=== PATIENT | female | born 1960 | race Caucasian/White ===

== ENCOUNTER → 2017-08-30 16:10 | Outpatient (CLI) | payer MEDICARE, SELFPAY ==
[2017-08-30 17:04] LABS: AST(SGOT) 16 U/L (15-37); Alanine Aminotransfer ALT/SGPT 23 U/L (13-56); Albumin, Serum 3.8 g/dL (3.2-5.0); Alkaline Phosphatase 83 U/L (45-117); Anion Gap 10 (5-15); BUN 11 mg/dL (7-18); BUN/Creat Ratio 9.6 RATIO (10-20); Chloride 110 mmol/L (98-107); Cholesterol 191 mg/dL (200); Creatinine, Serum 1.14 mg/dL (0.55-1.02); EST Glomerular Filtration Rate 52 mL/min (>60); Est Glom Filt Rate - Afr Amer 63 mL/min (>60); Ferritin 6 ng/mL (8-252); Globulin 3.7 g/dL (2.2-4.2); Glucose 87 mg/dL (74-106); High Density Lipoprotein 51 mg/dL; Iron 53 ug/dL (50-170); Iron Binding Capacity,Total 479 ug/dL (250-450); Potassium 3.8 mmol/L (3.5-5.1); Protein, Total 7.5 g/dL (6.4-8.2); Sodium Level 144 mmol/L (136-145); Triglycerides 139 mg/dL; Very Low Density Lipoprotein 28 mg/dL (5-40)
[2017-08-31 09:40] LABS: Vitamin D,25 Hydroxy 9.5 ng/mL (29.95-100.01)
== END ==
PROVIDERS: Family Provider Internal Medicine; PCP Internal Medicine; Visit Provider Internal Medicine
DX: E55.9 Vitamin D deficiency, unspecified (principal); E61.1 Iron deficiency; E78.00 Pure hypercholesterolemia, unspecified; Z79.899 Other long term (current) drug therapy
CPT/HCPCS: 80053; 80061; 82306; 82728; 83540; 83550

== ENCOUNTER → 2017-11-26 07:55 | Outpatient (CLI) | payer MEDICARE, SELFPAY ==
--- NOTE | 2017-11-26 07:55 | DT_ITS ---
This patient was seen during an EMR downtime November 26, 2017 - December 03, 2017. This patient may have a combination of paper and electronic documentation or all paper documentation. All documentation is viewable within the e-chart portion of [employer] for each patient visit.
[2017-11-30 21:48] LABS: AST(SGOT) 27 U/L (15-37); Albumin, Serum 3.3 g/dL (3.2-5.0); BUN 13 mg/dL (7-18); BUN/Creat Ratio 10.2 RATIO (10-20); Calcium,Total 8.3 mg/dL (8.5-10.1); Creatinine, Serum 1.28 mg/dL (0.55-1.02); EST Glomerular Filtration Rate 46 mL/min (>60); Est Glom Filt Rate - Afr Amer 56 mL/min (>60); Globulin 3.2 g/dL (2.2-4.2); Glucose 82 mg/dL (74-106); Protein, Total 6.5 g/dL (6.4-8.2)
[2017-11-30 21:49] LABS: Alanine Aminotransfer ALT/SGPT 23 U/L (13-56); Alkaline Phosphatase 69 U/L (45-117); Anion Gap 6 (5-15); Chloride 114 mmol/L (98-107); Cholesterol 117 mg/dL (200); Ferritin 6 ng/mL (8-252); High Density Lipoprotein 50 mg/dL; Iron 34 ug/dL (50-170); Iron Binding Capacity,Total 361 ug/dL (250-450); Potassium 3.3 mmol/L (3.5-5.1); Sodium Level 147 mmol/L (136-145); Triglycerides 71 mg/dL; Very Low Density Lipoprotein 14 mg/dL (5-40)
[2017-11-30 21:50] LABS: Hematocrit 39.3 % (37-47); Hemoglobin 12.1 g/dl (12.0-15.0); Mean Corp Hgb Conc 30.8 g/gl (32-36); Mean Corpuscular Hgb 28.3 pg (27.0-32.0); Mean Corpuscular Volume 91.8 fL (81-99); Mean Platelet Vol. 10.4 fl (6.2-12.0); Platelet Count 283 K/mm3 (150-450); RBC Distribution Width CV 14.2 % (11.6-14.6); Red Blood Count 4.28 M/mm3 (4.2-5.4); Scan Indicated on CBC? Y/N NO; White Blood Count 5.2 K/mm3 (4.4-11.0)
[2017-12-03 09:29] LABS: Vitamin B12 189 pg/mL (211-911); Vitamin D,25 Hydroxy 13.6 ng/mL (29.95-100.01)
== END ==
PROVIDERS: Family Provider Internal Medicine; PCP Internal Medicine; Visit Provider Internal Medicine
DX: E53.8 Deficiency of other specified B group vitamins (principal); E55.9 Vitamin D deficiency, unspecified; E78.00 Pure hypercholesterolemia, unspecified; R79.0 Abnormal level of blood mineral; Z79.899 Other long term (current) drug therapy
CPT/HCPCS: 80053; 80061; 82306; 82607; 82728; 83540; 83550; 85027

== ENCOUNTER 2018-05-24 18:19 | Observation (INO) | payer MEDICARE, SELFPAY ==
[2018-05-24] VITALS (9 sets, daily range): BP systolic 102–147; BP diastolic 52–81; PULSE 54–66; RESP 14–18; TEMP 35.8–36.8; O2SAT 95–100; BMI 15.5; BMI 17.1
--- NOTE | 2018-05-24 18:51 | EKG12_ITS ---
Test Reason : N/V Blood Pressure : / mmHG Vent. Rate : 055 BPM Atrial Rate : 055 BPM P-R Int : 520 ms QRS Dur : 086 ms QT Int : 570 ms P-R-T Axes : 000 051 252 degrees QTc Int : 545 ms Sinus bradycardia with 1st degree A-V block ST & T wave abnormality, consider inferior ischemia ST & T wave abnormality, consider anterolateral ischemia Prolonged QT Abnormal ECG Confirmed by KIP MARTÍNEZ, DALIA ([id number]), offline editor FRANCESCO VALLE ([id number]) on 05/28/2018 2:06:01 PM Referred By: MATTIE Confirmed By:DALIA SHIN MD
[2018-05-24] MEDS: 0.9% Normal Saline 1,000 ML 1000 ML IV (19:19)
[2018-05-24] MEDS: Ondansetron 4 MG/2 ML Vial IV (19:19)
[2018-05-24 19:47] LABS: Absolute Lymphocyte Count 1.42 X10^3/ul (0.83-4.51); Absolute Neutrophil Count 2.9 X10^3/uL (2.0-7.7); Basophil# 0.04 X10^3/uL; Basophil% 0.8 % (0-1); Eosinophil# 0.07 X10^3/uL; Eosinophils% 1.4 % (0-5); Hematocrit 38.9 % (37-47); Hemoglobin 12.6 g/dl (12.0-15.0); Lymphocyte # 1.42 X10^3/ul (4.0); Lymphocyte % 28.2 % (19-41); Mean Corp Hgb Conc 32.4 g/gl (32-36); Mean Corpuscular Hgb 26.9 pg (27.0-32.0); Mean Corpuscular Volume 83.1 fL (81-99); Mean Platelet Vol. 9.3 fl (6.2-12.0); Monocyte# 0.59 X10^3/uL; Monocyte% 11.7 % (0-10); Neutrophil % 57.7 % (47-70); Platelet Count 240 K/mm3 (150-450); RBC Distribution Width CV 13.8 % (11.6-14.6); RBC Distribution Width SD 41.6 fl (35.1-43.9); Red Blood Count 4.68 M/mm3 (4.2-5.4)
[2018-05-24 19:50] LABS: POSITIVE COUNT NO; POSITIVE DIFFERENTIAL NO; POSITIVE MORPHOLOGY NO
[2018-05-24] MEDS: Ketorolac 15 MG/ML Vial IV ×2 (20:06→21:28)
[2018-05-24 20:08] LABS: AST(SGOT) 13 U/L (15-37); Alanine Aminotransfer ALT/SGPT 15 U/L (13-56); Albumin, Serum 3.3 g/dL (3.2-5.0); Alkaline Phosphatase 85 U/L (45-117); Anion Gap 8 (5-15); BUN 21 mg/dL (7-18); BUN/Creat Ratio 18.1 RATIO (10-20); Bilirubin, Direct 0.12 mg/dL (0.00-0.30); Calcium,Total 8.7 mg/dL (8.5-10.1); Chloride 102 mmol/L (98-107); Creatinine, Serum 1.16 mg/dL (0.55-1.02); EST Glomerular Filtration Rate 51 mL/min (>60); Est Glom Filt Rate - Afr Amer 62 mL/min (>60); Estimated Creatinine Clearance 38.18 ml/min; Globulin 3.7 g/dL (2.2-4.2); Glucose 115 mg/dL (74-106); Potassium 2.5 mmol/L (3.5-5.1); Sodium Level 140 mmol/L (136-145)
[2018-05-24] MEDS: 0.9% Normal Saline 1,000 ML 150 ML IV (20:15)
[2018-05-24 21:08] LABS: Bacteria 0 SEEN /hpf (None Seen)
[2018-05-24 21:13] LABS: Color, Urine Yellow (Yellow); Glucose, Dipstick Normal (Normal); Ketone-Dipstick Negative (Negative); Leukocyte Esterase-Dipstick 25 /ul (Negative); Nitrite-Dipstick Negative (Negative); Occult Blood-Urine Negative /ul (Negative); Protein-Dipstick 15 mg/dl (Negative); Urine Bilirubin Dipstick Negative (Negative); Urine Clarity Cloudy (Clear); Urine Urobilinogen Normal (Normal)
--- NOTE | 2018-05-24 21:15 | ED.VISSUMM ---
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 Patient had worsening symptoms of the past couple of months. She is now had daily syncopal events over the past week or so and increased weight loss. She was seen at the [place] yesterday. Patient's states he received a call today questioning whether her dose of medications may be too high and need to be adjusted. They attempted to get blood work yesterday but could not get blood work from her. Patient denies fever. Physical Examination: Blood pressure is 102/52, temperature 96.4, heart rate 57, respiratory rate 15, pulse ox 95% on room air. Patient is a cachectic appearing female who appears much older than her stated age. Head neck examination reveals dry mucous membranes. Heart is bradycardic and regular. Lung sounds are clear. Abdomen is soft with mild diffuse tenderness. No guarding or rebound. Hypoactive but present bowel sounds are noted. Neuro exam reveals no focal deficits. Test Results: CBC is unremarkable. Chemistry studies are significant for potassium of 2.5, BUN 21, creatinine 1.16. LFTs are normal. Urinalysis is pending at this time. Emergency Department Course and Treatment: Patient is given IV fluids, Zofran, and Toradol. Upon completion of lab work 40 mEq of IV potassium are ordered. Patient will be admitted for further hydration and potassium replacement. Treatment Plan: [] Disposition: Admit Impression: 1. Hypokalemia 2. Syncope 3. History of Shy-Drager syndrome This note was generated with [employer] dictation software. It may contain incorrect words, spelling, and punctuation that were not noted in review of the chart prior to signing ED Disposition - Plan for ED Patient: Chief Complaint: Nausea/Vomiting/Diarrhea Referrals: Nena Velez MD [Primary Care Provider] -
--- NOTE | 2018-05-24 21:18 | ED.DCSUM_ITS ---
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 Patient had worsening symptoms of the past couple of months. She is now had daily syncopal events over the past week or so and increased weight loss. She was seen at the [place] yesterday. Patient's states he received a call today questioning whether her dose of medications may be too high and need to be adjusted. They attempted to get blood work yesterday but could not get blood work from her. Patient denies fever. Physical Examination: Blood pressure is 102/52, temperature 96.4, heart rate 57, respiratory rate 15, pulse ox 95% on room air. Patient is a cachectic appearing female who appears much older than her stated age. Head neck examination reveals dry mucous membranes. Heart is bradycardic and regular. Lung sounds are clear. Abdomen is soft with mild diffuse tenderness. No guarding or rebound. Hypoactive but present bowel sounds are noted. Neuro exam reveals no focal deficits. Test Results: CBC is unremarkable. Chemistry studies are significant for potassium of 2.5, BUN 21, creatinine 1.16. LFTs are normal. Urinalysis is pending at this time. Emergency Department Course and Treatment: Patient is given IV fluids, Zofran, and Toradol. Upon completion of lab work 40 mEq of IV potassium are ordered. Patient will be admitted for further hydration and potassium replacement. Treatment Plan: [] Disposition: Admit Impression: 1. Hypokalemia 2. Syncope 3. History of Shy-Drager syndrome This note was generated with [employer] dictation software. It may contain incorrect words, spelling, and punctuation that were not noted in review of the chart prior to signing ED Disposition - Plan for ED Patient: Chief Complaint: Nausea/Vomiting/Diarrhea Referrals: Nena Velez MD [Primary Care Provider] -
[2018-05-24 21:21] LABS: Hyaline Cast 0-5 SEEN /lpf (0-5)
[2018-05-24 21:23] LABS: Mucous, Urine 1+ /hpf (<or=2+)
[2018-05-24 21:24] LABS: White Blood Cells 0-5 SEEN /hpf (0-5)
[2018-05-24 21:25] LABS: Amorphous Sediment 2+; Red Blood Cells-Urine 0-5 SEEN /hpf (0-5); Transitional Epithelial - Ur 0-5 SEEN /hpf (0-5)
[2018-05-24 21:26] LABS: Squamous Epithelial Cells - UA 0-5 SEEN /hpf (5-10)
--- NOTE | 2018-05-24 21:33 | HP.PCM_ITS ---
Problem List (1) Syncope Status: Acute (2) Chronic back pain Status: Chronic (3) Fibromyalgia Status: Chronic (4) GERD (gastroesophageal reflux disease) Status: Chronic (5) Shy-Drager syndrome Status: Chronic (6) Tobacco use disorder Status: Chronic History of Present Illness Date of Admission: 05/24/18 Chief Complaint: nausea, vomiting, diarrhea and syncope The patient is a 57 year old F with a significant history of factor V Leiden deficiency; A. fib; sinus bradycardia; fibromyalgia; Shy-Drager syndrome; Arnold-Chiari malformation status post surgery; GERD; malabsorption disorder; tobacco use disorder; chronic back pain; and neuropathy who presented with worsening nausea, vomiting; diarrhea; and multiple episodes of syncope for the last 2 days. Patient reports that her presenting symptoms are not new but in the last 2 days this has worsened. At emergency department patient was found to have a potassium of 2.5. Potassium IV was ordered from the emergency department. Past Medical History Past Medical History (Chronic Problems): Chronic Problems Fibromyalgia (Chronic) GERD (gastroesophageal reflux disease) (Chronic) Shy-Drager syndrome (Chronic) Tobacco use disorder (Chronic) Chronic back pain (Chronic) Neuropathy (Chronic) Allergies codeine Allergy (Verified 05/24/18 18:19) Unknown duloxetine HCl [From Cymbalta] Allergy (Verified 05/24/18 18:19) Nausea/Vom/Diarrhea influenza virus vaccine, specific [Influenza Virus Vacc,Specific] Allergy (Verified 05/24/18 18:19) Other pineapple [Pineapple] Allergy (Verified 05/24/18 18:19) Rash pregabalin [From Lyrica] Allergy (Verified 05/24/18 18:19) Shortness of breath amitriptyline Adverse Reaction (Verified 05/24/18 18:19) Other hydrocodone Adverse Reaction (Verified 05/24/18 18:19) Vomiting levofloxacin [From Levaquin] Adverse Reaction (Verified 05/24/18 18:19) Nausea/Vom/Diarrhea Home Medications: Ambulatory Orders Medication Instructions Recorded Mexiletine HCl 250 mg PO BID 07/11/13 Tizanidine HCl [Zanaflex] 8 mg PO TID 07/11/13 Topiramate [Topamax] 75 mg PO TID 07/11/13 traMADol [Ultram] 200 mg PO TID 07/11/13 Albuterol Aerosols [Ventolin 2.5 mg INHALATION BID PRN 06/01/14 Aerosols] Albuterol Sulfate [Proventil Hfa] 6.7 gm IH DAILY PRN PRN 06/01/14 Aspirin [Aspirin, Baby] 81 mg PO QHS 06/01/14 Ergocalciferol [Vitamin D] 50,000 unit PO Q7D 06/01/14 Lidocaine [Lidoderm Patch] 1 patch TOPICAL DAILY PRN PRN 06/01/14 Lorazepam [Ativan] 1 mg PO TID 06/01/14 Cyanocobalamin [Vitamin B12] 100 mcg SC .COMPLEX 06/09/14 Ferrous Sulfate [Iron Supplement] 325 mg PO DAILY 06/09/14 Folic Acid 1 mg PO DAILY@0800 06/09/14 Hydrocortisone 5 mg PO TID 06/09/14 Mirtazapine [Remeron] 45 mg PO QHS 06/09/14 hydrOXYzine pamoate capsule 25 mg PO TID 06/09/14 [Vistaril] Atomoxetine HCl [Strattera] 50 mg PO DAILY 05/24/18 Dextroamphetamine/Amphetamine 10 mg PO BID 05/24/18 [Adderall 10 mg Tablet] Omeprazole 40 mg PO BID 05/24/18 traZODone [Desyrel] 50 mg PO QHS 05/24/18 Atorvastatin Calcium 40 mg PO 05/25/18 Ramelteon [Rozerem] 8 mg PO QHS 05/25/18 Surgical History: appendectomy, cholecystectomy, hysterectomy, - - Arnold-Chiari malformation surgery; expiratory laparoscopy x3; left oophorectomy; and right tuboplasty. Smoking Status: Current every day smoker Review of Systems Constitutional: Reports: Weight Change - Reportedly she lost about 20 pounds in 3 months.. Denies: Chills, Fever HEENT: Denies: Head Aches, Sinus Congestion, Sinus Drainage Cardiovascular: Reports: Syncope. Denies: Chest Pain, Palpitations Respiratory: Denies: Cough, Shortness of breath at rest, Sputum production Gastrointestinal: Reports: Abdominal Pain, Diarrhea, Nausea, Vomiting Genitourinary: Denies: Dysuria Musculoskeletal: Denies: Joint Pain, Joint Tenderness Skin: Denies: Rash, Wounds Neurological: Denies: Numbness, Tingling, Focal weakness Psychiatric: Denies: Anxiety, Depression, Homicidal Ideations, Suicidal Ideations Hematologic/ Lymphatic: Denies: Easy Bruising, Easy Bleeding VTE Information - Inpt Only VTE Present on Admission: No VTE Mechan Device Prophylaxis: None VTE Pharm Prophylaxis ordered?: Yes Patient Problems: Active and Suspected Problems Syncope (Acute) - Physical Exam General: Alert, Oriented x3, Cooperative, - - Cachectic HEENT: Atraumatic, PERRLA, EOMI, Normocephalic Neck: Supple, No JVD, Negative Carotid Bruits Lungs: Clear to auscultation, Normal air movement Cardiovascular: Regular rate, No murmurs Abdomen: Bowel Sounds Present, Soft, Tender, - - Healed abdominal scars present. Extremities: No edema, Capillary Refill Less than 3 Seconds Skin: No rashes, No breakdown Musculoskeletal: Cachexia Neurological: Neuro grossly intact Psych/Mental Status: Normal Affect, Appropriate Vital Signs Temp Pulse Resp BP Pulse Ox 96.4 F L 54 L 16 135/80 H 100 05/24/18 18:20 05/24/18 20:51 05/24/18 20:51 05/24/18 20:51 05/24/18 20:51 Oxygen Delivery Method Room Air Weight: 45.2 kg Body Mass Index (BMI) 15.5 Laboratory Tests Past 24 Hrs 05/24/18 05/24/18 05/24/18 19:18 19:18 19:18 WBC 5.0 RBC 4.68 Hgb 12.6 Hct 38.9 MCV 83.1 MCH 26.9 L MCHC 32.4 RDW 13.8 RDW Differential 41.6 Plt Count 240 MPV 9.3 Immature Gran % (Auto) 0.200 Neut % (Auto) 57.7 Lymph % (Auto) 28.2 [place] % (Auto) 11.7 H Eos % (Auto) 1.4 Baso % (Auto) 0.8 Absolute Neuts (auto) 2.9 Absolute Lymphs (auto) 1.42 Total Counted Not Reportable Sodium 140 Potassium 2.5 L* Chloride 102 Carbon Dioxide 30.0 Anion Gap 8 BUN 21 H Creatinine 1.16 H Estim Creat Clear Calc 38.18 Est GFR (MDRD) Af Amer 62 Est GFR (MDRD) Non-Af 51 L BUN/Creatinine Ratio 18.1 Glucose 115 H Calcium 8.7 Total Bilirubin 0.30 Direct Bilirubin 0.12 AST 13 L ALT 15 Alkaline Phosphatase 85 Total Protein 7.0 Albumin 3.3 Globulin 3.7 Urine Color Urine Clarity Urine pH Ur Specific [place] Urine Protein Urine Glucose (UA) Urine Ketones Urine Occult Blood Urine Nitrite Urine Bilirubin Urine Urobilinogen Ur Leukocyte Esterase Urine RBC Urine WBC Ur Squamous Epith Cells Ur Transition Epith Cell Amorphous Sediment Urine Bacteria Hyaline Casts Urine Mucus Topiramate Pending 05/24/18 20:50 WBC RBC Hgb Hct MCV MCH MCHC RDW RDW Differential Plt Count MPV Immature Gran % (Auto) Neut % (Auto) Lymph % (Auto) [place] % (Auto) Eos % (Auto) Baso % (Auto) Absolute Neuts (auto) Absolute Lymphs (auto) Total Counted Sodium Potassium Chloride Carbon Dioxide Anion Gap BUN Creatinine Estim Creat Clear Calc Est GFR (MDRD) Af Amer Est GFR (MDRD) Non-Af BUN/Creatinine Ratio Glucose Calcium Total Bilirubin Direct Bilirubin AST ALT Alkaline Phosphatase Total Protein Albumin Globulin Urine Color Yellow Urine Clarity Cloudy Urine pH 8.0 Ur Specific [place] 1.010 Urine Protein 15 H Urine Glucose (UA) Normal Urine Ketones Negative Urine Occult Blood Negative Urine Nitrite Negative Urine Bilirubin Negative Urine Urobilinogen Normal Ur Leukocyte Esterase 25 H Urine RBC 0-5 SEEN Urine WBC 0-5 SEEN Ur Squamous Epith Cells 0-5 SEEN Ur Transition Epith Cell 0-5 SEEN Amorphous Sediment 2+ Urine Bacteria 0 SEEN Hyaline Casts 0-5 SEEN Urine Mucus 1+ Topiramate Assessment/Plan All Active Problems Syncope (Acute) The patient is a 57 year old F with a significant history of factor V Leiden deficiency; A. fib; sinus bradycardia; fibromyalgia; Shy-Drager syndrome; Arnold-Chiari malformation status post surgery; GERD; malabsorption disorder; tobacco use disorder; chronic back pain; and neuropathy who presented with worsening nausea, vomiting; diarrhea; and multiple episodes of syncope for the last 2 days; and found to have hypokalemia. Syncope Likely from her Shy-Drager Syndrome and from her vomiting and diarrhea. Received normal saline IV fluid bolus at emergency department and maintenance normal saline was started in the emergency department. Because of hypokalemia we will start patient on lactated Ringer's with 40 of potassium going at 150 mL's per hour. Home hydrocortisone continued. Intractable nausea vomiting and diarrhea. Patient reports malabsorption syndrome for which she saw Dr. Khanna in the past. IV fluids as above. Hypokalemia On presentation her potassium was 2.5. Likely due to vomiting and diarrhea and malabsorption syndrome. IV potassium was ordered from the emergency department; continued Potassium 40 mEq p.o. twice daily Lactated Ringer's with 40 of potassium going at 150 mL's per hour. Trend BMP. Depression Patient reports that his drowned and he attempted to save him in the pond but he still . Also patient reported that her daughter is in longterm; and patient has 2 special needs children who were at bedside. Supportive listening provided. Remeron continued Anxiety Vistaril continued. Fibromyalgia Patient reports generalized pain. Received Toradol at emergency department. Patient was asking for more Toradol. However because of CKD stage 3a Toradol will not be ordered at this time As needed Tylenol ordered. Home Ultram continued. Tobacco use disorder Counselled Refused nicotine patch Miscellaneous: Patient reported that she has a history of iron deficiency anemia for which reason she was supposed to be started on IV iron at home. She was requesting that IV iron be started inpatient. On admission her hemoglobin and hematocrit is normal. Her MCH is slightly low but almost normal. Per patient request we will do iron studies. DVT prophylaxis Subcutaneous heparin. Code Visit OBSV E&M: 05346 Initial observation care L3
[2018-05-24 22:40] LABS: Ferritin 9 ng/mL (8-252); Iron 47 ug/dL (50-170); Iron Binding Capacity,Total 359 ug/dL (250-450); PERCENT IRON SATURATION 13.1 % (15.0-55.0)
[2018-05-24 23:00] LABS: Thyroid Stim Hormone (TSH) 2.43 uIU/mL (0.358-3.74)
[2018-05-25] VITALS (8 sets, daily range): BP systolic 94–133; BP diastolic 62–70; PULSE 53–73; RESP 14–20; TEMP 36.6–37.1; O2SAT 92–97
[2018-05-25] MEDS: Topiramate 25 MG Tablet 75 MG PO ×2 (00:06→05:38)
[2018-05-25] MEDS: traZODone 50 MG Tablet PO (00:06)
[2018-05-25] MEDS: tiZANidine HCl 2 MG Tablet 8 MG PO ×2 (00:06→05:39)
[2018-05-25] MEDS: hydrOXYzine PAM 25 MG Capsule PO ×2 (00:07→05:40)
[2018-05-25] MEDS: Mirtazapine 15 MG Tablet 45 MG PO (00:07)
[2018-05-25] MEDS: traMADol 50 MG Tablet 200 MG PO ×2 (00:28→05:39)
[2018-05-25] MEDS: LORazepam 1 MG Tablet PO ×2 (00:28→05:39)
[2018-05-25] MEDS: Albuterol 2.5 MG/3 ML VIAL.NEB. INHALATION (05:24)
[2018-05-25] MEDS: Heparin Injection (Vial) 5,000 UNIT/ML VIAL 5000 UNIT SC (05:42)
[2018-05-25 07:10] LABS: Hematocrit 32.2 % (37-47); Hemoglobin 10.1 g/dl (12.0-15.0)
[2018-05-25 07:33] LABS: Anion Gap 6 (5-15); BUN 18 mg/dL (7-18); BUN/Creat Ratio 17.8 RATIO (10-20); Calcium,Total 8.1 mg/dL (8.5-10.1); Chloride 114 mmol/L (98-107); Creatinine, Serum 1.01 mg/dL (0.55-1.02); EST Glomerular Filtration Rate 60 mL/min (>60); Est Glom Filt Rate - Afr Amer 72 mL/min (>60); Estimated Creatinine Clearance 48.12 ml/min; Glucose 103 mg/dL (74-106); Potassium 4.1 mmol/L (3.5-5.1); Sodium Level 145 mmol/L (136-145)
[2018-05-25] MEDS: Hydrocortisone 10 MG Tablet 5 MG PO (09:10)
[2018-05-25] MEDS: Ferrous Sulfate 325 MG Tablet PO (09:10)
[2018-05-25] MEDS: Pantoprazole Sodium 40 MG Tablet PO (09:10)
[2018-05-25] MEDS: Folic Acid 1 MG Tablet PO (09:10)
[2018-05-25 09:33] LABS: Magnesium 1.6 mg/dL (1.6-2.6); Phosphorus 2.9 mg/dL (2.5-4.9)
--- NOTE | 2018-05-25 12:30 | DCINST_ITS ---
- Discharge Diagnoses Current Active Problems: Current Active and Chronic Problems Syncope (Acute) You will use the following diet at home:: No restrictions Your food should be the consistency of: Regular Your liquids should be the consistency of: Regular/Thin Discharge Activity: Return to Normal Activity Allergies/Adverse Reactions: Allergies codeine Allergy (Verified 05/24/18 22:54) syncope duloxetine HCl [From Cymbalta] Allergy (Verified 05/24/18 18:19) Nausea/Vom/Diarrhea influenza virus vaccine, specific [Influenza Virus Vacc,Specific] Allergy (Verified 05/24/18 22:54) syncope pineapple [Pineapple] Allergy (Verified 05/24/18 18:19) Rash pregabalin [From Lyrica] Allergy (Verified 05/24/18 18:19) Shortness of breath amitriptyline Adverse Reaction (Verified 05/24/18 18:19) Other hydrocodone Adverse Reaction (Verified 05/24/18 18:19) Vomiting levofloxacin [From Levaquin] Adverse Reaction (Verified 05/24/18 18:19) Nausea/Vom/Diarrhea Medications to take at Discharge Mexiletine HCl 250 mg PO BID 07/11/13 Tizanidine HCl [Zanaflex] 8 mg PO TID 07/11/13 Topiramate [Topamax] 75 mg PO TID 07/11/13 traMADol [Ultram] 200 mg PO TID 07/11/13 Albuterol Aerosols [Ventolin Aerosols] 2.5 mg INHALATION BID PRN 06/01/14 Albuterol Sulfate [Proventil Hfa] 6.7 gm IH DAILY PRN PRN 06/01/14 Aspirin [Aspirin, Baby] 81 mg PO QHS 06/01/14 Ergocalciferol [Vitamin D] 50,000 unit PO Q7D 06/01/14 Lidocaine [Lidoderm Patch] 1 patch TOPICAL DAILY PRN PRN 06/01/14 Lorazepam [Ativan] 1 mg PO TID 06/01/14 Cyanocobalamin [Vitamin B12] 100 mcg SC .COMPLEX 06/09/14 Ferrous Sulfate [Iron Supplement] 325 mg PO DAILY 06/09/14 Folic Acid 1 mg PO DAILY@0800 06/09/14 Hydrocortisone 5 mg PO TID 06/09/14 Mirtazapine [Remeron] 45 mg PO QHS 06/09/14 hydrOXYzine pamoate capsule [Vistaril pamoate capsule] 25 mg PO TID 06/09/14 Atomoxetine HCl [Strattera] 50 mg PO DAILY 05/24/18 Dextroamphetamine/Amphetamine [Adderall 10 mg Tablet] 10 mg PO BID 05/24/18 Omeprazole 40 mg PO BID 05/24/18 traZODone [Desyrel] 50 mg PO QHS 05/24/18 Atorvastatin Calcium 40 mg PO 05/25/18 Ondansetron [Zofran Odt] 4 mg PO Q8H PRN PRN #21 tab.rapdis 05/25/18 Ramelteon [Rozerem] 8 mg PO QHS 05/25/18 The following prescriptions were given: Ondansetron [Zofran Odt] 4 mg PO Q8H PRN PRN #21 tab.rapdis PRN Reason: Nausea Primary Care Physician: Nena Velez MD [Primary Care Provider] - Please follow up with your Primary Care Physician in: 1-2 weeks Test Results: Test results from this visit will be discussed in further detail at your follow- up appointment, if applicable. Proposed Discharge Date: 05/25/18
[2018-05-25] MEDS: Magnesium Oxide 400 MG Tablet 800 MG PO (13:26)
--- NOTE | 2018-05-25 15:06 | DS.PCM_ITS ---
<Surinder Garcia - Last Filed: 05/25/18 15:06> Discharge Date and Diagnosis Date of Admission: 05/24/18 Date of Discharge: 05/25/18 - Primary Discharge Diagnosis Syncope 2/2 dehydration and hypokalemia Shy-Drager syndrome Fibromyalgia HLD GERD Iron deficiency anemia Factor V leiden Arnold-Chiari malformation s/p surgery - Secondary Discharge Diagnosis Chronic Problems Fibromyalgia (Chronic) GERD (gastroesophageal reflux disease) (Chronic) Shy-Drager syndrome (Chronic) Tobacco use disorder (Chronic) Chronic back pain (Chronic) Neuropathy (Chronic) Hospital Course and Treatment Operations: None Procedures: None Summary of Care Provided: Hospital Course: The patient is a 57 year old F with pmhx as above who presented to the ER after experiencing syncope at home multiple times for 2 days. She has been more nauseous with increased vomiting and diarrhea at home for several days as well. She has chronic diarrhea, vomiting, and dizziness - stating that this has gone on her whole life - however it was worse for 2 days. She was found to be hypokalemic in the ER. She was given IV fluids and potassium and admitted to the PCU. The following morning potassium was normalized. She was found to be iron deficient as well and given venofer x 1 while here. Mag was mildlylow, this was repleted orally. Phos was normal. TSH was normal, UA was normal. The following day the patient felt that she was back to her baseline, and not more dizzy or LH than normal. She did request zofran for home as she was been more nauseous lately, and a prescription was sent. She was discharged home in stable condition and will need to follow up with her PCP in 1-2 weeks. This patient was seen by Surinder Garcia PA-C under the supervision of Dr. Goldman. [] - Physical Exam General: Alert, Oriented x3, Cooperative HEENT: Atraumatic, PERRLA, EOMI, Normocephalic Neck: Supple, No JVD, Negative Carotid Bruits Lungs: Clear to auscultation, Normal air movement Cardiovascular: Regular rate, No murmurs Abdomen: Bowel Sounds Present, Soft, Non Tender Extremities: No edema, Capillary Refill Less than 3 Seconds Skin: No rashes, No breakdown Musculoskeletal: No Tenderness to Palpation of Joints or Extremities Neurological: Cranial nerves II-XII grossly intact Psych/Mental Status: Normal Affect, Appropriate, Alert and oriented to time, place, person, mood and affect Vital Signs Temp Pulse Resp BP Pulse Ox 98 F 65 16 133/69 H 96 05/25/18 09:05 05/25/18 11:09 05/25/18 09:05 05/25/18 09:05 05/25/18 09:05 Oxygen Delivery Method Room Air Weight: 109 lb 5.588 oz Body Mass Index (BMI) 17.1 Intake and Output for Last 24 Hours 05/23/18 05/24/18 05/25/18 23:59 23:59 23:59 Intake Total 1865.9 / 1865.9 Output Total 600 / 600 Balance 1265.9 / 1265.9 Laboratory Tests Past 24 Hrs 05/24/18 05/24/18 05/24/18 19:18 19:18 19:18 WBC 5.0 RBC 4.68 Hgb 12.6 Hct 38.9 MCV 83.1 MCH 26.9 L MCHC 32.4 RDW 13.8 RDW Differential 41.6 Plt Count 240 MPV 9.3 Immature Gran % (Auto) 0.200 Neut % (Auto) 57.7 Lymph % (Auto) 28.2 [place] % (Auto) 11.7 H Eos % (Auto) 1.4 Baso % (Auto) 0.8 Absolute Neuts (auto) 2.9 Absolute Lymphs (auto) 1.42 Total Counted Not Reportable Sodium 140 Potassium 2.5 L* Chloride 102 Carbon Dioxide 30.0 Anion Gap 8 BUN 21 H Creatinine 1.16 H Estim Creat Clear Calc 38.18 Est GFR (MDRD) Af Amer 62 Est GFR (MDRD) Non-Af 51 L BUN/Creatinine Ratio 18.1 Glucose 115 H Calcium 8.7 Phosphorus Magnesium Iron TIBC Iron Saturation Ferritin Total Bilirubin 0.30 Direct Bilirubin 0.12 AST 13 L ALT 15 Alkaline Phosphatase 85 Total Protein 7.0 Albumin 3.3 Globulin 3.7 TSH Urine Color Urine Clarity Urine pH Ur Specific [place] Urine Protein Urine Glucose (UA) Urine Ketones Urine Occult Blood Urine Nitrite Urine Bilirubin Urine Urobilinogen Ur Leukocyte Esterase Urine RBC Urine WBC Ur Squamous Epith Cells Ur Transition Epith Cell Amorphous Sediment Urine Bacteria Hyaline Casts Urine Mucus Topiramate Pending 05/24/18 05/24/18 05/24/18 19:18 19:18 20:50 WBC RBC Hgb Hct MCV MCH MCHC RDW RDW Differential Plt Count MPV Immature Gran % (Auto) Neut % (Auto) Lymph % (Auto) [place] % (Auto) Eos % (Auto) Baso % (Auto) Absolute Neuts (auto) Absolute Lymphs (auto) Total Counted Sodium Potassium Chloride Carbon Dioxide Anion Gap BUN Creatinine Estim Creat Clear Calc Est GFR (MDRD) Af Amer Est GFR (MDRD) Non-Af BUN/Creatinine Ratio Glucose Calcium Phosphorus Magnesium Iron 47 L TIBC 359 Iron Saturation 13.1 L Ferritin 9 Total Bilirubin Direct Bilirubin AST ALT Alkaline Phosphatase Total Protein Albumin Globulin TSH 2.43 Urine Color Yellow Urine Clarity Cloudy Urine pH 8.0 Ur Specific [place] 1.010 Urine Protein 15 H Urine Glucose (UA) Normal Urine Ketones Negative Urine Occult Blood Negative Urine Nitrite Negative Urine Bilirubin Negative Urine Urobilinogen Normal Ur Leukocyte Esterase 25 H Urine RBC 0-5 SEEN Urine WBC 0-5 SEEN Ur Squamous Epith Cells 0-5 SEEN Ur Transition Epith Cell 0-5 SEEN Amorphous Sediment 2+ Urine Bacteria 0 SEEN Hyaline Casts 0-5 SEEN Urine Mucus 1+ Topiramate 05/25/18 05/25/18 05/25/18 06:33 06:33 06:33 WBC RBC Hgb 10.1 L Hct 32.2 L MCV MCH MCHC RDW RDW Differential Plt Count MPV Immature Gran % (Auto) Neut % (Auto) Lymph % (Auto) [place] % (Auto) Eos % (Auto) Baso % (Auto) Absolute Neuts (auto) Absolute Lymphs (auto) Total Counted Sodium 145 Potassium 4.1 Chloride 114 H Carbon Dioxide 25.0 Anion Gap 6 BUN 18 Creatinine 1.01 Estim Creat Clear Calc 48.12 Est GFR (MDRD) Af Amer 72 Est GFR (MDRD) Non-Af 60 BUN/Creatinine Ratio 17.8 Glucose 103 Calcium 8.1 L Phosphorus 2.9 Magnesium 1.6 Iron TIBC Iron Saturation Ferritin Total Bilirubin Direct Bilirubin AST ALT Alkaline Phosphatase Total Protein Albumin Globulin TSH Urine Color Urine Clarity Urine pH Ur Specific [place] Urine Protein Urine Glucose (UA) Urine Ketones Urine Occult Blood Urine Nitrite Urine Bilirubin Urine Urobilinogen Ur Leukocyte Esterase Urine RBC Urine WBC Ur Squamous Epith Cells Ur Transition Epith Cell Amorphous Sediment Urine Bacteria Hyaline Casts Urine Mucus Topiramate Discharge Diet: No Restrictions Discharge Activity: Return to Normal Activity Home Medications: Medications to take at Discharge Mexiletine HCl 250 mg PO BID 07/11/13 Tizanidine HCl [Zanaflex] 8 mg PO TID 07/11/13 Topiramate [Topamax] 75 mg PO TID 07/11/13 traMADol [Ultram] 200 mg PO TID 07/11/13 Albuterol Aerosols [Ventolin Aerosols] 2.5 mg INHALATION BID PRN 06/01/14 Albuterol Sulfate [Proventil Hfa] 6.7 gm IH DAILY PRN PRN 06/01/14 Aspirin [Aspirin, Baby] 81 mg PO QHS 06/01/14 Ergocalciferol [Vitamin D] 50,000 unit PO Q7D 06/01/14 Lidocaine [Lidoderm Patch] 1 patch TOPICAL DAILY PRN PRN 06/01/14 Lorazepam [Ativan] 1 mg PO TID 06/01/14 Cyanocobalamin [Vitamin B12] 100 mcg SC .COMPLEX 06/09/14 Ferrous Sulfate [Iron Supplement] 325 mg PO DAILY 06/09/14 Folic Acid 1 mg PO DAILY@0800 06/09/14 Hydrocortisone 5 mg PO TID 06/09/14 Mirtazapine [Remeron] 45 mg PO QHS 06/09/14 hydrOXYzine pamoate capsule [Vistaril pamoate capsule] 25 mg PO TID 06/09/14 Atomoxetine HCl [Strattera] 50 mg PO DAILY 05/24/18 Dextroamphetamine/Amphetamine [Adderall 10 mg Tablet] 10 mg PO BID 05/24/18 Omeprazole 40 mg PO BID 05/24/18 traZODone [Desyrel] 50 mg PO QHS 05/24/18 Atorvastatin Calcium 40 mg PO 05/25/18 Ondansetron [Zofran Odt] 4 mg PO Q8H PRN PRN #21 tab.rapdis 05/25/18 Ramelteon [Rozerem] 8 mg PO QHS 05/25/18 Following Prescrptions Were Given to Patient: Ondansetron [Zofran Odt] 4 mg PO Q8H PRN PRN #21 tab.rapdis PRN Reason: Nausea Primary Care Physician: Nena Velez MD [Primary Care Provider] - Please follow up with your Primary Care Physician in: 1-2 weeks Disposition: Home Minutes spent on discharge:: 35 Patient Condition:: Stable Medical Necessity - Tobacco Use Smoking Status: Current every day smoker Meaningful Use Info Meaningful Use Diagnoses (Choose all that apply): None applicable <Genia Goldman E - Last Filed: 05/25/18 15:24> Discharge Date and Diagnosis - Secondary Discharge Diagnosis Chronic Problems Fibromyalgia (Chronic) GERD (gastroesophageal reflux disease) (Chronic) Shy-Drager syndrome (Chronic) Tobacco use disorder (Chronic) Chronic back pain (Chronic) Neuropathy (Chronic) Hospital Course and Treatment Summary of Care Provided: Hospitalist note: Discharge summary above reviewed and I agree with above discharge plan. Patient admitted for recurrent syncope in context of history of Shy-Drager syndrome with history of recurrent syncope at home. During this admission, the syncope attributed to dehydration and severe hypokalemia. Her EKG revealed normal sinus rhythm without evidence of acute ischemic changes or cardiac arrhythmias. On admission, her potassium was very low at 2.5 which is attributed to her nausea and vomiting. She was treated with IV fluids and aggressive potassium replacement. With IV fluids and potassium placement, her symptoms improved as well as her vital signs. Her blood pressure stabilized as well as her heart rate. Her orthostatic vitals were normal. Patient discharged home in a stable medical condition, continued on her home medications without any changes, recommended follow-up with PCP in 1-2 weeks. - Physical Exam General: Alert, Oriented x3, Cooperative, No apparent distress. HEENT: Atraumatic, PERRLA, EOMI. Neck: Supple, No JVD, Negative Carotid Bruits, Trachea Midline, Thyroid Normal. Lungs: Clear to auscultation, Normal air movement, No rhonchi, No wheeze, No rales. Cardiovascular: Regular rate, Regular Rhythm, Normal S1, Normal S2, PMI Normal. Abdomen: Bowel Sounds Present, Soft, Non Tender, Non-Distended, No Hepato- splenomegaly. Extremities: No clubbing, No cyanosis, No edema Skin: No rashes, No breakdown Neurological: Neuro grossly intact Vital Signs are stable. This note was generated with [employer] dictation software. It may contain incorrect words, spelling, and punctuation that were not noted in checking the note before signing. - Physical Exam Vital Signs Temp Pulse Resp BP Pulse Ox 98 F 65 16 133/69 H 96 12/01/18 09:05 05/25/18 11:09 05/25/18 09:05 05/25/18 09:05 05/25/18 09:05 Oxygen Delivery Method Room Air Weight: 109 lb 5.588 oz Body Mass Index (BMI) 17.1 Intake and Output for Last 24 Hours 05/23/18 05/24/18 05/25/18 23:59 23:59 23:59 Intake Total 1865.9 / 1865.9 Output Total 600 / 600 Balance 1265.9 / 1265.9 Laboratory Tests Past 24 Hrs 05/24/18 05/24/18 05/24/18 19:18 19:18 19:18 WBC 5.0 RBC 4.68 Hgb 12.6 Hct 38.9 MCV 83.1 MCH 26.9 L MCHC 32.4 RDW 13.8 RDW Differential 41.6 Plt Count 240 MPV 9.3 Immature Gran % (Auto) 0.200 Neut % (Auto) 57.7 Lymph % (Auto) 28.2 [place] % (Auto) 11.7 H Eos % (Auto) 1.4 Baso % (Auto) 0.8 Absolute Neuts (auto) 2.9 Absolute Lymphs (auto) 1.42 Total Counted Not Reportable Sodium 140 Potassium 2.5 L* Chloride 102 Carbon Dioxide 30.0 Anion Gap 8 BUN 21 H Creatinine 1.16 H Estim Creat Clear Calc 38.18 Est GFR (MDRD) Af Amer 62 Est GFR (MDRD) Non-Af 51 L BUN/Creatinine Ratio 18.1 Glucose 115 H Calcium 8.7 Phosphorus Magnesium Iron TIBC Iron Saturation Ferritin Total Bilirubin 0.30 Direct Bilirubin 0.12 AST 13 L ALT 15 Alkaline Phosphatase 85 Total Protein 7.0 Albumin 3.3 Globulin 3.7 TSH Urine Color Urine Clarity Urine pH Ur Specific [place] Urine Protein Urine Glucose (UA) Urine Ketones Urine Occult Blood Urine Nitrite Urine Bilirubin Urine Urobilinogen Ur Leukocyte Esterase Urine RBC Urine WBC Ur Squamous Epith Cells Ur Transition Epith Cell Amorphous Sediment Urine Bacteria Hyaline Casts Urine Mucus Topiramate Pending 05/24/18 05/24/18 05/24/18 19:18 19:18 20:50 WBC RBC Hgb Hct MCV MCH MCHC RDW RDW Differential Plt Count MPV Immature Gran % (Auto) Neut % (Auto) Lymph % (Auto) [place] % (Auto) Eos % (Auto) Baso % (Auto) Absolute Neuts (auto) Absolute Lymphs (auto) Total Counted Sodium Potassium Chloride Carbon Dioxide Anion Gap BUN Creatinine Estim Creat Clear Calc Est GFR (MDRD) Af Amer Est GFR (MDRD) Non-Af BUN/Creatinine Ratio Glucose Calcium Phosphorus Magnesium Iron 47 L TIBC 359 Iron Saturation 13.1 L Ferritin 9 Total Bilirubin Direct Bilirubin AST ALT Alkaline Phosphatase Total Protein Albumin Globulin TSH 2.43 Urine Color Yellow Urine Clarity Cloudy Urine pH 8.0 Ur Specific [place] 1.010 Urine Protein 15 H Urine Glucose (UA) Normal Urine Ketones Negative Urine Occult Blood Negative Urine Nitrite Negative Urine Bilirubin Negative Urine Urobilinogen Normal Ur Leukocyte Esterase 25 H Urine RBC 0-5 SEEN Urine WBC 0-5 SEEN Ur Squamous Epith Cells 0-5 SEEN Ur Transition Epith Cell 0-5 SEEN Amorphous Sediment 2+ Urine Bacteria 0 SEEN Hyaline Casts 0-5 SEEN Urine Mucus 1+ Topiramate 05/25/18 05/25/18 05/25/18 06:33 06:33 06:33 WBC RBC Hgb 10.1 L Hct 32.2 L MCV MCH MCHC RDW RDW Differential Plt Count MPV Immature Gran % (Auto) Neut % (Auto) Lymph % (Auto) [place] % (Auto) Eos % (Auto) Baso % (Auto) Absolute Neuts (auto) Absolute Lymphs (auto) Total Counted Sodium 145 Potassium 4.1 Chloride 114 H Carbon Dioxide 25.0 Anion Gap 6 BUN 18 Creatinine 1.01 Estim Creat Clear Calc 48.12 Est GFR (MDRD) Af Amer 72 Est GFR (MDRD) Non-Af 60 BUN/Creatinine Ratio 17.8 Glucose 103 Calcium 8.1 L Phosphorus 2.9 Magnesium 1.6 Iron TIBC Iron Saturation Ferritin Total Bilirubin Direct Bilirubin AST ALT Alkaline Phosphatase Total Protein Albumin Globulin TSH Urine Color Urine Clarity Urine pH Ur Specific [place] Urine Protein Urine Glucose (UA) Urine Ketones Urine Occult Blood Urine Nitrite Urine Bilirubin Urine Urobilinogen Ur Leukocyte Esterase Urine RBC Urine WBC Ur Squamous Epith Cells Ur Transition Epith Cell Amorphous Sediment Urine Bacteria Hyaline Casts Urine Mucus Topiramate Disposition: Home Minutes spent on discharge:: 24 Patient Condition:: Stable Meaningful Use Info Meaningful Use Diagnoses (Choose all that apply): None applicable Code Visit OBSV E&M: 05908 Observation care discharge
[2018-05-27 14:46] LABS: Topiramate 18.5 ug/mL (2.0-25.0)
--- OUTSIDE RECORDS SUMMARY | 2018-07-19 16:39 | XMS RPT_ITS ---
:1960 Author Organization [facility] Care Team Providers Name Role Phone CELIA VAZ, DR. RIVERA Attending Unavailable PHYSICIAN, NONE Primary Care Unavailable TALAMPAS, CORY D Referring Unavailable TALAMPAS, CORY D Attending Unavailable TALAMPAS, CORY D Referring Unavailable TALAMPAS, CORY D Referring Unavailable GLORIA, TANVI (FREIGHT BRAKEMAN) Attending Unavailable TALAMPAS, CORY D Referring Unavailable GLORIA, TANVI (FREIGHT BRAKEMAN) Referring Unavailable GLORIA, TANVI (FREIGHT BRAKEMAN) Referring Unavailable GLORIA, TANVI (FREIGHT BRAKEMAN) Referring Unavailable GLORIA, TANVI (FREIGHT BRAKEMAN) Referring Unavailable GLORIA, TANVI (FREIGHT BRAKEMAN) Referring Unavailable GLORIA, TANVI (FREIGHT BRAKEMAN) Referring Unavailable TALAMPAS, CORY D Attending Unavailable TALAMPAS, CORY D Referring Unavailable TALAMPAS, CORY D Referring Unavailable TALAMPAS, CORY D Attending Unavailable GLORIA, TANVI (FREIGHT BRAKEMAN) Referring Unavailable Talampas, Cory Attending Unavailable Talampas, Cory Referring Unavailable Talampas, Cory Primary Care Unavailable Tha Khanna Attending Unavailable Talampas, Cory Primary Care Unavailable Talampas, Cory Attending Unavailable Talampas, Cory Referring Unavailable Talampas, Cory Primary Care Unavailable Talampas, Cory Attending Unavailable Talampas, Cory Primary Care Unavailable Talampas, Cory Primary Care Unavailable Agyepong, Johan Admitting Unavailable Ashelfah, Ghasem Attending Unavailable Agyepong, Johan Admitting Unavailable Agyepong, Johan Attending Unavailable Talampas, Cory Primary Care Unavailable Agyepong, Johan Consulting Unavailable Agyepong, Johan Admitting Unavailable Talampas, Cory Primary Care Unavailable Ashelfah, Ghasem Consulting Unavailable Ashelfah, Ghasem Attending Unavailable PROBLEMS PROBLEMS DATE TYPE CONDITION / CODE ATTENDING STATUS SOURCE 06/05/2018 Unknown E87.6 - DavidampCecy sweeneya Active [facility] Hypokalemia / Community E87.6(ICD-10) Hospital Repository 06/05/2018 Unknown Z79.899 - Other TalampCecy sweeneya Active [facility] (current[facility] drug Hospital therapy / Repository Z79.899(ICD-10) 06/05/2018 Unknown D51.0 - Vitamin TalampCecy sweeneya Active [facility] B12 deficiency Community anemia due to Hospital intrinsic factor Repository deficiency / D51.0(ICD-10) 06/05/2018 Unknown D50.9 - Iron TalampCecy sweeneya Active [facility] deficiency Community anemia, Hospital unspecified / Repository D50.9(ICD-10) 09/13/2009 Active Vitamin B12 NA Active [facility] deficiency anemia [facility] due to intrinsic Repository factor deficiency / D51.0(ICD-10) 06/05/2018 Active Hypokalemia / NA Active [facility] E87.6(ICD-10) [facility] [place] Repository 06/05/2018 Active Iron deficiency NA Active [facility] anemia, [facility] [place] unspecified / Repository D50.9(ICD-10) 01/22/2018 Active Unknown / NA Active [facility] UNK(Unknown) [facility] [place] Repository 01/22/2018 Active Unspecified lump NA Active [facility] in unspecified [facility] [place] breast / Repository N63.0(ICD-10) 01/07/2018 Active Encounter for NA Active [facility] screening [facility] [place] mammogram for Repository malignant neoplasm of breast / Z12.31(ICD-10) 08/31/2017 Active Deficiency of NA Active [facility] other specified B [facility] group vitamins / Repository E53.8(ICD-10) 11/26/2017 Active Abnormal level of NA Active [facility] blood mineral / [facility] [place] R79.0(ICD-10) Repository 12/19/2017 Unknown E55.9 - Vitamin D TalampCecy sweeneya Active [facility] deficiency, Community unspecified / Hospital E55.9(ICD-10) Repository 12/19/2017 Unknown E53.8 - Talampas, Croy Active [facility] Deficiency of Community other specified B Hospital group vitamins / Repository E53.8(ICD-10) 12/19/2017 Unknown R79.0 - Abnormal Talampas, Cory Active [facility] level of blood Community mineral / Hospital R79.0(ICD-10) Repository 12/19/2017 Unknown E78.00 - Pure Talamppatel, Cory Active [facility] hypercholesterole [facility], unspecified Hospital / E78.00(ICD-10) Repository 08/31/2017 Unknown E61.1 - Iron Talampas, Cory Active [facility] deficiency / Community E61.1(ICD-10) Hospital Repository 06/28/2009 Active Pure NA Active [facility] hypercholesterole [facility], unspecified Repository / E78.00(ICD-10) 08/30/2017 Active Vitamin D NA Active [facility] deficiency, [facility] [place] unspecified / Repository E55.9(ICD-10) 08/30/2017 Active Iron deficiency / NA Active [facility] E61.1(ICD-10) [facility] [place] Repository 08/30/2017 Active Other intermediate teacher NA Active [facility] (current) drug [facility] [place] therapy / Repository Z79.899(ICD-10) PROCEDURES PROCEDURES No Procedure Records FoundRESULTS RESULTS HEMOGLOBIN A1C Collected: 06/05/2018 Status: F Source: [place] 3:36 PM [facility] REPOSITORY TYPE CODE TESTS RESULT OUT OF RANGE REFERENCE UNITS LAB L501.9985 4.2-6.3 % Normal HGB A1C 5.8 Performed By: #### L501.9985 #### [facility] [address], [place], [address] CBC-COMPLETE BLOOD CNT Collected: 06/05/2018 Status: F Source: [place] NO DIFF 3:36 PM [facility] REPOSITORY TYPE CODE TESTS RESULT OUT OF RANGE REFERENCE UNITS LAB L100.1000 4.4-11.0 K/mm3 Normal WBC 5.5 LAB L100.1200 4.2-5.4 M/mm3 Normal RBC 4.75 LAB L100.1300 12.0-15.0 g/dl Normal HGB 12.5 LAB L100.1400 37-47 % Normal HCT 40.7 LAB L100.1500 81-99 fL Normal MCV 85.7 LAB L100.1600 27.0-32.0 pg Low MCH 26.3 LAB L100.1700 32-36 g/gl Low MCHC 30.7 LAB L100.1810 11.6-14.6 % Normal RDW CV 14.5 LAB L100.1820 35.1-43.9 fl High RDW SD 45.2 LAB L100.1900 150-450 K/mm3 Normal PLT 428 LAB L100.2000 6.2-12.0 fl Normal MPV 8.9 Performed By: #### L100.0500 #### [facility] [address] [place], [address] BASIC METABOLIC Collected: 06/05/2018 Status: F Source: [place] PROFILE (BMP) 3:36 PM [facility] REPOSITORY TYPE CODE TESTS RESULT OUT OF RANGE REFERENCE UNITS LAB L501.0100 74-106 mg/dL High GLU 141 Result Comment: Fasting Glucose result greater than or equal to 126 mg/dL suggests DIABETES MELLITUS per A.D.A. criteria. Please note revised GLUCOSE reference range effective 2017. LAB L501.1000 7-18 mg/dL High BUN 19 LAB L501.1100 0.55-1.02 mg/dL High CREAT,SERUM 1.20 Result Comment: The validity of the calculated GFR AND GFRAA in patients over 70 years has not been determined. Clinical correlation is essential. LAB L501.1110 >60 mL/min Low EST GFR 49 Result Comment: Non- GFR Calc LAB L501.1115 >60 mL/min Low EST GFR - AA 59 Result Comment: GFR Calc LAB L501.1300 10-20 RATIO Normal BUN/CRE 15.8 LAB L501.2200 8.5-10.1 mg/dL CA Normal 9.2 LAB L501.5300 136-145 mmol/L NA Normal 139 LAB L501.5600 3.5-5.1 mmol/L K Normal 4.1 LAB L501.5900 98-107 mmol/L CL Normal 107 LAB L501.6100 21.0-32.0 mmol/L Normal CO2 24.0 LAB L501.6200 5-15 Normal GAP 8 Performed By: #### L500.2500 #### [facility] [address] [place], [address] HEMOGLOBIN A1C Collected: 06/05/2018 Status: F Source: [place] 12:22 PM [facility] REPOSITORY TYPE CODE TESTS RESULT OUT OF REFERENCE UNITS RANGE LAB HGBA1C 4.0-6.0 % Test Hemoglobin A1c sent to [facility]. Result Comment: Account Credited HIDE LAB HBA0 mg/dL Est. Test sent Average Glucose to [facility]. Result Comment: Account Credited HIDE 12 LEAD ELECTROCARDIOGRAM Observed: 05/28/2018 Status: F Source: [place] 2:06 PM [facility] REPOSITORY [facility] Cardiovascular Services [address] [place] [address] 12 Lead EKG 05/24/18 1908 MR#: [id number] Acct: [id number] Name: CHERI MEJIA Rep #: [id number] : 1960 57 From: Yariel Villar MD Attending Dr: Genia Goldman Status: DIS JENNIFER Ordering Dr: Karen Contreras MD Date: 05/24/18 Location: [facility] Sex: F C Admitted: 05/24/18 Test Reason : N/V Blood Pressure : / mmHG Vent. Rate : 055 BPM Atrial Rate : 055 BPM P-R Int : 520 ms QRS Dur : 086 ms QT Int : 570 ms P-R-T Axes : 000 051 252 degrees QTc Int : 545 ms Sinus bradycardia with 1st degree A-V block ST AND T wave abnormality, consider inferior ischemia ST AND T wave abnormality, consider anterolateral ischemia Prolonged QT Abnormal ECG Confirmed by YARIEL VILLAR MD ([id number]), medical transcription editor FRANCESCO VALLE ([id number]) on 05/28/2018 2:06:01 PM Referred By: MATTIE Confirmed By:YARIEL VILLAR MD 05/28/18 1406 Date Yariel Villar MD CC: Genia Goldman; Karen Contreras MD; Cory Velez MD Signed PROGRESS Observed: 05/27/2018 Status: COMPLETED Source: [place] 1:27 PM [facility] REPOSITORY HNO ID: [id number] Author: Bettie Cartagena LPN Service: (none) Author Type: (none) Type: Progress Notes Filed: 06/07/2018 2:43 PM Note Text: TRANSITION CARE MANAGEMENT (TCM) INITIAL CONTACT Database Designer Outreach Provider Action/FYI: Initial contact with patient post discharge, spoke to patient. Patient identified by name and . TRANSITION CARE MANAGEMENT INITIAL OUTREACH DOCUMENTATION: Date of Outreach: 05/27/2018 Outreach Attempt 1: Contact Made Date of Discharge 05/25/2018 Some recent data might be hidden SUMMARY: -Pt discharged from [facility] on 05/25/18. -Admitted for: syncope Do you have a hospital follow up appointment with your PCP? Appointment on 06/07/18 with pcp. Yes. Remind patient of appointment date, time, and location. If not within 14 calendar days of discharge - please reschedule accordingly. MEDICATIONS: Many patients have questions or concerns about their medications once they are home. Were you prescribed any new medications? If yes, what are those medications? Ondansetron 4 mg po every 8 hours as needed Were you told to hold any medications? No Were any of your medications discontinued? No Do you have any questions about getting or taking your medications? No Your discharge instructions/After visit Summary (AVS) are important in guiding you through the recovery process. Is there anything I might help you understand? No Do you have all the necessary equipment and supplies at home? Yes Medical records from recent hospitalization: Placed for provider to review CNPTOUTREACH Observed: 05/27/2018 Status: COMPLETED Source: [place] 12:00 AM [facility] REPOSITORY Patient Outreach (INTMWS) CHERI MEJIA ([id number]) 1960 F Date Time Provider Department 05/27/18 CORY VELEZ During your visit today, we recorded the following information about you: Bettie Cartagena OSIRIS 06/07/2018 2:43 PM Signed TRANSITION CARE MANAGEMENT (TCM) INITIAL CONTACT Database Designer Outreach Provider Action/FYI: Initial contact with patient post discharge, spoke to patient. Patient identified by name and . TRANSITION CARE MANAGEMENT INITIAL OUTREACH DOCUMENTATION: Date of Outreach: 05/27/2018 Outreach Attempt 1: Contact Made Date of Discharge 05/25/2018 Some recent data might be hidden SUMMARY: -Pt discharged from [facility] on 05/25/18. -Admitted for: syncope Do you have a hospital follow up appointment with your PCP? Appointment on 06/07/18 with pcp. Yes. Remind patient of appointment date, time, and location. If not within 14 calendar days of discharge - please reschedule accordingly. MEDICATIONS: Many patients have questions or concerns about their medications once they are home. Were you prescribed any new medications? If yes, what are those medications? Ondansetron 4 mg po every 8 hours as needed Were you told to hold any medications? No Were any of your medications discontinued? No Do you have any questions about getting or taking your medications? No Your discharge instructions/After visit Summary (AVS) are important in guiding you through the recovery process. Is there anything I might help you understand? No Do you have all the necessary equipment and supplies at home? Yes Medical records from recent hospitalization: Placed for provider to review Allergies As of Date: 05/27/2018 Noted Allergy Reaction CODEINE 10/27/2005 5 - Intolerance Comments: violently ill ADHESIVE TAPE-SILICONES 09/10/2014 2 - Rash 9 - Itching AMITRIPTYLINE 03/19/2007 5 - Intolerance Comments: all day hangover BACLOFEN 11/05/2012 12 - Shortness of Breath BELSOMRA (SUVOREXANT) 11/09/2015 5 - Intolerance Comments: hallucination,vomit flu vaccine [Other] 04/16/2007 10 - Anaphylaxis Comments: Passes out/anaphylaxis FLUDROCORTISONE 07/24/2013 1 - Mental Status Change Comments: thick tongued,goofy if 0.2mg daily HYDROCORTISONE 09/10/2014 14 - Other: See Comments Comments: Can't tolerate higher doses LEVAQUIN (LEVOFLOXACIN) 12/29/2005 8 - GI Upset LYRICA (PREGABALIN) 07/08/2007 5 - Intolerance Comments: dyspnea MIDRIN ([id number]*11/05/2012 12 - Shortness of Breath PINEAPPLE 06/28/2009 2 - Rash PYRIDOSTIGMINE 11/05/2012 12 - Shortness of Breath Date Reviewed: 03/13/2018 Reviewed by: Angeles Katz - Fully Assessed Reason for Visit: Transition Of Care [4074] Prescriptions as of 05/27/2018 Sig: ALBUTEROL SULFATE 2.5 MG/3 ML* Use QID prn breathing treatme* IPRATROPIUM-ALBUTEROL 18 MCG-* 2 PUFF QID2 puff qid ECOTRIN LOW STRENGTH 81 MG TA* Take one(1) tablet daily. ATORVASTATIN 20 MG TABLET Take 1 tablet by mouth daily * CYANOCOBALAMIN (VIT B-12) 1,0* Inject intramuscularly every* CYCLOSPORINE 0.05 % EYE DROPS* Use 1 Drop in both eyes twice* ERGOCALCIFEROL (VITAMIN D2) 5* Take 1 capsule by mouth once * FERROUS SULFATE 325 MG (65 MG* Take 1 tablet by mouth twice * FOLIC ACID 1 MG TABLET Take 1 mg by mouth once daily. HYDROCORTISONE 5 MG TABLET Take 1 tablet by mouth once d* HYDROXYZINE PAMOATE 25 MG CAP* Take 2 capsules by mouth thre* LIDOCAINE 5 % TOPICAL PATCH Apply 1 Patch as directed onc* MEXILETINE 250 MG CAPSULE Take 1 capsule by mouth twice* NAPHAZO HCL 0.025 %-HYPROME 0* Use in eyes. RAMELTEON 8 MG TABLET Take 1 tablet by mouth daily * TIZANIDINE 4 MG CAPSULE Take 2 capsules by mouth thre* TOPIRAMATE 50 MG TABLET Take 3 tablets by mouth at 8a* TRAZODONE 50 MG TABLET Take 1 tablet by mouth daily * VALTREX 1 GRAM TABLET as necessary WHITE PETROLATUM-MINERAL OIL * Use in both eyes. X DEXTROAMPHETAMINE-AMPHETAMINE* Take 1 tablet by mouth twice * X DEXTROAMPHETAMINE-AMPHETAMINE* Take 1 tablet by mouth twice * X DEXTROAMPHETAMINE-AMPHETAMINE* Take 1 tablet by mouth twice * X DEXTROAMPHETAMINE-AMPHETAMINE* Take 1 tablet by mouth twice * X FLUDROCORTISONE 0.1 MG TABLET Take 1 tablet by mouth three * X FLUOXETINE 10 MG CAPSULE Take 1 capsule by mouth once * X LORAZEPAM 1 MG TABLET Take 1 tablet by mouth three * X MIRTAZAPINE 30 MG TABLET Take 1.5 tablets by mouth louise* X PANTOPRAZOLE 40 MG TABLET,DEL* Take 40 mg by mouth twice louise* X ROPINIROLE 0.5 MG TABLET Take 2 tablets by mouth daily* X SERTRALINE 25 MG TABLET Take 1 tablet by mouth once d* X TRAMADOL 50 MG TABLET Take 2 tablets by mouth three* Problem List As Of Date 05/27/2018 Noted Resolved TOBACCO USE DISORDER [F17.200] INVALID FOR* Unspecified Asthma [J45.909] INVALID FOR* More... Dysmenorrhea [N94.6] INVALID FOR*06/28/2009 Other and Unspecified Noninfectious Gastroenter*INVALID FOR*06/28/2009 Esophageal Reflux [K21.9] More... Diarrhea [R19.7] INVALID FOR* More... HYPERCALCEMIA [E83.52] INVALID FOR* Myalgia and myositis, unspecified [TUS3417] INVALID FOR*11/30/2016 More... Headache [R51] INVALID FOR* More... Secondary Hyperparathyroidism, Non-Renal [E21.1]INVALID FOR* More... Pure Hypercholesterolemia [E78.00] INVALID FOR* More... Depression [F32.9] More... Back Pain [M54.9] INVALID FOR* More... Neck Pain [M54.2] INVALID FOR* More... Narcolepsy [G47.419] INVALID FOR* More... Syncope [R55] INVALID FOR* More... Pernicious Anemia [D51.0] INVALID FOR* Neuropathy [G62.9] INVALID FOR* Fibromyalgia [M79.7] INVALID FOR* More... Hypotension [I95.9] INVALID FOR* PTSD (post-traumatic stress disorder) [F43.10] INVALID FOR* Pulmonary nodules [R91.8] INVALID FOR* Orthostatic hypotension [I95.1] INVALID FOR* Dysautonomia orthostatic hypotension syndrome (*INVALID FOR* More... 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 Vitamin B 12 deficiency [E53.8] INVALID FOR* Encounter Status:Closed by BETTIE CARTAGENA LPN on 06/07/18 DISCHARGE SUMMARY Observed: 05/25/2018 Status: F Source: [place] 3:24 PM [facility] REPOSITORY [facility] Medical Records Department [address] [place] [id number] Discharge Summary 05/25/18 1504 MR#: [id number] Acct: [id number] Name: CHERI MEJIA Alyssia Rep #: [id number] : 1960 57 From: Surinder JIMENES PCP: Cory Velez MD Status: DIS JENNIFER Y Location: [place] [address] <Surinder Garcia - Last Filed: 05/25/18 15:06> Discharge Date and Diagnosis Date of Admission: 05/24/18 Date of Discharge: 05/25/18 - Primary Discharge Diagnosis Syncope 2/2 dehydration and hypokalemia Shy-Drager syndrome Fibromyalgia HLD GERD Iron deficiency anemia Factor V leiden Arnold-Chiari malformation s/p surgery - Secondary Discharge Diagnosis Chronic Problems Fibromyalgia (Chronic) GERD (gastroesophageal reflux disease) (Chronic) Shy-Drager syndrome (Chronic) Tobacco use disorder (Chronic) Chronic back pain (Chronic) Neuropathy (Chronic) Hospital Course and Treatment Operations: None Procedures: None Summary of Care Provided: Hospital Course: The patient is a 57 year old F with pmhx as above who presented to the ER after experiencing syncope at home multiple times for 2 days. She has been more nauseous with increased vomiting and diarrhea at home for several days as well. She has chronic diarrhea, vomiting, and dizziness - stating that this has gone on her whole life - however it was worse for 2 days. She was found to be hypokalemic in the ER. She was given IV fluids and potassium and admitted to the PCU. The following morning potassium was normalized. She was found to be iron deficient as well and given venofer x 1 while here. Mag was mildlylow, this was repleted orally. Phos was normal. TSH was normal, UA was normal. The following day the patient felt that she was back to her baseline, and not more dizzy or LH than normal. She did request zofran for home as she was been more nauseous lately, and a prescription was sent. She was discharged home in stable condition and will need to follow up with her PCP in 1-2 weeks. This patient was seen by Surinder Garcia PA-C under the supervision of Dr. Goldman. [] - Physical Exam General: Alert, Oriented x3, Cooperative HEENT: Atraumatic, PERRLA, EOMI, Normocephalic Neck: Supple, No JVD, Negative Carotid Bruits Lungs: Clear to auscultation, Normal air movement Cardiovascular: Regular rate, No murmurs Abdomen: Bowel Sounds Present, Soft, Non Tender Extremities: No edema, Capillary Refill Less than 3 Seconds Skin: No rashes, No breakdown Musculoskeletal: No Tenderness to Palpation of Joints or Extremities Neurological: Cranial nerves II-XII grossly intact Psych/Mental Status: Normal Affect, Appropriate, Alert and oriented to time, place, person, mood and affect Vital Signs Temp Pulse Resp BP Pulse Ox 98 F 65 16 133/69 H 96 05/25/18 09:05 05/25/18 11:09 05/25/18 09:05 05/25/18 09:05 05/25/18 09:05 Oxygen Delivery Method Room Air Weight: 109 lb 5.588 oz Body Mass Index (BMI) 17.1 Intake and Output for Last 24 Hours Intake Total 1865.9 / 1865.9 Output Total 600 / 600 Balance 1265.9 / 1265.9 Laboratory Tests Past 24 Hrs WBC 5.0 RBC 4.68 Hgb 12.6 WBC RBC Hgb 10.1 L Hct 32.2 L MCV MCH MCHC RDW RDW Differential Discharge Diet: No Restrictions Discharge Activity: Return to Normal Activity Home Medications: Medications to take at Discharge Mexiletine HCl 250 mg PO BID 07/11/13 Tizanidine HCl [Zanaflex] 8 mg PO TID 07/11/13 Topiramate [Topamax] 75 mg PO TID 07/11/13 traMADol [Ultram] 200 mg PO TID 07/11/13 Albuterol Aerosols [Ventolin Aerosols] 2.5 mg INHALATION BID PRN 06/01/14 Albuterol Sulfate [Proventil Hfa] 6.7 gm IH DAILY PRN PRN 06/01/14 Aspirin [Aspirin, Baby] 81 mg PO QHS 06/01/14 Ergocalciferol [Vitamin D] 50,000 unit PO Q7D 06/01/14 Lidocaine [Lidoderm Patch] 1 patch TOPICAL DAILY PRN PRN 06/01/14 Lorazepam [Ativan] 1 mg PO TID 06/01/14 Cyanocobalamin [Vitamin B12] 100 mcg SC .COMPLEX 06/09/14 Ferrous Sulfate [Iron Supplement] 325 mg PO DAILY 06/09/14 Folic Acid 1 mg PO DAILY@0800 06/09/14 Hydrocortisone 5 mg PO TID 06/09/14 Mirtazapine [Remeron] 45 mg PO QHS 06/09/14 hydrOXYzine pamoate capsule [Vistaril pamoate capsule] 25 mg PO TID 06/09/14 Atomoxetine HCl [Strattera] 50 mg PO DAILY 05/24/18 Dextroamphetamine/Amphetamine [Adderall 10 mg Tablet] 10 mg PO BID 05/24/18 Omeprazole 40 mg PO BID 05/24/18 traZODone [Desyrel] 50 mg PO QHS 05/24/18 Atorvastatin Calcium 40 mg PO 05/25/18 Ondansetron [Zofran Odt] 4 mg PO Q8H PRN PRN #21 tab.rapdis 05/25/18 Ramelteon [Rozerem] 8 mg PO QHS 05/25/18 Following Prescrptions Were Given to Patient: Ondansetron [Zofran Odt] 4 mg PO Q8H PRN PRN #21 tab.rapdis PRN Reason: Nausea Primary Care Physician: Cory Velez MD [Primary Care Provider] - Please follow up with your Primary Care Physician in: 1-2 weeks Disposition: Home Minutes spent on discharge:: 35 Patient Condition:: Stable Medical Necessity - Tobacco Use Smoking Status: Current every day smoker Meaningful Use Info Meaningful Use Diagnoses (Choose all that apply): None applicable <Genia Goldman E - Last Filed: 05/25/18 15:24> Discharge Date and Diagnosis - Secondary Discharge Diagnosis Chronic Problems Fibromyalgia (Chronic) GERD (gastroesophageal reflux disease) (Chronic) Shy-Drager syndrome (Chronic) Tobacco use disorder (Chronic) Chronic back pain (Chronic) Neuropathy (Chronic) Hospital Course and Treatment Summary of Care Provided: Hospitalist note: Discharge summary above reviewed and I agree with above discharge plan. Patient admitted for recurrent syncope in context of history of Shy-Drager syndrome with history of recurrent syncope at home. During this admission, the syncope attributed to dehydration and severe hypokalemia. Her EKG revealed normal sinus rhythm without evidence of acute ischemic changes or cardiac arrhythmias. On admission, her potassium was very low at 2.5 which is attributed to her nausea and vomiting. She was treated with IV fluids and aggressive potassium replacement. With IV fluids and potassium placement, her symptoms improved as well as her vital signs. Her blood pressure stabilized as well as her heart rate. Her orthostatic vitals were normal. Patient discharged home in a stable medical condition, continued on her home medications without any changes, recommended follow-up with PCP in 1-2 weeks. - Physical Exam General: Alert, Oriented x3, Cooperative, No apparent distress. HEENT: Atraumatic, PERRLA, EOMI. Neck: Supple, No JVD, Negative Carotid Bruits, Trachea Midline, Thyroid Normal. Lungs: Clear to auscultation, Normal air movement, No rhonchi, No wheeze, No rales. Cardiovascular: Regular rate, Regular Rhythm, Normal S1, Normal S2, PMI Normal. Abdomen: Bowel Sounds Present, Soft, Non Tender, Non-Distended, No Hepato-splenomegaly. Extremities: No clubbing, No cyanosis, No edema Skin: No rashes, No breakdown Neurological: Neuro grossly intact Vital Signs are stable. This note was generated with [employer] software. It may contain incorrect words, spelling, and punctuation that were not noted in checking the note before signing. - Physical Exam Vital Signs Temp Pulse Resp BP Pulse Ox 98 F 65 16 133/69 H 96 05/25/18 09:05 05/25/18 11:09 05/25/18 09:05 05/25/18 09:05 05/25/18 09:05 Oxygen Delivery Method Room Air Weight: 109 lb 5.588 oz Body Mass Index (BMI) 17.1 Intake and Output for Last 24 Hours Intake Total 1865.9 / 1865.9 Output Total 600 / 600 Balance 1265.9 / 1265.9 Laboratory Tests Past 24 Hrs WBC 5.0 RBC 4.68 Hgb 12.6 WBC RBC Hgb 10.1 L Hct 32.2 L MCV MCH MCHC RDW RDW Differential Disposition: Home Minutes spent on discharge:: 24 Patient Condition:: Stable Meaningful Use Info Meaningful Use Diagnoses (Choose all that apply): None applicable Code Visit OBSV E AND M: 16086 Observation care discharge 05/25/18 1516 <Electronically signed by Surinder JIMENES> Date Surinder JIMENES 05/25/18 1524<Electronically signed by Genia Goldman MD> Cosigner Signature (if applicable): Date Genia Goldman MD CC: YUDY Garcia; Genia Goldman; Cory Velez MD Signed DISCHARGE INSTRUCTION Observed: 05/25/2018 Status: F Source: [place] 12:30 PM [facility] REPOSITORY [facility] Medical Records Department [address] [place] [address] Instructions for Home/Discharge Instructions 05/25/18 1229 MR#: [id number] Acct: [id number] Name: CHERI MEJIA Rep #: [id number] : 1960 57 From: Surinder JIMENES PCP: Cory Velez MD Status: ADM JENNIFER - Discharge Diagnoses Current Active Problems: Current Active and Chronic Problems Syncope (Acute) You will use the following diet at home:: No restrictions Your food should be the consistency of: Regular Your liquids should be the consistency of: Regular/Thin Discharge Activity: Return to Normal Activity Allergies/Adverse Reactions: Allergies codeine Allergy (Verified 05/24/18 22:54) syncope duloxetine HCl [From Cymbalta] Allergy (Verified 05/24/18 18:19) Nausea/Vom/Diarrhea influenza virus vaccine, specific [Influenza Virus Vacc,Specific] Allergy (Verified 05/24/18 22:54) syncope pineapple [Pineapple] Allergy (Verified 05/24/18 18:19) Rash pregabalin [From Lyrica] Allergy (Verified 05/24/18 18:19) Shortness of breath amitriptyline Adverse Reaction (Verified 05/24/18 18:19) Other hydrocodone Adverse Reaction (Verified 05/24/18 18:19) Vomiting levofloxacin [From Levaquin] Adverse Reaction (Verified 05/24/18 18:19) Nausea/Vom/Diarrhea Medications to take at Discharge Mexiletine HCl 250 mg PO BID 07/11/13 Tizanidine HCl [Zanaflex] 8 mg PO TID 07/11/13 Topiramate [Topamax] 75 mg PO TID 07/11/13 traMADol [Ultram] 200 mg PO TID 07/11/13 Albuterol Aerosols [Ventolin Aerosols] 2.5 mg INHALATION BID PRN 06/01/14 Albuterol Sulfate [Proventil Hfa] 6.7 gm IH DAILY PRN PRN 06/01/14 Aspirin [Aspirin, Baby] 81 mg PO QHS 06/01/14 Ergocalciferol [Vitamin D] 50,000 unit PO Q7D 06/01/14 Lidocaine [Lidoderm Patch] 1 patch TOPICAL DAILY PRN PRN 06/01/14 Lorazepam [Ativan] 1 mg PO TID 06/01/14 Cyanocobalamin [Vitamin B12] 100 mcg SC .COMPLEX 06/09/14 Ferrous Sulfate [Iron Supplement] 325 mg PO DAILY 06/09/14 Folic Acid 1 mg PO DAILY@0800 06/09/14 Hydrocortisone 5 mg PO TID 06/09/14 Mirtazapine [Remeron] 45 mg PO QHS 06/09/14 hydrOXYzine pamoate capsule [Vistaril pamoate capsule] 25 mg PO TID 06/09/14 Atomoxetine HCl [Strattera] 50 mg PO DAILY 05/24/18 Dextroamphetamine/Amphetamine [Adderall 10 mg Tablet] 10 mg PO BID 05/24/18 Omeprazole 40 mg PO BID 05/24/18 traZODone [Desyrel] 50 mg PO QHS 05/24/18 Atorvastatin Calcium 40 mg PO 05/25/18 Ondansetron [Zofran Odt] 4 mg PO Q8H PRN PRN #21 tab.rapdis 05/25/18 Ramelteon [Rozerem] 8 mg PO QHS 05/25/18 The following prescriptions were given: Ondansetron [Zofran Odt] 4 mg PO Q8H PRN PRN #21 tab.rapdis PRN Reason: Nausea Primary Care Physician: Cory Velez MD [Primary Care Provider] - Please follow up with your Primary Care Physician in: 1-2 weeks Test Results: Test results from this visit will be discussed in further detail at your follow-up appointment, if applicable. Proposed Discharge Date: 05/25/18 05/25/18 1230 <Electronically signed by Surinder JIMENES> Date Surinder JIMENES CC: Cory Velez MD HH, HEMOGLOBIN AND Collected: 05/25/2018 Status: F Source: [place] HEMATOCRIT 6:33 AM [facility] REPOSITORY TYPE CODE TESTS RESULT OUT OF RANGE REFERENCE UNITS LAB L100.1300 12.0-15.0 g/dl Low HGB 10.1 LAB L100.1400 37-47 % Low HCT 32.2 Performed By: #### L100.0600 #### [facility] Laboratory [address] [place], [address] BASIC METABOLIC Collected: 05/25/2018 Status: F Source: [place] PROFILE (BMP) 6:33 AM [facility] REPOSITORY TYPE CODE TESTS RESULT OUT OF RANGE REFERENCE UNITS LAB L501.0100 74-106 mg/dL Normal GLU 103 Result Comment: Fasting Glucose result from 100 to 125 mg/dL suggests IMPAIRED HOMEOSTASIS per A.D.A. criteria. Please note revised GLUCOSE reference range effective 2017. LAB L501.1000 7-18 mg/dL Normal BUN 18 LAB L501.1100 0.55-1.02 mg/dL Normal CREAT,SERUM 1.01 Result Comment: The validity of the calculated GFR AND GFRAA in patients over 70 years has not been determined. Clinical correlation is essential. LAB L501.1110 >60 mL/min Normal EST GFR 60 Result Comment: Non- GFR Calc LAB L501.1115 >60 mL/min Normal EST GFR - AA 72 Result Comment: GFR Calc LAB L501.1255 ml/min Normal Estimated CRCL 48.12 LAB L501.1300 10-20 RATIO Normal BUN/CRE 17.8 LAB L501.2200 8.5-10 mg/dL Low .1 CA 8.1 LAB L501.5300 136-14 mmol/L Normal 5 NA 145 LAB L501.5600 3.5-5. mmol/L Normal 1 K 4.1 LAB L501.5900 98-107 mmol/L High CL 114 LAB L501.6100 21.0-3 mmol/L Normal 2.0 CO2 25.0 LAB L501.6200 5-15 Normal GAP 6 Performed By: #### L500.2500 #### [facility] Laboratory [address] [place], [place], [address] PHOSPHORUS Collected: 05/25/2018 Status: F Source: [place] 6:33 AM [facility] REPOSITORY Order Comment: Comments: ok to add on TYPE CODE TESTS RESULT OUT OF RANGE REFERENCE UNITS LAB L501.2300 2.5-4.9 mg/dL Normal PHOS 2.9 Performed By: #### L501.2300, L501.5200 #### [facility] Laboratory [address] [facility] [place], [address] MAGNESIUM Collected: 05/25/2018 Status: F Source: [place] 6:33 AM [facility] REPOSITORY Order Comment: Comments: ok to add on TYPE CODE TESTS RESULT OUT OF RANGE REFERENCE UNITS LAB L501.5200 1.6-2.6 mg/dL Normal MG 1.6 Performed By: #### L501.2300, L501.5200 #### [facility] Laboratory [address] [place], [address] HISTORY AND PHYSICAL Observed: 05/25/2018 Status: F Source: [place] EXAM 4:13 AM [facility] REPOSITORY [facility] Medical Records Department [address] [place] [address] History and Physical 05/24/183 MR#: [id number] Acct: [id number] Name: CHERI MEJIA Rep #: [id number] : 1960 57 From: Johan Souza MD PCP: Cory Velez MD Status: ADM JENNIFER Y Location: [place] [address] ADDENDUM by Johan Souza MD on 05/25/18 at 0413 Code Visit Venofer IV x 1 ordered for iron deficiency. 05/25/18 0413 <Electronically signed by Johan Souza MD> Date Johan Souza MD cc: Johan Souza MD; Cory Velez MD * Signed ADDENDUM by Johan Souza MD on 05/25/18 at 0143 Code Visit Protein calorie malnutrition Patient with BMI of 17.1 Ensure Enlive 120 ml 4 times a day Nutritional consult 05/25/18 0143 <Electronically signed by Johan Souza MD> Date Johan Souza MD cc: Johan Souza MD; Cory Velez MD * Signed Problem List (1) Syncope Status: Acute (2) Chronic back pain Status: Chronic (3) Fibromyalgia Status: Chronic (4) GERD (gastroesophageal reflux disease) Status: Chronic (5) Shy-Drager syndrome Status: Chronic (6) Tobacco use disorder Status: Chronic History of Present Illness Date of Admission: 05/24/18 Chief Complaint: nausea, vomiting, diarrhea and syncope The patient is a 57 year old F with a significant history of factor V Leiden deficiency; A. fib; sinus bradycardia; fibromyalgia; Shy-Drager syndrome; Arnold-Chiari malformation status post surgery; GERD; malabsorption disorder; tobacco use disorder; chronic back pain; and neuropathy who presented with worsening nausea, vomiting; diarrhea; and multiple episodes of syncope for the last 2 days. Patient reports that her presenting symptoms are not new but in the last 2 days this has worsened. At emergency department patient was found to have a potassium of 2.5. Potassium IV was ordered from the emergency department. Past Medical History Past Medical History (Chronic Problems): Chronic Problems Fibromyalgia (Chronic) GERD (gastroesophageal reflux disease) (Chronic) Shy-Drager syndrome (Chronic) Tobacco use disorder (Chronic) Chronic back pain (Chronic) Neuropathy (Chronic) Allergies codeine Allergy (Verified 05/24/18 18:19) Unknown duloxetine HCl [From Cymbalta] Allergy (Verified 05/24/18 18:19) Nausea/Vom/Diarrhea influenza virus vaccine, specific [Influenza Virus Vacc,Specific] Allergy (Verified 05/24/18 18:19) Other pineapple [Pineapple] Allergy (Verified 05/24/18 18:19) Rash pregabalin [From Lyrica] Allergy (Verified 05/24/18 18:19) Shortness of breath amitriptyline Adverse Reaction (Verified 05/24/18 18:19) Other hydrocodone Adverse Reaction (Verified 05/24/18 18:19) Vomiting levofloxacin [From Levaquin] Adverse Reaction (Verified 05/24/18 18:19) Nausea/Vom/Diarrhea Home Medications: Ambulatory Orders Medication Instructions Recorded Mexiletine HCl 250 mg PO BID 07/11/13 Tizanidine HCl [Zanaflex] 8 mg PO TID 07/11/13 Topiramate [Topamax] 75 mg PO TID 07/11/13 traMADol [Ultram] 200 mg PO TID 07/11/13 Surgical History: appendectomy, cholecystectomy, hysterectomy, - - Arnold-Chiari malformation surgery; expiratory laparoscopy x3; left oophorectomy; and right tuboplasty. Smoking Status: Current every day smoker Review of Systems Constitutional: Reports: Weight Change - Reportedly she lost about 20 pounds in 3 months.. Denies: Chills, Fever HEENT: Denies: Head Aches, Sinus Congestion, Sinus Drainage Cardiovascular: Reports: Syncope. Denies: Chest Pain, Palpitations Respiratory: Denies: Cough, Shortness of breath at rest, Sputum production Gastrointestinal: Reports: Abdominal Pain, Diarrhea, Nausea, Vomiting Genitourinary: Denies: Dysuria Musculoskeletal: Denies: Joint Pain, Joint Tenderness Skin: Denies: Rash, Wounds Neurological: Denies: Numbness, Tingling, Focal weakness Psychiatric: Denies: Anxiety, Depression, Homicidal Ideations, Suicidal Ideations Hematologic/ Lymphatic: Denies: Easy Bruising, Easy Bleeding VTE Information - Inpt Only VTE Present on Admission: No VTE Mechan Device Prophylaxis: None VTE Pharm Prophylaxis ordered?: Yes Patient Problems: Active and Suspected Problems Syncope (Acute) - Physical Exam General: Alert, Oriented x3, Cooperative, - - Cachectic HEENT: Atraumatic, PERRLA, EOMI, Normocephalic Neck: Supple, No JVD, Negative Carotid Bruits Lungs: Clear to auscultation, Normal air movement Cardiovascular: Regular rate, No murmurs Abdomen: Bowel Sounds Present, Soft, Tender, - - Healed abdominal scars present. Extremities: No edema, Capillary Refill Less than 3 Seconds Skin: No rashes, No breakdown Musculoskeletal: Cachexia Neurological: Neuro grossly intact Psych/Mental Status: Normal Affect, Appropriate Vital Signs Temp Pulse Resp BP Pulse Ox 96.4 F L 54 L 16 135/80 H 100 05/24/18 18:20 05/24/18 20:51 05/24/18 20:51 05/24/18 20:51 05/24/18 20:51 Oxygen Delivery Method Room Air Weight: 45.2 kg Body Mass Index (BMI) 15.5 Laboratory Tests Past 24 Hrs WBC 5.0 RBC 4.68 Hgb 12.6 Hct 38.9 MCV 83.1 MCH 26.9 L MCHC 32.4 RDW 13.8 RDW Differential 41.6 WBC RBC Hgb Hct MCV MCH MCHC RDW RDW Differential Plt Count MPV Immature Gran % (Auto) Neut % (Auto) Assessment/Plan All Active Problems Syncope (Acute) The patient is a 57 year old F with a significant history of factor V Leiden deficiency; A. fib; sinus bradycardia; fibromyalgia; Shy-Drager syndrome; Arnold-Chiari malformation status post surgery; GERD; malabsorption disorder; tobacco use disorder; chronic back pain; and neuropathy who presented with worsening nausea, vomiting; diarrhea; and multiple episodes of syncope for the last 2 days; and found to have hypokalemia. Syncope Likely from her Shy-Drager Syndrome and from her vomiting and diarrhea. Received normal saline IV fluid bolus at emergency department and maintenance normal saline was started in the emergency department. Because of hypokalemia we will start patient on lactated Ringer's with 40 of potassium going at 150 mL's per hour. Home hydrocortisone continued. Intractable nausea vomiting and diarrhea. Patient reports malabsorption syndrome for which she saw Dr. Khanna in the past. IV fluids as above. Hypokalemia On presentation her potassium was 2.5. Likely due to vomiting and diarrhea and malabsorption syndrome. IV potassium was ordered from the emergency department; continued Potassium 40 mEq p.o. twice daily Lactated Ringer's with 40 of potassium going at 150 mL's per hour. Trend BMP. Depression Patient reports that his drowned and he attempted to save him in the pond but he still . Also patient reported that her daughter is in longterm; and patient has 2 special needs children who were at bedside. Supportive listening provided. Remeron continued Anxiety Vistaril continued. Fibromyalgia Patient reports generalized pain. Received Toradol at emergency department. Patient was asking for more Toradol. However because of CKD stage 3a Toradol will not be ordered at this time As needed Tylenol ordered. Home Ultram continued. Tobacco use disorder Counselled Refused nicotine patch Miscellaneous: Patient reported that she has a history of iron deficiency anemia for which reason she was supposed to be started on IV iron at home. She was requesting that IV iron be started inpatient. On admission her hemoglobin and hematocrit is normal. Her MCH is slightly low but almost normal. Per patient request we will do iron studies. DVT prophylaxis Subcutaneous heparin. Code Visit OBSV E AND M: 35737 Initial observation care L3 05/25/18 0126 <Electronically signed by Johan Souza MD> Date Johan Souza MD [facility] Signature: Date (if applicable) CC: Johan Souza MD; Cory Velez MD Signed EMERGENCY DEPARTMENT Observed: 05/24/2018 Status: F Source: [place] SUMMARY 10:56 PM [facility] REPOSITORY [facility] Medical Records Department [address] [place] [address] Emergency Department Summary 05/24/18 2115 MR#: [id number] Acct: [id number] Name: CHERI MEJIA Rep #: [id number] : 1960 57 From: Karen Contreras MD PCP: Cory Velez MD Status: ADM JENNIFER - ER Visit Summary Date of Service: 05/24/18 Chief Complaint: Nausea, vomiting, diarrhea, syncope History of Present Illness: The patient is a 57 F with chronic nausea, vomiting, and diarrhea second very to shy-Drager syndrome. Patient had worsening symptoms of the past couple of months. She is now had daily syncopal events over the past week or so and increased weight loss. She was seen at the CT yesterday. Patient's states he received a call today questioning whether her dose of medications may be too high and need to be adjusted. They attempted to get blood work yesterday but could not get blood work from her. Patient denies fever. Physical Examination: Blood pressure is 102/52, temperature 96.4, heart rate 57, respiratory rate 15, pulse ox 95% on room air. Patient is a cachectic appearing female who appears much older than her stated age. Head neck examination reveals dry mucous membranes. Heart is bradycardic and regular. Lung sounds are clear. Abdomen is soft with mild diffuse tenderness. No guarding or rebound. Hypoactive but present bowel sounds are noted. Neuro exam reveals no focal deficits. Test Results: CBC is unremarkable. Chemistry studies are significant for potassium of 2.5, BUN 21, creatinine 1.16. LFTs are normal. Urinalysis is pending at this time. Emergency Department Course and Treatment: Patient is given IV fluids, Zofran, and Toradol. Upon completion of lab work 40 mEq of IV potassium are ordered. Patient will be admitted for further hydration and potassium replacement. Treatment Plan: [] Disposition: Admit Impression: 1. Hypokalemia 2. Syncope 3. History of Shy-Drager syndrome This note was generated with Gen9 dictation software. It may contain incorrect words, spelling, and punctuation that were not noted in review of the chart prior to signing ED Disposition - Plan for ED Patient: Chief Complaint: Nausea/Vomiting/Diarrhea Referrals: Cory Velez MD [Primary Care Provider] - What to do if you have Problems For any increased pain, shortness of breath, bleeding, nausea or vomiting, chest pain, or any unexpected problems, contact your Primary Care Provider. Call [facility] ([phone]) or report to the closest Emergency Room. Call 911 if necessary. 05/24/18 2256 <Electronically signed by Karen Contreras MD> Date Karen Contreras MD Cosigner Signature (If Indicated): Date CC: Cory Velez MD URINALYSIS, COMPLETE Collected: 05/24/2018 Status: F Source: [place] 8:50 PM [facility] REPOSITORY Order Comment: Order Date: 05/24/18 How was Urine Obtained? CLEAN CATCH TYPE CODE TESTS RESULT OUT OF REFERENCE UNITS RANGE LAB L400.3000 Yellow COLOR Normal Yellow LAB L400.3050 Clear CLARITY Normal Cloudy LAB L400.3200 Normal mg/dl GLUCOSE, UR Normal Normal LAB L400.3300 Negative mg/dL BILIRUBIN Normal URINE Negative LAB L400.3400 Negative mg/dl KETONE UR Normal Negative LAB L400.3465 1.002-1.030 SP.GR. Normal DIPSTX 1.010 LAB L400.3550 5.0 - 8.0 pH UR Normal 8.0 LAB L400.3600 Negative mg/dl PROT DIPSTX High 15 LAB L400.3700 Normal mg/dl UROBILI Normal Normal LAB L400.3750 Negative NITRITE UR Normal Negative LAB L400.3780 Negative /ul OCCULT Normal BLOOD-UR Negative LAB L400.3800 Negative /ul LEUK High ESTERASE 25 LAB L400.4050 0-5 /hpf WBC Normal 0-5 SEEN LAB L400.4100 0-5 /hpf RBC-UA Normal 0-5 SEEN LAB L400.4150 5-10 /hpf SQUAM EPI Normal 0-5 SEEN LAB L400.4300 None Seen /hpf BACTERIA Normal 0 SEEN LAB L400.4350 <or=2+ /hpf MUCUS, Normal URINE 1+ LAB L400.4200 0-5 /hpf Normal TRANSITIONAL EP 0-5 SEEN LAB L400.4400 0-5 /lpf HYALINE Normal CAST 0-5 SEEN LAB L400.4900 AMORPHOUS Normal 2+ Performed By: #### L400.0001 #### [facility] Laboratory [address] [place], [address] CBC W/DIFF, AUTOMATED Collected: 05/24/2018 Status: F Source: [place] 7:18 PM [facility] REPOSITORY TYPE CODE TESTS RESULT OUT OF RANGE REFERENCE UNITS LAB L100.1000 4.4-11.0 K/mm3 Normal WBC 5.0 LAB L100.1200 4.2-5.4 M/mm3 Normal RBC 4.68 LAB L100.1300 12.0-15.0 g/dl Normal HGB 12.6 LAB L100.1400 37-47 % Normal HCT 38.9 LAB L100.1500 81-99 fL Normal MCV 83.1 LAB L100.1600 27.0-32.0 pg Low MCH 26.9 LAB L100.1700 32-36 g/gl Normal MCHC 32.4 LAB L100.1810 11.6-14.6 % Normal RDW CV 13.8 LAB L100.1820 35.1-43.9 fl Normal RDW SD 41.6 LAB L100.1900 150-450 K/mm3 Normal PLT 240 LAB L100.2000 6.2-12.0 fl Normal MPV 9.3 LAB L100.2100 47-70 % Normal NEUT% 57.7 LAB L100.2200 19-41 % Normal LY% 28.2 LAB L100.2300 0-10 % High MONO% 11.7 LAB L100.2400 0-5 % Normal EO% 1.4 LAB L100.2500 0-1 % Normal BASO% 0.8 LAB L100.2550 0.0-0.9 % Normal IM GRAN % 0.200 Result Comment: IG% - Immature Granulocytes (promyelocytes, myelocytes and metamyelocytes) > 1% indicates that a LEFT SHIFT is Present. LAB L100.2620 2.0-7.7 X10 3/uL Normal Absolute Neut 2.9 LAB L100.2720 0.83-4.51 X10 3/ul Normal Absolute Lymph 1.42 Performed By: #### L100.0100 #### [facility] Laboratory [address] [place], [address] BASIC METABOLIC Collected: 05/24/2018 Status: F Source: [place] PROFILE ([facility]) 7:18 PM [facility] REPOSITORY TYPE CODE TESTS RESULT OUT OF RANGE REFERENCE UNITS LAB L501.0100 74-106 mg/dL High GLU 115 Result Comment: Fasting Glucose result from 100 to 125 mg/dL suggests IMPAIRED HOMEOSTASIS per A.D.A. criteria. Please note revised GLUCOSE reference range effective 2017. LAB L501.1000 7-18 mg/dL High BUN 21 LAB L501.1100 0.55-1.02 mg/dL High CREAT,SERUM 1.16 Result Comment: The validity of the calculated GFR AND GFRAA in patients over 70 years has not been determined. Clinical correlation is essential. LAB L501.1110 >60 mL/min Low EST GFR 51 Result Comment: Non- GFR Calc LAB L501.1115 >60 mL/min Normal EST GFR - AA 62 Result Comment: GFR Calc LAB L501.1255 ml/min Normal Estimated CRCL 38.18 LAB L501.1300 10-20 RATIO Normal BUN/CRE 18.1 LAB L501.2200 8.5-10 mg/dL Normal .1 CA 8.7 LAB L501.5300 136-14 mmol/L Normal 5 NA 140 LAB L501.5600 3.5-5. mmol/L Low 1 K alert 2.5 Result Comment: Critical Result(s) Called Tyesha DISLA at: 20:08:28 05/24/2018 by: CHANNING MERINO LAB L501.5900 98-107 mmol/L Normal CL 102 LAB L501.6100 21.0-32.0 mmol/L Normal CO2 30.0 LAB L501.6200 5-15 Normal 8 GAP Performed By: #### L500.2500, L500.3400 #### [facility] Laboratory [address] [facility] [facility] [place], [place], [id number] LIVER PROFILE Collected: 05/24/2018 Status: F Source: [place] 7:18 PM [facility] REPOSITORY TYPE CODE TESTS RESULT OUT OF RANGE REFERENCE UNITS LAB L501.1500 6.4-8.2 g/dL Normal T PROT 7.0 LAB L501.1800 3.2-5.0 g/dL Normal ALB 3.3 LAB L501.1950 2.2-4.2 g/dL Normal GLOB 3.7 LAB L501.4100 15-37 U/L Low AST 13 LAB L501.4305 45-117 U/L Normal ALK P 85 LAB L501.4405 13-56 U/L Normal ALT 15 LAB L501.4600 0.20-1.00 mg/dL Normal T BILI 0.30 LAB L501.4700 0.00-0.30 mg/dL Normal D BILI 0.12 Performed By: #### L500.2500, L500.3400 #### [facility] [address] [place], [address] IRON+IRON BINDING Collected: 05/24/2018 Status: F Source: [facility] 7:18 PM [facility] REPOSITORY TYPE CODE TESTS RESULT OUT OF RANGE REFERENCE UNITS LAB L503.6075 250-450 ug/dL TIBC Normal 359 LAB L503.6150 50-170 ug/dL Low IRON 47 LAB L503.6250 15.0-55.0 % Low IRON SATURATION 13.1 Performed By: #### L503.6030, L503.6550 #### [facility] [address] [place], [place], [id number] FERRITIN Collected: 05/24/2018 Status: F Source: [place] 7:18 PM [facility] REPOSITORY TYPE CODE TESTS RESULT OUT OF RANGE REFERENCE UNITS LAB L503.6550 8-252 ng/mL Normal FERRITIN 9 Performed By: #### L503.6030, L503.6550 #### [facility] [address] [place], [place], [address] THYROID STIM HORMONE Collected: 05/24/2018 Status: F Source: [place] ([facility]) 7:18 PM [facility] REPOSITORY TYPE CODE TESTS RESULT OUT OF RANGE REFERENCE UNITS LAB L501.9520 0.358-3.74 uIU/mL Normal TSH 2.43 Performed By: #### L501.9520 #### [facility] [address] [place], [place], [address] TOPIRAMATE, SERUM Collected: 05/24/2018 Status: F Source: [place] 7:18 PM [facility] REPOSITORY TYPE CODE TESTS RESULT OUT OF RANGE REFERENCE UNITS LAB L3380.1500 2.0-25.0 ug/mL Normal TOPIRAMATE 18.5 Result Comment: Detection Limit = 1.0 Performed at: - [facility] [address] [id number] [facility] Coordinator: Carmela Christian MD, Phone: [phone] Performed By: #### L3380.1400 #### [facility] (refer to report for specific site) refer to report for address and phone number PROGRESS Observed: 03/13/2018 Status: COMPLETED Source: [place] 8:21 AM [facility] REPOSITORY O ID: [id number] Author: Cory Velez Service: (none) Author Type: Physician Type: Progress Notes Filed: 03/26/2018 12:49 AM Note Text: Patient presents with: F/U 3 Month SUBJECTIVE: Cheri Mejia is a 57 year old year old lady here today for 3 month follow up appointment for review of medical conditions. Eating 1 meal a day but goes right through her. So avoids eating more than 1 meal a day. Eats oast and bagels. Can get peanut butter milk shakes. Smoothies okay. Mosotho onion soup. Within 10 minutes has to have BM. LUQ pain after eating. Already tried through samples from Dr. Khanna--Xifaxan and Lotronex. Neither effective. Diagnosed with malabsorption issue and nothing more to do. PAST MEDICAL HISTORY Diagnosis Date - Abdominal pain, epigastric - Acute gastritis without mention of hemorrhage - Arnold-Chiari syndrome with hydrocephalus ([facility]) - COPD (chronic obstructive pulmonary disease) ([facility]) 09/24/2014 - Depression Taking celexa, topamax. 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 - Tobacco use disorder - Unspecified asthma(493.90) PAST SURGICAL HISTORY Procedure Laterality Date - APPENDECTOMY - COLONOSCOP W/ OR W/O [facility] SPEC 09/30/14 Colonoscopy - COLONOSCOPY W/BX 05/07/07 - EGD W/O [facility] SPECIMEN W/BX 02/22/09 [facility] inpt H-pylori is negative - EGD W/O OR W/BRUSH/WASH 03/10/2004 EGD - EGD W/O OR W/BRUSH/WASH 08/22/2006 inpt EGD hp- - EGD W/O OR W/BRUSH/WASH 09/30/14 EGD - HYSTEROSCOPY, DIAGNOSTIC (SEPARATE Hysteroscopy - L'SCOPE DX W/WO BRUSHINGS/WASHINGS Laparoscopy - LAPAROSCOPIC CHOLEYCYSTECTOMY 08-24-06 Cholecystectomy, lap - PAST SURGICAL HISTORY OF 5 outpatient blocks for headaches - PAST SURGICAL HISTORY OF removal of cyst from back of head. - PAST SURGICAL HISTORY OF second surgery back of head for spinal fluid leakage - REMOVAL OF OVARY/TUBE(S) Salpingo-oophorectomy - REMOVAL OF TONSILS,<12 Y/O Tonsillectomy - TOTAL ABDOM HYSTERECTOMY Hysterectomy, SUDEEP - W SHUNT CSF LUMBOPERITONEAL Current Outpatient Prescriptions: rOPINIRole (REQUIP) 0.5 mg tablet Take 2 tablets by mouth daily at bedtime. tiZANidine HCl 4 mg capsule Take 2 capsules by mouth three times daily. topiramate (TOPAMAX) 50 mg tablet Take 3 tablets by mouth at 8am, 2 tablets at 2pm, and 3 tablets at 8pm ramelteon (ROZEREM) 8 mg tablet Take 1 tablet by mouth daily at bedtime. FLUoxetine (PROZAC) 10 mg capsule Take 1 capsule by mouth once daily. traZODone (DESYREL) 50 mg tablet Take 1 tablet by mouth daily at bedtime. dextroamphetamine-amphetamine (ADDERALL) 10 mg tablet Take 1 tablet by mouth twice daily for 30 days.Earliest Fill Date: 02/03/18 dextroamphetamine-amphetamine (ADDERALL) 10 mg tablet Take 1 tablet by mouth twice daily for 30 days.Earliest Fill Date: 01/03/18 LORazepam (ATIVAN) 1 mg tablet Take 1 tablet by mouth three times daily for 90 days. For esophageal spasms traMADol (ULTRAM) 50 mg tablet Take 2 tablets by mouth three times daily for 90 days. atorvastatin (LIPITOR) 20 mg tablet Take 1 tablet by mouth daily at bedtime. For cholesterol. mirtazapine (REMERON) 30 mg tablet Take 1.5 tablets by mouth daily at bedtime. hydrocortisone (CORTEF) 5 mg tablet Take 1 tablet by mouth once daily. and 1/2 tab midday and PM fludrocortisone (FLORINEF) 0.1 mg tablet Take 1 tablet by mouth three times daily. cycloSPORINE (RESTASIS) 0.05 % ophthalmic emulsion Use 1 Drop in both eyes twice daily. White Petrolatum-Mineral Oil (REFRESH P.M.) 57.3-42.5 % ointment Use in both eyes. cyanocobalamin 1,000 mcg/mL soln Inject intramuscularly every 2 weeks. hydrOXYzine pamoate (VISTARIL) 25 mg capsule Take 2 capsules by mouth three times daily as needed. ergocalciferol, vitamin D2, (DRISDOL) 50,000 unit capsule Take 1 capsule by mouth once each week. naphazo HCl-hpm-ps 80-Zn sulf (CLEAR EYES COMPLETE) 0.025-0.2-0.5 % drop Use in eyes. lidocaine 5 %(700 mg/patch) Apply 1 Patch as directed once daily. TO AFFECTED AREA. of low back REMOVE AFTER 12 HOURS. pantoprazole 40 mg tablet Take 40 mg by mouth twice daily. folic acid 1 mg tablet Take 1 mg by mouth once daily. albuterol-ipratropium 18-103 mcg/Actuation INHALATION inhaler 2 PUFF QID2 puff qid Ferrous Sulfate 325 mg (65 mg iron) ORAL tablet Take 1 tablet by mouth twice daily with meals. TAKE WITH FOOD mexiletine 250 mg ORAL capsule Take 1 capsule by mouth twice daily. albuterol 2.5 mg /3 mL (0.083 %) INHALATION nebulizer solution Use QID prn breathing treatment in nebulizer valacyclovir hcl(VALTREX 1 G TAB) as necessary aspirin(ECOTRIN LOW STRENGTH 81 MG TAB) Take one(1) tablet daily. No current facility-administered medications for this visit. OBJECTIVE: BP 86/66 (BP Site: Left Arm, BP Position: Sitting, BP Cuff Size: Regular Adult) Pulse 68 Resp 12 Wt 54.4 kg (120 lb) BMI 18.52 kg/m? Last 5 Encounter BP Readings: Date: BP: 03/13/2018 86/66 01/24/2018 107/72 12/03/2017 122/80 08/31/2017 100/50 05/31/2017 108/60 Last 10 Encounter Wt Readings: Date: Wt: 03/13/2018 54.4 kg (120 lb) 12/03/2017 62.1 kg (137 lb) 08/31/2017 65.3 kg (144 lb) 05/31/2017 67.6 kg (149 lb) 05/10/2017 69.4 kg (153 lb) 03/08/2017 72.6 kg (160 lb) 11/30/2016 73 kg (161 lb) 08/16/2016 73.5 kg (162 lb) 05/11/2016 74.4 kg (164 lb) 02/09/2016 73.5 kg (162 lb) PHYSICAL EXAM: General Appearance: Thin. Skin: Skin color, texture, turgor normal, no suspicious rashes or lesions. Head: Normocephalic, no masses, lesions, tenderness or abnormalities. Eyes: Anicteric sclera. Pupils are equally round. Extraocular movements are grossly intact. . Lungs: Lungs clear to auscultation. No wheezing, rhonchi, rales. Heart: RRR without murmur, gallop, or rubs. No ectopy. Abdomen: Normal abdominal exam. Extremities: No deformities, edema, skin discoloration, clubbing or cyanosis. Good capillary refill. . Neurologic: No focal deficits noted. Reviewed [facility] ASSESSMENT AND PLAN: Encounter Diagnosis ICD-10-CM 1. Pernicious anemia D51.0 CBC 2. Attention deficit hyperactivity disorder (ADHD), combined type F90.2 dextroamphetamine-amphetamine (ADDERALL) 10 mg tablet dextroamphetamine-amphetamine (ADDERALL) 10 mg tablet dextroamphetamine-amphetamine (ADDERALL) 10 mg tablet 3. Anxiety F41.9 LORazepam (ATIVAN) 1 mg tablet 4. Fibromyalgia M79.7 traMADol (ULTRAM) 50 mg tablet 5. Neuropathy (HCC) G62.9 traMADol (ULTRAM) 50 mg tablet 6. Back pain, unspecified back location, unspecified back pain laterality, unspecified chronicity M54.9 traMADol (ULTRAM) 50 mg tablet 7. Hypokalemia E87.6 BASIC METABOLIC PNL 8. Iron deficiency anemia, unspecified iron deficiency anemia type D50.9 CBC (D51.0) Pernicious anemia (primary encounter diagnosis) Comment: Concerns regarding cause for malabsorption causing ongoing weight loss and anemia discussed Plan: CBC Further evaluation and treatment as indicated. Noted plans to try to get her seen by GI within [facility] system since local GI has completed workup that he recommended and has not offered further evaluation or treatment options. (F90.2) Attention deficit hyperactivity disorder (ADHD), combined type Comment: Meds effective Plan: dextroamphetamine-amphetamine (ADDERALL) 10 mg tablet, dextroamphetamine-amphetamine (ADDERALL) 10 mg tablet, dextroamphetamine-amphetamine (ADDERALL) 10 mg tablet Continue present management. Stable with control of ADHD. No signs of diversion or abuse of medication(s); no adverse effects. Continue present management. PDMP website checked and validated. All prescriptions have been APPROPRIATELY filled. No suspicious activity was identified. 03/26/2018 by Cory Velez MD (F41.9) Anxiety Comment: Stable despite stressor Plan: LORazepam (ATIVAN) 1 mg tablet Continue present management. Stable with control of anxiety. No signs of diversion or abuse of medication(s); no adverse effects. Continue present management. PDMP as noted above (M79.7) Fibromyalgia Comment: Overall stable pain control Plan: traMADol (ULTRAM) 50 mg tablet PDMP as above. (G62.9) Neuropathy (HCC) Comment: As noted above Plan: traMADol (ULTRAM) 50 mg tablet As noted above (M54.9) Back pain, unspecified back location, unspecified back pain laterality, unspecified chronicity Comment: Stable with pain control. No signs of diversion or abuse of medication(s); no adverse effects. Continue present management. Plan: traMADol (ULTRAM) 50 mg tablet PDMP as noted above (E87.6) Hypokalemia Comment: Noted was recently on low side at CT Plan: BASIC METABOLIC PNL Has labs so may do at her convenience. Work on getting adequately from diet. Further evaluation and treatment as indicated. (D50.9) Iron deficiency anemia, unspecified iron deficiency anemia type Comment: As noted above with regards to malabsorption concerns Plan: CBC As above. Further evaluation and treatment as indicated. Multiple chronic medical issues addressed. Complicated patient. Will get follow up labs. Continue to work with Chelle George CNP at [place] on her overall care. Above issues addressed with patient. Patient involved in shared decision making for management of medical issues. History and medications reviewed. Epic updated as needed Refills taken care of and meds adjusted as indicated after reviewed history, exam and labs. Health Maintenance reviewed. Updated record and/or ordered tests as recorded. Encouraged on efforts at healthy diet and regular exercise and adequate sleep. The majority of the visit was spent counseling and/or coordinating care for the patient. Ljrc-up-zrhj time was at least 30 minutes. Cory Velez MD CNOV Observed: 03/13/2018 Status: COMPLETED Source: [place] 8:20 AM [facility] REPOSITORY Office Visit (INTMWS) CHERI MEJIA ([id number]) 1960 F Date Time Provider Department 03/13/18 8:20 AM CORY VELEZ During your visit today, we recorded the following information about you: Pulse Respiration Blood pressure Weight 68/minute 12/minute 86/66 54.4 kg Cory Velez MD 03/26/2018 12:49 AM Signed Patient presents with: F/U 3 Month SUBJECTIVE: Cheri Mejia is a 57 year old year old lady here today for 3 month follow up appointment for review of medical conditions. Eating 1 meal a day but goes right through her. So avoids eating more than 1 meal a day. Eats oast and bagels. Can get peanut butter milk shakes. Smoothies okay. Mosotho onion soup. Within 10 minutes has to have BM. LUQ pain after eating. Already tried through samples from Dr. Khanna--Xifaxan and Lotronex. Neither effective. Diagnosed with malabsorption issue and nothing more to do. PAST MEDICAL HISTORY Diagnosis Date - Abdominal pain, epigastric - Acute gastritis without mention of hemorrhage - Arnold-Chiari syndrome with hydrocephalus ([facility]) - COPD (chronic obstructive pulmonary disease) ([facility]) 09/24/2014 - Depression Taking celexa, topamax. 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 - Tobacco use disorder - Unspecified asthma(493.90) PAST SURGICAL HISTORY Procedure Laterality Date - APPENDECTOMY - COLONOSCOP W/ OR W/O [facility] SPEC 09/30/14 Colonoscopy - COLONOSCOPY W/BX 05/07/07 - EGD W/O [facility] SPECIMEN W/BX 02/22/09 [facility] inpt H-pylori is negative - EGD W/O OR W/BRUSH/WASH 03/10/2004 EGD - EGD W/O OR W/BRUSH/WASH 08/22/2006 inpt EGD hp- - EGD W/O OR W/BRUSH/WASH 09/30/14 EGD - HYSTEROSCOPY, DIAGNOSTIC (SEPARATE Hysteroscopy - L'SCOPE DX W/WO BRUSHINGS/WASHINGS Laparoscopy - LAPAROSCOPIC CHOLEYCYSTECTOMY 08-24-06 Cholecystectomy, lap - PAST SURGICAL HISTORY OF 5 outpatient blocks for headaches - PAST SURGICAL HISTORY OF removal of cyst from back of head. - PAST SURGICAL HISTORY OF second surgery back of head for spinal fluid leakage - REMOVAL OF OVARY/TUBE(S) Salpingo-oophorectomy - REMOVAL OF TONSILS,<12 Y/O Tonsillectomy - TOTAL ABDOM HYSTERECTOMY Hysterectomy, SUDEEP - W SHUNT CSF LUMBOPERITONEAL Current Outpatient Prescriptions: rOPINIRole (REQUIP) 0.5 mg tablet Take 2 tablets by mouth daily at bedtime. tiZANidine HCl 4 mg capsule Take 2 capsules by mouth three times daily. topiramate (TOPAMAX) 50 mg tablet Take 3 tablets by mouth at 8am, 2 tablets at 2pm, and 3 tablets at 8pm ramelteon (ROZEREM) 8 mg tablet Take 1 tablet by mouth daily at bedtime. FLUoxetine (PROZAC) 10 mg capsule Take 1 capsule by mouth once daily. traZODone (DESYREL) 50 mg tablet Take 1 tablet by mouth daily at bedtime. dextroamphetamine-amphetamine (ADDERALL) 10 mg tablet Take 1 tablet by mouth twice daily for 30 days.Earliest Fill Date: 02/03/18 dextroamphetamine-amphetamine (ADDERALL) 10 mg tablet Take 1 tablet by mouth twice daily for 30 days.Earliest Fill Date: 01/03/18 LORazepam (ATIVAN) 1 mg tablet Take 1 tablet by mouth three times daily for 90 days. For esophageal spasms traMADol (ULTRAM) 50 mg tablet Take 2 tablets by mouth three times daily for 90 days. atorvastatin (LIPITOR) 20 mg tablet Take 1 tablet by mouth daily at bedtime. For cholesterol. mirtazapine (REMERON) 30 mg tablet Take 1.5 tablets by mouth daily at bedtime. hydrocortisone (CORTEF) 5 mg tablet Take 1 tablet by mouth once daily. and 1/2 tab midday and PM fludrocortisone (FLORINEF) 0.1 mg tablet Take 1 tablet by mouth three times daily. cycloSPORINE (RESTASIS) 0.05 % ophthalmic emulsion Use 1 Drop in both eyes twice daily. White Petrolatum-Mineral Oil (REFRESH P.M.) 57.3-42.5 % ointment Use in both eyes. cyanocobalamin 1,000 mcg/mL soln Inject intramuscularly every 2 weeks. hydrOXYzine pamoate (VISTARIL) 25 mg capsule Take 2 capsules by mouth three times daily as needed. ergocalciferol, vitamin D2, (DRISDOL) 50,000 unit capsule Take 1 capsule by mouth once each week. naphazo HCl-hpm-ps 80-Zn sulf (CLEAR EYES COMPLETE) 0.025-0.2-0.5 % drop Use in eyes. lidocaine 5 %(700 mg/patch) Apply 1 Patch as directed once daily. TO AFFECTED AREA. of low back REMOVE AFTER 12 HOURS. pantoprazole 40 mg tablet Take 40 mg by mouth twice daily. folic acid 1 mg tablet Take 1 mg by mouth once daily. albuterol-ipratropium 18-103 mcg/Actuation INHALATION inhaler 2 PUFF QID2 puff qid Ferrous Sulfate 325 mg (65 mg iron) ORAL tablet Take 1 tablet by mouth twice daily with meals. TAKE WITH FOOD mexiletine 250 mg ORAL capsule Take 1 capsule by mouth twice daily. albuterol 2.5 mg /3 mL (0.083 %) INHALATION nebulizer solution Use QID prn breathing treatment in nebulizer valacyclovir hcl(VALTREX 1 G TAB) as necessary aspirin(ECOTRIN LOW STRENGTH 81 MG TAB) Take one(1) tablet daily. No current facility-administered medications for this visit. OBJECTIVE: BP 86/66 (BP Site: Left Arm, BP Position: Sitting, BP Cuff Size: Regular Adult) Pulse 68 Resp 12 Wt 54.4 kg (120 lb) BMI 18.52 kg/m? Last 5 Encounter BP Readings: Date: BP: 03/13/2018 86/66 01/24/2018 107/72 12/03/2017 122/80 08/31/2017 100/50 05/31/2017 108/60 Last 10 Encounter Wt Readings: Date: Wt: 03/13/2018 54.4 kg (120 lb) 12/03/2017 62.1 kg (137 lb) 08/31/2017 65.3 kg (144 lb) 05/31/2017 67.6 kg (149 lb) 05/10/2017 69.4 kg (153 lb) 03/08/2017 72.6 kg (160 lb) 11/30/2016 73 kg (161 lb) 08/16/2016 73.5 kg (162 lb) 05/11/2016 74.4 kg (164 lb) 02/09/2016 73.5 kg (162 lb) PHYSICAL EXAM: General Appearance: Thin. Skin: Skin color, texture, turgor normal, no suspicious rashes or lesions. Head: Normocephalic, no masses, lesions, tenderness or abnormalities. Eyes: Anicteric sclera. Pupils are equally round. Extraocular movements are grossly intact. . Lungs: Lungs clear to auscultation. No wheezing, rhonchi, rales. Heart: RRR without murmur, gallop, or rubs. No ectopy. Abdomen: Normal abdominal exam. Extremities: No deformities, edema, skin discoloration, clubbing or cyanosis. Good capillary refill. . Neurologic: No focal deficits noted. Reviewed [facility] ASSESSMENT AND PLAN: Encounter Diagnosis ICD-10-CM 1. Pernicious anemia D51.0 CBC 2. Attention deficit hyperactivity disorder (ADHD), combined type F90.2 dextroamphetamine-amphetamine (ADDERALL) 10 mg tablet dextroamphetamine-amphetamine (ADDERALL) 10 mg tablet dextroamphetamine-amphetamine (ADDERALL) 10 mg tablet 3. Anxiety F41.9 LORazepam (ATIVAN) 1 mg tablet 4. Fibromyalgia M79.7 traMADol (ULTRAM) 50 mg tablet 5. Neuropathy (HCC) G62.9 traMADol (ULTRAM) 50 mg tablet 6. Back pain, unspecified back location, unspecified back pain laterality, unspecified chronicity M54.9 traMADol (ULTRAM) 50 mg tablet 7. Hypokalemia E87.6 BASIC METABOLIC PNL 8. Iron deficiency anemia, unspecified iron deficiency anemia type D50.9 CBC (D51.0) Pernicious anemia (primary encounter diagnosis) Comment: Concerns regarding cause for malabsorption causing ongoing weight loss and anemia discussed Plan: CBC Further evaluation and treatment as indicated. Noted plans to try to get her seen by GI within [facility] system since local GI has completed workup that he recommended and has not offered further evaluation or treatment options. (F90.2) Attention deficit hyperactivity disorder (ADHD), combined type Comment: Meds effective Plan: dextroamphetamine-amphetamine (ADDERALL) 10 mg tablet, dextroamphetamine-amphetamine (ADDERALL) 10 mg tablet, dextroamphetamine-amphetamine (ADDERALL) 10 mg tablet Continue present management. Stable with control of ADHD. No signs of diversion or abuse of medication(s); no adverse effects. Continue present management. PDMP website checked and validated. All prescriptions have been APPROPRIATELY filled. No suspicious activity was identified. 03/26/2018 by Cory Velez MD (F41.9) Anxiety Comment: Stable despite stressor Plan: LORazepam (ATIVAN) 1 mg tablet Continue present management. Stable with control of anxiety. No signs of diversion or abuse of medication(s); no adverse effects. Continue present management. PDMP as noted above (M79.7) Fibromyalgia Comment: Overall stable pain control Plan: traMADol (ULTRAM) 50 mg tablet PDMP as above. (G62.9) Neuropathy (HCC) Comment: As noted above Plan: traMADol (ULTRAM) 50 mg tablet As noted above (M54.9) Back pain, unspecified back location, unspecified back pain laterality, unspecified chronicity Comment: Stable with pain control. No signs of diversion or abuse of medication(s); no adverse effects. Continue present management. Plan: traMADol (ULTRAM) 50 mg tablet PDMP as noted above (E87.6) Hypokalemia Comment: Noted was recently on low side at CT Plan: BASIC METABOLIC PNL Has labs so may do at her convenience. Work on getting adequately from diet. Further evaluation and treatment as indicated. (D50.9) Iron deficiency anemia, unspecified iron deficiency anemia type Comment: As noted above with regards to malabsorption concerns Plan: CBC As above. Further evaluation and treatment as indicated. Multiple chronic medical issues addressed. Complicated patient. Will get follow up labs. Continue to work with Chelle George CNP at [place] on her overall care. Above issues addressed with patient. Patient involved in shared decision making for management of medical issues. History and medications reviewed. Epic updated as needed Refills taken care of and meds adjusted as indicated after reviewed history, exam and labs. Health Maintenance reviewed. Updated record and/or ordered tests as recorded. Encouraged on efforts at healthy diet and regular exercise and adequate sleep. The majority of the visit was spent counseling and/or coordinating care for the patient. Ofnx-sd-zszc time was at least 30 minutes. MD Cory Solano MD 03/13/2018 9:35 AM Signed Change iron pills to taking every other day. Referring Provider: CORY VELEZ [[id number]] Allergies As of Date: 03/13/2018 Noted Allergy Reaction CODEINE 10/27/2005 5 - Intolerance Comments: violently ill ADHESIVE TAPE-SILICONES 09/10/2014 2 - Rash 9 - Itching AMITRIPTYLINE 03/19/2007 5 - Intolerance Comments: all day hangover BACLOFEN 11/05/2012 12 - Shortness of Breath BELSOMRA (SUVOREXANT) 11/09/2015 5 - Intolerance Comments: hallucination,vomit flu vaccine [Other] 04/16/2007 10 - Anaphylaxis Comments: Passes out/anaphylaxis FLUDROCORTISONE 07/24/2013 1 - Mental Status Change Comments: thick tongued,goofy if 0.2mg daily HYDROCORTISONE 09/10/2014 14 - Other: See Comments Comments: Can't tolerate higher doses LEVAQUIN (LEVOFLOXACIN) 12/29/2005 8 - GI Upset LYRICA (PREGABALIN) 07/08/2007 5 - Intolerance Comments: dyspnea MIDRIN ([id number]*11/05/2012 12 - Shortness of Breath PINEAPPLE 06/28/2009 2 - Rash PYRIDOSTIGMINE 11/05/2012 12 - Shortness of Breath Date Reviewed: 03/13/2018 Reviewed by: Angeles Katz - Fully Assessed Reason for Visit: F/U 3 Month [443] Primary Visit Diagnosis:Pernicious anemia [D51.0] Other Visit Diagnoses:Attention deficit hyperactivity disorder (ADHD), combined type [F90.2] Anxiety [F41.9] Fibromyalgia [M79.7] Neuropathy (HCC) [G62.9] Back pain, unspecified back location, unspecified back pain laterality, unspecified chronicity [M54.9] Hypokalemia [E87.6] Iron deficiency anemia, unspecified iron deficiency anemia type [D50.9] Order(s):dextroamphetamine-amphetamine (ADDERALL) 10 mg tabletTake 1 tablet by mouth twice daily for 30 days. Earliest Fill Date: 03/13/18Disp: 60 tabletRfl: 0 LORazepam (ATIVAN) 1 mg tabletTake 1 tablet by mouth three times daily for 90 days. For esophageal spasmsDisp: 90 tabletRfl: 2 traMADol (ULTRAM) 50 mg tabletTake 2 tablets by mouth three times daily for 90 days.Disp: 540 tabletRfl: 0 [START ON 04/12/2018] dextroamphetamine-amphetamine (ADDERALL) 10 mg tabletTake 1 tablet by mouth twice daily for 30 days. Earliest Fill Date: 04/12/18Disp: 60 tabletRfl: 0 [START ON 05/12/2018] dextroamphetamine-amphetamine (ADDERALL) 10 mg tabletTake 1 tablet by mouth twice daily for 30 days. Earliest Fill Date: 05/12/18Disp: 60 tabletRfl: 0 BASIC METABOLIC PNL [SQBMP] Order #: [id number] STANDING CBC [SQCBC] Order #: [id number] STANDING Prescriptions as of 03/13/2018 Sig: DEXTROAMPHETAMINE-AMPHETAMINE* Take 1 tablet by mouth twice * LORAZEPAM 1 MG TABLET Take 1 tablet by mouth three * TRAMADOL 50 MG TABLET Take 2 tablets by mouth three* DEXTROAMPHETAMINE-AMPHETAMINE* Take 1 tablet by mouth twice * DEXTROAMPHETAMINE-AMPHETAMINE* Take 1 tablet by mouth twice * ROPINIROLE 0.5 MG TABLET Take 2 tablets by mouth daily* TIZANIDINE 4 MG CAPSULE Take 2 capsules by mouth thre* TOPIRAMATE 50 MG TABLET Take 3 tablets by mouth at 8a* RAMELTEON 8 MG TABLET Take 1 tablet by mouth daily * FLUOXETINE 10 MG CAPSULE Take 1 capsule by mouth once * TRAZODONE 50 MG TABLET Take 1 tablet by mouth daily * ATORVASTATIN 20 MG TABLET Take 1 tablet by mouth daily * MIRTAZAPINE 30 MG TABLET Take 1.5 tablets by mouth louise* HYDROCORTISONE 5 MG TABLET Take 1 tablet by mouth once d* FLUDROCORTISONE 0.1 MG TABLET Take 1 tablet by mouth three * CYCLOSPORINE 0.05 % EYE DROPS* Use 1 Drop in both eyes twice* WHITE PETROLATUM-MINERAL OIL * Use in both eyes. CYANOCOBALAMIN (VIT B-12) 1,0* Inject intramuscularly every* HYDROXYZINE PAMOATE 25 MG CAP* Take 2 capsules by mouth thre* ERGOCALCIFEROL (VITAMIN D2) 5* Take 1 capsule by mouth once * NAPHAZO HCL 0.025 %-HYPROME 0* Use in eyes. LIDOCAINE 5 % TOPICAL PATCH Apply 1 Patch as directed onc* PANTOPRAZOLE 40 MG TABLET,DEL* Take 40 mg by mouth twice louise* FOLIC ACID 1 MG TABLET Take 1 mg by mouth once daily. IPRATROPIUM-ALBUTEROL 18 MCG-* 2 PUFF QID2 puff qid FERROUS SULFATE 325 MG (65 MG* Take 1 tablet by mouth twice * MEXILETINE 250 MG CAPSULE Take 1 capsule by mouth twice* ALBUTEROL SULFATE 2.5 MG/3 ML* Use QID prn breathing treatme* VALTREX 1 GRAM TABLET as necessary ECOTRIN LOW STRENGTH 81 MG TA* Take one(1) tablet daily. SERTRALINE 25 MG TABLET Take 1 tablet by mouth once d* DEXTROAMPHETAMINE-AMPHETAMINE* Take 1 tablet by mouth twice * Medication notes this encounter ROPINIROLE 0.5 MG TABLET >> Angeles Katz 03/13/2018 8:29 AM >> ANGELES KATZ SunMar 13, 2018 8:29 AM Takes 1 pill at HS FLUOXETINE 10 MG CAPSULE >> Angeles Katz 03/13/2018 8:30 AM >> ANGELES KATZ SunMar 13, 2018 8:30 AM Not taking MIRTAZAPINE 30 MG TABLET >> Angeles Katz 03/13/2018 8:33 AM >> ANGELES KATZ SunMar 13, 2018 8:33 AM Takes 1 pill at HS FLUDROCORTISONE 0.1 MG TABLET >> Angeles Katz 03/13/2018 8:35 AM >> ANGELES KATZ SunMar 13, 2018 8:35 AM Not taking Problem List As Of Date 03/13/2018 Noted Resolved TOBACCO USE DISORDER [F17.200] INVALID FOR* Unspecified Asthma [J45.909] INVALID FOR* More... Dysmenorrhea [N94.6] INVALID FOR*06/28/2009 Other and Unspecified Noninfectious Gastroenter*INVALID FOR*06/28/2009 Esophageal Reflux [K21.9] More... Diarrhea [R19.7] INVALID FOR* More... HYPERCALCEMIA [E83.52] INVALID FOR* Myalgia and myositis, unspecified [XMD4534] INVALID FOR*11/30/2016 More... Headache [R51] INVALID FOR* More... Secondary Hyperparathyroidism, Non-Renal [E21.1]INVALID FOR* More... Pure Hypercholesterolemia [E78.00] INVALID FOR* More... Depression [F32.9] More... Back Pain [M54.9] INVALID FOR* More... Neck Pain [M54.2] INVALID FOR* More... Narcolepsy [G47.419] INVALID FOR* More... Syncope [R55] INVALID FOR* More... Pernicious Anemia [D51.0] INVALID FOR* Neuropathy [G62.9] INVALID FOR* Fibromyalgia [M79.7] INVALID FOR* More... Hypotension [I95.9] INVALID FOR* PTSD (post-traumatic stress disorder) [F43.10] INVALID FOR* Pulmonary nodules [R91.8] INVALID FOR* Orthostatic hypotension [I95.1] INVALID FOR* Dysautonomia orthostatic hypotension syndrome (*INVALID FOR* More... 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 Vitamin B 12 deficiency [E53.8] INVALID FOR* Other instructions from your clinician: Change iron pills to taking every other day. Prescriptions ordered this encounter Disp Refills Start End DEXTROAMPHETAMINE-AMPHETAMINE 10 MG * 60 t* 0 03/13/2018 04/12/2018 Class: Print RX Route: ORAL Sig: Take 1 tablet by mouth twice daily for 30 days. Earliest Fill Date: 03/13/18 LORAZEPAM 1 MG TABLET 90 t* 2 03/13/2018 06/11/2018 Class: Print RX Route: ORAL Sig: Take 1 tablet by mouth three times daily for 90 days. For esophageal spasms TRAMADOL 50 MG TABLET 540 * 0 03/13/2018 06/11/2018 Class: Print RX Route: ORAL Sig: Take 2 tablets by mouth three times daily for 90 days. DEXTROAMPHETAMINE-AMPHETAMINE 10 MG * 60 t* 0 04/12/2018 05/12/2018 Class: Print RX Route: ORAL Sig: Take 1 tablet by mouth twice daily for 30 days. Earliest Fill Date: 04/12/18 DEXTROAMPHETAMINE-AMPHETAMINE 10 MG * 60 t* 0 05/12/2018 06/11/2018 Class: Print RX Route: ORAL Sig: Take 1 tablet by mouth twice daily for 30 days. Earliest Fill Date: 05/12/18 Medications Discontinued During This Encounter dextroamphetamine-amphetamine (ADDER* 60 t* 0 02/03/2018 03/13/2018 Class: Print RX Route: ORAL Sig: Take 1 tablet by mouth twice daily for 30 days. Earliest Fill Date: 02/03/18 Disc: Reason for discontinue is not on file. LORazepam (ATIVAN) 1 mg tablet 90 t* 2 12/03/2017 03/13/2018 Class: Print RX Route: ORAL Sig: Take 1 tablet by mouth three times daily for 90 days. For esophageal spasms Disc: Reason for discontinue is not on file. traMADol (ULTRAM) 50 mg tablet 540 * 2 12/03/2017 03/13/2018 Class: Print RX Route: ORAL Sig: Take 2 tablets by mouth three times daily for 90 days. Disc: Reason for discontinue is not on file. Disposition: Return for Add the next 3 months. Follow-up and Disposition History Recorded Encounter Status:Closed by CORY VELEZ MD on 03/26/18 ECG COMPLETE W Observed: 01/24/2018 Status: F Source: [place] INTERPRETATION 12:05 PM [facility] REPOSITORY NAME : CHERI MEJIA PID : [id number] : 1960 Gender : Female Race : ORD : [id number] Procedure Date : Jan 24 2018 12:05:22 Edit Date : Jan 25 2018 16:08:47 Diagnosis:SINUS BRADYCARDIA NONSPECIFIC ST AND T WAVE ABNORMALITY ABNORMAL ECG Confirmed by ARAVIND ABRAMS D.O. ([id number]) on 01/25/2018 4:08:38 PM Ventricular Rate : 54 BPM Atrial Rate : 54 BPM P-R Interval : 148 ms QRS Duration : 82 ms Q-T Interval : 470 ms QTC Calculation(Bezet) : 445 ms P [place] : 53 degrees R [place] : 2 degrees T [place] : 45 degrees Test Reason : Location : 185 : [facility] Overread By : ARAVIND ABRAMS D.O. Edited By : ARAVIND ABRAMS D.O. Referred By : TANVI GLORIA Acquired by : HUMBERTO GUTIERREZ LPN, PROGRESS Observed: 01/24/2018 Status: COMPLETED Source: [place] 11:00 [facility] REPOSITORY [facility] ID: [id number] Author: Norma Levine (Pharmacist) Service: (none) Author Type: Pharmacist Type: Progress Notes Filed: 01/24/2018 2:52 PM Note Text: CLINICAL PHARMACY NOTE: MEDICATION REVIEW AND EDUCATION S/O: Cheri Mejia is a 57 year old female who was referred to PharmD by Dr. Velez on 01/01/18 for medication review and education. Patient receives care from [facility] and [facility]. Met with clinical pharmacist and psychiatrist on 12/31/[address] Was started on fluoxetine and trazodone Per PharmD note, last QTC prolonged, need to recheck today prior to initiation of therapy Efrem Lopes, PharmD [facility] [phone] Patient reports feeling ok today Did recently lose her Coping with the stress of that, has supports Reports weight loss Doesn't think it's due to her meds because she had been less than 100 lbs prior to the meds PAST MEDICAL HISTORY Diagnosis Date - Abdominal pain, epigastric - Acute gastritis without mention of hemorrhage - Arnold-Chiari syndrome with hydrocephalus ([facility]) - COPD (chronic obstructive pulmonary disease) ([facility]) 09/24/2014 - Depression Taking celexa, topamax. 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 - Tobacco use disorder - Unspecified asthma(493.90) MEDICATIONS: ? Pill bottles are not present. ? Adherence: denies missed doses. ? Pharmacy: [facility] ? Rx coverage: [place] ? Affordability: no issues ? Administration times: 8am, 2pm, 8pm ? Organization: pill bottles, sets up cups in the morning for the rest of the day ALLERGIES Allergen Reactions - Codeine Intolerance violently ill - Adhesive Tape-Silic* Rash, Itching - Amitriptyline Intolerance all day hangover - Baclofen Shortness of Breath - Belsomra [Suvorexan* Intolerance hallucination,vomit - Flu Vaccine [Other] Anaphylaxis Passes out/anaphylaxis - Fludrocortisone Mental Status Change thick tongued,goofy if 0.2mg daily - Hydrocortisone Other: See Comments Can't tolerate higher doses - Levaquin [Levofloxa* GI Upset - Lyrica [Pregabalin] Intolerance dyspnea - Midrin [Isometh-Dic* Shortness of Breath - Pineapple Rash - Pyridostigmine Shortness of Breath Current Outpatient Prescriptions on File Prior to Visit: dextroamphetamine-amphetamine (ADDERALL) 10 mg tablet Take 1 tablet by mouth twice daily for 30 days.Earliest Fill Date: 01/03/18 taking LORazepam (ATIVAN) 1 mg tablet Take 1 tablet by mouth three times daily for 90 days. For esophageal spasms taking traMADol (ULTRAM) 50 mg tablet Take 2 tablets by mouth three times daily for 90 days. taking atorvastatin (LIPITOR) 20 mg tablet Take 1 tablet by mouth daily at bedtime. For cholesterol. taking not taking mirtazapine (REMERON) 30 mg tablet Take 1.5 tablets by mouth daily at bedtime. taking Topiramate (TOPAMAX) 50 mg tablet Take 2 tablets by mouth twice daily. Taking 3 tabs AM, 2 tabs noon, 3 tabs PM tiZANidine HCl 4 mg capsule Take 3 capsules by mouth three times daily. 2 capsules hydrocortisone (CORTEF) 5 mg tablet Take 1 tablet by mouth once daily. and 1/2 tab midday and PM taking fludrocortisone (FLORINEF) 0.1 mg tablet Take 1 tablet by mouth three times daily. taking cycloSPORINE (RESTASIS) 0.05 % ophthalmic emulsion Use 1 Drop in both eyes twice daily. taking White Petrolatum-Mineral Oil (REFRESH P.M.) 57.3-42.5 % ointment Use in both eyes. taking cyanocobalamin 1,000 mcg/mL soln Inject intramuscularly every 2 weeks. taking rOPINIRole (REQUIP) 0.5 mg tablet Take 1 tablet by mouth daily at bedtime. X 2weeks, then 2 tablets at bedtime. (Patient taking differently: Take 0.5 mg by mouth daily at bedtime. 2 tablets at bedtime.) 1mg QHS hydrOXYzine pamoate (VISTARIL) 25 mg capsule Take 2 capsules by mouth three times daily as needed. taking ergocalciferol, vitamin D2, (DRISDOL) 50,000 unit capsule Take 1 capsule by mouth once each week. taking naphazo HCl-hpm-ps 80-Zn sulf (CLEAR EYES COMPLETE) 0.025-0.2-0.5 % drop Use in eyes. taking lidocaine 5 %(700 mg/patch) Apply 1 Patch as directed once daily. TO AFFECTED AREA. of low back REMOVE AFTER 12 HOURS. taking pantoprazole 40 mg tablet Take 40 mg by mouth twice daily. taking folic acid 1 mg tablet Take 1 mg by mouth once daily. taking albuterol-ipratropium 18-103 mcg/Actuation INHALATION inhaler 2 PUFF QID2 puff qid Ferrous Sulfate 325 mg (65 mg iron) ORAL tablet Take 1 tablet by mouth twice daily with meals. TAKE WITH FOOD taking mexiletine 250 mg ORAL capsule Take 1 capsule by mouth twice daily. taking albuterol 2.5 mg /3 mL (0.083 %) INHALATION nebulizer solution Use QID prn breathing treatment in nebulizer valacyclovir hcl(VALTREX 1 G TAB) as necessary taking aspirin(ECOTRIN LOW STRENGTH 81 MG TAB) Take one(1) tablet daily. taking No current facility-administered medications on file prior to visit. Other prescription bottles present: Ramelteon 8mg QHS Trazodone 50mg QHS - not yet started Fluoxetine 10mg once daily - not yet started OTCs, herbals, and supplements: None ADRs: None reported 01/24/18 1155 BP: 107/72 Pulse: 63 Vitals/Pertinent Labs: Last 3 Encounter BP Readings: Date: BP: 12/03/2017 122/80 08/31/2017 100/50 05/31/2017 108/60 Lab Results Component Value Date HBA1C 5.8 05/30/2017 HBA1C 6.0 02/09/2016 HBA1C 5.7 04/17/2007 CMP:11/26/2017 Glucose 82 BUN 13 Creatinine 1.28 Sodium 147 Potassium 3.3 Chloride 114 CO2 27 Protein, Total 6.5 Albumin 3.3 Calcium 8.3 Alkaline Phosphatase 69 Bilirubin, Total 0.2 AST 27 ALT 23 GFR 46 ESTIMATED CRCL:47.5 mL/min (Based on sCr= 1.28 mg/dL, HT= 67.5 inches, ideal WT=62.8 kg) Last Lipid Panel Lab Results Component Value Date CHOL 117 11/26/2017 Lab Results Component Value Date HDL 50 11/26/2017 Lab Results Component Value Date LDL 53 11/26/2017 Lab Results Component Value Date TG 71 11/26/2017 PHARMACOTHERAPY ASSESSMENT/PLAN: 1. Medication management - ICD9: V58.69, ICD10: Z79.899 - Medication reconciliation: Reviewed all medications, indications, dosing, frequency, administration, and potential ADRs with pt . Medication list updated as described above. - Indications/Dosing: All medications are appropriate. Patient is on several F[employer]IGHT BRAKEM[employer] depressants but is closely monitored by psych and [facility] providers. She has absorption issues as started in previous visits, so potential for malabsorption of some or all of the [employer] depressants. - Adherence: Appropriate administration - ADRs: None reported - Drug Interactions: None clinically significant - Monitoring: QTc for QTc prolonging medicines: mirtazapine, hydroxyzine, tizanidine, tramadol - newly prescribed fluoxetine and trazodone which are both QTc-prolonging - EKG in office today Potassium, last K was low Calcium, last Ca was low Follow up: communication via phone after provider response, face visit if necessary No changes today Has [facility] f/u this Sunday Norma Levine PharmD, BCPS CNOV Observed: 01/24/2018 Status: COMPLETED Source: [place] 11:00 AM [facility] REPOSITORY Office Visit (PHMEWO) CHERI MEJIA ([id number]) 1960 F Date Time Provider Department 01/24/18 11:00 AM ABNER (PHARMACIST)NORMA During your visit today, we recorded the following information about you: Pulse Blood pressure 63/minute 107/72 EDWIGE ADLER 01/24/2018 2:52 PM Addendum CLINICAL PHARMACY NOTE: MEDICATION REVIEW AND EDUCATION S/O: Cheri Mejia is a 57 year old female who was referred to PharmD by Dr. Velez on 01/01/18 for medication review and education. Patient receives care from [facility] and [facility]. Met with clinical pharmacist and psychiatrist on 12/31/[address] Was started on fluoxetine and trazodone Per PharmD note, last QTC prolonged, need to recheck today prior to initiation of therapy Efrem Lopes, PharmD [facility] [phone] Patient reports feeling ok today Did recently lose her Coping with the stress of that, has supports Reports weight loss Doesn't think it's due to her meds because she had been less than 100 lbs prior to the meds PAST MEDICAL HISTORY Diagnosis Date - Abdominal pain, epigastric - Acute gastritis without mention of hemorrhage - Arnold-Chiari syndrome with hydrocephalus ([facility]) - COPD (chronic obstructive pulmonary disease) ([facility]) 09/24/2014 - Depression Taking celexa, topamax. 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 - Tobacco use disorder - Unspecified asthma(493.90) MEDICATIONS: ? Pill bottles are not present. ? Adherence: denies missed doses. ? Pharmacy: [facility] ? Rx coverage: [facility] ? Affordability: no issues ? Administration times: 8am, 2pm, 8pm ? Organization: pill bottles, sets up cups in the morning for the rest of the day ALLERGIES Allergen Reactions - Codeine Intolerance violently ill - Adhesive Tape-Silic* Rash, Itching - Amitriptyline Intolerance all day hangover - Baclofen Shortness of Breath - Belsomra [Suvorexan* Intolerance hallucination,vomit - Flu Vaccine [Other] Anaphylaxis Passes out/anaphylaxis - Fludrocortisone Mental Status Change thick tongued,goofy if 0.2mg daily - Hydrocortisone Other: See Comments Can't tolerate higher doses - Levaquin [Levofloxa* GI Upset - Lyrica [Pregabalin] Intolerance dyspnea - Midrin [Isometh-Dic* Shortness of Breath - Pineapple Rash - Pyridostigmine Shortness of Breath Current Outpatient Prescriptions on File Prior to Visit: dextroamphetamine-amphetamine (ADDERALL) 10 mg tablet Take 1 tablet by mouth twice daily for 30 days.Earliest Fill Date: 01/03/18 taking LORazepam (ATIVAN) 1 mg tablet Take 1 tablet by mouth three times daily for 90 days. For esophageal spasms taking traMADol (ULTRAM) 50 mg tablet Take 2 tablets by mouth three times daily for 90 days. taking atorvastatin (LIPITOR) 20 mg tablet Take 1 tablet by mouth daily at bedtime. For cholesterol. taking not taking mirtazapine (REMERON) 30 mg tablet Take 1.5 tablets by mouth daily at bedtime. taking Topiramate (TOPAMAX) 50 mg tablet Take 2 tablets by mouth twice daily. Taking 3 tabs AM, 2 tabs noon, 3 tabs PM tiZANidine HCl 4 mg capsule Take 3 capsules by mouth three times daily. 2 capsules hydrocortisone (CORTEF) 5 mg tablet Take 1 tablet by mouth once daily. and 1/2 tab midday and PM taking fludrocortisone (FLORINEF) 0.1 mg tablet Take 1 tablet by mouth three times daily. taking cycloSPORINE (RESTASIS) 0.05 % ophthalmic emulsion Use 1 Drop in both eyes twice daily. taking White Petrolatum-Mineral Oil (REFRESH P.M.) 57.3-42.5 % ointment Use in both eyes. taking cyanocobalamin 1,000 mcg/mL soln Inject intramuscularly every 2 weeks. taking rOPINIRole (REQUIP) 0.5 mg tablet Take 1 tablet by mouth daily at bedtime. X 2weeks, then 2 tablets at bedtime. (Patient taking differently: Take 0.5 mg by mouth daily at bedtime. 2 tablets at bedtime.) 1mg QHS hydrOXYzine pamoate (VISTARIL) 25 mg capsule Take 2 capsules by mouth three times daily as needed. taking ergocalciferol, vitamin D2, (DRISDOL) 50,000 unit capsule Take 1 capsule by mouth once each week. taking naphazo HCl-hpm-ps 80-Zn sulf (CLEAR EYES COMPLETE) 0.025-0.2-0.5 % drop Use in eyes. taking lidocaine 5 %(700 mg/patch) Apply 1 Patch as directed once daily. TO AFFECTED AREA. of low back REMOVE AFTER 12 HOURS. taking pantoprazole 40 mg tablet Take 40 mg by mouth twice daily. taking folic acid 1 mg tablet Take 1 mg by mouth once daily. taking albuterol-ipratropium 18-103 mcg/Actuation INHALATION inhaler 2 PUFF QID2 puff qid Ferrous Sulfate 325 mg (65 mg iron) ORAL tablet Take 1 tablet by mouth twice daily with meals. TAKE WITH FOOD taking mexiletine 250 mg ORAL capsule Take 1 capsule by mouth twice daily. taking albuterol 2.5 mg /3 mL (0.083 %) INHALATION nebulizer solution Use QID prn breathing treatment in nebulizer valacyclovir hcl(VALTREX 1 G TAB) as necessary taking aspirin(ECOTRIN LOW STRENGTH 81 MG TAB) Take one(1) tablet daily. taking No current facility-administered medications on file prior to visit. Other prescription bottles present: Ramelteon 8mg QHS Trazodone 50mg QHS - not yet started Fluoxetine 10mg once daily - not yet started OTCs, herbals, and supplements: None ADRs: None reported 01/24/18 1155 BP: 107/72 Pulse: 63 Vitals/Pertinent Labs: Last 3 Encounter BP Readings: Date: BP: 12/03/2017 122/80 08/31/2017 100/50 05/31/2017 108/60 Lab Results Component Value Date HBA1C 5.8 05/30/2017 HBA1C 6.0 02/09/2016 HBA1C 5.7 04/17/2007 CMP:11/26/2017 Glucose 82 BUN 13 Creatinine 1.28 Sodium 147 Potassium 3.3 Chloride 114 CO2 27 Protein, Total 6.5 Albumin 3.3 Calcium 8.3 Alkaline Phosphatase 69 Bilirubin, Total 0.2 AST 27 ALT 23 GFR 46 ESTIMATED CRCL:47.5 mL/min (Based on sCr= 1.28 mg/dL, HT= 67.5 inches, ideal WT=62.8 kg) Last Lipid Panel Lab Results Component Value Date CHOL 117 11/26/2017 Lab Results Component Value Date HDL 50 11/26/2017 Lab Results Component Value Date LDL 53 11/26/2017 Lab Results Component Value Date TG 71 11/26/2017 PHARMACOTHERAPY ASSESSMENT/PLAN: 1. Medication management - ICD9: V58.69, ICD10: Z79.899 - Medication reconciliation: Reviewed all medications, indications, dosing, frequency, administration, and potential ADRs with pt . Medication list updated as described above. - Indications/Dosing: All medications are appropriate. Patient is on several F[employer]RAKEM[employer] depressants but is closely monitored by psych and [facility] providers. She has absorption issues as started in previous visits, so potential for malabsorption of some or all of the [employer] depressants. - Adherence: Appropriate administration - ADRs: None reported - Drug Interactions: None clinically significant - Monitoring: QTc for QTc prolonging medicines: mirtazapine, hydroxyzine, tizanidine, tramadol - newly prescribed fluoxetine and trazodone which are both QTc-prolonging - EKG in office today Potassium, last K was low Calcium, last Ca was low Follow up: communication via phone after provider response, face visit if necessary No changes today Has [facility] f/u this Sunday Norma Levine, PharmD, [facility] NORMA LEVINE, PHARMACIST 01/24/2018 11:55 AM Signed Do not take Prozac or trazodone until we have your EKG results Referring Provider: TANVI GLORIA ([employer]) [[id number]] Allergies As of Date: 01/24/2018 Noted Allergy Reaction CODEINE 10/27/2005 5 - Intolerance Comments: violently ill ADHESIVE TAPE-SILICONES 09/10/2014 2 - Rash 9 - Itching AMITRIPTYLINE 03/19/2007 5 - Intolerance Comments: all day hangover BACLOFEN 11/05/2012 12 - Shortness of Breath BELSOMRA (SUVOREXANT) 11/09/2015 5 - Intolerance Comments: hallucination,vomit flu vaccine [Other] 04/16/2007 10 - Anaphylaxis Comments: Passes out/anaphylaxis FLUDROCORTISONE 07/24/2013 1 - Mental Status Change Comments: thick tongued,goofy if 0.2mg daily HYDROCORTISONE 09/10/2014 14 - Other: See Comments Comments: Can't tolerate higher doses LEVAQUIN (LEVOFLOXACIN) 12/29/2005 8 - GI Upset LYRICA (PREGABALIN) 07/08/2007 5 - Intolerance Comments: dyspnea MIDRIN ([id number]*11/05/2012 12 - Shortness of Breath PINEAPPLE 06/28/2009 2 - Rash PYRIDOSTIGMINE 11/05/2012 12 - Shortness of Breath Date Reviewed: 12/03/2017 Reviewed by: Ursula Gutierrez LPN - Fully Assessed Reason for Visit: Allied Health Visit [5] Cmt: Polypharmacy initial Primary Visit Diagnosis:Medication management [Z79.899] Order(s):rOPINIRole (REQUIP) 0.5 mg tabletTake 2 tablets by mouth daily at bedtime.Disp: Rfl: tiZANidine HCl 4 mg capsuleTake 2 capsules by mouth three times daily.Disp: Rfl: topiramate (TOPAMAX) 50 mg tabletTake 3 tablets by mouth at 8am, 2 tablets at 2pm, and 3 tablets at 8pmDisp: Rfl: ramelteon (ROZEREM) 8 mg tabletTake 1 tablet by mouth daily at bedtime.Disp: Rfl: FLUoxetine (PROZAC) 10 mg capsuleTake 1 capsule by mouth once daily.Disp: Rfl: traZODone (DESYREL) 50 mg tabletTake 1 tablet by mouth daily at bedtime.Disp: Rfl: Prescriptions as of 01/24/2018 Sig: ROPINIROLE 0.5 MG TABLET Take 2 tablets by mouth daily* TIZANIDINE 4 MG CAPSULE Take 2 capsules by mouth thre* TOPIRAMATE 50 MG TABLET Take 3 tablets by mouth at 8a* RAMELTEON 8 MG TABLET Take 1 tablet by mouth daily * DEXTROAMPHETAMINE-AMPHETAMINE* Take 1 tablet by mouth twice * DEXTROAMPHETAMINE-AMPHETAMINE* Take 1 tablet by mouth twice * LORAZEPAM 1 MG TABLET Take 1 tablet by mouth three * TRAMADOL 50 MG TABLET Take 2 tablets by mouth three* ATORVASTATIN 20 MG TABLET Take 1 tablet by mouth daily * MIRTAZAPINE 30 MG TABLET Take 1.5 tablets by mouth louise* HYDROCORTISONE 5 MG TABLET Take 1 tablet by mouth once d* FLUDROCORTISONE 0.1 MG TABLET Take 1 tablet by mouth three * CYCLOSPORINE 0.05 % EYE DROPS* Use 1 Drop in both eyes twice* WHITE PETROLATUM-MINERAL OIL * Use in both eyes. CYANOCOBALAMIN (VIT B-12) 1,0* Inject intramuscularly every* HYDROXYZINE PAMOATE 25 MG CAP* Take 2 capsules by mouth thre* ERGOCALCIFEROL (VITAMIN D2) 5* Take 1 capsule by mouth once * NAPHAZO HCL 0.025 %-HYPROME 0* Use in eyes. LIDOCAINE 5 % TOPICAL PATCH Apply 1 Patch as directed onc* PANTOPRAZOLE 40 MG TABLET,DEL* Take 40 mg by mouth twice louise* FOLIC ACID 1 MG TABLET Take 1 mg by mouth once daily. FERROUS SULFATE 325 MG (65 MG* Take 1 tablet by mouth twice * MEXILETINE 250 MG CAPSULE Take 1 capsule by mouth twice* VALTREX 1 GRAM TABLET as necessary ECOTRIN LOW STRENGTH 81 MG TA* Take one(1) tablet daily. FLUOXETINE 10 MG CAPSULE Take 1 capsule by mouth once * TRAZODONE 50 MG TABLET Take 1 tablet by mouth daily * IPRATROPIUM-ALBUTEROL 18 MCG-* 2 PUFF QID2 puff qid ALBUTEROL SULFATE 2.5 MG/3 ML* Use QID prn breathing treatme* Problem List As Of Date 01/24/2018 Noted Resolved TOBACCO USE DISORDER [F17.200] INVALID FOR* Unspecified Asthma [J45.909] INVALID FOR* More... Dysmenorrhea [N94.6] INVALID FOR*06/28/2009 Other and Unspecified Noninfectious Gastroenter*INVALID FOR*06/28/2009 Esophageal Reflux [K21.9] More... Diarrhea [R19.7] INVALID FOR* More... HYPERCALCEMIA [E83.52] INVALID FOR* Myalgia and myositis, unspecified [KPA8917] INVALID FOR*11/30/2016 More... Headache [R51] INVALID FOR* More... Secondary Hyperparathyroidism, Non-Renal [E21.1]INVALID FOR* More... Pure Hypercholesterolemia [E78.00] INVALID FOR* More... Depression [F32.9] More... Back Pain [M54.9] INVALID FOR* More... Neck Pain [M54.2] INVALID FOR* More... Narcolepsy [G47.419] INVALID FOR* More... Syncope [R55] INVALID FOR* More... Pernicious Anemia [D51.0] INVALID FOR* Neuropathy [G62.9] INVALID FOR* Fibromyalgia [M79.7] INVALID FOR* More... Hypotension [I95.9] INVALID FOR* PTSD (post-traumatic stress disorder) [F43.10] INVALID FOR* Pulmonary nodules [R91.8] INVALID FOR* Orthostatic hypotension [I95.1] INVALID FOR* Dysautonomia orthostatic hypotension syndrome (*INVALID FOR* More... 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 Vitamin B 12 deficiency [E53.8] INVALID FOR* Other instructions from your clinician: Do not take Prozac or trazodone until we have your EKG results Prescriptions ordered this encounter Disp Refills Start End ROPINIROLE 0.5 MG TABLET 01/24/2018 Class: Med Update Route: ORAL Sig: Take 2 tablets by mouth daily at bedtime. TIZANIDINE 4 MG CAPSULE 01/24/2018 01/24/2018 Class: Med Update Route: ORAL Sig: Take 1 capsule by mouth three times daily. TIZANIDINE 4 MG CAPSULE 01/24/2018 Class: Med Update Route: ORAL Sig: Take 2 capsules by mouth three times daily. TOPIRAMATE 50 MG TABLET 01/24/2018 Class: Med Update Sig: Take 3 tablets by mouth at 8am, 2 tablets at 2pm, and 3 tablets at 8pm RAMELTEON 8 MG TABLET 01/24/2018 Class: Med Update Route: ORAL Sig: Take 1 tablet by mouth daily at bedtime. FLUOXETINE 10 MG CAPSULE 01/24/2018 Class: Med Update Route: ORAL Sig: Take 1 capsule by mouth once daily. TRAZODONE 50 MG TABLET 01/24/2018 Class: Med Update Route: ORAL Sig: Take 1 tablet by mouth daily at bedtime. Medications Discontinued During This Encounter rOPINIRole (REQUIP) 0.5 mg tablet 180 * 3 12/03/2014 01/24/2018 Route: ORAL Sig: Take 1 tablet by mouth daily at bedtime. X 2weeks, then 2 tablets at bedtime. Patient taking differently: Take 0.5 mg by mouth daily at bedtime. 2 tablets at bedtime. Disc: Reason for discontinue is not on file. sucralfate (CARAFATE) 1 gram tablet 56 t* 1 05/31/2017 01/24/2018 Sig: Take 1g before meals and at bedtime. May dissolve 1 tab into ~ 2 tsp of water, drink as soon as dissolved. Disc: Course of therapy completed tiZANidine HCl 4 mg capsule 0 08/06/2015 01/24/2018 Class: Med Update Route: ORAL Sig: Take 3 capsules by mouth three times daily. Disc: Reason for discontinue is not on file. tiZANidine HCl 4 mg capsule 01/24/2018 01/24/2018 Class: Med Update Route: ORAL Sig: Take 1 capsule by mouth three times daily. Disc: Reason for discontinue is not on file. Topiramate (TOPAMAX) 50 mg tablet 08/06/2015 01/24/2018 Class: Med Update Route: ORAL Sig: Take 2 tablets by mouth twice daily. Disc: Reason for discontinue is not on file. dextroamphetamine-amphetamine (ADDER* 60 t* 0 12/03/2017 01/24/2018 Class: Print RX Route: ORAL Sig: Take 1 tablet by mouth twice daily for 30 days. Disc: Reason for discontinue is not on file. Encounter Status:Closed by ABNER (PHARMACIST)NORMA on 01/24/18 CNCO Observed: 01/22/2018 Status: COMPLETED Source: [place] 12:14 PM [facility] REPOSITORY [facility] ID: [id number] Author: Mammography Coordinator Service: (none) Author Type: Physician Type: Letter Filed: 01/23/2018 11:31 PM Note Text: January 22, 2018 PID: [id number] Cheri Mejia [address] [place] [address] Dear Ms. Mejia, We are pleased to inform you that the results of your recent breast imaging exam on 01/22/2018 are normal. However, because you and/or your physician described a possible abnormality you should consult your physician or other health care provider for further evaluation if necessary. Your mammogram demonstrates that you have dense breast tissue, which could hide abnormalities. Dense breast tissue, in and of itself, is a relatively common condition. Therefore, this information is not provided to cause undue concern; rather, it is to raise your awareness and promote discussion with your health care provider regarding the presence of dense breast tissue in addition to other risk factors. Early detection of cancer is very important. We also understand recommendations regarding breast cancer screening are controversial. Please discuss with your primary care provider which strategy is best for you and whether a mammogram is right for you. Your imaging studies and report will be kept on file at [facility] as part of your permanent medical record and are available for your continuing care. Thank you for allowing us to help in meeting your health care needs. Sincerely, Dr. Musa Interpreting Radiologist [facility] (Normal-Clinical Evaluation) CNCO Observed: 01/22/2018 Status: COMPLETED Source: [place] 12:14 PM [facility] REPOSITORY [facility] ID: [id number] Author: Mammography Coordinator Service: (none) Author Type: Physician Type: Letter Filed: 01/23/2018 11:31 PM Note Text: January 22, 2018 PID: [id number] Cheri Mejia [address] [place] [address] Dear Ms. Mejia, We are pleased to inform you that the results of your recent breast imaging exam on 01/22/2018 are normal. However, because you and/or your physician described a possible abnormality you should consult your physician or other health care provider for further evaluation if necessary. Your mammogram demonstrates that you have dense breast tissue, which could hide abnormalities. Dense breast tissue, in and of itself, is a relatively common condition. Therefore, this information is not provided to cause undue concern; rather, it is to raise your awareness and promote discussion with your health care provider regarding the presence of dense breast tissue in addition to other risk factors. Early detection of cancer is very important. We also understand recommendations regarding breast cancer screening are controversial. Please discuss with your primary care provider which strategy is best for you and whether a mammogram is right for you. Your imaging studies and report will be kept on file at [facility] as part of your permanent medical record and are available for your continuing care. Thank you for allowing us to help in meeting your health care needs. Sincerely, Dr. Musa Interpreting Radiologist [facility] (Normal-Clinical Evaluation) PROGRESS Observed: 01/22/2018 Status: COMPLETED Source: [place] 9:30 AM [facility] REPOSITORY [facility] ID: [id number] Author: Janeth Porras Service: (none) Author Type: Footwear Sales Associate Type: Progress Notes Filed: 01/22/2018 9:31 AM Note Text: Radiology Service Progress Note PATIENT NAME: Cheri Mejia DATE OF SERVICE: January 22, 2018 TIME: 9:30 AM PATIENT IDENTITY VERIFICATION COMPLETED USING TWO (2) METHODS: Patient confirmed name verbally and Date of . PATIENT GENDER DATA: Female. status: : No status: N/A PATIENT RELEVANT IMPLANT DATA REVIEWED: Not Applicable RADIOLOGY DEPARTMENT: Ultrasound PERIPHERAL IV DATA: Not applicable SIGNED BY: JANETH PORRAS RDMS RVT January 22, 2018 9:30 AM [facility] [employer] [facility] Observed: 01/22/2018 Status: F Source: [place] RT 9:09 AM [facility] REPOSITORY * * *Final Report* * * DATE OF EXAM: Jan 22 2018 9:09AM [facility] [id number] - [facility] [employer] RT / PROCEDURE REASON: Unspecified lump in unspecified breast * * * * Physician Interpretation * * * * #[id number] - [facility] DIAGNOSTIC TOY BILATERAL DIGITAL DIAGNOSTIC MAMMOGRAM WITH CAD: 01/22/2018 HISTORY: Unspecified Palpable Lump In Unspecified Breast/ /priors available for comparison. RESULT: TECHNIQUE: The study was acquired using full field digital technology and interpreted from soft copy. Current study was also evaluated with a Computer Aided Detection (CAD). Comparison is made to exam dated: 09/01/2014 mammogram - [facility]. The tissue of both breasts is heterogeneously dense. This may lower the sensitivity of mammography. No significant masses, calcifications, or other findings are seen in either breast. NEGATIVE There is no abnormality seen in the right breast to correspond with the palpable abnormality. There is no mammographic evidence of malignancy. #[id number] - [facility] US BREAST LTD RT ULTRASOUND OF RIGHT BREAST: 01/22/2018 RESULT: Comparison is made to exam dated: 09/01/2014 mammogram - [facility]. Ultrasound of the right breast was performed. Mcqueen scale images of the real-time examination were reviewed. IMPRESSION: NEGATIVE There is no sonographic evidence of malignancy. There is no abnormality seen in the right breast to correspond with the palpable abnormality. Return to annual mammogram screening schedule is recommended. Chance gonzalez/ann marie:01/22/2018 12:14:25 Grape Cutter: Mary Kay VENCES(R)(M), [facility] letter sent: Normal clinical eval OVERALL STUDY BIRADS: 1 Negative Motor Assembly Supervisor: Ann Marie Transcribe Date/Time: Jan 22 2018 8:10A Dictated by : CHANCE MUSA DO This examination was interpreted and the report reviewed and electronically signed by: CHANCE MUSA DO on Jan 22 2018 12:14PM EST [id number] [facility] DIAGNOSTIC TOY Observed: 01/22/2018 Status: F Source: [place] 8:35 AM [facility] REPOSITORY * * *Final Report* * * DATE OF EXAM: Jan 22 2018 8:35AM [facility] 0620 - [facility] DIAGNOSTIC TOY / PROCEDURE REASON: Unspecified lump in unspecified breast * * * * Physician Interpretation * * * * RESULT: #[id number] - [facility] DIAGNOSTIC TOY BILATERAL DIGITAL DIAGNOSTIC MAMMOGRAM WITH CAD: 01/22/2018 HISTORY: Unspecified Palpable Lump In Unspecified Breast/ /priors available for comparison. RESULT: TECHNIQUE: The study was acquired using full field digital technology and interpreted from soft copy. Current study was also evaluated with a Computer Aided Detection (CAD). Comparison is made to exam dated: 09/01/2014 mammogram - [facility]. The tissue of both breasts is heterogeneously dense. This may lower the sensitivity of mammography. No significant masses, calcifications, or other findings are seen in either breast. NEGATIVE There is no abnormality seen in the right breast to correspond with the palpable abnormality. There is no mammographic evidence of malignancy. #[id number] - [facility] US BREAST LTD RT ULTRASOUND OF RIGHT BREAST: 01/22/2018 RESULT: Comparison is made to exam dated: 09/01/2014 mammogram - [facility]. Ultrasound of the right breast was performed. Mcqueen scale images of the real-time examination were reviewed. IMPRESSION: NEGATIVE There is no sonographic evidence of malignancy. There is no abnormality seen in the right breast to correspond with the palpable abnormality. Return to annual mammogram screening schedule is recommended. Chance gonzalez/ann marie:01/22/2018 12:14:25 Grape Cutter: Mary Kay VENCES (R)(Alyssia), [facility] letter sent: Normal clinical eval OVERALL STUDY BIRADS: 1 Negative Motor Assembly Supervisor: Ann Marie Transcribe Date/Time: Jan 22 2018 8:10A Dictated by: CHANCE MUSA DO This examination was interpreted and the report reviewed and electronically signed by: CHANCE MUSA DO on Jan 22 2018 12:14PM EST [id number] PROGRESS Observed: 01/22/2018 Status: COMPLETED Source: [place] 8:09 AM [facility] REPOSITORY [facility] ID: [id number] Author: Miya Vences Service: (none) Author Type: (none) Type: Progress Notes Filed: 01/22/2018 8:53 AM Note Text: Radiology Service Progress Note PATIENT NAME: Cheri Mejia DATE OF SERVICE: January 22, 2018 TIME: 8:09 AM PATIENT IDENTITY VERIFICATION COMPLETED USING TWO (2) METHODS: Patient confirmed name verbally and Date of . PATIENT GENDER DATA: Female. status: : No status: NO. PATIENT RELEVANT IMPLANT DATA REVIEWED: Not Applicable RADIOLOGY DEPARTMENT: [facility] toy diag mammogram PERIPHERAL IV DATA: Not applicable SIGNED BY: Miya Vences January 22, 2018 8:09 AM [facility] Observed: 01/16/2018 Status: COMPLETED Source: [place] 12:00 AM [facility] REPOSITORY Telephone (INTMWS) CHERI MEJIA ([id number]) 1960 F Date Time Provider Department 01/16/18 CORY VELEZ INTMWS During your visit today, we recorded the following information about you: Angeles Martinezalbaro 01/16/2018 5:56 PM Addendum Chelle George stopped by and left ECG and office notes regarding patient. Put on Tanvi's desk. She is requesting patient get ECG at upcoming appointment with Norma/pharmacy, to check for QT prolongation (due to medication?). ECG needs ordered and to check with Norma. Advised Norma speak with pharmacist at [facility] [phone]. Patient also needs advised of upcoming mammogram / ultrasound appointments. Chelle discussed this with Dr Velez as well. Tanvi Gloria, ANALYTICAL RESEARCH CHEMIST.FREIGHT BRAKEMAN 01/17/2018 7:22 AM Signed EKG ordered, please see below. See Notes Dr. Lane 03/2013 and 05/2013 testing at OSH. Copy of notes to Norma today, would forward to PCP pod for upcoming appt when done. Bettie Cartagena COLOR WORKER 01/17/2018 8:15 AM Signed EKG arranged on nurse schedule for 01/24/18 at 1230 although we can complete this in pcp office after pt sees pharmacy. NORMA LEVINE, PHARMACIST 01/17/2018 10:00 AM Signed Noted. Will arrange for patient to have done right after my appt. Norma Levine, PharmD, [facility] Allergies As of Date: 01/16/2018 Noted Allergy Reaction CODEINE 10/27/2005 5 - Intolerance Comments: violently ill ADHESIVE TAPE-SILICONES 09/10/2014 2 - Rash 9 - Itching AMITRIPTYLINE 03/19/2007 5 - Intolerance Comments: all day hangover BACLOFEN 11/05/2012 12 - Shortness of Breath BELSOMRA (SUVOREXANT) 11/09/2015 5 - Intolerance Comments: hallucination,vomit flu vaccine [Other] 04/16/2007 10 - Anaphylaxis Comments: Passes out/anaphylaxis FLUDROCORTISONE 07/24/2013 1 - Mental Status Change Comments: thick tongued,goofy if 0.2mg daily HYDROCORTISONE 09/10/2014 14 - Other: See Comments Comments: Can't tolerate higher doses LEVAQUIN (LEVOFLOXACIN) 12/29/2005 8 - GI Upset LYRICA (PREGABALIN) 07/08/2007 5 - Intolerance Comments: dyspnea MIDRIN ([id number]*11/05/2012 12 - Shortness of Breath PINEAPPLE 06/28/2009 2 - Rash PYRIDOSTIGMINE 11/05/2012 12 - Shortness of Breath Date Reviewed: 12/03/2017 Reviewed by: Ursula Gutierrez LPN - Fully Assessed Reason for Visit: need for ECG [Other] Primary Visit Diagnosis:Encounter for long-term current use of medication [Z79.899] Order(s):ECG COMPLETE W INTERPRETATION [ECG01] Order #: [id number] FUTURE Prescriptions as of 01/16/2018 Sig: DEXTROAMPHETAMINE-AMPHETAMINE* Take 1 tablet by mouth twice * DEXTROAMPHETAMINE-AMPHETAMINE* Take 1 tablet by mouth twice * LORAZEPAM 1 MG TABLET Take 1 tablet by mouth three * TRAMADOL 50 MG TABLET Take 2 tablets by mouth three* ATORVASTATIN 20 MG TABLET Take 1 tablet by mouth daily * SUCRALFATE 1 GRAM TABLET Take 1g before meals and at b* MIRTAZAPINE 30 MG TABLET Take 1.5 tablets by mouth louise* TOPIRAMATE 50 MG TABLET Take 2 tablets by mouth twice* TIZANIDINE 4 MG CAPSULE Take 3 capsules by mouth thre* HYDROCORTISONE 5 MG TABLET Take 1 tablet by mouth once d* FLUDROCORTISONE 0.1 MG TABLET Take 1 tablet by mouth three * CYCLOSPORINE 0.05 % EYE DROPS* Use 1 Drop in both eyes twice* WHITE PETROLATUM-MINERAL OIL * Use in both eyes. CYANOCOBALAMIN (VIT B-12) 1,0* Inject intramuscularly every* ROPINIROLE 0.5 MG TABLET Take 1 tablet by mouth daily * Patient taking differently: Take 0.5 mg by mouth daily at* HYDROXYZINE PAMOATE 25 MG CAP* Take 2 capsules by mouth thre* ERGOCALCIFEROL (VITAMIN D2) 5* Take 1 capsule by mouth once * NAPHAZO HCL 0.025 %-HYPROME 0* Use in eyes. LIDOCAINE 5 % TOPICAL PATCH Apply 1 Patch as directed onc* PANTOPRAZOLE 40 MG TABLET,DEL* Take 40 mg by mouth twice louise* FOLIC ACID 1 MG TABLET Take 1 mg by mouth once daily. IPRATROPIUM-ALBUTEROL 18 MCG-* 2 PUFF QID2 puff qid FERROUS SULFATE 325 MG (65 MG* Take 1 tablet by mouth twice * MEXILETINE 250 MG CAPSULE Take 1 capsule by mouth twice* ALBUTEROL SULFATE 2.5 MG/3 ML* Use QID prn breathing treatme* VALTREX 1 GRAM TABLET as necessary ECOTRIN LOW STRENGTH 81 MG TA* Take one(1) tablet daily. Problem List As Of Date 01/16/2018 Noted Resolved TOBACCO USE DISORDER [F17.200] INVALID FOR* Unspecified Asthma [J45.909] INVALID FOR* More... Dysmenorrhea [N94.6] INVALID FOR*06/28/2009 Other and Unspecified Noninfectious Gastroenter*INVALID FOR*06/28/2009 Esophageal Reflux [K21.9] More... Diarrhea [R19.7] INVALID FOR* More... HYPERCALCEMIA [E83.52] INVALID FOR* Myalgia and myositis, unspecified [ICO8897] INVALID FOR*11/30/2016 More... Headache [R51] INVALID FOR* More... Secondary Hyperparathyroidism, Non-Renal [E21.1]INVALID FOR* More... Pure Hypercholesterolemia [E78.00] INVALID FOR* More... Depression [F32.9] More... Back Pain [M54.9] INVALID FOR* More... Neck Pain [M54.2] INVALID FOR* More... Narcolepsy [G47.419] INVALID FOR* More... Syncope [R55] INVALID FOR* More... Pernicious Anemia [D51.0] INVALID FOR* Neuropathy [G62.9] INVALID FOR* Fibromyalgia [M79.7] INVALID FOR* More... Hypotension [I95.9] INVALID FOR* PTSD (post-traumatic stress disorder) [F43.10] INVALID FOR* Pulmonary nodules [R91.8] INVALID FOR* Orthostatic hypotension [I95.1] INVALID FOR* Dysautonomia orthostatic hypotension syndrome (*INVALID FOR* More... 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 Vitamin B 12 deficiency [E53.8] INVALID FOR* Encounter Status:Closed by BETTIE CARTAGENA LPN on 01/17/18 PROGRESS Observed: 01/07/2018 Status: COMPLETED Source: [place] 2:03 PM [facility] REPOSITORY [facility] ID: [id number] Author: Leena Vences Service: (none) Author Type: (none) Type: Progress Notes Filed: 01/07/2018 2:04 PM Note Text: Radiology Service Progress Note PATIENT NAME: Cheri Mejia DATE OF SERVICE: January 07, 2018 TIME: 2:04 PM PATIENT IDENTITY VERIFICATION COMPLETED USING TWO (2) METHODS: Patient confirmed name verbally and Date of . PATIENT GENDER DATA: Female. status: : No status: NO. PATIENT RELEVANT IMPLANT DATA REVIEWED: Not Applicable RADIOLOGY DEPARTMENT: [facility] DATA: Not applicable SIGNED BY: Leena Vences January 07, 2018 2:04 PM DOWNTIME REPORT Observed: 12/13/2017 Status: F Source: [place] 1:57 PM [facility] REPOSITORY [facility] Medical Records Department [address] [place] [id number] Downtime Report MR#: [id number] Acct: [id number] Name: CHERI MEJIA Rep #: [id number] : 1960 57 From: Shayan Valle PCP: Cory Velez MD Status: REG CLI This patient was seen during an EMR downtime November 26, 2017 - December 03, 2017. This patient may have a combination of paper and electronic documentation or all paper documentation. All documentation is viewable within the e-chart portion of [employer] for each patient visit. PROGRESS Observed: 12/03/2017 Status: COMPLETED Source: [place] 8:27 AM [facility] REPOSITORY [facility] ID: [id number] Author: Tanvi Gloria (Cns) Service: (none) Author Type: Nurse Specialist Type: Progress Notes Filed: 12/03/2017 9:09 AM Note Text: OUTPATIENT VISIT DATE December 03, 2017 OUTPATIENT VISIT TYPE ESTABLISHED PRIMARY CARE PHYSICIAN: Cory Velez MD CHIEF COMPLAINT: Patient presents with: F/U 3 Month History of Present Illness: Cheri Mejia is a 57 year old female who was last seen 08/31/2017 by Cory Velez MD. She has been seen in the past for ACTIVE PROBLEM LIST Tobacco Use Disorder Unspecified Asthma(493.90) Esophageal Reflux Diarrhea Hypercalcemia Headache(784.0) Secondary Hyperparathyroidism, Non-Renal (Hcc) Pure Hypercholesterolemia Depression Back Pain Neck Pain Narcolepsy Syncope Pernicious Anemia Neuropathy ([facility]) Fibromyalgia Hypotension Ptsd (Post-Traumatic Stress Disorder) Pulmonary Nodules Orthostatic Hypotension Dysautonomia Orthostatic Hypotension Syndrome (Hcc) Anxiety Controlled Substance Agreement Signed Iron Malabsorption Arnold-Chiari Malformation ([facility]) Factor V Leiden ([facility]) Copd (Chronic Obstructive Pulmonary Disease) ([facility]) Idiopathic Chronic Hypotension Chronic Diarrhea Primary Insomnia Vitamin B 12 Deficiency Since the last visit, she states that she continues to feel fatigued. She reports taking vitamin D 50,000 units once weekly. She reports since last here she was started on atorvastatin for cholesterol. She reports following with Dr. Khanna for irritable bowel with diarrhea, absorption difficulties. Reports currently taking medication which is prescribed she has helped somewhat. She reports previously had driving privileges removed, would like to return to driving if possible. Reports no recent seizures or syncopal episodes. Reports has not seen a neurologist for some time. S kvng last here she reports her . She reports support through her mosque. ADHD. Since last here she reports feeling that her ADHD medications are helpful for her. No adverse effects noted. She is using medications on a consistent basis. She is taking tramadol for chronic pain and finds it helpful. No adverse effects noted. Taking lorazepam as needed for anxiety. Consistently using. No adverse effects noted. No recent hospital or ED visits. No new medical problems or medications. Able to obtain medications. PAST MEDICAL HISTORY Diagnosis Date - Abdominal pain, epigastric - Acute gastritis without mention of hemorrhage - Arnold-Chiari syndrome with hydrocephalus ([facility]) - COPD (chronic obstructive pulmonary disease) ([facility]) 09/24/2014 - Depression Taking celexa, topamax. 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 - Tobacco use disorder - Unspecified asthma(493.90) PAST SURGICAL HISTORY Procedure Laterality Date - APPENDECTOMY - COLONOSCOP W/ OR W/O BRSH SPEC 09/30/14 Colonoscopy - COLONOSCOPY W/BX 05/07/07 - EGD W/O BRS SPECIMEN W/BX 02/22/09 [facility] inpt H-pylori is negative - EGD W/O OR W/BRUSH/WASH 03/10/2004 EGD - EGD W/O OR W/BRUSH/WASH 08/22/2006 inpt EGD hp- - EGD W/O OR W/BRUSH/WASH 09/30/14 EGD - HYSTEROSCOPY, DIAGNOSTIC (SEPARATE Hysteroscopy - L'SCOPE DX W/WO BRUSHINGS/WASHINGS Laparoscopy - LAPAROSCOPIC CHOLEYCYSTECTOMY 08-24-06 Cholecystectomy, lap - PAST SURGICAL HISTORY OF 5 outpatient blocks for headaches - PAST SURGICAL HISTORY OF removal of cyst from back of head. - PAST SURGICAL HISTORY OF second surgery back of head for spinal fluid leakage - REMOVAL OF OVARY/TUBE(S) Salpingo-oophorectomy - REMOVAL OF TONSILS,<12 Y/O Tonsillectomy - TOTAL ABDOM HYSTERECTOMY Hysterectomy, SUDEEP - W SHUNT CSF LUMBOPERITONEAL FAMILY HISTORY Problem Relation Age of Onset - Diabetes Father age 51 heart disease - Cancer Mother age 78, mets to bone. - Hypertension Brother - Ischemic Heart Disease Paternal Grandfather - Ischemic Heart Disease Paternal Grandmother - Colon Cancer Maternal Grandfather - Cancer Maternal Grandmother Ovarian cancer Social History Substance Use Topics - Smoking status: Current Every Day Smoker Packs/day: 1.00 Years: 30.00 Types: Cigarettes Start date: 1971 - Smokeless tobacco: Never Used Comment: Alternates with vapor. - Alcohol use No ALLERGIES: ALLERGIES Allergen Reactions - Codeine Intolerance violently ill - Adhesive Tape-Silic* Rash, Itching - Amitriptyline Intolerance all day hangover - Baclofen Shortness of Breath - Belsomra [Suvorexan* Intolerance hallucination,vomit - Flu Vaccine [Other] Anaphylaxis Passes out/anaphylaxis - Fludrocortisone Mental Status Change thick tongued,goofy if 0.2mg daily - Hydrocortisone Other: See Comments Can't tolerate higher doses - Levaquin [Levofloxa* GI Upset - Lyrica [Pregabalin] Intolerance dyspnea - Midrin [Isometh-Dic* Shortness of Breath - Pineapple Rash - Pyridostigmine Shortness of Breath MEDICATIONS atorvastatin (LIPITOR) 20 mg tablet Take 1 tablet by mouth daily at bedtime. For cholesterol. sucralfate (CARAFATE) 1 gram tablet Take 1g before meals and at bedtime. May dissolve 1 tab into ~ 2 tsp of water, drink as soon as dissolved. mirtazapine (REMERON) 30 mg tablet Take 1.5 tablets by mouth daily at bedtime. Topiramate (TOPAMAX) 50 mg tablet Take 2 tablets by mouth twice daily. tiZANidine HCl 4 mg capsule Take 3 capsules by mouth three times daily. hydrocortisone (CORTEF) 5 mg tablet Take 1 tablet by mouth once daily. and 1/2 tab midday and PM fludrocortisone (FLORINEF) 0.1 mg tablet Take 1 tablet by mouth three times daily. cycloSPORINE (RESTASIS) 0.05 % ophthalmic emulsion Use 1 Drop in both eyes twice daily. White Petrolatum-Mineral Oil (REFRESH P.M.) 57.3-42.5 % ointment Use in both eyes. cyanocobalamin 1,000 mcg/mL soln Inject intramuscularly every 2 weeks. rOPINIRole (REQUIP) 0.5 mg tablet Take 1 tablet by mouth daily at bedtime. X 2weeks, then 2 tablets at bedtime. hydrOXYzine pamoate (VISTARIL) 25 mg capsule Take 2 capsules by mouth three times daily as needed. ergocalciferol, vitamin D2, (DRISDOL) 50,000 unit capsule Take 1 capsule by mouth once each week. naphazo HCl-hpm-ps 80-Zn sulf (CLEAR EYES COMPLETE) 0.025-0.2-0.5 % drop Use in eyes. lidocaine 5 %(700 mg/patch) Apply 1 Patch as directed once daily. TO AFFECTED AREA. of low back REMOVE AFTER 12 HOURS. pantoprazole 40 mg tablet Take 40 mg by mouth twice daily. folic acid 1 mg tablet Take 1 mg by mouth once daily. albuterol-ipratropium 18-103 mcg/Actuation INHALATION inhaler 2 PUFF QID2 puff qid Ferrous Sulfate 325 mg (65 mg iron) ORAL tablet Take 1 tablet by mouth twice daily with meals. TAKE WITH FOOD mexiletine 250 mg ORAL capsule Take 1 capsule by mouth twice daily. albuterol 2.5 mg /3 mL (0.083 %) INHALATION nebulizer solution Use QID prn breathing treatment in nebulizer valacyclovir hcl(VALTREX 1 G TAB) as necessary aspirin(ECOTRIN LOW STRENGTH 81 MG TAB) Take one(1) tablet daily. [START ON 02/03/2018] dextroamphetamine-amphetamine (ADDERALL) 10 mg tablet Take 1 tablet by mouth twice daily for 30 days.Earliest Fill Date: 02/03/18 [START ON 01/03/2018] dextroamphetamine-amphetamine (ADDERALL) 10 mg tablet Take 1 tablet by mouth twice daily for 30 days.Earliest Fill Date: 01/03/18 dextroamphetamine-amphetamine (ADDERALL) 10 mg tablet Take 1 tablet by mouth twice daily for 30 days. LORazepam (ATIVAN) 1 mg tablet Take 1 tablet by mouth three times daily for 90 days. For esophageal spasms traMADol (ULTRAM) 50 mg tablet Take 2 tablets by mouth three times daily for 90 days. REVIEW OF SYSTEMS: GENERAL: Negative for: Weight loss or gain, Fever or Chills, Weakness and Sleep difficulties. Physical Examination: BP 122/80 Pulse 68 Resp 16 Wt 137 lb (62.1kg) General appearance: Well appearing, alert, in no acute distress, well-hydrated, well nourished. Skin: Skin color, texture, turgor normal, no suspicious rashes or lesions Neck: Supple, no adenopathy; thyroid symmetric, normal size, no bruits Back: Normal exam Lungs: Lungs clear to auscultation. No wheezing, rhonchi, rales Heart: RRR without murmur, gallop, or rubs. No ectopy Abdomen: Abdomen soft, non-tender. Bowel sounds normal. No masses, organomegaly Extremities: No deformities, edema, skin discoloration, clubbing or cyanosis. Good capillary refill. Musculoskeletal: Spine range of motion normal. Muscular strength intact, No joint swelling, deformity, or tenderness Peripheral pulses: Normal Neuro: Gait normal. Reflexes normal and symmetric. Sensation grossly intact. Reviewed chart, outside records, tests [facility] website checked and validated. All prescriptions have been APPROPRIATELY filled. No suspicious activity was identified.- 12/03/2017 by Tanvi Gloria APRN.FREIGHT BRAKEMAN I personally interviewed, confirmed and edited the above information if obtained by others. TESTING: Glucose (mg/dL) Date Value 11/26/2017 Test sent to [facility]. Potassium (mmol/L) Date Value 11/26/2017 Test sent to [facility]. Sodium (mmol/L) Date Value 11/26/2017 Test sent to [facility]. Chloride (mmol/L) Date Value 11/26/2017 Test sent to [facility]. CO2 (mmol/L) Date Value 11/26/2017 Test sent to [facility]. Creatinine (mg/dL) Date Value 11/26/2017 Test sent to [facility]. BUN (mg/dL) Date Value 11/26/2017 Test sent to [facility]. Anion Gap (mmol/L) Date Value 11/26/2017 Test sent to [facility]. Calcium (mg/dL) Date Value 11/26/2017 Test sent to [facility]. Glucose (mg/dL) Date Value 11/26/2017 Test sent to [facility]. Potassium (mmol/L) Date Value 11/26/2017 Test sent to [facility]. Sodium (mmol/L) Date Value 11/26/2017 Test sent to [facility]. Chloride (mmol/L) Date Value 11/26/2017 Test sent to [facility]. CO2 (mmol/L) Date Value 11/26/2017 Test sent to [facility]. Creatinine (mg/dL) Date Value 11/26/2017 Test sent to [facility]. BUN (mg/dL) Date Value 11/26/2017 Test sent to [facility]. Anion Gap (mmol/L) Date Value 11/26/2017 Test sent to [facility]. Calcium (mg/dL) Date Value 11/26/2017 Test sent to [facility]. Protein, Total (g/dL) Date Value 11/26/2017 Test sent to [facility]. Albumin (g/dL) Date Value 11/26/2017 Test sent to [facility]. Bilirubin, Total (mg/dL) Date Value 11/26/2017 Test sent to [facility]. Alkaline Phosphatase (U/L) Date Value 11/26/2017 Test sent to [facility]. AST (U/L) Date Value 11/26/2017 Test sent to [facility]. ALT (U/L) Date Value 11/26/2017 Test sent to [facility]. Hemoglobin (g/dL) Date Value 11/26/2017 Test sent to [facility]. Hematocrit (%) Date Value 11/26/2017 Test sent to [facility]. WBC (k/uL) Date Value 11/26/2017 Test sent to [facility]. Cholesterol, Total (mg/dL) Date Value 11/26/2017 Test sent to [facility]. HDL Cholesterol (mg/dL) Date Value 11/26/2017 Test sent to [facility]. LDL Cholesterol (mg/dL) Date Value 11/26/2017 Test sent to [facility]. Triglyceride (mg/dL) Date Value 11/26/2017 Test sent to [facility]. Hemoglobin A1C Date Value Ref Range Status 05/30/2017 5.8 (H) 4.3 - 5.6 % Final Comment: [place] [employer] guidelines indicate that patients with HgbA1c in the range 5.7-6.4% are at increased risk for development of diabetes, and intervention by lifestyle modification may be beneficial. HgbA1c greater or equal to 6.5% is considered diagnostic of diabetes. 02/09/2016 6.0 (H) 4.3 - 5.6 % Final Comment: [place] [employer] guidelines indicate that patients with HgbA1c in the range 5.7-6.4% are at increased risk for development of diabetes, and intervention by lifestyle modification may be beneficial. HgbA1c greater or equal to 6.5% is considered diagnostic of diabetes. HBA1C, Hart Date Value Ref Range Status 04/17/2007 5.7 4.2 - 5.8 % Final Comment: Test performed by: [facility], [address] [place] [address]. Ejection Fraction: No results found IMPRESSION: Ms. Mejia is a 57 year old woman presents for routine follow up After my examination and review of data, I make the following recommendations. PLAN AND RECOMMENDATIONS: 1. Vitamin D deficiency - ICD9: 268.9, ICD10: E55.9 (primary diagnosis) Result of November lab draw remains outstanding, continue with vitamin D 50,000 units for now. 2. Visit for screening mammogram - ICD9: V76.12, ICD10: Z12.31 - [facility] SCREENING - [facility] S[facility] W EBER 3. Attention deficit hyperactivity disorder (ADHD), combined type - ICD9: 314.01, ICD10: F90.2 - DEXTROAMPHETAMINE-AMPHETAMINE 10 MG TABLET - DEXTROAMPHETAMINE-AMPHETAMINE 10 MG TABLET - DEXTROAMPHETAMINE-AMPHETAMINE 10 MG TABLET 4. Anxiety - ICD9: 300.00, ICD10: F41.9 - LORAZEPAM 1 MG TABLET 5. Fibromyalgia - ICD9: 729.1, ICD10: M79.7 - TRAMADOL 50 MG TABLET 6. Neuropathy (HCC) - ICD9: 355.9, ICD10: G62.9 - TRAMADOL 50 MG TABLET 7. Back pain, unspecified back location, unspecified back pain laterality, unspecified chronicity - ICD9: 724.5, ICD10: M54.9 - TRAMADOL 50 MG TABLET 8. Pure hypercholesterolemia - ICD9: 272.0, ICD10: E78.00 - ATORVASTATIN 20 MG TABLET Declines counseling at this point. Advised to go to ER if develops chest pain, shortness of breath, or severe worsening of symptoms. Discussed risks, benefits, alternatives, and potential side effects of medications. Ms. Mejia expressed understanding and agreed with the plan. Tanvi Gloria APRN.CNS CNOV Observed: 12/03/2017 Status: COMPLETED Source: [place] 8:20 AM [facility] REPOSITORY Office Visit (INTMWS) CHERI MEJIA ([id number]) 1960 F Date Time Provider Department 12/03/17 8:20 AM TANVI GLORIA (FELA) INTMWS During your visit today, we recorded the following information about you: Pulse Respiration Blood pressure Weight 68/minute 16/minute 122/80 62.1 kg Tanvi Gloria APRN.CNS 12/03/2017 9:09 AM Signed OUTPATIENT VISIT DATE December 03, 2017 OUTPATIENT VISIT TYPE ESTABLISHED PRIMARY CARE PHYSICIAN: Cory Velez MD CHIEF COMPLAINT: Patient presents with: F/U 3 Month History of Present Illness: Cheri Mejia is a 57 year old female who was last seen 08/31/2017 by Cory Velez MD. She has been seen in the past for ACTIVE PROBLEM LIST Tobacco Use Disorder Unspecified Asthma(493.90) Esophageal Reflux Diarrhea Hypercalcemia Headache(784.0) Secondary Hyperparathyroidism, Non-Renal ([facility]) Pure Hypercholesterolemia Depression Back Pain Neck Pain Narcolepsy Syncope Pernicious Anemia Neuropathy ([facility]) Fibromyalgia Hypotension Ptsd (Post-Traumatic Stress Disorder) Pulmonary Nodules Orthostatic Hypotension Dysautonomia Orthostatic Hypotension Syndrome ([facility]) Anxiety Controlled Substance Agreement Signed Iron Malabsorption Arnold-Chiari Malformation ([facility]) Factor V Leiden ([facility]) Copd (Chronic Obstructive Pulmonary Disease) ([facility]) Idiopathic Chronic Hypotension Chronic Diarrhea Primary Insomnia Vitamin B 12 Deficiency Since the last visit, she states that she continues to feel fatigued. She reports taking vitamin D 50,000 units once weekly. She reports since last here she was started on atorvastatin for cholesterol. She reports following with Dr. Khanna for irritable bowel with diarrhea, absorption difficulties. Reports currently taking medication which is prescribed she has helped somewhat. She reports previously had driving privileges removed, would like to return to driving if possible. Reports no recent seizures or syncopal episodes. Reports has not seen a neurologist for some time. S kvng last here she reports her . She reports support through her mosque. ADHD. Since last here she reports feeling that her ADHD medications are helpful for her. No adverse effects noted. She is using medications on a consistent basis. She is taking tramadol for chronic pain and finds it helpful. No adverse effects noted. Taking lorazepam as needed for anxiety. Consistently using. No adverse effects noted. No recent hospital or ED visits. No new medical problems or medications. Able to obtain medications. PAST MEDICAL HISTORY Diagnosis Date - Abdominal pain, epigastric - Acute gastritis without mention of hemorrhage - Arnold-Chiari syndrome with hydrocephalus ([facility]) - COPD (chronic obstructive pulmonary disease) ([facility]) 09/24/2014 - Depression Taking celexa, topamax. Treated at CT - Diarrhea - Dysmenorrhea - Esophageal reflux - Esophagitis - Factor V Leiden ([facility]) per pt - Gastric ulcer, unspecified as acute or chronic, without mention of hemorrhage, perforation, or obstruction - Headache(784.0) 04/17/[address] to [address], is getting injections - Hemorrhage of rectum and anus mucous - Internal hemorrhoids without mention of complication - MYALGIA AND MYOSITIS NOS 04/17/[address] - Neck pain 06/28/[address] - [facility] - PAST MEDICAL HISTORY OF cyst found at the base of the brain - [facility] - PAST MEDICAL HISTORY OF history of ulcers - PURE HYPERCHOLESTEROLEM 03/30/2008 She was taken off statin, taking fish oil - working with [employer] HYPERPARATHYROID, NON-RENAL 10/23/2007 Vitamin D def, calciuremia - [facility]. - Tobacco use disorder - Unspecified asthma(493.90) PAST SURGICAL HISTORY Procedure Laterality Date - APPENDECTOMY - COLONOSCOP W/ OR W/O BRSH SPEC 09/30/14 Colonoscopy - COLONOSCOPY W/BX 05/07/07 - EGD W/O [facility] SPECIMEN W/BX 02/22/09 [facility] inpt H-pylori is negative - EGD W/O OR W/BRUSH/WASH 03/10/2004 EGD - EGD W/O OR W/BRUSH/WASH 08/22/2006 inpt EGD hp- - EGD W/O OR W/BRUSH/WASH 09/30/14 EGD - HYSTEROSCOPY, DIAGNOSTIC (SEPARATE Hysteroscopy - L'SCOPE DX W/WO BRUSHINGS/WASHINGS Laparoscopy - LAPAROSCOPIC CHOLEYCYSTECTOMY 08-24-06 Cholecystectomy, lap - PAST SURGICAL HISTORY OF 5 outpatient blocks for headaches - PAST SURGICAL HISTORY OF removal of cyst from back of head. - PAST SURGICAL HISTORY OF second surgery back of head for spinal fluid leakage - REMOVAL OF OVARY/TUBE(S) Salpingo-oophorectomy - REMOVAL OF TONSILS,<12 Y/O Tonsillectomy - TOTAL ABDOM HYSTERECTOMY Hysterectomy, SUDEEP - W SHUNT CSF LUMBOPERITONEAL FAMILY HISTORY Problem Relation Age of Onset - Diabetes Father age 51 heart disease - Cancer Mother age 78, mets to bone. - Hypertension Brother - Ischemic Heart Disease Paternal Grandfather - Ischemic Heart Disease Paternal Grandmother - Colon Cancer Maternal Grandfather - Cancer Maternal Grandmother Ovarian cancer Social History Substance Use Topics - Smoking status: Current Every Day Smoker Packs/day: 1.00 Years: 30.00 Types: Cigarettes Start date: 1971 - Smokeless tobacco: Never Used Comment: Alternates with vapor. - Alcohol use No ALLERGIES: ALLERGIES Allergen Reactions - Codeine Intolerance violently ill - Adhesive Tape-Silic* Rash, Itching - Amitriptyline Intolerance all day hangover - Baclofen Shortness of Breath - Belsomra [Suvorexan* Intolerance hallucination,vomit - Flu Vaccine [Other] Anaphylaxis Passes out/anaphylaxis - Fludrocortisone Mental Status Change thick tongued,goofy if 0.2mg daily - Hydrocortisone Other: See Comments Can't tolerate higher doses - Levaquin [Levofloxa* GI Upset - Lyrica [Pregabalin] Intolerance dyspnea - Midrin [Isometh-Dic* Shortness of Breath - Pineapple Rash - Pyridostigmine Shortness of Breath MEDICATIONS atorvastatin (LIPITOR) 20 mg tablet Take 1 tablet by mouth daily at bedtime. For cholesterol. sucralfate (CARAFATE) 1 gram tablet Take 1g before meals and at bedtime. May dissolve 1 tab into ~ 2 tsp of water, drink as soon as dissolved. mirtazapine (REMERON) 30 mg tablet Take 1.5 tablets by mouth daily at bedtime. Topiramate (TOPAMAX) 50 mg tablet Take 2 tablets by mouth twice daily. tiZANidine HCl 4 mg capsule Take 3 capsules by mouth three times daily. hydrocortisone (CORTEF) 5 mg tablet Take 1 tablet by mouth once daily. and 1/2 tab midday and PM fludrocortisone (FLORINEF) 0.1 mg tablet Take 1 tablet by mouth three times daily. cycloSPORINE (RESTASIS) 0.05 % ophthalmic emulsion Use 1 Drop in both eyes twice daily. White Petrolatum-Mineral Oil (REFRESH P.M.) 57.3-42.5 % ointment Use in both eyes. cyanocobalamin 1,000 mcg/mL soln Inject intramuscularly every 2 weeks. rOPINIRole (REQUIP) 0.5 mg tablet Take 1 tablet by mouth daily at bedtime. X 2weeks, then 2 tablets at bedtime. hydrOXYzine pamoate (VISTARIL) 25 mg capsule Take 2 capsules by mouth three times daily as needed. ergocalciferol, vitamin D2, (DRISDOL) 50,000 unit capsule Take 1 capsule by mouth once each week. naphazo HCl-hpm-ps 80-Zn sulf (CLEAR EYES COMPLETE) 0.025-0.2-0.5 % drop Use in eyes. lidocaine 5 %(700 mg/patch) Apply 1 Patch as directed once daily. TO AFFECTED AREA. of low back REMOVE AFTER 12 HOURS. pantoprazole 40 mg tablet Take 40 mg by mouth twice daily. folic acid 1 mg tablet Take 1 mg by mouth once daily. albuterol-ipratropium 18-103 mcg/Actuation INHALATION inhaler 2 PUFF QID2 puff qid Ferrous Sulfate 325 mg (65 mg iron) ORAL tablet Take 1 tablet by mouth twice daily with meals. TAKE WITH FOOD mexiletine 250 mg ORAL capsule Take 1 capsule by mouth twice daily. albuterol 2.5 mg /3 mL (0.083 %) INHALATION nebulizer solution Use QID prn breathing treatment in nebulizer valacyclovir hcl(VALTREX 1 G TAB) as necessary aspirin(ECOTRIN LOW STRENGTH 81 MG TAB) Take one(1) tablet daily. [START ON 02/03/2018] dextroamphetamine-amphetamine (ADDERALL) 10 mg tablet Take 1 tablet by mouth twice daily for 30 days.Earliest Fill Date: 02/03/18 [START ON 01/03/2018] dextroamphetamine-amphetamine (ADDERALL) 10 mg tablet Take 1 tablet by mouth twice daily for 30 days.Earliest Fill Date: 01/03/18 dextroamphetamine-amphetamine (ADDERALL) 10 mg tablet Take 1 tablet by mouth twice daily for 30 days. LORazepam (ATIVAN) 1 mg tablet Take 1 tablet by mouth three times daily for 90 days. For esophageal spasms traMADol (ULTRAM) 50 mg tablet Take 2 tablets by mouth three times daily for 90 days. REVIEW OF SYSTEMS: GENERAL: Negative for: Weight loss or gain, Fever or Chills, Weakness and Sleep difficulties. Physical Examination: BP 122/80 Pulse 68 Resp 16 Wt 137 lb (62.1kg) General appearance: Well appearing, alert, in no acute distress, well-hydrated, well nourished. Skin: Skin color, texture, turgor normal, no suspicious rashes or lesions Neck: Supple, no adenopathy; thyroid symmetric, normal size, no bruits Back: Normal exam Lungs: Lungs clear to auscultation. No wheezing, rhonchi, rales Heart: RRR without murmur, gallop, or rubs. No ectopy Abdomen: Abdomen soft, non-tender. Bowel sounds normal. No masses, organomegaly Extremities: No deformities, edema, skin discoloration, clubbing or cyanosis. Good capillary refill. Musculoskeletal: Spine range of motion normal. Muscular strength intact, No joint swelling, deformity, or tenderness Peripheral pulses: Normal Neuro: Gait normal. Reflexes normal and symmetric. Sensation grossly intact. Reviewed chart, outside records, tests [facility] website checked and validated. All prescriptions have been APPROPRIATELY filled. No suspicious activity was identified.- 12/03/2017 by Tanvi Gloria APRN.FREIGHT BRAKEMAN I personally interviewed, confirmed and edited the above information if obtained by others. TESTING: Glucose (mg/dL) Date Value 11/26/2017 Test sent to [facility]. Potassium (mmol/L) Date Value 11/26/2017 Test sent to [facility]. Sodium (mmol/L) Date Value 11/26/2017 Test sent to [facility]. Chloride (mmol/L) Date Value 11/26/2017 Test sent to [facility]. CO2 (mmol/L) Date Value 11/26/2017 Test sent to [facility]. Creatinine (mg/dL) Date Value 11/26/2017 Test sent to [facility]. BUN (mg/dL) Date Value 11/26/2017 Test sent to [facility]. Anion Gap (mmol/L) Date Value 11/26/2017 Test sent to [facility]. Calcium (mg/dL) Date Value 11/26/2017 Test sent to [facility]. Glucose (mg/dL) Date Value 11/26/2017 Test sent to [facility]. Potassium (mmol/L) Date Value 11/26/2017 Test sent to [facility]. Sodium (mmol/L) Date Value 11/26/2017 Test sent to [facility]. Chloride (mmol/L) Date Value 11/26/2017 Test sent to [facility]. CO2 (mmol/L) Date Value 11/26/2017 Test sent to [facility]. Creatinine (mg/dL) Date Value 11/26/2017 Test sent to [facility]. BUN (mg/dL) Date Value 11/26/2017 Test sent to [facility]. Anion Gap (mmol/L) Date Value 11/26/2017 Test sent to [facility]. Calcium (mg/dL) Date Value 11/26/2017 Test sent to [facility]. Protein, Total (g/dL) Date Value 11/26/2017 Test sent to [facility]. Albumin (g/dL) Date Value 11/26/2017 Test sent to [facility]. Bilirubin, Total (mg/dL) Date Value 11/26/2017 Test sent to [facility]. Alkaline Phosphatase (U/L) Date Value 11/26/2017 Test sent to [facility]. AST (U/L) Date Value 11/26/2017 Test sent to [facility]. ALT (U/L) Date Value 11/26/2017 Test sent to [facility]. Hemoglobin (g/dL) Date Value 11/26/2017 Test sent to [facility]. Hematocrit (%) Date Value 11/26/2017 Test sent to [facility]. WBC (k/uL) Date Value 11/26/2017 Test sent to [facility]. Cholesterol, Total (mg/dL) Date Value 11/26/2017 Test sent to [facility]. HDL Cholesterol (mg/dL) Date Value 11/26/2017 Test sent to [facility]. LDL Cholesterol (mg/dL) Date Value 11/26/2017 Test sent to [facility]. Triglyceride (mg/dL) Date Value 11/26/2017 Test sent to [facility]. Hemoglobin A1C Date Value Ref Range Status 05/30/2017 5.8 (H) 4.3 - 5.6 % Final Comment: [place] [employer] guidelines indicate that patients with HgbA1c in the range 5.7-6.4% are at increased risk for development of diabetes, and intervention by lifestyle modification may be beneficial. HgbA1c greater or equal to 6.5% is considered diagnostic of diabetes. 02/09/2016 6.0 (H) 4.3 - 5.6 % Final Comment: [place] [employer] guidelines indicate that patients with HgbA1c in the range 5.7-6.4% are at increased risk for development of diabetes, and intervention by lifestyle modification may be beneficial. HgbA1c greater or equal to 6.5% is considered diagnostic of diabetes. HBA1C, [place] Date Value Ref Range Status 04/17/2007 5.7 4.2 - 5.8 % Final Comment: Test performed by: [facility], [address] [place] [address]. Ejection Fraction: No results found IMPRESSION: Ms. Mejia is a 57 year old woman presents for routine follow up After my examination and review of data, I make the following recommendations. PLAN AND RECOMMENDATIONS: 1. Vitamin D deficiency - ICD9: 268.9, ICD10: E55.9 (primary diagnosis) Result of November lab draw remains outstanding, continue with vitamin D 50,000 units for now. 2. Visit for screening mammogram - ICD9: V76.12, ICD10: Z12.31 - TANA SCREENING - TANA SCREENING W EBER 3. Attention deficit hyperactivity disorder (ADHD), combined type - ICD9: 314.01, ICD10: F90.2 - DEXTROAMPHETAMINE-AMPHETAMINE 10 MG TABLET - DEXTROAMPHETAMINE-AMPHETAMINE 10 MG TABLET - DEXTROAMPHETAMINE-AMPHETAMINE 10 MG TABLET 4. Anxiety - ICD9: 300.00, ICD10: F41.9 - LORAZEPAM 1 MG TABLET 5. Fibromyalgia - ICD9: 729.1, ICD10: M79.7 - TRAMADOL 50 MG TABLET 6. Neuropathy (HCC) - ICD9: 355.9, ICD10: G62.9 - TRAMADOL 50 MG TABLET 7. Back pain, unspecified back location, unspecified back pain laterality, unspecified chronicity - ICD9: 724.5, ICD10: M54.9 - TRAMADOL 50 MG TABLET 8. Pure hypercholesterolemia - ICD9: 272.0, ICD10: E78.00 - ATORVASTATIN 20 MG TABLET Declines counseling at this point. Advised to go to ER if develops chest pain, shortness of breath, or severe worsening of symptoms. Discussed risks, benefits, alternatives, and potential side effects of medications. Ms. Mejia expressed understanding and agreed with the plan. Tanvi Gloria APRN.FREIGHT BRAKEMAN Referring Provider: CORY VELEZ [[id number]] Allergies As of Date: 12/03/2017 Noted Allergy Reaction CODEINE 10/27/2005 5 - Intolerance Comments: violently ill ADHESIVE TAPE-SILICONES 09/10/2014 2 - Rash 9 - Itching AMITRIPTYLINE 03/19/2007 5 - Intolerance Comments: all day hangover BACLOFEN 11/05/2012 12 - Shortness of Breath BELSOMRA (SUVOREXANT) 11/09/2015 5 - Intolerance Comments: hallucination,vomit flu vaccine [Other] 04/16/2007 10 - Anaphylaxis Comments: Passes out/anaphylaxis FLUDROCORTISONE 07/24/2013 1 - Mental Status Change Comments: thick tongued,goofy if 0.2mg daily HYDROCORTISONE 09/10/2014 14 - Other: See Comments Comments: Can't tolerate higher doses LEVAQUIN (LEVOFLOXACIN) 12/29/2005 8 - GI Upset LYRICA (PREGABALIN) 07/08/2007 5 - Intolerance Comments: dyspnea MIDRIN ([id number]*11/05/2012 12 - Shortness of Breath PINEAPPLE 06/28/2009 2 - Rash PYRIDOSTIGMINE 11/05/2012 12 - Shortness of Breath Date Reviewed: 12/03/2017 Reviewed by: Ursula Gutierrez LPN - Fully Assessed Reason for Visit: F/U 3 Month [443] Primary Visit Diagnosis:Vitamin D deficiency [E55.9] Other Visit Diagnoses:Visit for screening mammogram [Z12.31] Attention deficit hyperactivity disorder (ADHD), combined type [F90.2] Anxiety [F41.9] Fibromyalgia [M79.7] Neuropathy (HCC) [G62.9] Back pain, unspecified back location, unspecified back pain laterality, unspecified chronicity [M54.9] Pure hypercholesterolemia [E78.00] Order(s):TANA SCREENING [[id number]] Order #: [id number] FUTURE TANA SCREENING W EBER [[id number]] Order #: [id number] FUTURE [START ON 02/03/2018] dextroamphetamine-amphetamine (ADDERALL) 10 mg tabletTake 1 tablet by mouth twice daily for 30 days. Earliest Fill Date: 02/03/18Disp: 60 tabletRfl: 0 [START ON 01/03/2018] dextroamphetamine-amphetamine (ADDERALL) 10 mg tabletTake 1 tablet by mouth twice daily for 30 days. Earliest Fill Date: 01/03/18Disp: 60 tabletRfl: 0 dextroamphetamine-amphetamine (ADDERALL) 10 mg tabletTake 1 tablet by mouth twice daily for 30 days.Disp: 60 tabletRfl: 0 LORazepam (ATIVAN) 1 mg tabletTake 1 tablet by mouth three times daily for 90 days. For esophageal spasmsDisp: 90 tabletRfl: 2 traMADol (ULTRAM) 50 mg tabletTake 2 tablets by mouth three times daily for 90 days.Disp: 540 tabletRfl: 2 atorvastatin (LIPITOR) 20 mg tabletTake 1 tablet by mouth daily at bedtime. For cholesterol.Disp: 7 tabletRfl: 0 Prescriptions as of 12/03/2017 Sig: ATORVASTATIN 20 MG TABLET Take 1 tablet by mouth daily * SUCRALFATE 1 GRAM TABLET Take 1g before meals and at b* MIRTAZAPINE 30 MG TABLET Take 1.5 tablets by mouth louise* TOPIRAMATE 50 MG TABLET Take 2 tablets by mouth twice* TIZANIDINE 4 MG CAPSULE Take 3 capsules by mouth thre* HYDROCORTISONE 5 MG TABLET Take 1 tablet by mouth once d* FLUDROCORTISONE 0.1 MG TABLET Take 1 tablet by mouth three * CYCLOSPORINE 0.05 % EYE DROPS* Use 1 Drop in both eyes twice* WHITE PETROLATUM-MINERAL OIL * Use in both eyes. CYANOCOBALAMIN (VIT B-12) 1,0* Inject intramuscularly every* ROPINIROLE 0.5 MG TABLET Take 1 tablet by mouth daily * Patient taking differently: Take 0.5 mg by mouth daily at* HYDROXYZINE PAMOATE 25 MG CAP* Take 2 capsules by mouth thre* ERGOCALCIFEROL (VITAMIN D2) 5* Take 1 capsule by mouth once * NAPHAZO HCL 0.025 %-HYPROME 0* Use in eyes. LIDOCAINE 5 % TOPICAL PATCH Apply 1 Patch as directed onc* PANTOPRAZOLE 40 MG TABLET,DEL* Take 40 mg by mouth twice louise* FOLIC ACID 1 MG TABLET Take 1 mg by mouth once daily. IPRATROPIUM-ALBUTEROL 18 MCG-* 2 PUFF QID2 puff qid FERROUS SULFATE 325 MG (65 MG* Take 1 tablet by mouth twice * MEXILETINE 250 MG CAPSULE Take 1 capsule by mouth twice* ALBUTEROL SULFATE 2.5 MG/3 ML* Use QID prn breathing treatme* VALTREX 1 GRAM TABLET as necessary ECOTRIN LOW STRENGTH 81 MG TA* Take one(1) tablet daily. DEXTROAMPHETAMINE-AMPHETAMINE* Take 1 tablet by mouth twice * DEXTROAMPHETAMINE-AMPHETAMINE* Take 1 tablet by mouth twice * DEXTROAMPHETAMINE-AMPHETAMINE* Take 1 tablet by mouth twice * LORAZEPAM 1 MG TABLET Take 1 tablet by mouth three * TRAMADOL 50 MG TABLET Take 2 tablets by mouth three* Problem List As Of Date 12/03/2017 Noted Resolved TOBACCO USE DISORDER [F17.200] INVALID FOR* Unspecified Asthma [J45.909] INVALID FOR* More... Dysmenorrhea [N94.6] INVALID FOR*06/28/2009 Other and Unspecified Noninfectious Gastroenter*INVALID FOR*06/28/2009 Esophageal Reflux [K21.9] More... Diarrhea [R19.7] INVALID FOR* More... HYPERCALCEMIA [E83.52] INVALID FOR* Myalgia and myositis, unspecified [[id number]] INVALID FOR*11/30/2016 More... Headache [R51] INVALID FOR* More... Secondary Hyperparathyroidism, Non-Renal [E21.1]INVALID FOR* More... Pure Hypercholesterolemia [E78.00] INVALID FOR* More... Depression [F32.9] More... Back Pain [M54.9] INVALID FOR* More... Neck Pain [M54.2] INVALID FOR* More... Narcolepsy [G47.419] INVALID FOR* More... Syncope [R55] INVALID FOR* More... Pernicious Anemia [D51.0] INVALID FOR* Neuropathy [G62.9] INVALID FOR* Fibromyalgia [M79.7] INVALID FOR* More... Hypotension [I95.9] INVALID FOR* PTSD (post-traumatic stress disorder) [F43.10] INVALID FOR* Pulmonary nodules [R91.8] INVALID FOR* Orthostatic hypotension [I95.1] INVALID FOR* Dysautonomia orthostatic hypotension syndrome (*INVALID FOR* More... 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 Vitamin B 12 deficiency [E53.8] INVALID FOR* Prescriptions ordered this encounter Disp Refills Start End DEXTROAMPHETAMINE-AMPHETAMINE 10 MG * 60 t* 0 02/03/2018 03/05/2018 Class: Print RX Route: ORAL Sig: Take 1 tablet by mouth twice daily for 30 days. Earliest Fill Date: 02/03/18 DEXTROAMPHETAMINE-AMPHETAMINE 10 MG * 60 t* 0 01/03/2018 02/02/2018 Class: Print RX Route: ORAL Sig: Take 1 tablet by mouth twice daily for 30 days. Earliest Fill Date: 01/03/18 DEXTROAMPHETAMINE-AMPHETAMINE 10 MG * 60 t* 0 12/03/2017 01/02/2018 Class: Print RX Route: ORAL Sig: Take 1 tablet by mouth twice daily for 30 days. LORAZEPAM 1 MG TABLET 90 t* 2 12/03/2017 03/03/2018 Class: Print RX Route: ORAL Sig: Take 1 tablet by mouth three times daily for 90 days. For esophageal spasms TRAMADOL 50 MG TABLET 540 * 2 12/03/2017 03/03/2018 Class: Print RX Route: ORAL Sig: Take 2 tablets by mouth three times daily for 90 days. ATORVASTATIN 20 MG TABLET 7 ta* 0 12/03/2017 Route: ORAL Sig: Take 1 tablet by mouth daily at bedtime. For cholesterol. Medications Discontinued During This Encounter dextroamphetamine-amphetamine (ADDER* 60 t* 0 09/30/2017 12/03/2017 Class: Print RX Route: ORAL Sig: Take 1 tablet by mouth twice daily for 30 days. Earliest Fill Date: 09/30/17 Disc: Reason for discontinue is not on file. dextroamphetamine-amphetamine (ADDER* 60 t* 0 10/30/2017 12/03/2017 Class: Print RX Route: ORAL Sig: Take 1 tablet by mouth twice daily for 30 days. Earliest Fill Date: 10/30/17 Disc: Reason for discontinue is not on file. dextroamphetamine-amphetamine (ADDER* 60 t* 0 08/31/2017 12/03/2017 Class: Print RX Route: ORAL Sig: Take 1 tablet by mouth twice daily for 30 days. Earliest Fill Date: 08/31/17 Disc: Reason for discontinue is not on file. LORazepam (ATIVAN) 1 mg tablet 90 t* 2 08/31/2017 12/03/2017 Class: Print RX Route: ORAL Sig: Take 1 tablet by mouth three times daily for 90 days. For esophageal spasms Disc: Reason for discontinue is not on file. traMADol (ULTRAM) 50 mg tablet 540 * 2 08/31/2017 12/03/2017 Class: Print RX Route: ORAL Sig: Take 2 tablets by mouth three times daily for 90 days. Disc: Reason for discontinue is not on file. atorvastatin (LIPITOR) 20 mg tablet 08/31/2017 12/03/2017 Class: Med Update Route: ORAL Sig: Take 1 tablet by mouth daily at bedtime. For cholesterol. Disc: Reason for discontinue is not on file. Encounter Status:Closed by TANVI SAPP on 12/03/17 VITAMIN D 25 HYDROXY Collected: 11/26/2017 Status: F Source: [place] 8:00 AM [facility] REPOSITORY TYPE CODE TESTS RESULT OUT OF REFERENCE UNITS RANGE LAB VITD 31.0-80.0 ng/mL Test Vitamin D 25 sent to [facility]. Result Comment: Account Credited [facility] IRON AND TIBC Collected: 11/26/2017 Status: F Source: [place] 8:00 AM [facility] REPOSITORY TYPE CODE TESTS RESULT OUT OF REFERENCE UNITS RANGE LAB IRN 41-186 ug/dL Test Iron sent to [facility]. Result Comment: Account Credited [facility] LAB TIBC 232-386 ug/dL Test sent TIBC to [facility]. Result Comment: Account Credited [facility] SAT 15-57 % Transferrin Test sent Saturatn to [facility]. Result Comment: Account Credited [facility] COMP METABOLIC PANEL Collected: 11/26/2017 Status: F Source: [place] 8:00 AM [facility] REPOSITORY TYPE CODE TESTS RESULT OUT OF REFERENCE UNITS RANGE LAB TP 6.3-8.0 g/dL Test sent to [facility]. Result Comment: Account Credited [facility] ALB 3.9-4.9 g/dL Test Albumin sent to [facility]. Result Comment: Account Credited [facility] CA 8.5-10.2 mg/dL Test Calcium, Total sent to [facility]. Result Comment: Account Credited [facility] TBIL 0.2-1.3 mg/dL Bilirubin, Test Total sent to [facility]. Result Comment: Account Credited [facility] ALKP 32-117 U/L Alkaline Test Phosphatase sent to [facility]. Result Comment: Account Credited [facility] AST 13-35 U/L Test sent AST to [facility]. Result Comment: Account Credited [facility] GLU 74-99 mg/dL Test sent Glucose to [facility]. Result Comment: Account Credited [facility] BUN 7-21 mg/dL Test sent BUN to [facility]. Result Comment: Account Credited [facility] CRET 0.58-0.96 mg/dL Creatinine Test sent to [facility]. Result Comment: Account Credited [facility] NA 136-144 mmol/L Test Sodium sent to [facility]. Result Comment: Account Credited [facility] K 3.7-5.1 mmol/L Test Potassium sent to [facility]. Result Comment: Account Credited [facility] CL 97-105 mmol/L Test Chloride sent to [facility]. Result Comment: Account Credited [facility] CO2 22-30 mmol/L Test sent CO2 to [facility]. Result Comment: Account Credited [facility] AGAP 9-18 mmol/L Test sent Anion Gap to [facility]. Result Comment: Account Credited [facility] LAB ALT 7-38 U/L Test sent to ALT [facility]. Result Comment: Account Credited [facility] LAB GFRAA eGFR- Amer. Test sent to [facility]. Result Comment: Account Credited [facility] GFRNAA . eGFR-All Test sent Other Races to [facility]. Result Comment: Account Credited [facility] GFRPED eGFR-Ped. Test sent Factor to [facility]. Result Comment: Account Credited [facility] FERRITIN Collected: 11/26/2017 Status: F Source: [place] 8:00 AM [facility] REPOSITORY TYPE CODE TESTS RESULT OUT OF REFERENCE UNITS RANGE LAB FERR 14.7-205.1 ng/mL Test Ferritin sent to [facility]. Result Comment: Account Credited [facility] LIPID PANEL, BASIC Collected: 11/26/2017 Status: F Source: [place] 8:00 AM [facility] REPOSITORY TYPE CODE TESTS RESULT OUT OF REFERENCE UNITS RANGE LAB CHOL <200 mg/dL Cholesterol Test sent to [facility]. Result Comment: Account Credited [facility] LAB TRIGLY <150 mg/dL Triglyceride Test sent to [facility]. Result Comment: Account Credited [facility] LAB HDL >39 mg/dL HDL-Cholesterol Test sent to [facility]. Result Comment: Account Credited [facility] LAB LDL <100 mg/dL LDL-Cholesterol Test sent to [facility]. Result Comment: Account Credited [facility] LAB NONHDL 90-159 mg/dL Non HDL Test Cholesterol sent to [facility]. Result Comment: Account Credited [facility] LAB FT hrs Fasting Time 11 LAB VLDL <30 mg/dL VLDL Cholesterol Test sent to [facility]. Result Comment: Account Credited [facility] TCHDL <5.10 Test sent TC:HDL Ratio to [facility]. Result Comment: Account Credited [facility] LAB LDLHDL <2.54 Test sent LDL:HDL Ratio to [facility]. Result Comment: Account Credited [facility] CBC Collected: 11/26/2017 Status: F Source: [place] 8:00 AM [facility] REPOSITORY TYPE CODE TESTS RESULT OUT OF REFERENCE UNITS RANGE LAB WBC 3.70-11.00 k/uL Test WBC sent to [facility]. Result Comment: Account Credited [facility] RBC 3.90-5.20 m/uL Test sent RBC to [facility]. Result Comment: Account Credited [facility] HGB 11.5-15.5 g/dL Hemoglobin Test sent to [facility]. Result Comment: Account Credited [facility] HCT 36.0-46.0 % Hematocrit Test sent to [facility]. Result Comment: Account Credited [facility] MCV 80.0-100.0 fL Test sent MCV to [facility]. Result Comment: Account Credited [facility] MCH 26.0-34.0 pG Test sent MCH to [facility]. Result Comment: Account Credited [facility] MCHC 30.5-36.0 g/dL Test MCHC sent to [facility]. Result Comment: Account Credited [facility] RDWCV 11.5-15.0 % Test RDW-CV sent to [facility]. Result Comment: Account Credited [facility] PLTCT 150-400 k/uL Test Platelet Count sent to [facility]. Result Comment: Account Credited [facility] MPV 9.0-12.7 fL Test sent MPV to [facility]. Result Comment: Account Credited [facility] JOSÉ MIGUEL Recheck Test sent to [facility]. Result Comment: Account Credited [facility] REVW Test sent to Review [facility]. Result Comment: Account Credited [facility] CBCCOM Comment Test sent to [facility]. Result Comment: Account Credited [facility] ABSNUC <0.01 k/uL Test Absolute nRBC sent to [facility]. Result Comment: Account Credited [facility] VITAMIN B12 Collected: 11/26/2017 Status: F Source: [place] 8:00 AM [facility] REPOSITORY TYPE CODE TESTS RESULT OUT OF REFERENCE UNITS RANGE LAB B12 232-1245 pg/mL Test Vitamin B12 sent to [facility]. Result Comment: Account Credited [facility] VITAMIN B12 Collected: 11/26/2017 Status: F Source: [place] 7:55 AM [facility] REPOSITORY TYPE CODE TESTS RESULT OUT OF REFERENCE UNITS RANGE LAB L503.0105 211-911 pg/mL Low Vitamin B12 189 Performed By: #### L503.0105, L506.1000 #### [facility] [address] [place], [address] VITAMIN D,25 HYDROXY Collected: 11/26/2017 Status: F Source: [place] 7:55 AM [facility] REPOSITORY TYPE CODE TESTS RESULT OUT OF REFERENCE UNITS RANGE LAB L506.1000 29.95-100.01 ng/mL Low Vitamin D 13.6 25-OH Result Comment: Vitamin D 25(OH) Status Range Deficiency <20 ng/mL (50nmol/L) Insuffciency 20 - 30 ng/mL (50 - 75 nmol/L) Sufficiency 30 - 100 ng/mL (75 - 250 nmol/L) Toxicity >100 ng/mL (>250 nmol/L) Performed By: #### L503.0105, L506.1000 #### [facility] [address] [place], [address] COMPREHENSIVE METABOLIC Collected: 11/26/2017 Status: F Source: [facility] 7:55 AM [facility] REPOSITORY Order Comment: RESULT(S) PREVIOUSLY REPORTED ON MANUAL REQUISITION DURING DOWNTIME. TYPE CODE TESTS RESULT OUT OF RANGE REFERENCE UNITS LAB L501.0100 74-106 mg/dL Normal GLU 82 Result Comment: Please note revised GLUCOSE reference range effective 2017. LAB L501.1000 7-18 mg/dL Normal BUN 13 LAB L501.1100 0.55-1.02 mg/dL High CREAT,SERUM 1.28 Result Comment: The validity of the calculated GFR AND GFRAA in patients over 70 years has not been determined. Clinical correlation is essential. LAB L501.1110 >60 mL/min Low EST GFR 46 LAB L501.1115 >60 mL/min Low EST GFR - AA 56 LAB L501.1300 10-20 RATIO Normal BUN/CRE 10.2 LAB L501.1500 6.4-8.2 g/dL Normal T PROT 6.5 LAB L501.1800 3.2-5.0 g/dL Normal ALB 3.3 LAB L501.1950 2.2-4.2 g/dL Normal GLOB 3.2 LAB L501.2000 0.9-2.4 RATIO Normal A/G 1.0 LAB L501.2200 8.5-10.1 mg/dL Low CA 8.3 LAB L501.4100 15-37 U/L Normal AST 27 LAB L501.4305 45-117 U/L Normal ALK P 69 LAB L501.4405 13-56 U/L Normal ALT 23 LAB L501.4600 0.20-1.00 mg/dL Normal T BILI 0.20 LAB L501.5300 136-145 mmol/L High NA 147 LAB L501.5600 3.5-5.1 mmol/L Low K 3.3 LAB L501.5900 98-107 mmol/L High CL 114 LAB L501.6100 21.0-32.0 mmol/L Normal CO2 27.0 LAB L501.6200 5-15 Normal GAP 6 Performed By: #### L500.4050, L500.4100, L503.6075, L503.6150, L503.6550 #### [facility] [address] [place], [address] LIPID PROFILE Collected: 11/26/2017 Status: F Source: [place] 7:55 AM [facility] REPOSITORY Order Comment: RESULT(S) PREVIOUSLY REPORTED ON MANUAL REQUISITION DURING DOWNTIME. TYPE CODE TESTS RESULT OUT OF RANGE REFERENCE UNITS LAB L501.4900 200 mg/dL Normal CHOL 117 Result Comment: <200 mg/dL Desirable 200-240 mg/dL Borderline >240 mg/dL High Risk LAB L501.5000 mg/dL Normal TRIG 71 Result Comment: The drugs N-Acetylcysteine and Metamizole may falsely depress this assay. Serum Triglycerides Reference Interval Normal <150 mg/dL Borderline high 150 - 199 mg/dL High 200 - 499 mg/dL Very High > or = 500 mg/dL LAB L501.6400 mg/dL Normal HDL 50 Result Comment: The drugs N-Acetylcysteine and Metamizole may falsely depress this assay. Reference Range HDL <40 mg/dL Low HDL Cholesterol HDL >or= 60 mg/dL High HDL Cholesterol LAB L501.6500 0-130 mg/dL Normal LDL 53 LAB L501.6600 5-40 mg/dL Normal VLDL 14 Performed By: #### L500.4050, L500.4100, L503.6075, L503.6150, L503.6550 #### [facility] [address] [place], [address] IRON BINDING Collected: 11/26/2017 Status: F Source: [place] 7:55 AM [facility] REPOSITORY Order Comment: RESULT(S) PREVIOUSLY REPORTED ON MANUAL REQUISITION DURING DOWNTIME. TYPE CODE TESTS RESULT OUT OF RANGE REFERENCE UNITS LAB L503.6075 250-450 ug/dL Normal TIBC 361 Performed By: #### L500.4050, L500.4100, L503.6075, L503.6150, L503.6550 #### [facility] [address] [place], [address] IRON Collected: 11/26/2017 Status: F Source: [place] 7:55 AM [facility] REPOSITORY Order Comment: RESULT(S) PREVIOUSLY REPORTED ON MANUAL REQUISITION DURING DOWNTIME. TYPE CODE TESTS RESULT OUT OF RANGE REFERENCE UNITS LAB L503.6150 50-170 ug/dL Low IRON 34 Performed By: #### L500.4050, L500.4100, L503.6075, L503.6150, L503.6550 #### [facility] [address] [place], [place], [address] FERRITIN Collected: 11/26/2017 Status: F Source: [place] 7:55 AM [facility] REPOSITORY Order Comment: RESULT(S) PREVIOUSLY REPORTED ON MANUAL REQUISITION DURING DOWNTIME. TYPE CODE TESTS RESULT OUT OF REFERENCE UNITS RANGE LAB L503.6550 8-252 ng/mL Low FERRITIN 6 Performed By: #### L500.4050, L500.4100, L503.6075, L503.6150, L503.6550 #### [facility] [address] [place], [address] CBC-COMPLETE BLOOD CNT Collected: 11/26/2017 Status: F Source: CELE NO DIFF 7:55 AM [facility] REPOSITORY TYPE CODE TESTS RESULT OUT OF RANGE REFERENCE UNITS LAB L100.1000 4.4-11.0 K/mm3 Normal WBC 5.2 LAB L100.1200 4.2-5.4 M/mm3 Normal RBC 4.28 LAB L100.1300 12.0-15.0 g/dl Normal HGB 12.1 LAB L100.1400 37-47 % Normal HCT 39.3 LAB L100.1500 81-99 fL Normal MCV 91.8 LAB L100.1600 27.0-32.0 pg Normal MCH 28.3 LAB L100.1700 32-36 g/gl Low MCHC 30.8 LAB L100.1810 11.6-14.6 % Normal RDW CV 14.2 LAB L100.1820 35.1-43.9 fl High RDW SD 47.0 LAB L100.1900 150-450 K/mm3 Normal PLT 283 LAB L100.2000 6.2-12.0 fl Normal MPV 10.4 Performed By: #### L100.0500 #### [facility] [address] [place], [address] PROGRESS Observed: 08/31/2017 Status: COMPLETED Source: [place] 10:30 AM [facility] REPOSITORY HNO ID: [id number] Author: Cory Velez Service: (none) Author Type: Physician Type: Progress Notes Filed: 08/31/2017 11:43 PM Note Text: Patient presents with: Recheck SUBJECTIVE: Cheri Mejia is a 57 year old year old lady here today for 3 month follow up appointment for review of medical conditions. On [facility]. Dr. Khanna did colonoscopy. Polyps noted. IBS-D. Treated with antibiotic--first antibiotic RX was too expensive. Samples given--Xifaxan slowing bowels down though still liquidy stools. Still losing weight. Hair thinning. Vomiting. PAST MEDICAL HISTORY Diagnosis Date - Abdominal pain, epigastric - Acute gastritis without mention of hemorrhage - Arnold-Chiari syndrome with hydrocephalus ([facility]) - COPD (chronic obstructive pulmonary disease) ([facility]) 09/24/2014 - Depression Taking celexa, topamax. 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 - Tobacco use disorder - Unspecified asthma(493.90) Current Outpatient Prescriptions: LORazepam (ATIVAN) 1 mg tablet Take 1 tablet by mouth three times daily. For esophageal spasms sucralfate (CARAFATE) 1 gram tablet Take 1g before meals and at bedtime. May dissolve 1 tab into ~ 2 tsp of water, drink as soon as dissolved. traMADol (ULTRAM) 50 mg tablet Take 2 tablets by mouth twice daily for 180 days. Next prescription on or after 09/19/17 diclofenac potassium (CATAFLAM) 50 mg tablet Take 1 tablet by mouth three times daily as needed. Take with food. mirtazapine (REMERON) 30 mg tablet Take 1.5 tablets by mouth daily at bedtime. Topiramate (TOPAMAX) 50 mg tablet Take 2 tablets by mouth twice daily. tiZANidine HCl 4 mg capsule Take 3 capsules by mouth three times daily. hydrocortisone (CORTEF) 5 mg tablet Take 1 tablet by mouth once daily. and 1/2 tab midday and PM fludrocortisone (FLORINEF) 0.1 mg tablet Take 1 tablet by mouth three times daily. cycloSPORINE (RESTASIS) 0.05 % ophthalmic emulsion Use 1 Drop in both eyes twice daily. White Petrolatum-Mineral Oil (REFRESH P.M.) 57.3-42.5 % ointment Use in both eyes. cyanocobalamin 1,000 mcg/mL soln Inject intramuscularly every 2 weeks. rOPINIRole (REQUIP) 0.5 mg tablet Take 1 tablet by mouth daily at bedtime. X 2weeks, then 2 tablets at bedtime. (Patient taking differently: Take 0.5 mg by mouth daily at bedtime. 2 tablets at bedtime.) hydrOXYzine pamoate (VISTARIL) 25 mg capsule Take 2 capsules by mouth three times daily as needed. ergocalciferol, vitamin D2, (DRISDOL) 50,000 unit capsule Take 1 capsule by mouth once each week. naphazo HCl-hpm-ps 80-Zn sulf (CLEAR EYES COMPLETE) 0.025-0.2-0.5 % drop Use in eyes. lidocaine 5 %(700 mg/patch) Apply 1 Patch as directed once daily. TO AFFECTED AREA. of low back REMOVE AFTER 12 HOURS. pantoprazole 40 mg tablet Take 40 mg by mouth twice daily. folic acid 1 mg tablet Take 1 mg by mouth once daily. albuterol-ipratropium 18-103 mcg/Actuation INHALATION inhaler 2 PUFF QID2 puff qid Ferrous Sulfate 325 mg (65 mg iron) ORAL tablet Take 1 tablet by mouth twice daily with meals. TAKE WITH FOOD mexiletine 250 mg ORAL capsule Take 1 capsule by mouth twice daily. albuterol 2.5 mg /3 mL (0.083 %) INHALATION nebulizer solution Use QID prn breathing treatment in nebulizer valacyclovir hcl(VALTREX 1 G TAB) as necessary aspirin(ECOTRIN LOW STRENGTH 81 MG TAB) Take one(1) tablet daily. No current facility-administered medications for this visit. OBJECTIVE: BP 100/50 Pulse 64 Resp 16 Wt 65.3 kg (144 lb) BMI 22.22 kg/m2 Patient is alert, oriented times 3, no apparent distress, affect is bright, reactive. Heart: Regular rate, rhythm, no murmurs, gallops, rubs. Lungs: Clear to auscultation, bilaterally, breathing non labored. Ext: No cyanosis, clubbing, or edema. ASSESSMENT AND PLAN: Encounter Diagnosis ICD-10-CM 1. Irritable bowel syndrome with diarrhea K58.0 2. Anxiety F41.9 LORazepam (ATIVAN) 1 mg tablet 3. Fibromyalgia M79.7 traMADol (ULTRAM) 50 mg tablet 4. Neuropathy (HCC) G62.9 traMADol (ULTRAM) 50 mg tablet 5. Back pain, unspecified back location, unspecified back pain laterality, unspecified chronicity M54.9 traMADol (ULTRAM) 50 mg tablet 6. Attention deficit hyperactivity disorder (ADHD), combined type F90.2 dextroamphetamine-amphetamine (ADDERALL) 10 mg tablet dextroamphetamine-amphetamine (ADDERALL) 10 mg tablet dextroamphetamine-amphetamine (ADDERALL) 10 mg tablet 7. Pure hypercholesterolemia E78.00 atorvastatin (LIPITOR) 20 mg tablet 8. Visit for screening mammogram Z12.31 [facility] SCREENING 9. Encounter for long-term current use of medication Z79.899 COMP METABOLIC PANEL CBC FERRITIN BLD IRON + TIBC VITAMIN D 25 HYDROXY 10. Low ferritin R79.0 FERRITIN BLD IRON + TIBC 11. Vitamin D deficiency E55.9 VITAMIN D 25 HYDROXY 12. Vitamin B 12 deficiency E53.8 VITAMIN B12 BLOOD Above issues addressed with patient. Patient involved in shared decision making for management of her medical issues. History and medications reviewed. Epic updated as needed Refills taken care of and meds adjusted as indicated after reviewed history, exam and labs. Health Maintenance reviewed. Updated record and/or ordered tests as recorded. [facility], including [facility], meds for depression, Florinef and Solucortef, etc. Refills from me as noted above. Encouraged on efforts at healthy diet and regular exercise and adequate sleep. Iron low with ferritin at 6. No anemia last check. Need to make sure gets adequate iron in daily. Discussed ongoing chronic pain. Cannot treat with frequent Toradol given risks for liver toxicity. Other NSAID not effective. Discussed issues with weight loss and trouble with hair thinning. Discussed that decreased protein intake contributes to hair thinning. Needs to make sure getting enough fluids as well as protein and calories. Encouraged to get adequate intake to help. The majority of the visit was spent counseling and/or coordinating care for the patient. Ogvy-pk-riko time was at least 25 minutes. Cory Velez MD CNOV Observed: 08/31/2017 Status: COMPLETED Source: [place] 9:40 AM [facility] REPOSITORY Office Visit (INTMWS) CHERI MEJIA ([id number]) 1960 F Date Time Provider Department 08/31/17 9:40 AM CORY VELEZ During your visit today, we recorded the following information about you: Pulse Respiration Blood pressure Weight 64/minute 16/minute 100/50 65.3 kg Cory Velez MD 08/31/2017 11:43 PM Signed Patient presents with: Recheck SUBJECTIVE: Cheri Mejia is a 57 year old year old lady here today for 3 month follow up appointment for review of medical conditions. On [facility] now. Dr. Khanna did colonoscopy. Polyps noted. IBS-D. Treated with antibiotic--first antibiotic RX was too expensive. Samples given--Xifaxan slowing bowels down though still liquidy stools. Still losing weight. Hair thinning. Vomiting. PAST MEDICAL HISTORY Diagnosis Date - Abdominal pain, epigastric - Acute gastritis without mention of hemorrhage - Arnold-Chiari syndrome with hydrocephalus ([facility]) - COPD (chronic obstructive pulmonary disease) ([facility]) 09/24/2014 - Depression Taking celexa, topamax. 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 - Tobacco use disorder - Unspecified asthma(493.90) Current Outpatient Prescriptions: LORazepam (ATIVAN) 1 mg tablet Take 1 tablet by mouth three times daily. For esophageal spasms sucralfate (CARAFATE) 1 gram tablet Take 1g before meals and at bedtime. May dissolve 1 tab into ~ 2 tsp of water, drink as soon as dissolved. traMADol (ULTRAM) 50 mg tablet Take 2 tablets by mouth twice daily for 180 days. Next prescription on or after 09/19/17 diclofenac potassium (CATAFLAM) 50 mg tablet Take 1 tablet by mouth three times daily as needed. Take with food. mirtazapine (REMERON) 30 mg tablet Take 1.5 tablets by mouth daily at bedtime. Topiramate (TOPAMAX) 50 mg tablet Take 2 tablets by mouth twice daily. tiZANidine HCl 4 mg capsule Take 3 capsules by mouth three times daily. hydrocortisone (CORTEF) 5 mg tablet Take 1 tablet by mouth once daily. and 1/2 tab midday and PM fludrocortisone (FLORINEF) 0.1 mg tablet Take 1 tablet by mouth three times daily. cycloSPORINE (RESTASIS) 0.05 % ophthalmic emulsion Use 1 Drop in both eyes twice daily. White Petrolatum-Mineral Oil (REFRESH P.M.) 57.3-42.5 % ointment Use in both eyes. cyanocobalamin 1,000 mcg/mL soln Inject intramuscularly every 2 weeks. rOPINIRole (REQUIP) 0.5 mg tablet Take 1 tablet by mouth daily at bedtime. X 2weeks, then 2 tablets at bedtime. (Patient taking differently: Take 0.5 mg by mouth daily at bedtime. 2 tablets at bedtime.) hydrOXYzine pamoate (VISTARIL) 25 mg capsule Take 2 capsules by mouth three times daily as needed. ergocalciferol, vitamin D2, (DRISDOL) 50,000 unit capsule Take 1 capsule by mouth once each week. naphazo HCl-hpm-ps 80-Zn sulf (CLEAR EYES COMPLETE) 0.025-0.2-0.5 % drop Use in eyes. lidocaine 5 %(700 mg/patch) Apply 1 Patch as directed once daily. TO AFFECTED AREA. of low back REMOVE AFTER 12 HOURS. pantoprazole 40 mg tablet Take 40 mg by mouth twice daily. folic acid 1 mg tablet Take 1 mg by mouth once daily. albuterol-ipratropium 18-103 mcg/Actuation INHALATION inhaler 2 PUFF QID2 puff qid Ferrous Sulfate 325 mg (65 mg iron) ORAL tablet Take 1 tablet by mouth twice daily with meals. TAKE WITH FOOD mexiletine 250 mg ORAL capsule Take 1 capsule by mouth twice daily. albuterol 2.5 mg /3 mL (0.083 %) INHALATION nebulizer solution Use QID prn breathing treatment in nebulizer valacyclovir hcl(VALTREX 1 G TAB) as necessary aspirin(ECOTRIN LOW STRENGTH 81 MG TAB) Take one(1) tablet daily. No current facility-administered medications for this visit. OBJECTIVE: BP 100/50 Pulse 64 Resp 16 Wt 65.3 kg (144 lb) BMI 22.22 kg/m2 Patient is alert, oriented times 3, no apparent distress, affect is bright, reactive. Heart: Regular rate, rhythm, no murmurs, gallops, rubs. Lungs: Clear to auscultation, bilaterally, breathing non labored. Ext: No cyanosis, clubbing, or edema. ASSESSMENT AND PLAN: Encounter Diagnosis ICD-10-CM 1. Irritable bowel syndrome with diarrhea K58.0 2. Anxiety F41.9 LORazepam (ATIVAN) 1 mg tablet 3. Fibromyalgia M79.7 traMADol (ULTRAM) 50 mg tablet 4. Neuropathy (HCC) G62.9 traMADol (ULTRAM) 50 mg tablet 5. Back pain, unspecified back location, unspecified back pain laterality, unspecified chronicity M54.9 traMADol (ULTRAM) 50 mg tablet 6. Attention deficit hyperactivity disorder (ADHD), combined type F90.2 dextroamphetamine-amphetamine (ADDERALL) 10 mg tablet dextroamphetamine-amphetamine (ADDERALL) 10 mg tablet dextroamphetamine-amphetamine (ADDERALL) 10 mg tablet 7. Pure hypercholesterolemia E78.00 atorvastatin (LIPITOR) 20 mg tablet 8. Visit for screening mammogram Z12.31 [facility] SCREENING 9. Encounter for long-term current use of medication Z79.899 COMP METABOLIC PANEL CBC FERRITIN BLD IRON + TIBC VITAMIN D 25 HYDROXY 10. Low ferritin R79.0 FERRITIN BLD IRON + TIBC 11. Vitamin D deficiency E55.9 VITAMIN D 25 HYDROXY 12. Vitamin B 12 deficiency E53.8 VITAMIN B12 BLOOD Above issues addressed with patient. Patient involved in shared decision making for management of her medical issues. History and medications reviewed. Epic updated as needed Refills taken care of and meds adjusted as indicated after reviewed history, exam and labs. Health Maintenance reviewed. Updated record and/or ordered tests as recorded. [facility], including [facility], meds for depression, Florinef and Solucortef, etc. Refills from me as noted above. Encouraged on efforts at healthy diet and regular exercise and adequate sleep. Iron low with ferritin at 6. No anemia last check. Need to make sure gets adequate iron in daily. Discussed ongoing chronic pain. Cannot treat with frequent Toradol given risks for liver toxicity. Other NSAID not effective. Discussed issues with weight loss and trouble with hair thinning. Discussed that decreased protein intake contributes to hair thinning. Needs to make sure getting enough fluids as well as protein and calories. Encouraged to get adequate intake to help. The majority of the visit was spent counseling and/or coordinating care for the patient. Dcwi-lz-nmpy time was at least 25 minutes. Cory Velez MD Referring Provider: CORY VELEZ [[id number]] Allergies As of Date: 08/31/2017 Noted Allergy Reaction CODEINE 10/27/2005 5 - Intolerance Comments: violently ill ADHESIVE TAPE-SILICONES 09/10/2014 2 - Rash 9 - Itching AMITRIPTYLINE 03/19/2007 5 - Intolerance Comments: all day hangover BACLOFEN 11/05/2012 12 - Shortness of Breath BELSOMRA (SUVOREXANT) 11/09/2015 5 - Intolerance Comments: hallucination,vomit FLUDROCORTISONE 07/24/2013 1 - Mental Status Change Comments: thick tongued,goofy if 0.2mg daily HYDROCORTISONE 09/10/2014 14 - Other: See Comments Comments: Can't tolerate higher doses LEVAQUIN (LEVOFLOXACIN) 12/29/2005 8 - GI Upset LYRICA (PREGABALIN) 07/08/2007 5 - Intolerance Comments: dyspnea MIDRIN ([id number]*11/05/2012 12 - Shortness of Breath PINEAPPLE 06/28/2009 2 - Rash PYRIDOSTIGMINE 11/05/2012 12 - Shortness of Breath flu vaccine [Other] 04/16/2007 10 - Anaphylaxis Comments: Passes out/anaphylaxis Date Reviewed: 08/31/2017 Reviewed by: Janay Harrell [employer]enger [employer] Agent - Fully Assessed Reason for Visit: Recheck [92] Primary Visit Diagnosis:Irritable bowel syndrome with diarrhea [K58.0] Other Visit Diagnoses:Anxiety [F41.9] Fibromyalgia [M79.7] Neuropathy (HCC) [G62.9] Back pain, unspecified back location, unspecified back pain laterality, unspecified chronicity [M54.9] Attention deficit hyperactivity disorder (ADHD), combined type [F90.2] Pure hypercholesterolemia [E78.00] Visit for screening mammogram [Z12.31] Encounter for long-term current use of medication [Z79.899] Low ferritin [R79.0] Vitamin D deficiency [E55.9] Vitamin B 12 deficiency [E53.8] Order(s):LORazepam (ATIVAN) 1 mg tabletTake 1 tablet by mouth three times daily for 90 days. For esophageal spasmsDisp: 90 tabletRfl: 2 traMADol (ULTRAM) 50 mg tabletTake 2 tablets by mouth three times daily for 90 days.Disp: 540 tabletRfl: 2 dextroamphetamine-amphetamine (ADDERALL) 10 mg tabletTake 1 tablet by mouth twice daily for 30 days. Earliest Fill Date: 08/31/17Disp: 60 tabletRfl: 0 atorvastatin (LIPITOR) 20 mg tabletTake 1 tablet by mouth daily at bedtime. For cholesterol.Disp: Rfl: [facility] SCREENING [0921075] Order #: [id number] FUTURE [START ON 09/30/2017] dextroamphetamine-amphetamine (ADDERALL) 10 mg tabletTake 1 tablet by mouth twice daily for 30 days. Earliest Fill Date: 09/30/17Disp: 60 tabletRfl: 0 [START ON 10/30/2017] dextroamphetamine-amphetamine (ADDERALL) 10 mg tabletTake 1 tablet by mouth twice daily for 30 days. Earliest Fill Date: 10/30/17Disp: 60 tabletRfl: 0 COMP METABOLIC PANEL [SQCMP] Order #: [id number] FUTURE CBC [SQCBC] Order #: [id number] FUTURE FERRITIN BLD [SQFERR] Order #: [id number] FUTURE IRON + TIBC [SQIRON] Order #: [id number] FUTURE VITAMIN D 25 HYDROXY [SQVITD] Order #: [id number] FUTURE VITAMIN B12 BLOOD [SQB12] Order #: [id number] FUTURE Prescriptions as of 08/31/2017 Sig: LORAZEPAM 1 MG TABLET Take 1 tablet by mouth three * TRAMADOL 50 MG TABLET Take 2 tablets by mouth three* DEXTROAMPHETAMINE-AMPHETAMINE* Take 1 tablet by mouth twice * ATORVASTATIN 20 MG TABLET Take 1 tablet by mouth daily * DEXTROAMPHETAMINE-AMPHETAMINE* Take 1 tablet by mouth twice * DEXTROAMPHETAMINE-AMPHETAMINE* Take 1 tablet by mouth twice * SUCRALFATE 1 GRAM TABLET Take 1g before meals and at b* MIRTAZAPINE 30 MG TABLET Take 1.5 tablets by mouth louise* TOPIRAMATE 50 MG TABLET Take 2 tablets by mouth twice* TIZANIDINE 4 MG CAPSULE Take 3 capsules by mouth thre* HYDROCORTISONE 5 MG TABLET Take 1 tablet by mouth once d* FLUDROCORTISONE 0.1 MG TABLET Take 1 tablet by mouth three * CYCLOSPORINE 0.05 % EYE DROPS* Use 1 Drop in both eyes twice* WHITE PETROLATUM-MINERAL OIL * Use in both eyes. CYANOCOBALAMIN (VIT B-12) 1,0* Inject intramuscularly every* ROPINIROLE 0.5 MG TABLET Take 1 tablet by mouth daily * Patient taking differently: Take 0.5 mg by mouth daily at* HYDROXYZINE PAMOATE 25 MG CAP* Take 2 capsules by mouth thre* ERGOCALCIFEROL (VITAMIN D2) 5* Take 1 capsule by mouth once * NAPHAZO HCL 0.025 %-HYPROME 0* Use in eyes. LIDOCAINE 5 % TOPICAL PATCH Apply 1 Patch as directed onc* PANTOPRAZOLE 40 MG TABLET,DEL* Take 40 mg by mouth twice louise* FOLIC ACID 1 MG TABLET Take 1 mg by mouth once daily. IPRATROPIUM-ALBUTEROL 18 MCG-* 2 PUFF QID2 puff qid FERROUS SULFATE 325 MG (65 MG* Take 1 tablet by mouth twice * MEXILETINE 250 MG CAPSULE Take 1 capsule by mouth twice* ALBUTEROL SULFATE 2.5 MG/3 ML* Use QID prn breathing treatme* VALTREX 1 GRAM TABLET as necessary ECOTRIN LOW STRENGTH 81 MG TA* Take one(1) tablet daily. Medication notes this encounter CYANOCOBALAMIN (VIT B-12) 1,000 MCG/ML INJECTION SOLUTION >> Cory Velez MD 08/31/2017 10:39 AM >> CORY VELEZ MD SunAug 31, 2017 10:[address] Problem List As Of Date 08/31/2017 Noted Resolved TOBACCO USE DISORDER [F17.200] INVALID FOR* Unspecified Asthma [J45.909] INVALID FOR* More... Dysmenorrhea [N94.6] INVALID FOR*06/28/2009 Other and Unspecified Noninfectious Gastroenter*INVALID FOR*06/28/2009 Esophageal Reflux [K21.9] More... Diarrhea [R19.7] INVALID FOR* More... HYPERCALCEMIA [E83.52] INVALID FOR* Myalgia and myositis, unspecified [AWN1980] INVALID FOR*11/30/2016 More... Headache [R51] INVALID FOR* More... Secondary Hyperparathyroidism, Non-Renal [E21.1]INVALID FOR* More... Pure Hypercholesterolemia [E78.00] INVALID FOR* More... Depression [F32.9] More... Back Pain [M54.9] INVALID FOR* More... Neck Pain [M54.2] INVALID FOR* More... Narcolepsy [G47.419] INVALID FOR* More... Syncope [R55] INVALID FOR* More... Pernicious Anemia [D51.0] INVALID FOR* Neuropathy [G62.9] INVALID FOR* Fibromyalgia [M79.7] INVALID FOR* More... Hypotension [I95.9] INVALID FOR* PTSD (post-traumatic stress disorder) [F43.10] INVALID FOR* Pulmonary nodules [R91.8] INVALID FOR* Orthostatic hypotension [I95.1] INVALID FOR* Dysautonomia orthostatic hypotension syndrome (*INVALID FOR* More... 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 Vitamin B 12 deficiency [E53.8] INVALID FOR* Prescriptions ordered this encounter Disp Refills Start End LORAZEPAM 1 MG TABLET 90 t* 2 08/31/2017 11/29/2017 Class: Print RX Route: ORAL Sig: Take 1 tablet by mouth three times daily for 90 days. For esophageal spasms TRAMADOL 50 MG TABLET 540 * 2 08/31/2017 11/29/2017 Class: Print RX Route: ORAL Sig: Take 2 tablets by mouth three times daily for 90 days. DEXTROAMPHETAMINE-AMPHETAMINE 10 MG * 60 t* 0 08/31/2017 09/30/2017 Class: Print RX Route: ORAL Sig: Take 1 tablet by mouth twice daily for 30 days. Earliest Fill Date: 08/31/17 ATORVASTATIN 20 MG TABLET 08/31/2017 Class: Med Update Route: ORAL Sig: Take 1 tablet by mouth daily at bedtime. For cholesterol. DEXTROAMPHETAMINE-AMPHETAMINE 10 MG * 60 t* 0 09/30/2017 10/30/2017 Class: Print RX Route: ORAL Sig: Take 1 tablet by mouth twice daily for 30 days. Earliest Fill Date: 09/30/17 DEXTROAMPHETAMINE-AMPHETAMINE 10 MG * 60 t* 0 10/30/2017 11/29/2017 Class: Print RX Route: ORAL Sig: Take 1 tablet by mouth twice daily for 30 days. Earliest Fill Date: 10/30/17 Medications Discontinued During This Encounter diclofenac potassium (CATAFLAM) 50 m* 90 t* 1 03/16/2017 08/31/2017 Class: Print RX Route: ORAL Sig: Take 1 tablet by mouth three times daily as needed. Take with food. Disc: Reason for discontinue is not on file. dextroamphetamine-amphetamine (ADDER* 60 t* 0 04/07/2017 08/31/2017 Class: Print RX Route: ORAL Sig: Take 1 tablet by mouth twice daily for 30 days. Disc: Reason for discontinue is not on file. dextroamphetamine-amphetamine (ADDER* 60 t* 0 03/08/2017 08/31/2017 Class: Print RX Route: ORAL Sig: Take 1 tablet by mouth twice daily for 30 days. Disc: Reason for discontinue is not on file. dextroamphetamine-amphetamine (ADDER* 60 t* 0 12/30/2016 08/31/2017 Class: Print RX Route: ORAL Sig: Take 1 tablet by mouth twice daily for 30 days. Disc: Reason for discontinue is not on file. LORazepam (ATIVAN) 1 mg tablet 90 t* 2 05/31/2017 08/31/2017 Class: Print RX Route: ORAL Sig: Take 1 tablet by mouth three times daily. For esophageal spasms Disc: Reason for discontinue is not on file. traMADol (ULTRAM) 50 mg tablet 360 * 1 03/23/2017 08/31/2017 Class: Print RX Cmt: This is a 90 day supply with 1 refill. Route: ORAL Sig: Take 2 tablets by mouth twice daily for 180 days. Next prescription on or after 09/19/17 Disc: Reason for discontinue is not on file. dextroamphetamine-amphetamine (ADDER* 60 t* 0 05/31/2017 08/31/2017 Class: Print RX Route: ORAL Sig: Take 1 tablet by mouth twice daily for 30 days. Disc: Reason for discontinue is not on file. Disposition: Return for 3 months FU with [facility]; following 3 months with me, With labs prior. Follow-up and Disposition History Recorded Encounter Status:Closed by CORY VELEZ MD on 08/31/17 COMPREHENSIVE METABOLIC Collected: 08/30/2017 Status: F Source: [facility] 4:13 PM [place] [facility] REPOSITORY TYPE CODE TESTS RESULT OUT OF RANGE REFERENCE UNITS LAB L501.0100 74-106 mg/dL Normal GLU 87 Result Comment: Please note revised GLUCOSE reference range effective 2017. LAB L501.1000 7-18 mg/dL Normal BUN 11 LAB L501.1100 0.55-1.02 mg/dL High CREAT,SERUM 1.14 Result Comment: The validity of the calculated GFR AND GFRAA in patients over 70 years has not been determined. Clinical correlation is essential. LAB L501.1110 >60 mL/min Low EST GFR 52 Result Comment: Non- GFR Calc LAB L501.1115 >60 mL/min Normal EST GFR - AA 63 Result Comment: GFR Calc LAB L501.1300 10-20 RATIO Low BUN/CRE 9.6 LAB L501.1500 6.4-8.2 g/dL Normal T PROT 7.5 LAB L501.1800 3.2-5.0 g/dL Normal ALB 3.8 LAB L501.1950 2.2-4.2 g/dL Normal GLOB 3.7 LAB L501.2000 0.9-2.4 RATIO Normal A/G 1.0 LAB L501.2200 8.5-10.1 mg/dL Normal CA 9.0 LAB L501.4100 15-37 U/L Normal AST 16 LAB L501.4305 45-117 U/L Normal ALK P 83 LAB L501.4405 13-56 U/L Normal ALT 23 Result Comment: Please note revised ALT reference range effective 2017. LAB L501.4600 0.20-1.00 mg/dL Normal T BILI 0.30 LAB L501.5300 136-145 mmol/L Normal NA 144 LAB L501.5600 3.5-5.1 mmol/L Normal K 3.8 LAB L501.5900 98-107 mmol/L High CL 110 LAB L501.6100 21.0-32.0 mmol/L Normal CO2 24.0 LAB L501.6200 5-15 Normal GAP 10 Performed By: #### L500.4050, L500.4100, L503.6075, L503.6150, L503.6550 #### [facility] Laboratory [address] [facility]. [place], [place], [id number] LIPID PROFILE Collected: 08/30/2017 Status: F Source: [place] 4:13 PM [facility] REPOSITORY TYPE CODE TESTS RESULT OUT OF RANGE REFERENCE UNITS LAB L501.4900 200 mg/dL Normal CHOL 191 Result Comment: <200 mg/dL Desirable 200-240 mg/dL Borderline >240 mg/dL High Risk LAB L501.5000 mg/dL Normal TRIG 139 Result Comment: The drugs N-Acetylcysteine and Metamizole may falsely depress this assay. Serum Triglycerides Reference Interval Normal <150 mg/dL Borderline high 150 - 199 mg/dL High 200 - 499 mg/dL Very High > or = 500 mg/dL LAB L501.6400 mg/dL Normal HDL 51 Result Comment: The drugs N-Acetylcysteine and Metamizole may falsely depress this assay. Reference Range HDL <40 mg/dL Low HDL Cholesterol HDL >or= 60 mg/dL High HDL Cholesterol LAB L501.6500 0-130 mg/dL Normal LDL 112 LAB L501.6600 5-40 mg/dL Normal VLDL 28 Performed By: #### L500.4050, L500.4100, L503.6075, L503.6150, L503.6550 #### [facility] Laboratory [address] [place], [place], [id number] IRON BINDING Collected: 08/30/2017 Status: F Source: [place],T[place] 4:13 PM [facility] REPOSITORY TYPE CODE TESTS RESULT OUT OF RANGE REFERENCE UNITS LAB L503.6075 250-450 ug/dL High TIBC 479 Performed By: #### L500.4050, L500.4100, L503.6075, L503.6150, L503.6550 #### [facility] Laboratory [address] [place], [address] IRON Collected: 08/30/2017 Status: F Source: [place] 4:13 PM [facility] REPOSITORY TYPE CODE TESTS RESULT OUT OF RANGE REFERENCE UNITS LAB L503.6150 50-170 ug/dL Normal IRON 53 Performed By: #### L500.4050, L500.4100, L503.6075, L503.6150, L503.6550 #### [facility] Laboratory [address] [place], [address] FERRITIN Collected: 08/30/2017 Status: F Source: [place] 4:13 PM [facility] REPOSITORY TYPE CODE TESTS RESULT OUT OF REFERENCE UNITS RANGE LAB L503.6550 8-252 ng/mL Low FERRITIN 6 Performed By: #### L500.4050, L500.4100, L503.6075, L503.6150, L503.6550 #### [facility] Laboratory [address] [place], [address] VITAMIN D,25 HYDROXY Collected: 08/30/2017 Status: F Source: [place] 4:13 PM [facility] REPOSITORY TYPE CODE TESTS RESULT OUT OF REFERENCE UNITS RANGE LAB L506.1000 29.95-100.01 ng/mL Low Vitamin D 9.5 25-OH Result Comment: Vitamin D 25(OH) Status Range Deficiency <20 ng/mL (50nmol/L) Insuffciency 20 - 30 ng/mL (50 - 75 nmol/L) Sufficiency 30 - 100 ng/mL (75 - 250 nmol/L) Toxicity >100 ng/mL (>250 nmol/L) Performed By: #### L506.1000 #### [facility] Laboratory [address] [place], [address] COMP METABOLIC PANEL Collected: 08/30/2017 Status: F Source: [place] 11:05 AM [facility] REPOSITORY TYPE CODE TESTS RESULT OUT OF REFERENCE UNITS RANGE LAB TP 6.3-8.0 g/dL Test sent to [facility]. Result Comment: Account Credited [facility] LAB ALB 3.9-4.9 g/dL Test Albumin sent to [facility]. Result Comment: Account Credited [facility] LAB CA 8.5-10.2 mg/dL Test Calcium, Total sent to [facility]. Result Comment: Account Credited [facility] LAB TBIL 0.2-1.3 mg/dL Bilirubin, Test Total sent to [facility]. Result Comment: Account Credited [facility] LAB ALKP 32-117 U/L Alkaline Test Phosphatase sent to [facility]. Result Comment: Account Credited [facility] LAB AST 13-35 U/L Test sent AST to [facility]. Result Comment: Account Credited [facility] LAB GLU 74-99 mg/dL Test sent Glucose to [facility]. Result Comment: Account Credited [facility] LAB BUN 7-21 mg/dL Test sent BUN to [facility]. Result Comment: Account Credited [facility] LAB CRET 0.58-0.96 mg/dL Creatinine Test sent to [facility]. Result Comment: Account Credited [facility] LAB NA 136-144 mmol/L Test Sodium sent to [facility]. Result Comment: Account Credited [facility] LAB K 3.7-5.1 mmol/L Test Potassium sent to [facility]. Result Comment: Account Credited [facility] LAB CL 97-105 mmol/L Test Chloride sent to [facility]. Result Comment: Account Credited [facility] LAB CO2 22-30 mmol/L Test sent CO2 to [facility]. Result Comment: Account Credited [facility] LAB AGAP 9-18 mmol/L Test sent Anion Gap to [facility]. Result Comment: Account Credited [facility] LAB ALT 7-38 U/L Test sent to [place] [facility]. Result Comment: Account Credited [facility] LAB GFRAA eGFR- Amer. Test sent to [facility]. Result Comment: Account Credited [facility] LAB GFRNAA . eGFR-All Test sent Other Races to [facility]. Result Comment: Account Credited [facility] LAB GFRPED eGFR-Ped. Test sent Factor to [facility]. Result Comment: Account Credited [facility] FERRITIN Collected: 08/30/2017 Status: F Source: [place] 11:05 AM [facility] REPOSITORY TYPE CODE TESTS RESULT OUT OF REFERENCE UNITS RANGE LAB FERR 14.7-205.1 ng/mL Test Ferritin sent to [facility]. Result Comment: Account Credited [facility] IRON AND TIBC Collected: 08/30/2017 Status: F Source: [place] 11:05 AM [facility] REPOSITORY TYPE CODE TESTS RESULT OUT OF REFERENCE UNITS RANGE LAB IRN 41-186 ug/dL Test Iron sent to [facility]. Result Comment: Account Credited [facility] LAB TIBC 232-386 ug/dL Test sent TIBC to [facility]. Result Comment: Account Credited [facility] LAB SAT 15-57 % Transferrin Test sent Saturatn to [facility]. Result Comment: Account Credited [facility] LIPID PANEL, BASIC Collected: 08/30/2017 Status: F Source: [place] 11:05 AM [facility] REPOSITORY TYPE CODE TESTS RESULT OUT OF REFERENCE UNITS RANGE LAB CHOL <200 mg/dL Cholesterol Test sent to [facility]. Result Comment: Account Credited [facility] LAB TRIGLY <150 mg/dL Triglyceride Test sent to [facility]. Result Comment: Account Credited [facility] LAB HDL >39 mg/dL HDL-Cholesterol Test sent to [facility]. Result Comment: Account Credited [facility] LAB LDL <100 mg/dL LDL-Cholesterol Test sent to [facility]. Result Comment: Account Credited [facility] LAB NONHDL 90-159 mg/dL Non HDL Test Cholesterol sent to [facility]. Result Comment: Account Credited [facility] LAB FT hrs Fasting Time 0 LAB VLDL <30 mg/dL VLDL Cholesterol Test sent to [facility]. Result Comment: Account Credited [facility] LAB TCHDL <5.10 Test sent TC:HDL Ratio to [facility]. Result Comment: Account Credited [facility] LAB LDLHDL <2.54 Test sent LDL:HDL Ratio to [facility]. Result Comment: Account Credited [facility] VITAMIN D 25 HYDROXY Collected: 08/30/2017 Status: F Source: [place] 11:05 AM [facility] REPOSITORY TYPE CODE TESTS RESULT OUT OF REFERENCE UNITS RANGE LAB VITD 31.0-80.0 ng/mL Test Vitamin D 25 sent to [facility]. Result Comment: Account Credited HIDE FINAL SURGICAL Observed: 07/23/2017 Status: F Source: [facility] PATHOLOGY REPORT 10:23 AM [facility]OUNDATION REPOSITORY . Pathology Reports Accession: Collected Date/Time: Received Date/Time: Pathologist: [id number] 07/23/2017 10:23 EST 07/24/2017 06:57 EST DO EMRE SCHREIBER Final Surgical Pathology Report DIAGNOSIS: A) TERMINAL ILEUM -- NO SPECIFIC HISTOPATHOLOGIC CHANGES. B) RIGHT AND LEFT COLON BIOPSIES -- NONSPECIFIC CHANGES. Mild chronic inflammation of the lamina propria. Although occasional intraepithelial lymphocytes are noted, they are quantitatively insufficient for a diagnosis of lymphocytic/collagenous colitis. COMMENT: [facility]# [id number] CLINICAL INFORMATION: Procedure: COLONOSCOPY Preoperative diagnosis: ABDOMINAL PAIN - DIARRHEA Postoperative diagnosis: ABDOMINAL PAIN SPECIMEN: A COLON, BX - TERMINAL ILEUM B COLON, BX - RIGHT & LEFT COLON GROSS DESCRIPTION: _A. Received in formalin labeled terminal ileum biopsy are 2 bruce glistening soft tissues, 0.6 and 0.9 cm. A S -1 B. Received in formalin labeled right and left colon biopsies are multiple bruce glistening soft tissues ranging from 0.1-0.4 cm. A S -1 Dictated by ROSLYN JIMENES ([facility]) MICROSCOPIC DESCRIPTION: A&B) Slides reviewed. Electronically Signed by Pathology Report verified by [facility] Electronically signed by EMRE SCHREIBER DO Sign out Date: 07/25/2017 10:57 Performing Lab: [facility], [address] [place] [address] Performed By: #### SPFR #### [place] [address] CRP Collected: 07/11/2017 Status: F Source: [place] 11:45 [facility] REPOSITORY TYPE CODE TESTS RESULT OUT OF RANGE REFERENCE UNITS LAB L501.6710 0.0-3.0 mg/L Normal < 2.90 C-REACTIVE PROT Result Comment: C-Reactive Protein (CRP) provides useful information for the diagnosis, therapy and monitoring of inflammatory processes and associated diseases. For the evaluation of Relative Risk for Cardiovascular Disease, a High Sensitivity CRP (HSCRP) should be ordered. Performed By: #### L501.6710 #### [facility] Laboratory [address] [place], [address] CELIAC DISEASE Collected: 07/11/2017 Status: F Source: [place] 11:45 AM [facility] REPOSITORY TYPE CODE TESTS RESULT OUT OF RANGE REFERENCE UNITS LAB L3200.1400 87-352 mg/dL Normal IMMUNO A 150 Result Comment: Performed at: [facility] [address] [id number] Hered[facility] Cancer Program Coordinator: Tha Resendez PhD, Phone: [phone] LAB L3706.7971 0-3 U/mL Normal tTG IGA <2 Result Comment: Negative 0 - 3 Weak Positive 4 - 10 Positive >10 Tissue Transglutaminase (tTG) has been identified as the endomysial antigen. Studies have demonstr- ated that endomysial IgA antibodies have over 99% specificity for gluten sensitive enteropathy. LAB L3410.2056 Negative Normal ENDOMYSIAL IGA Negative Result Comment: Serum is slightly hemolyzed Performed By: #### L3410.2400 #### [facility] (refer to report for specific site) refer to report for address and phone number ALLERGIES ALLERGIES DATE TYPE / CODE NAME / CODE REACTION SEVERITY SOURCE 05/24/20 Drug duloxetine Nausea/Vom/Diar Unknown [place] 18 Allergy/948817893 HCl/[id number](RXNO eagle [facility] (SNOMED CT) ) Hospital Repository 05/24/20 Drug codeine/[id number]( syncope Unknown [place] 18 Allergy/545696567 RXNORM) [facility] Hospital Repository 05/24/20 Drug hydrocodone/H209320 Vomiting Unknown [place] 18 Allergy/039656246 554(RXNORM) [facility] Hospital Repository 05/24/20 Drug influenza virus syncope Unknown [place] 18 Allergy/331922517 vaccine, [facility] ([facility]) specific/[id number] Hospital (RXNORM) Repository 05/24/20 Drug amitriptyline/F0060 Other Unknown [place] 18 Allergy/018664574 08922(RXNORM) [facility] Hospital Repository 05/24/20 Drug levofloxacin/F56313 Nausea/Vom/Diar Unknown [place] 18 Allergy/482391276 6299(RXNORM) eagle [facility] (SNOMED CT) Hospital Repository 05/24/20 Drug pineapple/[id number] Rash Unknown [place] 18 Allergy/425687516 8(RXNORM) [facility] (SNOMED CT) Hospital Repository 05/24/20 Drug pregabalin/X5726337 Shortness of Unknown [place] 18 Allergy/106458564 83(RXNORM) breath [facility] (SNOMED CT) Hospital Repository 11/09/19 DRUG SUVOREXANT INTOLERANCE [place] INGREDI/487226131 Clinic Main (SNOMED CT) [place] Repository 09/11/19 DRUG/152835672(SN ADHESIVE RASH [place] [address]) TAPE-SILICONES Clinic Main [place] Repository 09/11/19 DRUG HYDROCORTISONE OTHER: SEE C [place] INGREDI/251998369 Clinic Main (SNOMED CT) [place] Repository 07/24/19 DRUG FLUDROCORTISONE Mental Chg [place] 14 INGREDI/089449752 Clinic Main (SNOMED CT) [place] Repository 11/06/19 DRUG BACLOFEN SHORTNESS OF [place] 13 INGREDI/074652587 Clinic Main (SNOMED CT) [place] Repository 11/06/19 DRUG/360578743(SN TTRPUUI-GLQITXQOH-K [place] OF [place] [address]) CETAMINOPHN Clinic Main [place] Repository 11/06/19 DRUG PYRIDOSTIGMINE SH[place] OF [place] INGREDI/882321115 Clinic Main (SNOMED CT) [place] Repository 06/28/19 DRUG PINEAPPLE RASH [place] INGREDI/848807606 Clinic Main (SNOMED CT) [place] Repository 07/08/19 DRUG PREGABALIN INTOLERANCE [place] 08 INGREDI/328129830 Clinic Main (SNOMED CT) [place] Repository 04/16/20 Miscellaneous OTHER ANAPHYLAXIS [place] 07 Allergy/159467538 Clinic Main (SNOMED CT) [place] Repository 03/19/20 DRUG AMITRIPTYLINE INTOLERANCE [place] 07 INGREDI/940292495 Clinic Main (SNOMED CT) [place] Repository 12/30/19 DRUG LEVOFLOXACIN GI UPSET [place] 06 INGREDI/342194796 Clinic Main (SNOMED CT) [place] Repository 10/28/19 DRUG CODEINE INTOLERANCE [place] 06 INGREDI/039559458 Clinic Main (SNOMED CT) [place] Repository ENCOUNTERS ENCOUNTERS ADMIT/DISCHARGE ACCOUNT NUMBER ADMITTING ENCOUNTER LOCATION SOURCE CLASS 06/07/2018/06/07/20 [id number] Ambulatory [address] Repository 06/05/2018 [id number] Ambulatory [facility] ding:LABSPEC Repository 06/05/2018/06/05/20 [id number] Ambulatory [address] Repository 05/24/2018/05/25/20 [id number] Agyedonteskyler, Ambulatory [place] [address] [place] [address] ding:PCURoom Repository : BYU471Ygl: 1 05/24/2018 [id number] Agyepong, Ambulatory BMSBuilding: [place] BMS.[facility] Repository 05/24/2018 [id number] Agyepong, Ambulatory BMSBuilding: [place] BMS.[facility] Repository 03/13/2018/03/27/20 [id number] Ambulatory [address] [place] Repository 01/24/2018/01/25/20 [id number] Ambulatory [address] [place] Repository 01/24/2018/01/25/20 [id number] Ambulatory [address] [place] Repository 01/24/2018/01/25/20 [id number] Ambulatory [address] [place] Repository 01/22/2018/01/23/20 [id number] Ambulatory [address] [place] Repository 01/22/2018/01/23/20 [id number] Ambulatory [address] [place] Repository 01/07/2018 [id number] Ambulatory [facility] [place] Repository 12/03/2017/12/05/19 [id number] Ambulatory [address] [place] Repository 11/26/2017/11/27/19 [id number] Ambulatory [address] [place] Repository 11/26/2017 [id number] Ambulatory [facility] ding:LABSPEC Repository 08/31/2017/09/05/19 [id number] Ambulatory [address] Repository 08/30/2017 [id number] Ambulatory [facility] ding:LABSPEC Repository 08/30/2017/08/31/19 [id number] Ambulatory [address] [place] Repository 07/23/2017/07/23/19 [id number] Ambulatory BBuilding:JYOTSNA Macdonald 18 [facility] Repository 07/11/2017 [id number] Ambulatory [place] [facility] ding:MTLAB Repository PAYERS PAYERS ENCOUNTER GUARANTOR PAYER SUBSCRIBER SOURCE 06/05/2018 CHERI Alyssia Primary CHERIJIL [id number] [facility] [id number] Number: Repository [address]Obl: 330 [id number] [phone] (HP) Date:6585-04-54ZU [address] [place] [address] 96745DQ: 06/05/2018 Secondary NOT GIVENUNK [place] Insurance:SELF PAY [facility] Number: Effective Repository Date:2018-06-05 05/24/2018 CHERI Cade Primary CHERIJIL [place] [id number] Insurance:[facility] [place]: Community [place] [id number] Number: Repository 314[address]Nzg: 330 [id number] [phone] (HP) Date:3172-72-93VE [address] [place] [address] 62222SY: 05/24/2018 Secondary NOT GIVENUNK [place] Insurance:SELF PAY [facility] Number: Effective Repository Date:2018-05-24 05/24/2018 CHERI Cade Primary CHERI [place] [id number] Insurance:[facility] [place]: Community [place] [id number] Number: Repository [address]Gjx: 330 [id number] [phone] (HP) Date:9283-67-96SF [address] [place] [address] 89882RD: 05/24/2018 Secondary NOT GIVENUNK [place] Insurance:SELF PAY [facility] Number: Effective Repository Date:2018-05-24 05/24/2018 CHERI Cade Primary CHERIJIL [place] [id number] Insurance:[facility] CARE [place]: Community [place] [id number] Number: Repository [address]Ozd: (330 [id number] [phone] (HP) Date:8786-16-55DA [address] [place] [address] 89788TC: 05/24/2018 Secondary NOT GIVENUNK [place] Insurance:SELF PAY [facility] Number: Effective Repository Date:2018-05-24 11/26/2017 CHERI Cade Primary CHERI [place] [id number] [facility] Community [place] [id number] Number: Repository 6[address]Qmv: (330) [id number] [phone] (HP) Date:8062-54-58ZI [address] [place] [address] 96418DU: 11/26/2017 Secondary NOT GIVENUNK [place] Insurance:SELF PAY [facility] Number: Effective Repository Date:2017-11-26 08/30/2017 CHERI Cade Primary CHERI [place] [id number] Insurance:[facility]: Community [place] [id number] Number: Repository [address]Stb: (330) [id number] [phone] (HP) Date:6771-28-87GV [address] [place] [address] 18901CK: 08/30/2017 Secondary NOT GIVENUNK [place] Insurance:SELF PAY [facility] Number: Effective Repository Date:2017-08-30 07/23/2017 CHERIJIL VASQUESODOB: [facility] CHERI [facility] [id number] Insurance:[facility] [id number] Foundation [place] Repository [place], [place] Number: [place], [place] [address]Zza: (330 [id number]: (HP) Date:2017-07-232640 (HP)Tel: [id number] Name:[address] [place] [address]SV: 07/11/2017 CHERI [id number] [facility]: Community [place] [id number] Number: Repository [address]Dkz: (359) [id number] [phone] () Date:5045-11-17NF [address] [place] [address]NN: 07/11/2017 Secondary NOT GIVENPETER [place] Insurance:SELF PAY [facility] Number: Effective Repository Date:2017-07-11
== END 2018-05-25 12:30 | disposition home or self-care (01) ==
LOC: ED 18:58 → PCU 21:52
PROVIDERS: Physician Assistant; Admitting Provider Hospitalist; Emergency Provider Emergency Medicine; Family Provider Internal Medicine; PCP Internal Medicine; Visit Provider Hospitalist
DX: R55 Syncope and collapse (principal); E86.0 Dehydration; E87.6 Hypokalemia; M79.7 Fibromyalgia; Q07.00 Arnold-Chiari syndrome without spina bifida or hydrocephalus; K21.9 Gastro-esophageal reflux disease without esophagitis; D50.9 Iron deficiency anemia, unspecified; D68.51 Activated protein C resistance; E78.5 Hyperlipidemia, unspecified; G62.9 Polyneuropathy, unspecified; R11.2 Nausea with vomiting, unspecified; R19.7 Diarrhea, unspecified; R64 Cachexia; Z68.1 Body mass index [BMI] 19.9 or less, adult; I48.91 Unspecified atrial fibrillation; K90.9 Intestinal malabsorption, unspecified; G89.29 Other chronic pain; M54.9 Dorsalgia, unspecified; Z79.899 Other long term (current) drug therapy; Z79.82 Long term (current) use of aspirin; F17.200 Nicotine dependence, unspecified, uncomplicated; F32.9 Major depressive disorder, single episode, unspecified; N18.3 Chronic kidney disease, stage 3 (moderate)
CPT/HCPCS: 36415; 80048; 80076; 80201; 81001; 82728; 83540; 83550; 83735; 84100; 84443; 85014; 85018; 85025; 93005; 94640; 96361; 96365; 96375; 96376; 97802; 99218; 99283; J1756; J7030; J7120; A4216; G0378; J2405

== ENCOUNTER → 2018-06-05 14:30 | Outpatient (CLI) | payer MEDICARE, SELFPAY ==
[2018-05-24 22:40] VITALS: BMI 17.1
[2018-06-05 15:52] LABS: Hematocrit 40.7 % (37-47); Hemoglobin 12.5 g/dl (12.0-15.0); Mean Corp Hgb Conc 30.7 g/gl (32-36); Mean Corpuscular Hgb 26.3 pg (27.0-32.0); Mean Corpuscular Volume 85.7 fL (81-99); Mean Platelet Vol. 8.9 fl (6.2-12.0); Platelet Count 428 K/mm3 (150-450); RBC Distribution Width CV 14.5 % (11.6-14.6); RBC Distribution Width SD 45.2 fl (35.1-43.9); Red Blood Count 4.75 M/mm3 (4.2-5.4); White Blood Count 5.5 K/mm3 (4.4-11.0)
[2018-06-05 16:13] LABS: Hemoglobin A1c 5.8 % (4.2-6.3); Scan Indicated on CBC? Y/N NO
[2018-06-05 16:29] LABS: Anion Gap 8 (5-15); BUN 19 mg/dL (7-18); BUN/Creat Ratio 15.8 RATIO (10-20); Calcium,Total 9.2 mg/dL (8.5-10.1); Chloride 107 mmol/L (98-107); EST Glomerular Filtration Rate 49 mL/min (>60); Est Glom Filt Rate - Afr Amer 59 mL/min (>60); Glucose 141 mg/dL (74-106); Potassium 4.1 mmol/L (3.5-5.1); Sodium Level 139 mmol/L (136-145)
--- OUTSIDE RECORDS SUMMARY | 2018-07-22 19:26 | XMS RPT_ITS ---
:1960 Author Organization [facility] Care Team Providers Name Role Phone CELIA VAZ, DR. RIVERA Attending Unavailable PHYSICIAN, NONE Primary Care Unavailable TALAMPAS, CORY D Referring Unavailable TALAMPAS, CORY D Attending Unavailable TALAMPAS, CORY D Referring Unavailable TALAMPAS, CORY D Referring Unavailable GLORIA, TANVI (INDUSTRIAL PIPEFITTER JOURNEYMAN) Attending Unavailable TALAMPAS, CORY D Referring Unavailable GLORIA, TANVI (INDUSTRIAL PIPEFITTER JOURNEYMAN) Referring Unavailable GLORIA, TANVI (INDUSTRIAL PIPEFITTER JOURNEYMAN) Referring Unavailable GLORIA, TANVI (INDUSTRIAL PIPEFITTER JOURNEYMAN) Referring Unavailable GLORIA, TANVI (INDUSTRIAL PIPEFITTER JOURNEYMAN) Referring Unavailable GLORIA, TANVI (INDUSTRIAL PIPEFITTER JOURNEYMAN) Referring Unavailable GLORIA, TANVI (INDUSTRIAL PIPEFITTER JOURNEYMAN) Referring Unavailable TALAMPAS, CORY D Attending Unavailable TALAMPAS, CORY D Referring Unavailable TALAMPAS, CORY D Referring Unavailable TALAMPAS, CORY D Attending Unavailable GLORIA, TANVI (INDUSTRIAL PIPEFITTER JOURNEYMAN) Referring Unavailable Talampas, Cory Attending Unavailable Talampas, Cory Referring Unavailable Talampas, Cory Primary Care Unavailable Talampas, Cory Attending Unavailable Talampas, Cory Referring Unavailable Talampas, Cory Primary Care Unavailable Agyepong, Johan Admitting Unavailable Agyepong, Johan Attending Unavailable Talampas, Cory Primary Care Unavailable Agyepong, Johan Consulting Unavailable Agyepong, Johan Admitting Unavailable Talampas, Cory Primary Care Unavailable Ashelfah, Ghasem Consulting Unavailable Ashelfah, Ghasem Attending Unavailable Talampas, Cory Primary Care Unavailable Agyepong, Johan Admitting Unavailable Ashelfah, Ghasem Attending Unavailable Talampas, Cory Attending Unavailable Talampas, Cory Primary Care Unavailable PROBLEMS PROBLEMS DATE TYPE CONDITION / CODE ATTENDING STATUS SOURCE 06/05/2018 Unknown E87.6 - Cory Velez Active [facility] Hypokalemia / Community E87.6(ICD-10) Hospital Repository 06/05/2018 Unknown Z79.899 - Other DavidampCory sweeney Active [facility] Community (current) drug Hospital therapy / Repository Z79.899(ICD-10) 06/05/2018 Unknown D51.0 - Vitamin TalCory braden Active [facility] B12 deficiency Community anemia due to Hospital intrinsic factor Repository deficiency / D51.0(ICD-10) 06/05/2018 Unknown D50.9 - Iron TalampCecy sweeneya Active [facility] deficiency Community anemia, Hospital unspecified / Repository D50.9(ICD-10) 09/13/2009 Active Vitamin B12 NA Active [facility] deficiency anemia [facility] [place] due to intrinsic Repository factor deficiency / D51.0(ICD-10) 06/05/2018 Active Hypokalemia / NA Active [facility] E87.6(ICD-10) [facility] [place] Repository 06/05/2018 Active Iron deficiency NA Active [facility] anemia, [facility] [place] unspecified / Repository D50.9(ICD-10) 01/22/2018 Active Unknown / NA Active [facility] UNK(Unknown) [facility] [place] Repository 01/22/2018 Active Unspecified lump NA Active [facility] in unspecified [facility] [place] breast / Repository N63.0(ICD-10) 01/07/2018 Active Encounter for NA Active [facility] screening [facility] [place] mammogram for Repository malignant neoplasm of breast / Z12.31(ICD-10) 08/31/2017 Active Deficiency of NA Active [facility] other specified B [facility] [place] group vitamins / Repository E53.8(ICD-10) 11/26/2017 Active Abnormal level of NA Active [facility] blood mineral / [facility] [place] R79.0(ICD-10) Repository 12/19/2017 Unknown E55.9 - Vitamin D Cory Velez Active [facility] deficiency, Community unspecified / Hospital E55.9(ICD-10) Repository 12/19/2017 Unknown E53.8 - TalampCory sweeney Active [facility] Deficiency of Community other specified B Hospital group vitamins / Repository E53.8(ICD-10) 12/19/2017 Unknown R79.0 - Abnormal TalampCory sweeney Active [facility] level of blood Community mineral / Hospital R79.0(ICD-10) Repository 12/19/2017 Unknown E78.00 - Pure TalampCory sweeney Active [facility] hypercholesterole Community susanna, unspecified Hospital / E78.00(ICD-10) Repository 08/31/2017 Unknown E61.1 - Iron TalampCory sweeney Active [facility] deficiency / Community E61.1(ICD-10) Hospital Repository 06/28/2009 Active Pure NA Active [facility] hypercholesterole [facility] [place] susanna, unspecified Repository / E78.00(ICD-10) 08/30/2017 Active Vitamin D NA Active [facility] deficiency, [facility] [place] unspecified / Repository E55.9(ICD-10) 08/30/2017 Active Iron deficiency / NA Active [facility] E61.1(ICD-10) [place] Repository 08/30/2017 Active Other snf NA Active [facility] (current) drug [facility] [place] therapy / Repository Z79.899(ICD-10) PROCEDURES PROCEDURES No Procedure Records FoundRESULTS RESULTS PROGRESS Observed: 06/07/2018 Status: COMPLETED Source: [place] 8:31 AM [facility] RE[facility]ITORY HNO ID: [id number] Author: Cory Velez Service: (none) Author Type: Physician Type: Progress Notes Filed: 06/30/2018 4:53 PM Note Text: Transitional Care Management TCM Eligibility Documentation The following information was gathered during the initial Patient Outreach Encounter. Date of Outreach: 05/27/2018 Outreach Attempt 1: Contact Made Date of Discharge 05/25/2018 Some recent data might be hidden Provider Documentation Cheri Mejia is a 57 year old female here today for a follow up to recent hospitalization. I have reviewed the patient's hospital course including diagnostic testing performed during this hospitalization, their discharge medications, and my assessment and plan with the patient and any family members present at today's visit. HPI: Initial contact with patient post discharge, spoke to patient. Patient identified by name and . ? TRANSITION CARE MANAGEMENT INITIAL OUTREACH DOCUMENTATION: Date of Outreach: 05/27/2018 Outreach Attempt 1: Contact Made Date of Discharge 05/25/2018 Some recent data might be hidden ? ? SUMMARY: -Pt discharged from [facility] on 05/25/18. -Admitted for: syncope ? Do you have a hospital follow up appointment with your PCP? Appointment on 06/07/18 with pcp. Yes. Remind patient of appointment date, time, and location. If not within 14 calendar days of discharge - please reschedule accordingly. ? MEDICATIONS: Many patients have questions or concerns about their medications once they are home. Were you prescribed any new medications? If yes, what are those medications? Ondansetron 4 mg po every 8 hours as needed ? Were you told to hold any medications? No Were any of your medications discontinued? No ? Do you have any questions about getting or taking your medications? No ? Your discharge instructions/After visit Summary (AVS) are important in guiding you through the recovery process. Is there anything I might help you understand? No ? Do you have all the necessary equipment and supplies at home? Yes ? Medical records from recent hospitalization: Placed for provider to review Above issues discussed. Nausea drinking fluids but keeps trying to get enough fluids. Was sent home with Lesly. SL does okay. Breathing treatments help with the SOB and nausea. Current Outpatient Prescriptions: albuterol 2.5 mg /3 mL (0.083 %) INHALATION nebulizer solution Use QID prn breathing treatment in nebulizer albuterol-ipratropium 18-103 mcg/Actuation INHALATION inhaler 2 PUFF QID2 puff qid aspirin(ECOTRIN LOW STRENGTH 81 MG TAB) Take one(1) tablet daily. atorvastatin (LIPITOR) 20 mg tablet Take 1 tablet by mouth daily at bedtime. For cholesterol. cyanocobalamin 1,000 mcg/mL soln Inject intramuscularly every 2 weeks. cycloSPORINE (RESTASIS) 0.05 % ophthalmic emulsion Use 1 Drop in both eyes twice daily. [START ON 06/13/2018] dextroamphetamine-amphetamine (ADDERALL) 10 mg tablet Take 1 tablet by mouth twice daily for 30 days.Earliest Fill Date: 06/13/18 [START ON 07/13/2018] dextroamphetamine-amphetamine (ADDERALL) 10 mg tablet Take 1 tablet by mouth twice daily for 30 days.Earliest Fill Date: 07/13/18 [START ON 08/12/2018] dextroamphetamine-amphetamine (ADDERALL) 10 mg tablet Take 1 tablet by mouth twice daily for 30 days.Earliest Fill Date: 08/12/18 ergocalciferol, vitamin D2, (DRISDOL) 50,000 unit capsule Take 1 capsule by mouth once each week. Ferrous Sulfate 325 mg (65 mg iron) ORAL tablet Take 1 tablet by mouth twice daily with meals. TAKE WITH FOOD folic acid 1 mg tablet Take 1 mg by mouth once daily. hydrocortisone (CORTEF) 5 mg tablet Take 1 tablet by mouth once daily. and 1/2 tab midday and PM hydrOXYzine pamoate (VISTARIL) 25 mg capsule Take 2 capsules by mouth three times daily as needed. lidocaine 5 %(700 mg/patch) Apply 1 Patch as directed once daily. TO AFFECTED AREA. of low back REMOVE AFTER 12 HOURS. [START ON 07/11/2018] LORazepam (ATIVAN) 1 mg tablet Take 1 tablet by mouth three times daily for 90 days. For esophageal spasms mexiletine 250 mg ORAL capsule Take 1 capsule by mouth twice daily. mirtazapine (REMERON) 30 mg tablet Take 1 tablet by mouth daily at bedtime. naphazo HCl-hpm-ps 80-Zn sulf (CLEAR EYES COMPLETE) 0.025-0.2-0.5 % drop Use in eyes. ondansetron HCl (ZOFRAN ORAL) Take by mouth. ramelteon (ROZEREM) 8 mg tablet Take 1 tablet by mouth daily at bedtime. rOPINIRole (REQUIP) 0.5 mg tablet Take 1 tablet by mouth daily at bedtime. tiZANidine HCl 4 mg capsule Take 2 capsules by mouth three times daily. topiramate (TOPAMAX) 50 mg tablet Take 3 tablets by mouth at 8am, 2 tablets at 2pm, and 3 tablets at 8pm [START ON 06/13/2018] traMADol (ULTRAM) 50 mg tablet Take 2 tablets by mouth three times daily for 90 days. traZODone (DESYREL) 50 mg tablet Take 1 tablet by mouth daily at bedtime. valacyclovir hcl(VALTREX 1 G TAB) as necessary White Petrolatum-Mineral Oil (REFRESH P.M.) 57.3-42.5 % ointment Use in both eyes. omeprazole (PRILOSEC) 20 mg capsule Take 1 capsule by mouth twice daily. 1/2 hr before meal. sertraline (ZOLOFT) 50 mg tablet Take 1 tablet by mouth once daily. No current facility-administered medications for this visit. ROS Vitals BP 90/68 Pulse 56 Resp 16 Wt 101 lb (45.8kg) Physical Exam Constitutional: She is oriented to person, place, and time. Chronically ill appearing HENT: Head: Atraumatic. Eyes: Pupils are equal, round, and reactive to light. No scleral icterus. Cardiovascular: Normal rate and regular rhythm. Pulmonary/Chest: Effort normal and breath sounds normal. Neurological: She is alert and oriented to person, place, and time. Skin: Skin is warm and dry. Psychiatric: Memory, affect and judgment normal. She exhibits a depressed mood. Affect reactive Encounter Diagnosis ICD-10-CM 1. Syncope, unspecified syncope type R55 2. Hypokalemia E87.6 3. Iron deficiency anemia, unspecified iron deficiency anemia type D50.9 4. Anxiety F41.9 sertraline (ZOLOFT) 50 mg tablet LORazepam (ATIVAN) 1 mg tablet 5. Dysautonomia orthostatic hypotension syndrome (HCC) G90.3 6. 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 Attention deficit hyperactivity disorder (ADHD), combined type F90.2 dextroamphetamine-amphetamine (ADDERALL) 10 mg tablet dextroamphetamine-amphetamine (ADDERALL) 10 mg tablet dextroamphetamine-amphetamine (ADDERALL) 10 mg tablet 8. Fibromyalgia M79.7 DISCONTINUED: traMADol (ULTRAM) 50 mg tablet 9. Neuropathy (HCC) G62.9 DISCONTINUED: traMADol (ULTRAM) 50 mg tablet 10. Back pain, unspecified back location, unspecified back pain laterality, unspecified chronicity M54.9 DISCONTINUED: traMADol (ULTRAM) 50 mg tablet Seen for TCM as well as follow up on chronic medical issues. Encouraged on adequate fluids to maintain BP and prevent syncopal episodes. Continue with routine iron infusions for chronic iron deficiency anemia. Stable with control of ADHD and pain and anxiety. No signs of diversion or abuse of medication(s); no adverse effects. Continue present management. PDMP website checked and validated. All prescriptions have been APPROPRIATELY filled. No suspicious activity was identified. by Cory Velez MD 06/07/18 Above issues addressed with patient. Patient involved [...] counseling and/or coordinating care for the patient. Fvbc-vz-weiz time was at least 40 minutes. Cory Velez MD CNOV Observed: 06/07/2018 Status: COMPLETED Source: [place] 8:00 AM [facility] REPOSITORY Office Visit (INTMWS) CHERI MEJIA ([id number]) 1960 F Date Time Provider Department 06/07/18 8:00 AM CORY VELEZ INTMWS During your visit today, we recorded the following information about you: Pulse Respiration Blood pressure Weight 56/minute 16/minute 90/68 45.8 kg Cory Velez MD 06/30/2018 4:53 PM Signed Transitional Care Management TCM Eligibility Documentation The following information was gathered during the initial Patient Outreach Encounter. Date of Outreach: 05/27/2018 Outreach Attempt 1: Contact Made Date of Discharge 05/25/2018 Some recent data might be hidden Provider Documentation Cheri Mejia is a 57 year old female here today for a follow up to recent hospitalization. I have reviewed the patient's hospital course including diagnostic testing performed during this hospitalization, their discharge medications, and my assessment and plan with the patient and any family members present at today's visit. HPI: Initial contact with patient post discharge, spoke to patient. Patient identified by name and . ? TRANSITION CARE MANAGEMENT INITIAL OUTREACH DOCUMENTATION: Date of Outreach: 05/27/2018 Outreach Attempt 1: Contact Made Date of Discharge 05/25/2018 Some recent data might be hidden ? ? SUMMARY: -Pt discharged from [facility] on 05/25/18. -Admitted for: syncope ? Do you have a hospital follow up appointment with your PCP? Appointment on 06/07/18 with pcp. Yes. Remind patient of appointment date, time, and location. If not within 14 calendar days of discharge - please reschedule accordingly. ? MEDICATIONS: Many patients have questions or concerns about their medications once they are home. Were you prescribed any new medications? If yes, what are those medications? Ondansetron 4 mg po every 8 hours as needed ? Were you told to hold any medications? No Were any of your medications discontinued? No ? Do you have any questions about getting or taking your medications? No ? Your discharge instructions/After visit Summary (AVS) are important in guiding you through the recovery process. Is there anything I might help you understand? No ? Do you have all the necessary equipment and supplies at home? Yes ? Medical records from recent hospitalization: Placed for provider to review Above issues discussed. Nausea drinking fluids but keeps trying to get enough fluids. Was sent home with Lesly. SL does okay. Breathing treatments help with the SOB and nausea. Current Outpatient Prescriptions: albuterol 2.5 mg /3 mL (0.083 %) INHALATION nebulizer solution Use QID prn breathing treatment in nebulizer albuterol-ipratropium 18-103 mcg/Actuation INHALATION inhaler 2 PUFF QID2 puff qid aspirin(ECOTRIN LOW STRENGTH 81 MG TAB) Take one(1) tablet daily. atorvastatin (LIPITOR) 20 mg tablet Take 1 tablet by mouth daily at bedtime. For cholesterol. cyanocobalamin 1,000 mcg/mL soln Inject intramuscularly every 2 weeks. cycloSPORINE (RESTASIS) 0.05 % ophthalmic emulsion Use 1 Drop in both eyes twice daily. [START ON 06/13/2018] dextroamphetamine-amphetamine (ADDERALL) 10 mg tablet Take 1 tablet by mouth twice daily for 30 days.Earliest Fill Date: 06/13/18 [START ON 07/13/2018] dextroamphetamine-amphetamine (ADDERALL) 10 mg tablet Take 1 tablet by mouth twice daily for 30 days.Earliest Fill Date: 07/13/18 [START ON 08/12/2018] dextroamphetamine-amphetamine (ADDERALL) 10 mg tablet Take 1 tablet by mouth twice daily for 30 days.Earliest Fill Date: 08/12/18 ergocalciferol, vitamin D2, (DRISDOL) 50,000 unit capsule Take 1 capsule by mouth once each week. Ferrous Sulfate 325 mg (65 mg iron) ORAL tablet Take 1 tablet by mouth twice daily with meals. TAKE WITH FOOD folic acid 1 mg tablet Take 1 mg by mouth once daily. hydrocortisone (CORTEF) 5 mg tablet Take 1 tablet by mouth once daily. and 1/2 tab midday and PM hydrOXYzine pamoate (VISTARIL) 25 mg capsule Take 2 capsules by mouth three times daily as needed. lidocaine 5 %(700 mg/patch) Apply 1 Patch as directed once daily. TO AFFECTED AREA. of low back REMOVE AFTER 12 HOURS. [START ON 07/11/2018] LORazepam (ATIVAN) 1 mg tablet Take 1 tablet by mouth three times daily for 90 days. For esophageal spasms mexiletine 250 mg ORAL capsule Take 1 capsule by mouth twice daily. mirtazapine (REMERON) 30 mg tablet Take 1 tablet by mouth daily at bedtime. naphazo HCl-hpm-ps 80-Zn sulf (CLEAR EYES COMPLETE) 0.025-0.2-0.5 % drop Use in eyes. ondansetron HCl (ZOFRAN ORAL) Take by mouth. ramelteon (ROZEREM) 8 mg tablet Take 1 tablet by mouth daily at bedtime. rOPINIRole (REQUIP) 0.5 mg tablet Take 1 tablet by mouth daily at bedtime. tiZANidine HCl 4 mg capsule Take 2 capsules by mouth three times daily. topiramate (TOPAMAX) 50 mg tablet Take 3 tablets by mouth at 8am, 2 tablets at 2pm, and 3 tablets at 8pm [START ON 06/13/2018] traMADol (ULTRAM) 50 mg tablet Take 2 tablets by mouth three times daily for 90 days. traZODone (DESYREL) 50 mg tablet Take 1 tablet by mouth daily at bedtime. valacyclovir hcl(VALTREX 1 G TAB) as necessary White Petrolatum-Mineral Oil (REFRESH P.M.) 57.3-42.5 % ointment Use in both eyes. omeprazole (PRILOSEC) 20 mg capsule Take 1 capsule by mouth twice daily. 1/2 hr before meal. sertraline (ZOLOFT) 50 mg tablet Take 1 tablet by mouth once daily. No current facility-administered medications for this visit. ROS Vitals BP 90/68 Pulse 56 Resp 16 Wt 101 lb (45.8kg) Physical Exam Constitutional: She is oriented to person, place, and time. Chronically ill appearing HENT: Head: Atraumatic. Eyes: Pupils are equal, round, and reactive to light. No scleral icterus. Cardiovascular: Normal rate and regular rhythm. Pulmonary/Chest: Effort normal and breath sounds normal. Neurological: She is alert and oriented to person, place, and time. Skin: Skin is warm and dry. Psychiatric: Memory, affect and judgment normal. She exhibits a depressed mood. Affect reactive Encounter Diagnosis ICD-10-CM 1. Syncope, unspecified syncope type R55 2. Hypokalemia E87.6 3. Iron deficiency anemia, unspecified iron deficiency anemia type D50.9 4. Anxiety F41.9 sertraline (ZOLOFT) 50 mg tablet LORazepam (ATIVAN) 1 mg tablet 5. Dysautonomia orthostatic hypotension syndrome (HCC) G90.3 6. 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 Attention deficit hyperactivity disorder (ADHD), combined type F90.2 dextroamphetamine-amphetamine (ADDERALL) 10 mg tablet dextroamphetamine-amphetamine (ADDERALL) 10 mg tablet dextroamphetamine-amphetamine (ADDERALL) 10 mg tablet 8. Fibromyalgia M79.7 DISCONTINUED: traMADol (ULTRAM) 50 mg tablet 9. Neuropathy (HCC) G62.9 DISCONTINUED: traMADol (ULTRAM) 50 mg tablet 10. Back pain, unspecified back location, unspecified back pain laterality, unspecified chronicity M54.9 DISCONTINUED: traMADol (ULTRAM) 50 mg tablet Seen for TCM as well as follow up on chronic medical issues. Encouraged on adequate fluids to maintain BP and prevent syncopal episodes. Continue with routine iron infusions for chronic iron deficiency anemia. Stable with control of ADHD and pain and anxiety. No signs of diversion or abuse of medication(s); no adverse effects. Continue present management. PDMP website checked and validated. All prescriptions have been APPROPRIATELY filled. No suspicious activity was identified. by Cory Velez MD 06/07/18 Above issues addressed with patient. Patient involved [...] counseling and/or coordinating care for the patient. Wfdv-la-oiqd time was at least 40 minutes. Cory Velez MD Referring Provider: TANVI GLORIA (INDUSTRIAL PIPEFITTER JOURNEYMAN) [[id number]] Allergies As of Date: 06/07/2018 Noted Allergy Reaction CODEINE 10/27/2005 5 - [...] 07/08/2007 5 - Intolerance Comments: dyspnea MIDRIN ([id number]*11/05/2012 12 - Shortness of Breath PINEAPPLE 06/28/2009 2 - Rash PYRIDOSTIGMINE 11/05/2012 12 - Shortness of Breath Date Reviewed: 06/07/2018 Reviewed by: Ursula Gutierrez LPN - Fully Assessed Reason for Visit: Hospital F/U [57] Primary Visit Diagnosis:Syncope, unspecified syncope type [R55] Other Visit Diagnoses:Hypokalemia [E87.6] Iron deficiency anemia, unspecified iron deficiency anemia type [D50.9] Anxiety [F41.9] Dysautonomia orthostatic hypotension syndrome (HCC) [G90.3] Idiopathic chronic hypotension [I95.0] Attention deficit hyperactivity disorder (ADHD), combined type [F90.2] Fibromyalgia [M79.7] Neuropathy (HCC) [G62.9] Back pain, unspecified back location, unspecified back pain laterality, unspecified chronicity [M54.9] Order(s):sertraline (ZOLOFT) 50 mg tabletTake 1 tablet by mouth once daily.Disp: Rfl: rOPINIRole (REQUIP) 0.5 mg tabletTake 1 tablet by mouth daily at bedtime.Disp: Rfl: mirtazapine (REMERON) 30 mg tabletTake 1 tablet by mouth daily at bedtime.Disp: Rfl: dextroamphetamine-amphetamine (ADDERALL) 10 mg tabletTake 1 tablet by mouth twice daily for 30 days. Earliest Fill Date: 06/13/18Disp: 60 tabletRfl: 0 [START ON 07/13/2018] dextroamphetamine-amphetamine (ADDERALL) 10 mg tabletTake 1 tablet by mouth twice daily for 30 days. Earliest Fill Date: 07/13/18Disp: 60 tabletRfl: 0 [START ON 08/12/2018] dextroamphetamine-amphetamine (ADDERALL) 10 mg tabletTake 1 tablet by mouth twice daily for 30 days. Earliest Fill Date: 08/12/18Disp: 60 tabletRfl: 0 [START ON 07/11/2018] LORazepam (ATIVAN) 1 mg tabletTake 1 tablet by mouth three times daily for 90 days. For esophageal spasmsDisp: 90 tabletRfl: 2 omeprazole (PRILOSEC) 20 mg capsuleTake 1 capsule by mouth twice daily. 1/2 hr before meal.Disp: Rfl: Prescriptions as of 06/07/2018 Sig: ZOFRAN ORAL Take by mouth. ROPINIROLE 0.5 MG TABLET Take 1 tablet by mouth daily * MIRTAZAPINE 30 MG TABLET Take 1 tablet by mouth daily * DEXTROAMPHETAMINE-AMPHETAMINE* Take 1 tablet by mouth twice * DEXTROAMPHETAMINE-AMPHETAMINE* Take 1 tablet by mouth twice * DEXTROAMPHETAMINE-AMPHETAMINE* Take 1 tablet by mouth twice * LORAZEPAM 1 MG TABLET Take 1 tablet by mouth three * X TRAMADOL 50 MG TABLET Take 2 tablets by mouth three* TIZANIDINE 4 MG CAPSULE Take 2 capsules by mouth thre* TOPIRAMATE 50 MG TABLET Take 3 tablets by mouth at 8a* RAMELTEON 8 MG TABLET Take 1 tablet by mouth daily * TRAZODONE 50 MG TABLET Take 1 tablet by mouth daily * ATORVASTATIN 20 MG TABLET Take 1 tablet by mouth daily * HYDROCORTISONE 5 MG TABLET Take 1 tablet by mouth once d* CYCLOSPORINE 0.05 % EYE DROPS* Use 1 [...] PATCH Apply 1 Patch as directed onc* FOLIC ACID 1 MG TABLET Take 1 [...] MG TA* Take one(1) tablet daily. SERTRALINE 50 MG TABLET Take 1 tablet by mouth once d* OMEPRAZOLE 20 MG CAPSULE,ROMINA* Take 1 capsule by mouth twice* Problem List As Of Date 06/07/2018 Noted Resolved TOBACCO USE DISORDER [F17.200] INVALID FOR* Unspecified Asthma [J45.909] INVALID FOR* More... Dysmenorrhea [N94.6] INVALID FOR*06/28/2009 Other and Unspecified Noninfectious Gastroenter*INVALID FOR*06/28/2009 Esophageal Reflux [K21.9] More... Diarrhea [R19.7] INVALID FOR* More... HYPERCALCEMIA [E83.52] INVALID FOR* Myalgia and myositis, unspecified [XWJ5333] INVALID FOR*11/30/2016 More... Headache [R51] INVALID FOR* [...] ordered this encounter Disp Refills Start End SERTRALINE 50 MG TABLET 06/07/2018 Class: Med Update Route: ORAL Sig: Take 1 tablet by mouth once daily. ROPINIROLE 0.5 MG TABLET 06/07/2018 Class: Med Update Route: ORAL Sig: Take 1 tablet by mouth daily at bedtime. MIRTAZAPINE 30 MG TABLET 06/07/2018 Class: Med Update Route: ORAL Sig: Take 1 tablet by mouth daily at bedtime. DEXTROAMPHETAMINE-AMPHETAMINE 10 MG * 60 t* 0 06/13/2018 07/13/2018 Class: Print RX Route: ORAL Sig: Take 1 tablet by mouth twice daily for 30 days. Earliest Fill Date: 06/13/18 DEXTROAMPHETAMINE-AMPHETAMINE 10 MG * 60 t* 0 07/13/2018 08/12/2018 Class: Print RX Route: ORAL Sig: Take 1 tablet by mouth twice daily for 30 days. Earliest Fill Date: 07/13/18 DEXTROAMPHETAMINE-AMPHETAMINE 10 MG * 60 t* 0 08/12/2018 09/11/2018 Class: Print RX Route: ORAL Sig: Take 1 tablet by mouth twice daily for 30 days. Earliest Fill Date: 08/12/18 TRAMADOL 50 MG TABLET 540 * 0 06/13/2018 06/10/2018 Class: Print RX Route: ORAL Sig: Take 2 tablets by mouth three times daily for 90 days. LORAZEPAM 1 MG TABLET 90 t* 2 07/11/2018 10/09/2018 Class: Print RX Route: ORAL Sig: Take 1 tablet by mouth three times daily for 90 days. For esophageal spasms OMEPRAZOLE 20 MG CAPSULE,DELAYED REL* 06/07/2018 Class: Med Update Route: ORAL Sig: Take 1 capsule by mouth twice daily. 1/2 hr before meal. Medications Discontinued During This Encounter FLUoxetine (PROZAC) 10 mg capsule 01/24/2018 06/07/2018 Class: Med Update Route: ORAL Sig: Take 1 capsule by mouth once daily. Disc: Reason for discontinue is not on file. fludrocortisone (FLORINEF) 0.1 mg ta* 07/11/2015 06/07/2018 Class: Med Update Route: ORAL Sig: Take 1 tablet by mouth three times daily. Disc: Reason for discontinue is not on file. sertraline (ZOLOFT) 25 mg tablet 03/13/2018 06/07/2018 Class: Historical Med Route: ORAL Sig: Take 1 tablet by mouth once daily. Disc: Reason for discontinue is not on file. pantoprazole 40 mg tablet 12/14/2010 06/07/2018 Class: Historical Med Route: ORAL Sig: Take 40 mg by mouth twice daily. Disc: Discontinued by another Health Care Provider rOPINIRole (REQUIP) 0.5 mg tablet 01/24/2018 06/07/2018 Class: Med Update Route: ORAL Sig: Take 2 tablets by mouth daily at bedtime. Disc: Reason for discontinue is not on file. mirtazapine (REMERON) 30 mg tablet 0 02/09/2016 06/07/2018 Class: Med Update Route: ORAL Sig: Take 1.5 tablets by mouth daily at bedtime. Disc: Reason for discontinue is not on file. dextroamphetamine-amphetamine (ADDER* 60 t* 0 05/12/2018 06/07/2018 Class: Print RX Route: ORAL Sig: Take 1 tablet by mouth twice daily for 30 days. Earliest Fill Date: 05/12/18 Disc: Reason for discontinue is not on file. dextroamphetamine-amphetamine (ADDER* 60 t* 0 04/12/2018 06/07/2018 Class: Print RX Route: ORAL Sig: Take 1 tablet by mouth twice daily for 30 days. Earliest Fill Date: 04/12/18 Disc: Reason for discontinue is not on file. dextroamphetamine-amphetamine (ADDER* 60 t* 0 01/03/2018 06/07/2018 Class: Print RX Route: ORAL Sig: Take 1 tablet by mouth twice daily for 30 days. Earliest Fill Date: 01/03/18 Disc: Reason for discontinue is not on file. dextroamphetamine-amphetamine (ADDER* 60 t* 0 03/13/2018 06/07/2018 Class: Print RX Route: ORAL Sig: Take 1 tablet by mouth twice daily for 30 days. Earliest Fill Date: 03/13/18 Disc: Reason for discontinue is not on file. traMADol (ULTRAM) 50 mg tablet 540 * 0 03/13/2018 06/07/2018 Class: Print RX Route: ORAL Sig: Take 2 tablets by mouth three times daily for 90 days. Disc: Reason for discontinue is not on file. LORazepam (ATIVAN) 1 mg tablet 90 t* 2 03/13/2018 06/07/2018 Class: Print RX Route: ORAL Sig: Take 1 tablet by mouth three times daily for 90 days. For esophageal spasms Disc: Reason for discontinue is not on file. Disposition: Return if symptoms worsen or fail to improve. Follow-up and Disposition History Recorded Encounter Status:Closed by CORY VELEZ MD on 06/30/18 HEMOGLOBIN A1C Collected: 06/05/2018 Status: F Source: [place] 3:36 PM [facility] REPOSITORY TYPE CODE TESTS RESULT OUT OF RANGE REFERENCE UNITS LAB L501.9985 4.2-6.3 % Normal HGB A1C 5.8 Performed By: #### L501.9985 #### [facility] [address] [place], [place], [id number] CBC-COMPLETE BLOOD CNT Collected: 06/05/2018 Status: F Source: [place] NO DIFF 3:36 PM [facility] REPOSITORY TYPE CODE TESTS RESULT OUT [...] MPV 8.9 Performed By: #### L100.0500 #### [facility] [address] [place], [address] BASIC METABOLIC Collected: 06/05/2018 Status: F Source: [place] PROFILE (BMP) 3:36 PM [facility] REPOSITORY TYPE CODE TESTS RESULT OUT [...] GAP 8 Performed By: #### L500.2500 #### [facility] [address] [place], [address] HEMOGLOBIN A1C Collected: 06/05/2018 Status: F Source: [place] 12:22 PM [facility] REPOSITORY TYPE CODE TESTS RESULT OUT OF REFERENCE UNITS RANGE LAB HGBA1C 4.0-6.0 % Test Hemoglobin A1c sent to [facility]. Result Comment: Account Credited [facility] LAB HBA0 mg/dL Est. Test sent Average Glucose to [facility]. Result Comment: Account Credited BLANKA BASIC METABOLIC PANL Collected: 06/05/2018 Status: F Source: [place] 12:20 PM [facility] REPOSITORY TYPE CODE TESTS RESULT OUT OF REFERENCE UNITS RANGE LAB GLU 74-99 mg/dL Glucose Unable to assay. No specimen received. Result Comment: Account Credited LAB BUN 7-21 mg/dL Unable to BUN assay. No specimen received. Result Comment: Account Credited LAB CRET 0.58-0.96 mg/dL Creatinine Unable to assay. No specimen received. Result Comment: Account Credited LAB NA 136-144 mmol/L Unable Sodium to assay. No specimen received. Result Comment: Account Credited LAB K 3.7-5.1 mmol/L Unable Potassium to assay. No specimen received. Result Comment: Account Credited LAB CL 97-105 mmol/L Unable Chloride to assay. No specimen received. Result Comment: Account Credited LAB CO2 22-30 mmol/L Unable to CO2 assay. No specimen received. Result Comment: Account Credited LAB AGAP 9-18 mmol/L Unable to Anion Gap assay. No specimen received. Result Comment: Account Credited LAB CA 8.5-10.2 mg/dL Unable Calcium, Total to assay. No specimen received. Result Comment: Account Credited LAB GFRAA eGFR- Amer. Unable to assay. No specimen received. Result Comment: Account Credited LAB GFRNAA . eGFR-All Unable to Other Races assay. No specimen received. Result Comment: Account Credited LAB GFRPED eGFR-Ped. Unable to Factor assay. No specimen received. Result Comment: Account Credited Performed By: #### BMP #### [facility] [address] [place], [place] [address] 12 LEAD ELECTROCARDIOGRAM Observed: 05/28/2018 Status: F Source: [place] 2:06 PM [facility] REPOSITORY [facility] Cardiovascular Services [address] [place] [address] 12 Lead EKG 05/24/18 1908 MR#: [id number] Acct: [id number] Name: CHERI MEJIA Rep #: [id number] : 1960 57 From: Yariel Villar MD Attending Dr: Genia Goldman Status: DIS JENNIFER Ordering Dr: Karen Contreras MD Date: 05/24/18 Location: [facility] Sex: F C Admitted: 05/24/18 Test Reason [...] ECG Confirmed by YARIEL VILLAR MD ([id number]), editorial clerk FRANCESCO VALLE ([id number]) on 05/28/2018 2:06:01 PM Referred By: MATTIE Confirmed By:YARIEL VILLAR MD 05/28/18 1406 Date Yariel Villar MD CC: Genia Goldman; Karen Contreras MD; Cory Velez MD Signed PROGRESS Observed: 05/27/2018 Status: COMPLETED Source: [place] 1:27 PM [facility] REPOSITORY HNO ID: [id number] Author: Bettei Cartagena LPN Service: (none) Author Type: (none) Type: Progress Notes Filed: 06/07/2018 2:43 PM Note Text: TRANSITION CARE MANAGEMENT (TCM) INITIAL CONTACT Cover Maker Outreach Provider Action/FYI: Initial contact with patient post discharge, spoke to patient. Patient identified by name and . TRANSITION CARE MANAGEMENT INITIAL OUTREACH DOCUMENTATION: Date of Outreach: 05/27/2018 Outreach Attempt 1: Contact Made Date of Discharge 05/25/2018 Some recent data might be hidden SUMMARY: -Pt discharged from [facility] on 05/25/18. -Admitted for: syncope Do [...] review CNPTOUTREACH Observed: 05/27/2018 Status: COMPLETED Source: [place] 12:00 AM [facility] REPOSITORY Patient Outreach (INTMWS) CHERI MEJIA ([id number]) 1960 F Date Time Provider Department 05/27/18 CORY VELEZ INTMWS During your visit today, we recorded the following information about you: Bettie Cartagena LPN 06/07/2018 2:43 PM Signed TRANSITION CARE MANAGEMENT (TCM) INITIAL CONTACT Cover Maker Outreach Provider Action/FYI: Initial contact with patient post discharge, spoke to patient. Patient identified by name and . TRANSITION CARE MANAGEMENT INITIAL OUTREACH DOCUMENTATION: Date of Outreach: 05/27/2018 Outreach Attempt 1: Contact Made Date of Discharge 05/25/2018 Some recent data might be hidden SUMMARY: -Pt discharged from [facility] on 05/25/18. -Admitted for: syncope Do [...] 07/08/2007 5 - Intolerance Comments: dyspnea MIDRIN ([id number]*11/05/2012 12 - Shortness of Breath PINEAPPLE 06/28/2009 [...] [E83.52] INVALID FOR* Myalgia and myositis, unspecified [FRY1397] INVALID FOR*11/30/2016 More... Headache [R51] INVALID FOR* [...] DISCHARGE SUMMARY Observed: 05/25/2018 Status: F Source: [place] 3:24 PM [facility] REPOSITORY [facility] Medical Records Department [address] [place] [address] Discharge Summary 05/25/18 1504 MR#: [id number] Acct: [id number] Name: CHERI MEJIA Rep #: [id number] : 1960 57 From: Surinder JIMENES PCP: Cory Velez MD Status: DIS JENNIFER Y Location: [place] [address] <Surinder Garcia - Last Filed: 05/25/18 15:06> [...] are stable. This note was generated with EventWith dictation software. It may contain incorrect words, [...] applicable Code Visit OBSV E AND M: 47268 Observation care discharge 05/25/18 1516 <Electronically signed by Surinder JIMENES> Date Surinder JIMENES 05/25/18 1524<Electronically signed by Genia Goldman MD> Cosigner Signature (if applicable): Date Genia Goldman MD CC: YUDY Garcia; Genia Goldman; Cory Velez MD Signed DISCHARGE INSTRUCTION Observed: 05/25/2018 Status: F Source: [place] 12:30 PM [facility] REPOSITORY [facility] Medical Records Department [address] [place] [address] Instructions for Home/Discharge Instructions 05/25/18 1229 MR#: [id number] Acct: [id number] Name: CHERI MEJIA Rep #: [id number] : 1960 57 From: Surinder JIMENES PCP: [...] HEMOGLOBIN AND Collected: 05/25/2018 Status: F Source: [place] HEMATOCRIT 6:33 AM [facility] REPOSITORY TYPE CODE TESTS RESULT OUT OF RANGE REFERENCE UNITS LAB L100.1300 12.0-15.0 g/dl Low HGB 10.1 LAB L100.1400 37-47 % Low HCT 32.2 Performed By: #### L100.0600 #### [facility] [address] [place], [place] [address], [address] BASIC METABOLIC Collected: 05/25/2018 Status: F Source: [place] PROFILE (BMP) 6:33 AM [facility] REPOSITORY TYPE CODE TESTS RESULT OUT [...] GAP 6 Performed By: #### L500.2500 #### [facility] [address] [place], [address] PHOSPHORUS Collected: 05/25/2018 Status: F Source: [place] 6:33 AM [facility] REPOSITORY Order Comment: Comments: ok to add on TYPE CODE TESTS RESULT OUT OF RANGE REFERENCE UNITS LAB L501.2300 2.5-4.9 mg/dL Normal PHOS 2.9 Performed By: #### L501.2300, L501.5200 #### [facility] [address] [place], [address] MAGNESIUM Collected: 05/25/2018 Status: F Source: [place] 6:33 AM [facility] REPOSITORY Order Comment: Comments: ok to add on TYPE CODE TESTS RESULT OUT OF RANGE REFERENCE UNITS LAB L501.5200 1.6-2.6 mg/dL Normal MG 1.6 Performed By: #### L501.2300, L501.5200 #### [facility] [address] [place], [address] HISTORY AND PHYSICAL Observed: 05/25/2018 Status: F Source: [place] EXAM 4:13 AM [facility] REPOSITORY [facility] Medical Records Department [address] [place] [address] History and Physical 05/24/18 2133 MR#: [id number] Acct: [id number] Name: CHERI MEJIA Rep #: [id number] : 1960 57 From: Johan Souza MD PCP: Cory Velez MD Status: ADM JENNIFER Y Location: [place] [address] ADDENDUM by Johan Souza MD on 05/25/18 [...] patient reported that her daughter is in custodial; and patient has 2 special needs children [...] heparin. Code Visit OBSV E AND M: 21458 Initial observation care L3 05/25/18 0126 <Electronically signed by Johan Souza MD> Date Johan Souza MD Cosigner Signature: Date (if applicable) CC: Johan Souza MD; Cory Velez MD Signed EMERGENCY DEPARTMENT Observed: 05/24/2018 Status: F Source: [place] SUMMARY 10:56 PM [facility] REPOSITORY [facility] Medical Records Department [address] [place] [address] Emergency Department Summary 05/24/185 MR#: [id number] Acct: [id number] Name: CHERI MEJIA Rep #: [id number] : 1960 57 From: Karen Contreras MD [...] weight loss. She was seen at the [facility] yesterday. Patient's states he received a call [...] Shy-Drager syndrome This note was generated with EventWith dictation software. It may contain incorrect words, [...] problems, contact your Primary Care Provider. Call [facility] ([phone]) or report to the closest Emergency Room. Call 911 if necessary. 05/24/18 2256 <Electronically signed by Karen Contreras MD> Date Karen Contreras MD Cosigner Signature (If Indicated): Date CC: Cory Velez MD URINALYSIS, COMPLETE Collected: 05/24/2018 Status: F Source: [place] 8:50 PM [facility] REPOSITORY Order Comment: Order Date: 05/24/18 [...] Normal 2+ Performed By: #### L400.0001 #### [facility] [place], [address] CBC W/DIFF, AUTOMATED Collected: 05/24/2018 Status: F Source: [place] 7:18 PM [facility] REPOSITORY TYPE CODE TESTS RESULT OUT [...] Lymph 1.42 Performed By: #### L100.0100 #### [facility] [address] [place], [address] BASIC METABOLIC Collected: 05/24/2018 Status: F Source: [place] PROFILE (BMP) 7:18 PM [facility] REPOSITORY TYPE CODE TESTS RESULT OUT [...] alert 2.5 Result Comment: Critical Result(s) Called EAbhishek DISLA at: 20:08:28 05/24/2018 by: CHANNING [facility] LAB L501.5900 98-107 mmol/L Normal CL 102 LAB L501.6100 21.0-32.0 mmol/L Normal CO2 30.0 LAB L501.6200 5-15 Normal 8 GAP Performed By: #### L500.2500, L500.3400 #### [facility] [address] [place], [address] LIVER PROFILE Collected: 05/24/2018 Status: F Source: [place] 7:18 PM [facility] REPOSITORY TYPE CODE TESTS RESULT OUT [...] 0.12 Performed By: #### L500.2500, L500.3400 #### [facility] [address] [place], [place], [id number] IRON+IRON BINDING Collected: 05/24/2018 Status: F Source: [place]AC[place] 7:18 PM [facility] REPOSITORY TYPE CODE TESTS RESULT OUT OF RANGE REFERENCE UNITS LAB L503.6075 250-450 ug/dL TIBC Normal 359 LAB L503.6150 50-170 ug/dL Low IRON 47 LAB L503.6250 15.0-55.0 % Low IRON SATURATION 13.1 Performed By: #### L503.6030, L503.6550 #### [facility] [address] [place], [place], [address] FERRITIN Collected: 05/24/2018 Status: F Source: [place] 7:18 PM [facility] REPOSITORY TYPE CODE TESTS RESULT OUT OF RANGE REFERENCE UNITS LAB L503.6550 8-252 ng/mL Normal FERRITIN 9 Performed By: #### L503.6030, L503.6550 #### [facility] [address] [facility]. [place], [place], [address] THYROID STIM HORMONE Collected: 05/24/2018 Status: F Source: [place] (TSH) 7:18 PM [facility] REPOSITORY TYPE CODE TESTS RESULT OUT OF RANGE REFERENCE UNITS LAB L501.9520 0.358-3.74 uIU/mL Normal TSH 2.43 Performed By: #### L501.9520 #### [facility] [address] [place], [address] TOPIRAMATE, SERUM Collected: 05/24/2018 Status: F Source: [place] 7:18 PM [facility] REPOSITORY TYPE CODE TESTS RESULT OUT OF RANGE REFERENCE UNITS LAB L3380.1500 2.0-25.0 ug/mL Normal TOPIRAMATE 18.5 Result Comment: Detection Limit = 1.0 Performed at: [facility] [address] [id number] Cardiac Catheterization Technician: Carmela Christian MD, Phone: [phone] Performed By: #### L3380.1400 #### [facility] (refer to report for specific site) refer to report for address and phone number CNPTOUTREACH Observed: 05/21/2018 Status: COMPLETED Source: [place] 12:00 AM [facility] REPOSITORY Patient Outreach (FAMPST) CHERI MEJIA ([id number]) 1960 F Date Time Provider Department 05/21/18 CORY VELEZ FAMPST During your visit today, we recorded the following information about you: Allergies As of Date: 05/21/2018 Noted Allergy Reaction CODEINE 10/27/2005 5 - [...] 07/08/2007 5 - Intolerance Comments: dyspnea MIDRIN ([id number]-[id number]*11/05/2012 12 - Shortness of Breath PINEAPPLE 06/28/2009 2 - Rash PYRIDOSTIGMINE 11/05/2012 12 - Shortness of Breath Date Reviewed: 03/13/2018 Reviewed by: Angeles Katz - Fully Assessed Visit Diagnosis:Medication management [Z79.899] Order(s):HGB A1C [DHUAM0Y] Order #: [id number] FUTURE Prescriptions as of 05/21/2018 Sig: ALBUTEROL SULFATE 2.5 MG/3 ML* Use [...] mouth three* Problem List As Of Date 05/21/2018 Noted Resolved TOBACCO USE DISORDER [F17.200] INVALID FOR* Unspecified Asthma [J45.909] INVALID FOR* More... Dysmenorrhea [N94.6] INVALID FOR*06/28/2009 Other and Unspecified Noninfectious Gastroenter*INVALID FOR*06/28/2009 Esophageal Reflux [K21.9] More... Diarrhea [R19.7] INVALID FOR* More... HYPERCALCEMIA [E83.52] INVALID FOR* Myalgia and myositis, unspecified [RUY2122] INVALID FOR*11/30/2016 More... Headache [R51] INVALID FOR* [...] [Q07.00] INVALID FOR* More... 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 Vitamin B 12 deficiency [E53.8] INVALID FOR* Encounter Status:Closed by SSN Funding, PRODUSER on 06/20/18 PROGRESS Observed: 03/13/2018 Status: COMPLETED Source: [place] 8:21 AM [facility] REPOSITORY HNO ID: [id number] Author: Cory Velez Service: (none) Author Type: [...] get peanut butter milk shakes. Smoothies okay. Kiswahili onion soup. Within 10 minutes has to have BM. LUQ pain after eating. Already tried through samples from Dr. Khanna--Xifaxan and Lotronex. Neither effective. Diagnosed with malabsorption issue and nothing more to do. PAST MEDICAL HISTORY Diagnosis Date - Abdominal pain, epigastric - Acute gastritis without mention of hemorrhage - Arnold-Chiari syndrome with hydrocephalus (HCC) - COPD (chronic obstructive pulmonary disease) ([facility]) 09/24/2014 - Depression Taking celexa, topamax. 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 - Tobacco use disorder - Unspecified asthma(493.90) PAST SURGICAL HISTORY Procedure Laterality Date - APPENDECTOMY - COLONOSCOP W/ OR W/O [facility] SPEC 09/30/14 Colonoscopy - COLONOSCOPY W/BX 05/07/07 - EGD W/O [facility] SPECIMEN W/BX 02/22/09 [facility] inpt H-pylori is negative - EGD [...] to get her seen by GI within [facility] system since local GI has completed workup [...] Noted was recently on low side at IN Plan: BASIC METABOLIC PNL Has labs so [...] to work with Chelle George CNP at [facility] on her overall care. Above issues addressed [...] counseling and/or coordinating care for the patient. Ifei-ji-bdni time was at least 30 minutes. Cory Velez MD CNOV Observed: 03/13/2018 Status: COMPLETED Source: [place] 8:20 AM [facility] REPOSITORY Office Visit (INTMWS) CHERI MEJIA ([id number]) 1960 F Date Time Provider Department 03/13/18 8:20 AM CORY VELEZ INTMWS During your visit today, [...] get peanut butter milk shakes. Smoothies okay. Kiswahili onion soup. Within 10 minutes has to have BM. LUQ pain after eating. Already tried through samples from Dr. Khanna--Xifaxan and Lotronex. Neither effective. Diagnosed with malabsorption issue and nothing more to do. PAST MEDICAL HISTORY Diagnosis Date - Abdominal pain, epigastric - Acute gastritis without mention of hemorrhage - Arnold-Chiari syndrome with hydrocephalus (HCC) - COPD (chronic obstructive pulmonary disease) ([facility]) 09/24/2014 - Depression Taking celexa, topamax. 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 - Tobacco use disorder - Unspecified asthma(493.90) PAST SURGICAL HISTORY Procedure Laterality Date - APPENDECTOMY - COLONOSCOP W/ OR W/O [facility] SPEC 09/30/14 Colonoscopy - COLONOSCOPY W/BX 05/07/07 - EGD W/O [facility] SPECIMEN W/BX 02/22/09 [facility] inpt H-pylori is negative - EGD [...] to get her seen by GI within [facility] system since local GI has completed workup [...] Noted was recently on low side at [place] Plan: BASIC METABOLIC PNL Has labs so [...] to work with Chelle George CNP at [place] on her overall care. Above issues addressed [...] counseling and/or coordinating care for the patient. Ddwb-ez-njuw time was at least 30 minutes. MD Cory Solano MD 03/13/2018 9:35 AM Signed Change iron pills to taking every other day. Referring Provider: CORY VELEZ [[id number]] Allergies As of Date: 03/13/2018 Noted Allergy [...] 07/08/2007 5 - Intolerance Comments: dyspnea MIDRIN ([id number]-[id number]*11/05/2012 12 - Shortness of Breath PINEAPPLE 06/28/2009 [...] 0 BASIC METABOLIC PNL [SQBMP] Order #: [id number] STANDING CBC [SQCBC] Order #: [id number] STANDING Prescriptions as of 03/13/2018 Sig: DEXTROAMPHETAMINE-AMPHETAMINE* [...] Katz 03/13/2018 8:30 AM >> ANGELES KATZ [facility] Mar 13, 2018 8:30 AM Not taking MIRTAZAPINE 30 MG TABLET >> Angeles Katz 03/13/2018 8:33 AM >> ANGELES KATZ [facility] Mar 13, 2018 8:33 AM Takes 1 pill at HS FLUDROCORTISONE 0.1 MG TABLET >> Angeles Katz 03/13/2018 8:35 AM >> ANGELES KATZ [facility] Mar 13, 2018 8:35 AM Not taking Problem List As Of Date 03/13/2018 Noted Resolved TOBACCO USE DISORDER [F17.200] INVALID FOR* Unspecified Asthma [J45.909] INVALID FOR* More... Dysmenorrhea [N94.6] INVALID FOR*06/28/2009 Other and Unspecified Noninfectious Gastroenter*INVALID FOR*06/28/2009 Esophageal Reflux [K21.9] More... Diarrhea [R19.7] INVALID FOR* More... HYPERCALCEMIA [E83.52] INVALID FOR* Myalgia and myositis, unspecified [UVW1495] INVALID FOR*11/30/2016 More... Headache [R51] INVALID FOR* [...] COMPLETE W Observed: 01/24/2018 Status: F Source: [place] INTERPRETATION 12:05 PM [facility] REPOSITORY NAME : CHERI MEJIA PID : [id number] : 1960 Gender : Female Race : ORD : [id number] Procedure Date : Jan 24 2018 12:05:22 [...] ms QTC Calculation(Bezet) : 445 ms P [place] : 53 degrees R [place] : 2 degrees T [place] : 45 degrees Test Reason : Location : 185 : [facility] Overread By : ARAVIND ABRAMS D.O. Edited By : ARAVIND ABRAMS D.O. Referred By : TANVI GLORIA by : HUMBERTO GUTIERREZ LPN, PROGRESS Observed: 01/24/2018 Status: COMPLETED Source: [place] 11:00 AM [facility] REPOSITORY [facility] ID: [id number] Author: Norma Levine (Pharmacist) Service: (none) Author Type: Pharmacist Type: Progress Notes Filed: 01/24/2018 2:52 PM Note Text: CLINICAL PHARMACY NOTE: MEDICATION REVIEW AND EDUCATION S/O: Cheri Mejia is a 57 year old female who was referred to PharmD by Dr. Velez on 01/01/18 for medication review and education. Patient receives care from [facility] and [facility]. Met with clinical pharmacist and psychiatrist on 12/31/17 at [place] Was started on fluoxetine and trazodone Per PharmD note, last QTC prolonged, need to recheck today prior to initiation of therapy Efrem Lopes, PharmD [facility] [phone] Patient reports feeling ok today Did recently lose her Coping with the stress of that, has supports Reports weight loss Doesn't think it's due to her meds because she had been less than 100 lbs prior to the meds PAST MEDICAL HISTORY Diagnosis Date - Abdominal pain, epigastric - Acute gastritis without mention of hemorrhage - Arnold-Chiari syndrome with hydrocephalus (HCC) - COPD (chronic obstructive pulmonary disease) ([facility]) 09/24/2014 - Depression Taking celexa, topamax. 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 - Tobacco use disorder - Unspecified asthma(493.90) MEDICATIONS: ? Pill bottles are not present. ? Adherence: denies missed doses. ? Pharmacy: [place] ? Rx coverage: [place] ? Affordability: no issues ? Administration times: [...] prior to visit. Other prescription bottles present: Isaacon 8mg QHS Trazodone 50mg QHS - not [...] medications are appropriate. Patient is on several [employer]OURNEY[employer] depressants but is closely monitored by psych and [facility] providers. She has absorption issues as started in previous visits, so potential for malabsorption of some or all of the [employer]NEY[employer] depressants. - Adherence: Appropriate administration - ADRs: [...] Has VA f/u this Sunday Norma Levine, ThadD, BCPS CNOV Observed: 01/24/2018 Status: COMPLETED Source: [place] 11:00 AM [facility] REPOSITORY Office Visit (PHMEWO) CHERI MEJIA ([id number]) 1960 F Date Time Provider Department 01/24/18 [...] review and education. Patient receives care from [facility] and [facility]. Met with clinical pharmacist and psychiatrist on 12/31/17 at [place] Was started on fluoxetine and trazodone Per PharmD note, last QTC prolonged, need to recheck today prior to initiation of therapy Efrem Lopes, PharmD [facility] [phone] Patient reports feeling ok today Did recently lose her Coping with the stress of that, has supports Reports weight loss Doesn't think it's due to her meds because she had been less than 100 lbs prior to the meds PAST MEDICAL HISTORY Diagnosis Date - Abdominal pain, epigastric - Acute gastritis without mention of hemorrhage - Arnold-Chiari syndrome with hydrocephalus (HCC) - COPD (chronic obstructive pulmonary disease) (HCC) 09/24/2014 - Depression Taking celexa, topamax. 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 - Tobacco use disorder - Unspecified asthma(493.90) MEDICATIONS: ? Pill bottles are not present. ? Adherence: denies missed doses. ? Pharmacy: IN ? Rx coverage: [place] ? Affordability: no issues ? Administration times: [...] medications are appropriate. Patient is on several [employer]NEY[employer] depressants but is closely monitored by psych and [facility] providers. She has absorption issues as started in previous visits, so potential for malabsorption of some or all of the [employer] depressants. - Adherence: Appropriate administration - ADRs: [...] f/u this Sunday Norma Levine PharmD, BCPS NORMA LEVINE PHARMACIST 01/24/2018 11:55 AM Signed Do not take Prozac or trazodone until we have your EKG results Referring Provider: TANVI GLORIA ([employer]OURNEY[employer]) [[id number]] Allergies As of Date: 01/24/2018 Noted Allergy [...] 07/08/2007 5 - Intolerance Comments: dyspnea MIDRIN ([id number]*11/05/2012 12 - Shortness of Breath PINEAPPLE 06/28/2009 [...] [E83.52] INVALID FOR* Myalgia and myositis, unspecified [YRC9678] INVALID FOR*11/30/2016 More... Headache [R51] INVALID FOR* [...] 01/24/18 CNCO Observed: 01/22/2018 Status: COMPLETED Source: [place] 12:14 PM [facility] [place] REPOSITORY [facility] ID: [id number] Author: Mammography Coordinator Service: (none) Author Type: Physician Type: Letter Filed: 01/23/2018 11:31 PM Note Text: January 22, 2018 PID: [id number] Cheri Mejia [address] [place] [address] Dear Ms. Mejia, We are pleased to [...] report will be kept on file at [facility] as part of your permanent medical record and are available for your continuing care. Thank you for allowing us to help in meeting your health care needs. Sincerely, Dr. Musa Interpreting Radiologist [facility] (Normal-Clinical Evaluation) CNCO Observed: 01/22/2018 Status: COMPLETED Source: [place] 12:14 PM [facility] REPOSITORY [facility] ID: [id number] Author: Mammography Coordinator Service: (none) Author Type: Physician Type: Letter Filed: 01/23/2018 11:31 PM Note Text: January 22, 2018 PID: [id number] Cheri Mejia [address] [place] [address] Dear Ms. Mejia, We are pleased to [...] report will be kept on file at [facility] as part of your permanent medical record and are available for your continuing care. Thank you for allowing us to help in meeting your health care needs. Sincerely, Dr. Musa Interpreting Radiologist [facility] (Normal-Clinical Evaluation) PROGRESS Observed: 01/22/2018 Status: COMPLETED Source: [place] 9:30 AM [facility] REPOSITORY [facility] ID: [id number] Author: Janeth Porras Service: (none) Author Type: Extermination Inspector Type: Progress Notes Filed: 01/22/2018 9:31 AM [...] Not applicable SIGNED BY: JANETH PORRAS RDMS RVJimenez January 22, 2018 9:30 AM [facility] [employer] BREAST LTD Observed: 01/22/2018 Status: F Source: [place] 9:09 AM [facility] REPOSITORY * * *Final Report* * * DATE OF EXAM: Jan 22 2018 9:09AM WRU [id number] - [facility] US BREAST LTD RT / PROCEDURE REASON: Unspecified lump in unspecified breast * * * * Physician Interpretation * * * * #[id number] - [facility] DIAGNOSTIC TOY BILATERAL DIGITAL DIAGNOSTIC MAMMOGRAM WITH CAD: 01/22/2018 HISTORY: Unspecified Palpable Lump In Unspecified Breast/ /priors available for comparison. RESULT: TECHNIQUE: The study was acquired using full field digital technology and interpreted from soft copy. Current study was also evaluated with a Computer Aided Detection (CAD). Comparison is made to exam dated: 09/01/2014 mammogram - [facility]. The tissue of both breasts is heterogeneously dense. This may lower the sensitivity of mammography. No significant masses, calcifications, or other findings are seen in either breast. NEGATIVE There is no abnormality seen in the right breast to correspond with the palpable abnormality. There is no mammographic evidence of malignancy. #[id number] - [facility] [employer] RT ULTRASOUND OF RIGHT BREAST: 01/22/2018 RESULT: Comparison is made to exam dated: 09/01/2014 mammogram - [facility]. Ultrasound of the right breast was performed. Mcqueen scale images of the real-time examination were reviewed. IMPRESSION: NEGATIVE There is no sonographic evidence of malignancy. There is no abnormality seen in the right breast to correspond with the palpable abnormality. Return to annual mammogram screening schedule is recommended. Chance gonzalez/ann marie:01/22/2018 12:14:25 Php Engineer: Mary Kay BURNS)(M), [facility] letter sent: Normal clinical eval OVERALL STUDY BIRADS: 1 Negative Hand Washer: Ann Marie Transcribe Date/Time: Jan 22 2018 8:10A Dictated by : CHANCE MUSA DO This examination was interpreted and the report reviewed and electronically signed by: CHANCE MUSA DO on Jan 22 2018 12:14PM EST [id number] [facility] DIAGNOSTIC TOY Observed: 01/22/2018 Status: F Source: [place] 8:35 AM [facility] REPOSITORY * * *Final Report* * * DATE OF EXAM: Jan 22 2018 8:35AM [facility] [id number] - [facility] DIAGNOSTIC TOY / PROCEDURE REASON: Unspecified lump in unspecified breast * * * * Physician Interpretation * * * * RESULT: #[id number] - [facility] DIAGNOSTIC TOY BILATERAL DIGITAL DIAGNOSTIC MAMMOGRAM WITH CAD: 01/22/2018 HISTORY: Unspecified Palpable Lump In Unspecified Breast/ /priors available for comparison. RESULT: TECHNIQUE: The study was acquired using full field digital technology and interpreted from soft copy. Current study was also evaluated with a Computer Aided Detection (CAD). Comparison is made to exam dated: 09/01/2014 mammogram - [facility]. The tissue of both breasts is heterogeneously dense. This may lower the sensitivity of mammography. No significant masses, calcifications, or other findings are seen in either breast. NEGATIVE There is no abnormality seen in the right breast to correspond with the palpable abnormality. There is no mammographic evidence of malignancy. #[id number] - [facility] US BREAST LTD RT ULTRASOUND OF RIGHT BREAST: 01/22/2018 RESULT: Comparison is made to exam dated: 09/01/2014 mammogram - [facility]. Ultrasound of the right breast was performed. Mcqueen scale images of the real-time examination were reviewed. IMPRESSION: NEGATIVE There is no sonographic evidence of malignancy. There is no abnormality seen in the right breast to correspond with the palpable abnormality. Return to annual mammogram screening schedule is recommended. Chance gonzalez/ann marie:01/22/2018 12:14:25 Php Engineer: Mary Kay VENCES(Darya)(Alyssia), [facility] letter sent: Normal clinical eval OVERALL STUDY BIRADS: 1 Negative Hand Washer: Ann Marie Transcribe Date/Time: Jan 22 2018 8:10A Dictated by: CHANCE MUSA DO This examination was interpreted and the report reviewed and electronically signed by: CHANCE MUSA DO on Jan 22 2018 12:14PM EST [id number] PROGRESS Observed: 01/22/2018 Status: COMPLETED Source: [place] 8:09 AM [facility] REPOSITORY [facility] ID: [id number] Author: Miya Betzaida Service: (none) Author Type: (none) Type: Progress [...] Miya Vences January 22, 2018 8:09 AM CNPN Observed: 01/16/2018 Status: COMPLETED Source: [place] 12:00 AM [facility] REPOSITORY Telephone (INTMWS) CHERI MEJIA ([id number]) 1960 F Date Time Provider Department 01/16/18 CORY VELEZ INTMWS During your visit today, we recorded the following information about you: Angeles Katz 01/16/2018 5:56 PM Addendum Chelle George stopped by and left ECG and office notes regarding patient. Put on Tanvi's desk. She is requesting patient get ECG at upcoming appointment with Norma/pharmacy, to check for QT prolongation (due to medication?). ECG needs ordered and to check with Norma. Advised Norma speak with pharmacist at [facility] [phone]. Patient also needs advised of upcoming mammogram / ultrasound appointments. Chelle discussed this with Dr Velez as well. Tanvi Gloria APRN.FELA 01/17/2018 7:22 AM Signed EKG ordered, please see below. See Notes Dr. Lane 03/2013 and 05/2013 testing at [facility]SH. Copy of notes to Norma kwan, would forward to PCP pod for upcoming appt when done. Bettie Cartagena LPN 01/17/2018 8:15 AM Signed EKG arranged on nurse schedule for 01/24/18 at 1230 although we can complete this in pcp office after pt sees pharmacy. NORMA LEVINE, PHARMACIST 01/17/2018 10:00 AM Signed Noted. Will arrange for patient to have done right after my appt. Norma Levine, PharmD, BCPS Allergies As of Date: 01/16/2018 Noted Allergy [...] 07/08/2007 5 - Intolerance Comments: dyspnea MIDRIN ([id number]*11/05/2012 12 - Shortness of Breath PINEAPPLE 06/28/2009 2 - Rash PYRIDOSTIGMINE 11/05/2012 12 - Shortness of Breath Date Reviewed: 12/03/2017 Reviewed by: Ursula Gutierrez LPN - Fully Assessed Reason for Visit: need for ECG [Other] Primary Visit Diagnosis:Encounter for long-term current use of medication [Z79.899] Order(s):ECG COMPLETE W INTERPRETATION [ECG01] Order #: [id number] FUTURE Prescriptions as of 01/16/2018 Sig: DEXTROAMPHETAMINE-AMPHETAMINE* [...] [E83.52] INVALID FOR* Myalgia and myositis, unspecified [DEG5025] INVALID FOR*11/30/2016 More... Headache [R51] INVALID FOR* [...] 01/17/18 PROGRESS Observed: 01/07/2018 Status: COMPLETED Source: [place] 2:03 PM [facility] [place] REPOSITORY O ID: [id number] Author: Leena Beebe Rt Service: (none) Author Type: (none) Type: Progress [...] IMPLANT DATA REVIEWED: Not Applicable RADIOLOGY DEPARTMENT: [facility] IV DATA: Not applicable SIGNED BY: Leena Vences January 07, 2018 2:04 PM DOWNTIME REPORT Observed: 12/13/2017 Status: F Source: [place] 1:57 PM [facility] REPOSITORY [facility] Medical Records Department [address] [place] [address] Downtime Report MR#: [id number] Acct: [id number] Name: CHERI MEJIA Rep #: [id number] : 1960 57 From: Shayan Valle PCP: Cory Velez MD Status: REG CLI This patient was seen during an EMR downtime November 26, 2017 - December 03, 2017. This patient may have a combination of paper and electronic documentation or all paper documentation. All documentation is viewable within the e-chart portion of [employer] for each patient visit. PROGRESS Observed: 12/03/2017 Status: COMPLETED Source: [place] 8:27 AM [facility] REPOSITORY [facility] ID: [id number] Author: Tanvi (Claims Supervisor) Faizan Service: (none) Author Type: Nurse Specialist Type: [...] Neck Pain Narcolepsy Syncope Pernicious Anemia Neuropathy (Hcc) Fibromyalgia Hypotension Ptsd (Post-Traumatic Stress Disorder) Pulmonary Nodules Orthostatic Hypotension Dysautonomia Orthostatic Hypotension Syndrome (Hcc) Anxiety Controlled Substance Agreement Signed Iron Malabsorption Arnold-Chiari Malformation (Hcc) Factor V Leiden (Hcc) Copd (Chronic Obstructive Pulmonary Disease) (Hcc) Idiopathic Chronic Hypotension Chronic Diarrhea Primary Insomnia [...] her . She reports support through her restoration. ADHD. Since last here she reports feeling [...] of hemorrhage - Arnold-Chiari syndrome with hydrocephalus ([facility]) - COPD (chronic obstructive pulmonary disease) ([facility]) 09/24/2014 - Depression Taking celexa, topamax. 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 - Tobacco use disorder - Unspecified asthma(493.90) PAST SURGICAL HISTORY Procedure Laterality Date - APPENDECTOMY - COLONOSCOP W/ OR W/O [facility] SPEC 09/30/14 Colonoscopy - COLONOSCOPY W/BX 05/07/07 - EGD W/O [facility] SPECIMEN W/BX 02/22/09 [facility] inpt H-pylori is negative - EGD [...] grossly intact. Reviewed chart, outside records, tests OARRS website checked and validated. All prescriptions have been APPROPRIATELY filled. No suspicious activity was identified.- 12/03/2017 by Tanvi Gloria APRN.IND[employer]IT[employer] JOURNEYMAN I personally interviewed, confirmed and edited the above information if obtained by others. TESTING: Glucose (mg/dL) Date Value 11/26/2017 Test sent to [facility]. Potassium (mmol/L) Date Value 11/26/2017 Test sent to [facility]. Sodium (mmol/L) Date Value 11/26/2017 Test sent to [facility]. Chloride (mmol/L) Date Value 11/26/2017 Test sent to [facility]. CO2 (mmol/L) Date Value 11/26/2017 Test sent to [facility]. Creatinine (mg/dL) Date Value 11/26/2017 Test sent to [facility]. BUN (mg/dL) Date Value 11/26/2017 Test sent to [facility]. Anion Gap (mmol/L) Date Value 11/26/2017 Test sent to [facility]. Calcium (mg/dL) Date Value 11/26/2017 Test sent to [facility]. Glucose (mg/dL) Date Value 11/26/2017 Test sent to [facility]. Potassium (mmol/L) Date Value 11/26/2017 Test sent to [facility]. Sodium (mmol/L) Date Value 11/26/2017 Test sent to [facility]. Chloride (mmol/L) Date Value 11/26/2017 Test sent to [facility]. CO2 (mmol/L) Date Value 11/26/2017 Test sent to [facility]. Creatinine (mg/dL) Date Value 11/26/2017 Test sent to [facility]. BUN (mg/dL) Date Value 11/26/2017 Test sent to [facility]. Anion Gap (mmol/L) Date Value 11/26/2017 Test sent to [facility]. Calcium (mg/dL) Date Value 11/26/2017 Test sent to [facility]. Protein, Total (g/dL) Date Value 11/26/2017 Test sent to [facility]. Albumin (g/dL) Date Value 11/26/2017 Test sent to [facility]. Bilirubin, Total (mg/dL) Date Value 11/26/2017 Test sent to [facility]. Alkaline Phosphatase (U/L) Date Value 11/26/2017 Test sent to [facility]. AST (U/L) Date Value 11/26/2017 Test sent to [facility]. ALT (U/L) Date Value 11/26/2017 Test sent to [facility]. Hemoglobin (g/dL) Date Value 11/26/2017 Test sent to [facility]. Hematocrit (%) Date Value 11/26/2017 Test sent to [facility]. WBC (k/uL) Date Value 11/26/2017 Test sent to [facility]. Cholesterol, Total (mg/dL) Date Value 11/26/2017 Test sent to [facility]. HDL Cholesterol (mg/dL) Date Value 11/26/2017 Test sent to [facility]. LDL Cholesterol (mg/dL) Date Value 11/26/2017 Test sent to [facility]. Triglyceride (mg/dL) Date Value 11/26/2017 Test sent to [facility]. Hemoglobin A1C Date Value Ref Range Status 05/30/2017 5.8 (H) 4.3 - 5.6 % Final Comment: [place] [employer] guidelines indicate that patients with HgbA1c in the range 5.7-6.4% are at increased risk for development of diabetes, and intervention by lifestyle modification may be beneficial. HgbA1c greater or equal to 6.5% is considered diagnostic of diabetes. 02/09/2016 6.0 (H) 4.3 - 5.6 % Final Comment: [place] [employer] guidelines indicate that patients with HgbA1c in the range 5.7-6.4% are at increased risk for development of diabetes, and intervention by lifestyle modification may be beneficial. HgbA1c greater or equal to 6.5% is considered diagnostic of diabetes. HBA1C, [place] Date Value Ref Range Status 04/17/2007 5.7 4.2 - 5.8 % Final Comment: Test performed by: [facility], [address] [place] [address]. Ejection Fraction: No results found IMPRESSION: Ms. [...] and agreed with the plan. Tanvi Gloria APRN.INDUSTRIAL PIPEFITTER JOURNEYMAN CNOV Observed: 12/03/2017 Status: COMPLETED Source: [place] 8:20 AM [facility] RE[facility]ITORY Office Visit (INTMWS) CHERI MEJIA ([id number]) 1960 F Date Time Provider Department 12/03/17 8:20 AM TANVI GLORIA ([facility]) INTMWS During your visit today, we recorded [...] Neck Pain Narcolepsy Syncope Pernicious Anemia Neuropathy (Hcc) Fibromyalgia Hypotension Ptsd (Post-Traumatic Stress Disorder) Pulmonary Nodules Orthostatic Hypotension Dysautonomia Orthostatic Hypotension Syndrome (Hcc) Anxiety Controlled Substance Agreement Signed Iron Malabsorption Arnold-Chiari Malformation (Hcc) Factor V Leiden (Hcc) Copd (Chronic Obstructive Pulmonary Disease) (Hcc) Idiopathic Chronic Hypotension Chronic Diarrhea Primary Insomnia [...] her . She reports support through her restoration. ADHD. Since last here she reports feeling [...] of hemorrhage - Arnold-Chiari syndrome with hydrocephalus ([facility]) - COPD (chronic obstructive pulmonary disease) ([facility]) 09/24/2014 - Depression Taking celexa, topamax. 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 - Tobacco use disorder - Unspecified asthma(493.90) PAST SURGICAL HISTORY Procedure Laterality Date - APPENDECTOMY - COLONOSCOP W/ OR W/O [facility] SPEC 09/30/14 Colonoscopy - COLONOSCOPY W/BX 05/07/07 - EGD W/O [facility] SPECIMEN W/BX 02/22/09 [facility] [facility] inpt H-pylori is negative - EGD [...] grossly intact. Reviewed chart, outside records, tests OARRS website checked and validated. All prescriptions have been APPROPRIATELY filled. No suspicious activity was identified.- 12/03/2017 by Tanvi Gloria APRN.INDUSTRIAL PIPEFITTER JOURNEYMAN I personally interviewed, confirmed and edited the above information if obtained by others. TESTING: Glucose (mg/dL) Date Value 11/26/2017 Test sent to [facility]. Potassium (mmol/L) Date Value 11/26/2017 Test sent to [facility]. Sodium (mmol/L) Date Value 11/26/2017 Test sent to [facility]. Chloride (mmol/L) Date Value 11/26/2017 Test sent to [facility]. CO2 (mmol/L) Date Value 11/26/2017 Test sent to [facility]. Creatinine (mg/dL) Date Value 11/26/2017 Test sent to [facility]. BUN (mg/dL) Date Value 11/26/2017 Test sent to [facility]. Anion Gap (mmol/L) Date Value 11/26/2017 Test sent to [facility]. Calcium (mg/dL) Date Value 11/26/2017 Test sent to [facility]. Glucose (mg/dL) Date Value 11/26/2017 Test sent to [facility]. Potassium (mmol/L) Date Value 11/26/2017 Test sent to [facility]. Sodium (mmol/L) Date Value 11/26/2017 Test sent to [facility]. Chloride (mmol/L) Date Value 11/26/2017 Test sent to [facility]. CO2 (mmol/L) Date Value 11/26/2017 Test sent to [facility]. Creatinine (mg/dL) Date Value 11/26/2017 Test sent to [facility]. BUN (mg/dL) Date Value 11/26/2017 Test sent to [facility]. Anion Gap (mmol/L) Date Value 11/26/2017 Test sent to [facility]. Calcium (mg/dL) Date Value 11/26/2017 Test sent to [facility]. Protein, Total (g/dL) Date Value 11/26/2017 Test sent to [facility]. Albumin (g/dL) Date Value 11/26/2017 Test sent to [facility]. Bilirubin, Total (mg/dL) Date Value 11/26/2017 Test sent to [facility]. Alkaline Phosphatase (U/L) Date Value 11/26/2017 Test sent to [facility]. AST (U/L) Date Value 11/26/2017 Test sent to [facility]. ALT (U/L) Date Value 11/26/2017 Test sent to [facility]. Hemoglobin (g/dL) Date Value 11/26/2017 Test sent to [facility]. Hematocrit (%) Date Value 11/26/2017 Test sent to [facility]. WBC (k/uL) Date Value 11/26/2017 Test sent to [facility]. Cholesterol, Total (mg/dL) Date Value 11/26/2017 Test sent to [facility]. HDL Cholesterol (mg/dL) Date Value 11/26/2017 Test sent to [facility]. LDL Cholesterol (mg/dL) Date Value 11/26/2017 Test sent to [facility]. Triglyceride (mg/dL) Date Value 11/26/2017 Test sent to [facility]. Hemoglobin A1C Date Value Ref Range Status 05/30/2017 5.8 (H) 4.3 - 5.6 % Final Comment: [place] [employer] guidelines indicate that patients with HgbA1c in the range 5.7-6.4% are at increased risk for development of diabetes, and intervention by lifestyle modification may be beneficial. HgbA1c greater or equal to 6.5% is considered diagnostic of diabetes. 02/09/2016 6.0 (H) 4.3 - 5.6 % Final Comment: [place] [employer] guidelines indicate that patients with HgbA1c in the range 5.7-6.4% are at increased risk for development of diabetes, and intervention by lifestyle modification may be beneficial. HgbA1c greater or equal to 6.5% is considered diagnostic of diabetes. HBA1C, [place] Date Value Ref Range Status 04/17/2007 5.7 4.2 - 5.8 % Final Comment: Test performed by: [facility], [address] [place] [address]. Ejection Fraction: No results found IMPRESSION: Ms. [...] and agreed with the plan. Tanvi Gloria APRN.INDUSTRIAL PIPEFITTER JOURNEYMAN Referring Provider: CORY VELEZ [[id number]] Allergies As of Date: 12/03/2017 Noted Allergy [...] 07/08/2007 5 - Intolerance Comments: dyspnea MIDRIN ([id number]*11/05/2012 12 - Shortness of Breath PINEAPPLE 06/28/2009 [...] chronicity [M54.9] Pure hypercholesterolemia [E78.00] Order(s):TANA SCREENING [[id number]] Order #: [id number] FUTURE TANA SCREENING W EBER [[id number]] Order #: [id number] FUTURE [START ON 02/03/2018] dextroamphetamine-amphetamine (ADDERALL) 10 [...] [E83.52] INVALID FOR* Myalgia and myositis, unspecified [FBR4261] INVALID FOR*11/30/2016 More... Headache [R51] INVALID FOR* [...] 25 HYDROXY Collected: 11/26/2017 Status: F Source: [place] 8:00 AM [facility] REPOSITORY TYPE CODE TESTS RESULT OUT OF REFERENCE UNITS RANGE LAB VITD 31.0-80.0 ng/mL Test Vitamin D 25 sent to [facility]. Result Comment: Account Credited HIDE IRON AND TIBC Collected: 11/26/2017 Status: F Source: [place] 8:00 AM [facility] REPOSITORY TYPE CODE TESTS RESULT OUT OF REFERENCE UNITS RANGE LAB IRN 41-186 ug/dL Test Iron sent to [facility]. Result Comment: Account Credited HIDE LAB TIBC 232-386 ug/dL Test sent TIBC to [facility]. Result Comment: Account Credited HIDE LAB SAT 15-57 % Transferrin Test sent Saturatn to [facility]. Result Comment: Account Credited HIDLucina COMP METABOLIC PANEL Collected: 11/26/2017 Status: F Source: [place] 8:00 AM [facility] REPOSITORY TYPE CODE TESTS RESULT OUT OF REFERENCE UNITS RANGE LAB TP 6.3-8.0 g/dL Test sent to [facility]. Result Comment: Account Credited HIDE LAB ALB 3.9-4.9 g/dL Test Albumin sent to [facility]. Result Comment: Account Credited HIDE LAB CA 8.5-10.2 mg/dL Test Calcium, Total sent to [facility]. Result Comment: Account Credited HIDE LAB TBIL 0.2-1.3 mg/dL Bilirubin, Test Total sent to [facility]. Result Comment: Account Credited HIDE LAB ALKP 32-117 U/L Alkaline Test Phosphatase sent to [facility]. Result Comment: Account Credited HIDE LAB AST 13-35 U/L Test sent AST to [facility]. Result Comment: Account Credited HIDE LAB GLU 74-99 mg/dL Test sent Glucose to [facility]. Result Comment: Account Credited HIDE LAB BUN 7-21 mg/dL Test sent BUN to [facility]. Result Comment: Account Credited HIDE LAB CRET 0.58-0.96 mg/dL Creatinine Test sent to [facility]. Result Comment: Account Credited HIDE LAB NA 136-144 mmol/L Test Sodium sent to [facility]. Result Comment: Account Credited HIDE LAB K 3.7-5.1 mmol/L Test Potassium sent to [facility]. Result Comment: Account Credited HIDE LAB CL 97-105 mmol/L Test Chloride sent to [facility]. Result Comment: Account Credited HIDE LAB CO2 22-30 mmol/L Test sent CO2 to [facility]. Result Comment: Account Credited HIDE LAB AGAP 9-18 mmol/L Test sent Anion Gap to [facility]. Result Comment: Account Credited HIDE LAB ALT 7-38 U/L Test sent to ALT [facility]. Result Comment: Account Credited HIDE LAB GFRAA eGFR- Amer. Test sent to [facility]. Result Comment: Account Credited HIDE LAB GFRNAA . eGFR-All Test sent Other Races to [facility]. Result Comment: Account Credited HIDE LAB GFRPED eGFR-Ped. Test sent Factor to [facility]. Result Comment: Account Credited HIDE FERRITIN Collected: 11/26/2017 Status: F Source: [place] 8:00 AM [facility] REPOSITORY TYPE CODE TESTS RESULT OUT OF REFERENCE UNITS RANGE LAB FERR 14.7-205.1 ng/mL Test Ferritin sent to [facility]. Result Comment: Account Credited BLANKA LIPID PANEL, BASIC Collected: 11/26/2017 Status: F Source: [place] 8:00 AM [facility] REPOSITORY TYPE CODE TESTS RESULT OUT OF REFERENCE UNITS RANGE LAB CHOL <200 mg/dL Cholesterol Test sent to [facility]. Result Comment: Account Credited HIDE LAB TRIGLY <150 mg/dL Triglyceride Test sent to [facility]. Result Comment: Account Credited HIDE LAB HDL >39 mg/dL HDL-Cholesterol Test sent to [facility]. Result Comment: Account Credited HIDE LAB LDL <100 mg/dL LDL-Cholesterol Test sent to [facility]. Result Comment: Account Credited MARLENAE LAB NONHDL 90-159 mg/dL Non HDL Test Cholesterol sent to [facility]. Result Comment: Account Credited MAR[facility]NAE LAB FT hrs Fasting Time 11 LAB VLDL <30 mg/dL VLDL Cholesterol Test sent to [facility]. Result Comment: Account Credited HIDE LAB TCHDL <5.10 Test sent TC:HDL Ratio to [facility]. Result Comment: Account Credited HIDE LAB LDLHDL <2.54 Test sent LDL:HDL Ratio to [facility]. Result Comment: Account Credited MARLENAE CBC Collected: 11/26/2017 Status: F Source: [place] 8:00 AM [facility] REPOSITORY TYPE CODE TESTS RESULT OUT OF REFERENCE UNITS RANGE LAB WBC 3.70-11.00 k/uL Test WBC sent to [facility]. Result Comment: Account Credited HIDE LAB RBC 3.90-5.20 m/uL Test sent RBC to [facility]. Result Comment: Account Credited HIDE LAB HGB 11.5-15.5 g/dL Hemoglobin Test sent to [facility]. Result Comment: Account Credited HIDE LAB HCT 36.0-46.0 % Hematocrit Test sent to [facility]. Result Comment: Account Credited HIDE LAB MCV 80.0-100.0 fL Test sent MCV to [facility]. Result Comment: Account Credited HIDE LAB MCH 26.0-34.0 pG Test sent MCH to [facility]. Result Comment: Account Credited HIDE LAB MCHC 30.5-36.0 g/dL Test MCHC sent to [facility]. Result Comment: Account Credited HIDE LAB RDWCV 11.5-15.0 % Test RDW-CV sent to [facility]. Result Comment: Account Credited HIDE LAB PLTCT 150-400 k/uL Test Platelet Count sent to [facility]. Result Comment: Account Credited HIDE LAB MPV 9.0-12.7 fL Test sent MPV to [facility]. Result Comment: Account Credited HIDE LAB JOSÉ MIGUEL Recheck Test sent to [facility]. Result Comment: Account Credited HIDE LAB REVW Test sent to Review [facility]. Result Comment: Account Credited HIDE LAB CBCCOM Comment Test sent to [facility]. Result Comment: Account Credited HIDE LAB ABSNUC <0.01 k/uL Test Absolute nRBC sent to [facility]. Result Comment: Account Credited MARLENAE VITAMIN B12 Collected: 11/26/2017 Status: F Source: [place] 8:00 AM [facility] REPOSITORY TYPE CODE TESTS RESULT OUT OF REFERENCE UNITS RANGE LAB B12 232-1245 pg/mL Test Vitamin B12 sent to [facility]. Result Comment: Account Credited MARLENAE VITAMIN B12 Collected: 11/26/2017 Status: F Source: [place] 7:55 AM [facility] REPOSITORY TYPE CODE TESTS RESULT OUT OF REFERENCE UNITS RANGE LAB L503.0105 211-911 pg/mL Low Vitamin B12 189 Performed By: #### L503.0105, L506.1000 #### [facility] [address] [facility] [place], [address] VITAMIN D,25 HYDROXY Collected: 11/26/2017 Status: F Source: [place] 7:55 AM [facility] REPOSITORY TYPE CODE TESTS RESULT OUT OF REFERENCE UNITS RANGE LAB L506.1000 29.95-100.01 ng/mL Low Vitamin D 13.6 25-OH Result Comment: Vitamin D 25(OH) Status Range Deficiency <20 ng/mL (50nmol/L) Insuffciency 20 - 30 ng/mL (50 - 75 nmol/L) Sufficiency 30 - 100 ng/mL (75 - 250 nmol/L) Toxicity >100 ng/mL (>250 nmol/L) Performed By: #### L503.0105, L506.1000 #### [facility] [address] [place], [address] COMPREHENSIVE METABOLIC Collected: 11/26/2017 Status: F Source: [place] 7:55 AM [facility] REPOSITORY Order Comment: RESULT(S) PREVIOUSLY REPORTED [...] GAP 6 Performed By: #### L500.4050, L500.4100, L503.6009, L503.6150, L503.6550 #### [facility] [address] [place], [place], [id number] LIPID PROFILE Collected: 11/26/2017 Status: F Source: [place] 7:55 AM [facility] REPOSITORY Order Comment: RESULT(S) PREVIOUSLY REPORTED [...] #### L500.4050, L500.4100, L503.6075, L503.6150, L503.6550 #### [facility] [address] [place], [place], [address] IRON BINDING Collected: 11/26/2017 Status: F [facility] REPOSITORY Order Comment: RESULT(S) PREVIOUSLY REPORTED ON MANUAL REQUISITION DURING DOWNTIME. TYPE CODE TESTS RESULT OUT OF RANGE REFERENCE UNITS LAB L503.6075 250-450 ug/dL Normal TIBC 361 Performed By: #### L500.4050, L500.4100, L503.6075, L503.6150, L503.6550 #### [facility] [address], [address] IRON Collected: 11/26/2017 Status: F Source: [place] 7:55 AM [facility] REPOSITORY Order Comment: RESULT(S) PREVIOUSLY REPORTED ON MANUAL REQUISITION DURING DOWNTIME. TYPE CODE TESTS RESULT OUT OF RANGE REFERENCE UNITS LAB L503.6150 50-170 ug/dL Low IRON 34 Performed By: #### L500.4050, L500.4100, L503.6075, L503.6150, L503.6550 #### [facility] [address] [place], [address] FERRITIN Collected: 11/26/2017 Status: F Source: [place] 7:55 AM [facility] REPOSITORY Order Comment: RESULT(S) PREVIOUSLY REPORTED ON MANUAL REQUISITION DURING DOWNTIME. TYPE CODE TESTS RESULT OUT OF REFERENCE UNITS RANGE LAB L503.6550 8-252 ng/mL Low FERRITIN 6 Performed By: #### L500.4050, L500.4100, L503.6075, L503.6150, L503.6550 #### [facility] [address] [place], [place], [address] CBC-COMPLETE BLOOD CNT Collected: 11/26/2017 Status: F Source: [place] 7:55 AM [facility] REPOSITORY TYPE CODE TESTS RESULT OUT [...] MPV 10.4 Performed By: #### L100.0500 #### [facility] [address] [place], [address] PROGRESS Observed: 08/31/2017 Status: COMPLETED Source: [place] 10:30 AM [facility] REPOSITORY HNO ID: [id number] Author: Cory Velez Service: (none) Author Type: Physician Type: Progress Notes Filed: 08/31/2017 11:43 PM Note Text: Patient presents with: Recheck SUBJECTIVE: Cheri Mejia is a 57 year old year old lady here today for 3 month follow up appointment for review of medical conditions. On [facility] now. Dr. Khanna did colonoscopy. Polyps noted. IBS-D. Treated with antibiotic--first antibiotic RX was too expensive. Samples given--Xifaxan slowing bowels down though still liquidy stools. Still losing weight. Hair thinning. Vomiting. PAST MEDICAL HISTORY Diagnosis Date - Abdominal pain, epigastric - Acute gastritis without mention of hemorrhage - Arnold-Chiari syndrome with hydrocephalus ([facility]) - COPD (chronic obstructive pulmonary disease) ([facility]) 09/24/2014 - Depression Taking celexa, topamax. 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 Visit for screening mammogram Z12.31 [facility] SCREENING 9. Encounter for long-term current use [...] counseling and/or coordinating care for the patient. Mntz-fm-cqhp time was at least 25 minutes. Cory Velez MD CNOV Observed: 08/31/2017 Status: COMPLETED Source: [place] 9:40 AM [facility] REPOSITORY Office Visit (INT[facility]) CHERI MEJIA ([id number]) 1960 F Date Time Provider Department 08/31/17 9:40 AM CORY VELEZ IN[facility] During your visit today, we recorded the following information about you: Pulse Respiration Blood pressure Weight 64/minute 16/minute 100/50 65.3 kg Cory Velez MD 08/31/2017 11:43 PM Signed Patient presents with: Recheck SUBJECTIVE: Cheri Mejia is a 57 year old year old lady here today for 3 month follow up appointment for review of medical conditions. On [facility] now. Dr. Khanna did colonoscopy. Polyps noted. IBS-D. Treated with antibiotic--first antibiotic RX was too expensive. Samples given--Xifaxan slowing bowels down though still liquidy stools. Still losing weight. Hair thinning. Vomiting. PAST MEDICAL HISTORY Diagnosis Date - Abdominal pain, epigastric - Acute gastritis without mention of hemorrhage - Arnold-Chiari syndrome with hydrocephalus ([facility]) - COPD (chronic obstructive pulmonary disease) ([facility]) 09/24/2014 - Depression Taking celexa, topamax. 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 Lxgy-aj-inge time was at least 25 minutes. Cory Velez MD Referring Provider: CORY VELEZ [[id number]] Allergies As of Date: 08/31/2017 Noted Allergy [...] 07/08/2007 5 - Intolerance Comments: dyspnea MIDRIN ([id number]-[id number]*11/05/2012 12 - Shortness of Breath PINEAPPLE 06/28/2009 2 - Rash PYRIDOSTIGMINE 11/05/2012 12 - Shortness of Breath flu vaccine [Other] 04/16/2007 10 - Anaphylaxis Comments: Passes out/anaphylaxis Date Reviewed: 08/31/2017 Reviewed by: Janay Harrell Drum Reel Cutter - Fully Assessed Reason for Visit: Recheck [...] mouth daily at bedtime. For cholesterol.Disp: Rfl: [facility] SCREENING [[id number]] Order #: [id number] FUTURE [START ON 09/30/2017] dextroamphetamine-amphetamine (ADDERALL) 10 mg tabletTake 1 tablet by mouth twice daily for 30 days. Earliest Fill Date: 09/30/17Disp: 60 tabletRfl: 0 [START ON 10/30/2017] dextroamphetamine-amphetamine (ADDERALL) 10 mg tabletTake 1 tablet by mouth twice daily for 30 days. Earliest Fill Date: 10/30/17Disp: 60 tabletRfl: 0 COMP METABOLIC PANEL [SQCMP] Order #: [id number] FUTURE CBC [SQCBC] Order #: [id number] FUTURE FERRITIN BLD [SQFERR] Order #: [id number] FUTURE IRON + TIBC [SQIRON] Order #: [id number] FUTURE VITAMIN D 25 HYDROXY [SQVITD] Order #: [id number] FUTURE VITAMIN B12 BLOOD [SQB12] Order #: [id number] FUTURE Prescriptions as of 08/31/2017 Sig: LORAZEPAM [...] MD SunAug 31, 2017 10:39 AM [facility] Problem [facility] As Of Date 08/31/2017 Noted Resolved TOBACCO USE DISORDER [F17.200] INVALID FOR* Unspecified Asthma [J45.909] INVALID FOR* More... Dysmenorrhea [N94.6] INVALID FOR*06/28/2009 Other and Unspecified Noninfectious Gastroenter*INVALID FOR*06/28/2009 Esophageal Reflux [K21.9] More... Diarrhea [R19.7] INVALID FOR* More... HYPERCALCEMIA [E83.52] INVALID FOR* Myalgia and myositis, unspecified [MOE2885] INVALID FOR*11/30/2016 More... Headache [R51] INVALID FOR* [...] METABOLIC Collected: 08/30/2017 Status: F Source: [place] 4:13 PM [facility] REPOSITORY TYPE CODE TESTS RESULT OUT [...] #### L500.4050, L500.4100, L503.6075, L503.6150, L503.6550 #### [facility] [address] [place], [place], [id number] LIPID PROFILE Collected: 08/30/2017 Status: F Source: [place] 4:13 PM [facility] REPOSITORY TYPE CODE TESTS RESULT OUT [...] #### L500.4050, L500.4100, L503.6075, L503.6150, L503.6550 #### [facility] [address] [facility] [place], [place], [id number] IRON BINDING Collected: 08/30/2017 Status: F [facility] REPOSITORY TYPE CODE TESTS RESULT OUT OF RANGE REFERENCE UNITS LAB L503.6075 250-450 ug/dL High TIBC 479 Performed By: #### L500.4050, L500.4100, L503.6075, L503.6150, L503.6550 #### [facility] [address] [place] [address] [place], [address] IRON Collected: 08/30/2017 Status: F Source: [place] 4:13 PM [facility] REPOSITORY TYPE CODE TESTS RESULT OUT OF RANGE REFERENCE UNITS LAB L503.6150 50-170 ug/dL Normal IRON 53 Performed By: #### L500.4050, L500.4100, L503.6075, L503.6150, L503.6550 #### [facility] [address] [place], [address] FERRITIN Collected: 08/30/2017 Status: F Source: [place] 4:13 PM [facility] REPOSITORY TYPE CODE TESTS RESULT OUT OF REFERENCE UNITS RANGE LAB L503.6550 8-252 ng/mL Low FERRITIN 6 Performed By: #### L500.4050, L500.4100, L503.6075, L503.6150, L503.6550 #### [facility] [address] [place], [address] VITAMIN D,25 HYDROXY Collected: 08/30/2017 Status: F Source: [place] 4:13 PM [facility] REPOSITORY TYPE CODE TESTS RESULT OUT OF REFERENCE UNITS RANGE LAB L506.1000 29.95-100.01 ng/mL Low Vitamin D 9.5 25-OH Result Comment: Vitamin D 25(OH) Status Range Deficiency <20 ng/mL (50nmol/L) Insuffciency 20 - 30 ng/mL (50 - 75 nmol/L) Sufficiency 30 - 100 ng/mL (75 - 250 nmol/L) Toxicity >100 ng/mL (>250 nmol/L) Performed By: #### L506.1000 #### [facility] [address] [place], [address] COMP METABOLIC PANEL Collected: 08/30/2017 Status: F Source: [place] 11:05 AM [facility] REPOSITORY TYPE CODE TESTS RESULT OUT OF REFERENCE UNITS RANGE LAB TP 6.3-8.0 g/dL Test sent to [facility]. Result Comment: Account Credited HIDE LAB ALB 3.9-4.9 g/dL Test Albumin sent to [facility]. Result Comment: Account Credited HIDE LAB CA 8.5-10.2 mg/dL Test Calcium, Total sent to [facility]. Result Comment: Account Credited HIDE LAB TBIL 0.2-1.3 mg/dL Bilirubin, Test Total sent to [facility]. Result Comment: Account Credited HIDE LAB ALKP 32-117 U/L Alkaline Test Phosphatase sent to [facility]. Result Comment: Account Credited HIDE LAB AST 13-35 U/L Test sent AST to [facility]. Result Comment: Account Credited HIDE LAB GLU 74-99 mg/dL Test sent Glucose to [facility]. Result Comment: Account Credited HIDE LAB BUN 7-21 mg/dL Test sent BUN to [facility]. Result Comment: Account Credited HIDE LAB CRET 0.58-0.96 mg/dL Creatinine Test sent to [facility]. Result Comment: Account Credited HIDE LAB NA 136-144 mmol/L Test Sodium sent to [facility]. Result Comment: Account Credited HIDE LAB K 3.7-5.1 mmol/L Test Potassium sent to [facility]. Result Comment: Account Credited HIDE LAB CL 97-105 mmol/L Test Chloride sent to [facility]. Result Comment: Account Credited HIDE LAB CO2 22-30 mmol/L Test sent CO2 to [facility]. Result Comment: Account Credited HIDE LAB AGAP 9-18 mmol/L Test sent Anion Gap to [facility]. Result Comment: Account Credited HIDE LAB ALT 7-38 U/L Test sent to ALT [facility]. Result Comment: Account Credited HIDE LAB GFRAA eGFR- Amer. Test sent to [facility]. Result Comment: Account Credited HIDE LAB GFRNAA . eGFR-All Test sent Other Races to [facility]. Result Comment: Account Credited HIDE LAB GFRPED eGFR-Ped. Test sent Factor to [facility]. Result Comment: Account Credited MARLENAE FERRITIN Collected: 08/30/2017 Status: F Source: [place] 11:05 AM [facility] REPOSITORY TYPE CODE TESTS RESULT OUT OF REFERENCE UNITS RANGE LAB FERR 14.7-205.1 ng/mL Test Ferritin sent to [facility]. Result Comment: Account Credited MARLENAE IRON AND TIBC Collected: 08/30/2017 Status: F Source: [place] 11:05 AM [facility] [facility] REPOSITORY TYPE CODE TESTS RESULT OUT OF REFERENCE UNITS RANGE LAB IRN 41-186 ug/dL Test Iron sent to [facility]. Result Comment: Account Credited MAR[facility]NAE LAB TIBC 232-386 ug/dL Test sent TIBC to [facility]. Result Comment: Account Credited [facility] LAB SAT 15-57 % Transferrin Test sent Saturatn to [facility]. Result Comment: Account Credited [facility] LIPID PANEL, BASIC Collected: 08/30/2017 Status: F Source: [place] 11:05 [facility] REPOSITORY TYPE CODE TESTS RESULT OUT OF REFERENCE UNITS RANGE LAB CHOL <200 mg/dL Cholesterol Test sent to [facility]. Result Comment: Account Credited [facility] LAB TRIGLY <150 mg/dL Triglyceride Test sent to [facility]. Result Comment: Account Credited [facility] LAB HDL >39 mg/dL HDL-Cholesterol Test sent to [facility]. Result Comment: Account Credited [facility] LAB LDL <100 mg/dL LDL-Cholesterol Test sent to [facility]. Result Comment: Account Credited [facility] LAB NONHDL 90-159 mg/dL Non HDL Test Cholesterol sent to [facility]. Result Comment: Account Credited [facility] LAB FT hrs Fasting Time 0 LAB VLDL <30 mg/dL VLDL Cholesterol Test sent to [facility]. Result Comment: Account Credited [facility] LAB TCHDL <5.10 Test sent TC:HDL Ratio to [facility]. Result Comment: Account Credited [facility] LAB LDLHDL <2.54 Test sent LDL:HDL Ratio to [facility]. Result Comment: Account Credited [facility] VITAMIN D 25 HYDROXY Collected: 08/30/2017 Status: F Source: [place] 11:05 [facility] REPOSITORY TYPE CODE TESTS RESULT OUT OF REFERENCE UNITS RANGE LAB VITD 31.0-80.0 ng/mL Test Vitamin D 25 sent to [facility]. Result Comment: Account Credited BL[facility]A FINAL SURGICAL Observed: 07/23/2017 Status: F Source: [facility] PATHOLOGY REPORT 10:23 AM [facility] REPOSITORY . Pathology Reports Accession: Collected Date/Time: Received Date/Time: Pathologist: [id number] 07/23/2017 10:23 EST 07/24/2017 06:57 EST DO EMRE SCHREIBER Final Surgical Pathology Report DIAGNOSIS: A) TERMINAL ILEUM -- NO SPECIFIC HISTOPATHOLOGIC CHANGES. B) RIGHT AND LEFT COLON BIOPSIES -- NONSPECIFIC CHANGES. Mild chronic inflammation of the lamina propria. Although occasional intraepithelial lymphocytes are noted, they are quantitatively insufficient for a diagnosis of lymphocytic/collagenous colitis. COMMENT: [facility]# [id number] CLINICAL INFORMATION: Procedure: COLONOSCOPY Preoperative diagnosis: ABDOMINAL [...] A S -1 Dictated by ROSLYN JIMENES ([facility]) MICROSCOPIC DESCRIPTION: A&B) Slides reviewed. Electronically Signed by Pathology Report verified by [facility] Electronically signed by EMRE SCHREIBER DO Sign out Date: 07/25/2017 10:57 Performing Lab: [facility], [address] [place] [address] Performed By: #### SPFR #### [place] [address] ALLERGIES ALLERGIES DATE TYPE / CODE NAME / CODE REACTION SEVERITY SOURCE 05/24/20 Drug duloxetine Nausea/Vom/Diar Unknown [place] 18 Allergy/728257789 HCl/[id number](RXNO eagle [facility] (SNOMED CT) ) Hospital Repository 05/24/20 Drug codeine/[id number]( syncope Unknown [place] 18 Allergy/505778986 RXNORM) [facility] (OMED CT) Hospital Repository 05/24/20 Drug hydrocodone/P287140 Vomiting Unknown [place] 18 Allergy/016824466 554(RXNORM) [facility] ([facility]) Hospital Repository 05/24/20 Drug influenza virus syncope Unknown [place] 18 Allergy/571828198 vaccine, [facility] (SNOMED CT) specific/[id number] Hospital (RXNORM) Repository 05/24/20 Drug amitriptyline/F0060 Other Unknown [place] 18 Allergy/420231282 38273(RXNORM) [facility] (OMED CT) Hospital Repository 05/24/20 Drug levofloxacin/D29039 Nausea/Vom/Diar Unknown [place] 18 Allergy/221489417 6299(RXNORM) eagle [facility] ([facility]) Hospital Repository 05/24/20 Drug pineapple/[id number] Rash Unknown [place] 18 Allergy/699918926 8(RXNORM) [facility] ([facility] CT) Hospital Repository 05/24/20 Drug pregabalin/R9312676 Shortness of Unknown [place] 18 Allergy/899204985 83(RXNORM) [facility] (SNOMED CT) Hospital Repository 11/09/19 DRUG SUVOREXANT INTOLERANCE [place] 16 INGREDI/663067032 Clinic Main (SNOMED CT) [place] Repository 09/11/19 DRUG/691612970(SN ADHESIVE RASH [place] [address]) TAPE-SILICONES Clinic Main [place] Repository 09/11/19 DRUG HYDROCORTISONE OTHER: SEE C [place] 15 INGREDI/795625770 Clinic Main (SNOMED CT) [place] Repository 07/24/19 DRUG FLUDROCORTISONE Mental Chg [place] 14 INGREDI/961119622 Clinic Main (SNOMED CT) [place] Repository 11/06/19 DRUG BACLOFEN SHORTNESS OF [place] 13 INGREDI/505826680 Clinic Main (SNOMED CT) [place] Repository 11/06/19 DRUG/427311734(SN LOWOWMI-CXJWRZGPS-P [place] OF [place] [address]) CETAMINOPHN Clinic Main [place] Repository 11/06/19 DRUG PYRIDOSTIGMINE SHORTNESS OF [place] 13 INGREDI/032091873 Clinic Main (SNOMED CT) [place] Repository 06/28/19 DRUG PINEAPPLE RASH [place] 10 INGREDI/831690300 Clinic Main (SNOMED CT) [place] Repository 07/08/19 DRUG PREGABALIN INTOLERANCE [place] 08 INGREDI/892137967 Clinic Main (SNOMED CT) [place] Repository 04/16/20 Miscellaneous OTHER ANAPHYLAXIS [place] 07 Allergy/937959334 Clinic Main (SNOMED CT) [place] Repository 03/19/20 DRUG AMITRIPTYLINE INTOLERANCE [place] 07 INGREDI/268549200 Clinic Main (SNOMED CT) [place] Repository 12/30/19 DRUG LEVOFLOXACIN GI UPSET [place] 06 INGREDI/967669152 Clinic Main (SNOMED CT) [place] Repository 10/28/19 DRUG CODEINE INTOLERANCE High [place] 06 INGREDI/842413167 [facility] Main (SNOMED CT) [place] Repository ENCOUNTERS ENCOUNTERS ADMIT/DISCHARGE ACCOUNT NUMBER ADMITTING ENCOUNTER LOCATION SOURCE CLASS 06/07/2018/07/01/19 [id number] Ambulatory [place] 19 [facility] Main [place] Repository 06/05/2018 [id number] Ambulatory Cele [facility] ding:LABSPEC Repository 06/05/2018/06/05/20 [id number] Ambulatory [address] Main [place] Repository 05/24/2018 [id number] Agyeponskyler, Ambulatory BMSBuilding: Cele [place] BMS.[facility] Repository 05/24/2018 [id number] Agyepong, Ambulatory BMSBuilding: Cele [place] BMS.[facility] Repository 05/24/2018/05/25/20 [id number] Agyepong, Ambulatory [address] ding:PCURoom Repository : [id number]: 1 03/13/2018/03/27/20 [id number] Ambulatory [address] Main [place] Repository 01/24/2018/01/25/20 [id number] Ambulatory [address] Main [place] Repository 01/24/2018/01/25/20 [id number] Ambulatory [address] Main [place] Repository 01/24/2018/01/25/20 [id number] Ambulatory [address] Main [place] Repository 01/22/2018/01/23/20 [id number] Ambulatory [address] Main [place] Repository 01/22/2018/01/23/20 [id number] Ambulatory [address] Main [place] Repository 01/07/2018 [id number] Ambulatory [facility] Main [place] Repository 12/03/2017/12/05/19 [id number] Ambulatory [address] Main [place] Repository 11/26/2017/11/27/19 [id number] Ambulatory [address] Main [place] Repository 11/26/2017 [id number] Ambulatory [facility] ding:LABSPEC Repository 08/31/2017/09/05/19 [id number] Ambulatory [address] Main [place] Repository 08/30/2017 [id number] Ambulatory [facility] ding:LABSPEC Repository 08/30/2017/08/31/19 [id number] Ambulatory [address] [place] Repository 07/23/2017/07/23/19 [id number] Ambulatory BBuilding:JYOTSNA Macdonald [address] [place] [address] Repository PAYERS PAYERS ENCOUNTER GUARANTOR PAYER SUBSCRIBER SOURCE 06/05/2018 CHERI Oakley [id number] Insurance:SUMMA CARE MILETTODOB: Community [place] [id number] Number: Repository [id number]: (330 [id number] [phone] (HP) Date:2094-16-80ZA [facility] [facility] [place] [address]GQ: 06/05/2018 Secondary NOT GIVENUNK [place] Insurance:SELF PAY [facility] ([place], [place]) Number: Effective Repository Date:2018-06-05 05/24/2018 CHERI Cade Primary CHERI Oakley [id number] Insurance:SUMMA CARE MILETTODOB: Community [place] [id number] Number: Repository [phone]: (330 [id number] [phone] (HP) Date:9166-50-31XF [address] [place] [address]UR: 05/24/2018 Secondary NOT GIVENUNK Cele Insurance:SELF PAY [facility] ([place], [place]) Number: Effective Repository Date:2018-05-24 05/24/2018 CHERI Cade [facility] CHERI M Cele [id number] Insurance:SUMMA CARE MILETTODOB: Community [place] [id number] Number: Repository [id number]: 330 [id number] [phone] (HP) Date:2495-16-37SN [address] [place] [address]LA: 05/24/2018 Secondary NOT GIVENUNK [place] Insurance:SELF PAY [facility] ([place], [place]) Number: Effective Repository Date:2018-05-24 05/24/2018 CHERI Cade [facility] CHERI M [place] [id number] Insurance:[facility] MILETTODOB: Community [place] [id number] Number: Repository [address]Har: 330 [id number] [phone] (HP) Date:7244-48-83BD [address] [place] [address]RX: 05/24/2018 Secondary NOT GIVENUNK [place] Insurance:SELF PAY [facility] ([place], [place]) Number: Effective Repository Date:2018-05-24 11/26/2017 CHERI Alyssia Primary CHERI Oakley [id number] Insurance:[facility]: Community [place] [id number] [place] Number: Repository [phone]: 330 [id number] [phone] (HP) Date:7153-41-30FB [address] [facility] [place] [address]PT: 11/26/2017 Secondary NOT GIVENUNK Cele Insurance:SELF PAY [facility] ([place], [place]) Number: Effective Repository Date:2017-11-26 08/30/2017 CHERI Alyssia Primary CHERI [id number] Insurance:[facility] Community [place] [id number] Number: Repository [address]Tac: (330 [id number] [phone] (HP) Date:7449-14-10GW [address] [facility] [place] [place] [address]NP: 08/30/2017 Secondary NOT GIVENUNK Cele Insurance:SELF PAY [facility] ([place], [place]) Number: Effective Repository Date:2017-08-30 07/23/2017 CHERI VASQUESTELLYOB: Primary [facility]: [facility] [id number] Insurance:[facility] [id number] Foundation [place] HMOPolicy [place] Repository [place], [place] Number: [place], [place] [address]Jzg: 330 [id number] [phone]: (HP) Date:2017-07-23556 (HP)Tel: [phone] Name:[place]IA [place] (WP) [place] [address]GO:
== END ==
PROVIDERS: Family Provider Internal Medicine; PCP Internal Medicine; Referring Provider Internal Medicine; Visit Provider Internal Medicine
DX: E87.6 Hypokalemia (principal); D51.0 Vitamin B12 deficiency anemia due to intrinsic factor deficiency; D50.9 Iron deficiency anemia, unspecified; Z79.899 Other long term (current) drug therapy
CPT/HCPCS: 80048; 83036; 85027

== ENCOUNTER 2018-12-30 17:52 | Emergency (ER) | payer MEDICARE, SELFPAY ==
[2018-05-24 22:40] VITALS: BMI 17.1
[2018-12-30 17:52] VITALS: BP 127/74; PULSE 77; RESP 14; TEMP 36.6; O2SAT 98; BMI 18.6
[2018-12-30 18:35] LABS: Absolute Lymphocyte Count 2.24 X10^3/ul (0.83-4.51); Absolute Neutrophil Count 2.5 X10^3/uL (2.0-7.7); Basophil# 0.07 X10^3/uL; Basophil% 1.3 % (0-1); Eosinophils% 5.5 % (0-5); Hematocrit 38.6 % (37-47); Hemoglobin 12.1 g/dl (12.0-15.0); Lymphocyte # 2.24 X10^3/ul (4.0); Lymphocyte % 40.7 % (19-41); Mean Corp Hgb Conc 31.3 g/gl (32-36); Mean Corpuscular Hgb 26.5 pg (27.0-32.0); Mean Corpuscular Volume 84.6 fL (81-99); Mean Platelet Vol. 8.8 fl (6.2-12.0); Monocyte% 7.3 % (0-10); Neutrophil # 2.48 X10^3/uL (2.7-7.7); Platelet Count 344 K/mm3 (150-450); RBC Distribution Width CV 12.9 % (11.6-14.6); RBC Distribution Width SD 39.9 fl (35.1-43.9); Red Blood Count 4.56 M/mm3 (4.2-5.4); White Blood Count 5.5 K/mm3 (4.4-11.0)
[2018-12-30 18:39] LABS: POSITIVE COUNT NO; POSITIVE DIFFERENTIAL NO; POSITIVE MORPHOLOGY NO
[2018-12-30 18:44] LABS: Anion Gap 5 (5-15); BUN 22 mg/dL (7-18); BUN/Creat Ratio 16.5 RATIO (10-20); Calcium,Total 8.9 mg/dL (8.5-10.1); Chloride 108 mmol/L (98-107); Creatinine, Serum 1.33 mg/dL (0.55-1.02); EST Glomerular Filtration Rate 44 mL/min (>60); Est Glom Filt Rate - Afr Amer 53 mL/min (>60); Estimated Creatinine Clearance 39.23 ml/min; Glucose 85 mg/dL (74-106); Iron 54 ug/dL (50-170); Iron Binding Capacity,Total 555 ug/dL (250-450); PERCENT IRON SATURATION 9.7 % (15.0-55.0); Potassium 3.9 mmol/L (3.5-5.1); Sodium Level 138 mmol/L (136-145)
--- NOTE | 2018-12-30 19:17 | ED.VIS.GEN ---
History of Present Illness Chief Complaint: Abn Labs Narrative: Patient presenting secondary to abnormal lab results. Patient reports that she has a history of iron deficiency anemia secondary to underlying medical issues. She reports that she had normal screening labs secondary to having increasing generalized weakness. She reports that she was called by primary care stating that she probably needs a transfusion and iron as she has critically low iron. Patient has been reporting that she is generally fatigued. She denies any blood in her stool. She denies any fevers or infectious signs or symptoms. Past Medical History - Allergies and Home Meds Allergies/Adverse Reactions: Allergies codeine Allergy (Verified 12/30/18 17:54) syncope duloxetine HCl [From Cymbalta] Allergy (Verified 12/30/18 17:54) Nausea/Vom/Diarrhea influenza virus vaccine, specific [Influenza Virus Vacc,Specific] Allergy (Verified 12/30/18 17:54) syncope pineapple [Pineapple] Allergy (Verified 12/30/18 17:54) Rash pregabalin [From Lyrica] Allergy (Verified 12/30/18 17:54) Shortness of breath amitriptyline Adverse Reaction (Verified 12/30/18 17:54) Other hydrocodone Adverse Reaction (Verified 12/30/18 17:54) Vomiting levofloxacin [From Levaquin] Adverse Reaction (Verified 12/30/18 17:54) Nausea/Vom/Diarrhea Primary Care Physician: Nena Velez MD [Primary Care Provider] - As Needed Surgical History: appendectomy, cholecystectomy, hysterectomy, - - Arnold-Chiari malformation surgery; expiratory laparoscopy x3; left oophorectomy; and right tuboplasty. Smoking Status: Current every day smoker Review of Systems All systems negative except as indicated General: Reports: Malaise Physical Exam Vital Signs/Narrative: Vital Signs Temp Pulse Resp BP Pulse Ox 12/30/18 17:52 97.9 F 77 14 127/74 H 98 General: Cachectic Head: Normocephalic, Atraumatic Eyes: Perrl, EOMI. Negative for: Pale conjunctiva, Scleral icterus ENT: Dry mucous membranes, - Neck: Supple, Nontender Cardiovascular: Regular rate, Regular rhythm Respiratory: No distress, CTA bilaterally Abdomen: Soft, Nontender Back: Nontender Extremities: Nontender Skin: Normal color, No rash Neurological: Alert, Oriented x3 Psychological: Normal affect Diagnostic/Tx/Re-eval - Medical Decision Making Patient presented due to concern for abnormal labs. Patient's hemoglobin was found to be within normal limits. Total iron was normal, binding capacity was mildly elevated. Patient appears otherwise stable. It was noted prior to discharge that the patient had some hypotension, which she states is not unusual for her with her underlying medical issues. I see no reason for inpatient management. I did contact the covering physician for the patient's primary care doctor who will leave a message with the office. Patient will follow-up as needed. ED Disposition - Plan for ED Patient: Disposition: Home or Assisted Living Diagnosis: Low iron Instructions: Iron and Total Iron-Binding Capacity Referrals: Nena Velez MD [Primary Care Provider] - As Needed
--- NOTE | 2018-12-30 19:57 | ED.RN ---
DR ZHENG MADE AWARE OF PT'S BP 90/61 AND HEART RATE 47.NO NEW ORDERS.
[2018-12-30 19:58] VITALS: BP 90/61; PULSE 47; RESP 18; O2SAT 95
== END 2018-12-30 19:59 | disposition home or self-care (01) ==
PROVIDERS: Emergency Provider Emergency Medicine; Family Provider Internal Medicine; PCP Internal Medicine
DX: D50.9 Iron deficiency anemia, unspecified (principal); F17.200 Nicotine dependence, unspecified, uncomplicated
CPT/HCPCS: 80048; 83540; 83550; 85025; 86850; 86900; 99284; A4216

== ENCOUNTER → 2019-01-02 12:00 | Outpatient (CLI) | payer MEDICARE, SELFPAY ==
[2018-12-30 17:52] VITALS: BMI 18.6
[2019-01-02 12:19] VITALS: BP 107/68; PULSE 62; RESP 16; TEMP 36.1; O2SAT 99; BMI 17.1
== END ==
PROVIDERS: Family Provider Internal Medicine; PCP Internal Medicine; Referring Provider Internal Medicine; Visit Provider Internal Medicine
DX: D50.9 Iron deficiency anemia, unspecified (principal); N18.3 Chronic kidney disease, stage 3 (moderate); G90.3 Multi-system degeneration of the autonomic nervous system; D51.0 Vitamin B12 deficiency anemia due to intrinsic factor deficiency
CPT/HCPCS: 96374; J1756; A4216

== ENCOUNTER → 2019-01-07 15:18 | Outpatient (CLI) | payer MEDICARE, SELFPAY ==
[2019-01-02 12:19] VITALS: BMI 17.1
[2019-01-07 15:28] VITALS: BP 101/70; PULSE 66; RESP 16; TEMP 36.5; O2SAT 96; BMI 17.1
== END ==
PROVIDERS: Family Provider Internal Medicine; PCP Internal Medicine; Referring Provider Internal Medicine; Visit Provider Internal Medicine
DX: D50.8 Other iron deficiency anemias (principal); N18.3 Chronic kidney disease, stage 3 (moderate)
CPT/HCPCS: 96365; J1756; J7050; A4216

== ENCOUNTER → 2019-01-10 13:26 | Outpatient (CLI) | payer MEDICARE, SELFPAY ==
[2019-01-07 15:28] VITALS: BMI 17.1
[2019-01-10 13:40] VITALS: BP 112/67; PULSE 62; RESP 16; TEMP 36.3; O2SAT 100; BMI 17.1
== END ==
PROVIDERS: Family Provider Internal Medicine; PCP Internal Medicine; Referring Provider Internal Medicine; Visit Provider Internal Medicine
DX: N18.3 Chronic kidney disease, stage 3 (moderate) (principal); D50.8 Other iron deficiency anemias
CPT/HCPCS: 96365; J1756; J7050; A4216

== ENCOUNTER → 2019-01-13 13:31 | Outpatient (CLI) | payer MEDICARE, SELFPAY ==
[2019-01-07 15:28] VITALS: BMI 17.1
[2019-01-10 13:40] VITALS: BMI 17.1
[2019-01-13 14:19] VITALS: BP 121/78; PULSE 52; RESP 18; TEMP 36.8; BMI 17.1
== END ==
PROVIDERS: Family Provider Internal Medicine; PCP Internal Medicine; Referring Provider Internal Medicine; Visit Provider Internal Medicine
DX: D50.8 Other iron deficiency anemias (principal); N18.3 Chronic kidney disease, stage 3 (moderate)
CPT/HCPCS: 96365; J1756; J7050; A4216

== ENCOUNTER → 2019-01-15 13:39 | Outpatient (CLI) | payer MEDICARE, SELFPAY ==
[2019-01-07 15:28] VITALS: BMI 17.1
[2019-01-13 14:19] VITALS: BMI 17.1
[2019-01-15 13:57] VITALS: BP 109/73; PULSE 98; RESP 15; TEMP 36.3; O2SAT 100; BMI 17.4
== END ==
PROVIDERS: Family Provider Internal Medicine; PCP Internal Medicine; Referring Provider Internal Medicine; Visit Provider Internal Medicine
DX: D50.8 Other iron deficiency anemias (principal); N18.3 Chronic kidney disease, stage 3 (moderate)
CPT/HCPCS: 96365; J1756; A4216

== ENCOUNTER → 2019-01-17 13:33 | Outpatient (CLI) | payer MEDICARE, SELFPAY ==
[2019-01-07 15:28] VITALS: BMI 17.1
[2019-01-15 13:57] VITALS: BMI 17.4
[2019-01-17 13:41] VITALS: BP 117/76; PULSE 47; RESP 16; TEMP 36.6; O2SAT 100; BMI 17.1
== END ==
PROVIDERS: Family Provider Internal Medicine; PCP Internal Medicine; Referring Provider Internal Medicine; Visit Provider Internal Medicine
DX: D50.8 Other iron deficiency anemias (principal); N18.3 Chronic kidney disease, stage 3 (moderate)
CPT/HCPCS: 96365; J1756; J7050; A4216

== ENCOUNTER 2019-11-24 15:19 | Emergency (ER) | payer MEDICARE, SELFPAY ==
[2019-01-17 13:41] VITALS: BMI 17.1
[2019-11-24] VITALS (11 sets, daily range): BP systolic 68–99; BP diastolic 6–74; PULSE 64–95; RESP 12–18; TEMP 36.8–37.1; O2SAT 96–100; BMI 18.7
--- NOTE | 2019-11-24 16:11 | EKG12_ITS ---
Test Reason : FEVER Blood Pressure : / mmHG Vent. Rate : 070 BPM Atrial Rate : 071 BPM P-R Int : 000 ms QRS Dur : 084 ms QT Int : 404 ms P-R-T Axes : 000 034 217 degrees QTc Int : 436 ms [address] Junctional rhythm ST & T wave abnormality, consider inferior ischemia ST & T wave abnormality, consider anterolateral ischemia Abnormal ECG Confirmed by TRISTON CARDOZO ([id number]), editor publications ANDRZEJ DUGGAN ([id number]) on 12/04/2019 7:48:53 AM Referred By: Confirmed By:TRISTON CARDOZO
--- NOTE | 2019-11-24 16:12 | ED.RN ---
dr. arita aware of pt bp, pt is resting in a position of comfort with no further needs at this time. will continue to monitor pt.
--- NOTE | 2019-11-24 16:13 | ED.DCSUM_ITS ---
History of Present Illness Chief Complaint: Fever Informant: Patient Narrative: Patient states for the past 3 weeks she has not felt right. He and yesterday she states she has had vomiting no change in her chronic diarrhea. She also notes a sore throat generalized myalgias swollen glands headache lower than normal blood pressure. She takes hydrocortisone daily. She states she feels like she is low on iron. She also notes a cough some shortness of breath. Past Medical History - Allergies and Home Meds Allergies/Adverse Reactions: Allergies codeine Allergy (Verified 11/24/19 15:41) syncope duloxetine HCl [From Cymbalta] Allergy (Verified 11/24/19 15:41) Nausea/Vom/Diarrhea influenza virus vaccine, specific [Influenza Virus Vacc,Specific] Allergy (Verified 11/24/19 15:41) syncope pineapple [Pineapple] Allergy (Verified 11/24/19 15:41) Rash pregabalin [From Lyrica] Allergy (Verified 11/24/19 15:41) Shortness of breath amitriptyline Adverse Reaction (Verified 11/24/19 15:41) Other hydrocodone Adverse Reaction (Verified 11/24/19 15:41) Vomiting levofloxacin [From Levaquin] Adverse Reaction (Verified 11/24/19 15:41) Nausea/Vom/Diarrhea Primary Care Physician: Nena Velez MD [Primary Care Provider] - 3-5 Days Surgical History: appendectomy, cholecystectomy, hysterectomy, - - Arnold-Chiari malformation surgery; expiratory laparoscopy x3; left oophorectomy; and right tuboplasty. Smoking Status: Current every day smoker Review of Systems General: Reports: Chills, Malaise. Denies: Fever, Sweats Eyes: Denies: Visual changes - bilaterally, Diplopia ENT: Denies: Rhinorrhea, Sore throat Cardiovascular: Denies: Chest pain, Palpitations Respiratory: Reports: Dyspnea, Cough. Denies: Dyspnea on exertion Gastrointestinal: Reports: Nausea, Vomiting. Denies: Abdominal pain, Diarrhea, Melena, Hematochezia Genitourinary: Denies: Dysuria, Hematuria, Frequency Musculoskeletal: Reports: Myalgias, Arthralgias. Denies: Back pain, Extremity Pain Skin: Denies: Rash, Wounds Neurological: Reports: Headache. Denies: Parasthesia, Numbness Physical Exam Vital Signs/Narrative: Vital Signs Temp Pulse Resp BP Pulse Ox 11/24/19 16:12 64 16 78/53 L 98 11/24/19 15:48 98.3 F 95 18 68/45 L 96 11/24/19 15:21 98.3 F 95 18 68/45 L 96 Inital Vital Signs reviewed: Yes General: Well nourished, Well developed, No Acute Distress Head: Normocephalic, Atraumatic Eyes: Perrl, EOMI ENT: Moist mucous membranes, No rhinorrhea Neck: Supple, Nontender Cardiovascular: Regular rate, Regular rhythm, No murmurs, - - Patient with less than 2-second capillary refill Respiratory: No distress, CTA bilaterally, Chest nontender Abdomen: Soft, Nontender, Nondistended, Normal bowel sounds Back: Nontender, Normal Inspection Extremities: Nontender, No edema Skin: Normal color, No rash, - - Normal skin turgor Neurological: Alert, Oriented x3, Cranial nerves II-XII grossly intact, Normal Strength, Normal Sensation Psychological: Normal affect, Normal Mood Diagnostic/Tx/Re-eval Clinical Impression(s) from Imaging Studies Chest X-Ray 11/24/19 16:30 IMPRESSION: Normal x-ray examination of the chest. Electronically Signed: Corey Gruber MD at 17:02 EDT , Service support , Laboratory Last Values WBC 9.8 K/mm3 (4.4-11.0) 11/24/19 16:35 RBC 4.53 M/mm3 (4.2-5.4) 11/24/19 16:35 Hgb 12.5 g/dL (12.0-15.0) 11/24/19 16:35 Hct 40.7 % (37-47) 11/24/19 16:35 MCV 89.8 fL (81-99) 11/24/19 16:35 MCH 27.6 pg (27.0-32.0) 11/24/19 16:35 MCHC 30.7 g/dL (32-36) L 11/24/19 16:35 RDW Std Deviation 42.3 fl (35.1-43.9) 11/24/19 16:35 RDW Coeff of Honorio 12.7 % (11.6-14.6) 11/24/19 16:35 Plt Count 265 K/mm3 (150-450) 11/24/19 16:35 MPV 8.8 fl (6.2-12.0) 11/24/19 16:35 Immature Gran % (Auto) 0.300 % (0.0-0.9) 11/24/19 16:35 Neut % (Auto) 91.0 % (47-70) H 11/24/19 16:35 Lymph % (Auto) 4.5 % (19-41) L 11/24/19 16:35 [place] % (Auto) 4.0 % (0-10) 11/24/19 16:35 Eos % (Auto) 0.0 % (0-5) 11/24/19 16:35 Baso % (Auto) 0.2 % (0-1) 11/24/19 16:35 Absolute Neuts (auto) 8.9 X10^3/uL (2.0-7.7) H 11/24/19 16:35 Absolute Lymphs (auto) 0.44 X10^3/uL (0.83-4.51) L 11/24/19 16:35 Nucleated RBC % 0 % (0-5) 11/24/19 16:35 Differential Comment 11/24/19 16:35 Platelet Estimate ADEQUATE (ADEQ) 11/24/19 16:35 RBC Morphology NORM C+C NORMAL (NORM C&C) 11/24/19 16:35 PT 12.7 SECONDS (11.7-14.9) 11/24/19 16:35 INR 1.0 11/24/19 16:35 APTT 25.9 Seconds (24.1-36.2) 11/24/19 16:35 Sodium 136 mmol/L (136-145) 11/24/19 16:35 Potassium 3.0 mmol/L (3.5-5.1) L 11/24/19 16:35 Chloride 102 mmol/L (98-107) 11/24/19 16:35 Carbon Dioxide 26.0 mmol/L (21.0-32.0) 11/24/19 16:35 Anion Gap 8 (5-15) 11/24/19 16:35 BUN 21 mg/dL (7-18) H 11/24/19 16:35 Creatinine 1.31 mg/dL (0.55-1.02) H 11/24/19 16:35 Estim Creat Clear Calc 38.41 ml/min 11/24/19 16:35 Est GFR (MDRD) Af Amer 53 mL/min (>60) L 11/24/19 16:35 Est GFR (MDRD) Non-Af 44 mL/min (>60) L 11/24/19 16:35 BUN/Creatinine Ratio 16.0 RATIO (10-20) 11/24/19 16:35 Glucose 141 mg/dL (74-106) H 11/24/19 16:35 Lactic Acid 1.6 mmol/L (0.4-1.9) 11/24/19 16:35 Calcium 8.8 mg/dL (8.5-10.1) 11/24/19 16:35 Total Bilirubin 0.50 mg/dL (0.20-1.00) 11/24/19 16:35 AST 36 U/L (15-37) 11/24/19 16:35 ALT 25 U/L (13-56) 11/24/19 16:35 Alkaline Phosphatase 83 U/L (45-117) 11/24/19 16:35 Troponin I < 0.015 ng/mL (<0.045) 11/24/19 16:35 Total Protein 7.1 g/dL (6.4-8.2) 11/24/19 16:35 Albumin 3.0 g/dL (3.2-5.0) L 11/24/19 16:35 Globulin 4.1 g/dL (2.2-4.2) 11/24/19 16:35 Albumin/Globulin Ratio 0.7 RATIO (0.9-2.4) L 11/24/19 16:35 Urine Color Yellow (Yellow) 11/24/19 19:03 Urine Clarity Clear (Clear) 11/24/19 19:03 Urine pH 6.0 (5.0 - 8.0) 11/24/19 19:03 Ur Specific Rosie 1.020 (1.002-1.030) 11/24/19 19:03 Urine Protein 30 mg/dl (Negative) H 11/24/19 19:03 Urine Glucose (UA) Normal mg/dl (Normal) 11/24/19 19:03 Urine Ketones 5 mg/dl (Negative) H 11/24/19 19:03 Urine Occult Blood Negative /ul (Negative) 11/24/19 19:03 Urine Nitrite Negative (Negative) 11/24/19 19:03 Urine Bilirubin 6 mg/dL (Negative) H 11/24/19 19:03 Urine Urobilinogen 4 mg/dl (Normal) H 11/24/19 19:03 Ur Leukocyte Esterase 100 /ul (Negative) H 11/24/19 19:03 Urine RBC 0-5 SEEN /hpf (0-5) 11/24/19 19:03 Urine WBC 0-5 SEEN /hpf (0-5) 11/24/19 19:03 Ur Squamous Epith Cells 0-5 SEEN /hpf (5-10) 11/24/19 19:03 Ur Transition Epith Cell 0-5 SEEN /hpf (0-5) 11/24/19 19:03 Urine Bacteria 0 SEEN /hpf (None Seen) 11/24/19 19:03 Hyaline Casts 10-25 SEEN /lpf (0-5) 11/24/19 19:03 Urine Mucus 2+ /hpf (<or=2+) 11/24/19 19:03 - EKG Initial EKG Interpretation: - - EKG shows a regular narrow complex rhythm at a rate of 70. This appears grossly unchanged from 24 May 2018 - Medical Decision Making Overall patient's labs look good. Potassium is little bit low at 3. This can be replaced. Her blood pressure was very fluid responsive and now her blood pressure is normalized to a level that is normal for her. The patient also received stress dose hydrocortisone injection. She is developed diarrhea. Think this is more of a viral gastroenteritis though the COVID is pending. I think it is reasonable that we discharge her as she is overall feeling better would like to go home. I will write for Lesly would recommend some Imodium return if worsening or concerns ED Disposition - Plan for ED Patient: Disposition: Home or Assisted Living Diagnosis: Gastroenteritis, Hypotension, Dehydration Instructions: ED Dehydration Adult, ED Viral Gastroenteritis Prescriptions: Potassium Chloride [K-Dur] 40 meq PO DAILY #10 tab Prescription Printed Ondansetron [Zofran Odt] 4 mg PO Q6H PRN PRN #20 tab PRN Reason: Nausea Prescription Printed Referrals: Nena Velez MD [Primary Care Provider] - 3-5 Days
--- NOTE | 2019-11-24 16:30 | RAD_ITS ---
STUDY: X-RAY CHEST REASON FOR EXAM: Female, 59 years old. FEVER, COUGH, CHILLS, SORE THROAT TECHNIQUE: Single AP portable view of the chest. COMPARISON: November 23, 2010 FINDINGS: The lungs are clear and expanded. There is no demonstrated pleural abnormality. Normal size heart. Normal mediastinum and jailyn. Normal visualized pulmonary arteries. Normal visualized aortic arch and descending thoracic aorta. Normal visualized thoracic spine. Normal visualized ribs, clavicles, and shoulders. There is no demonstrated abnormality of the visualized soft tissue structures of the upper abdomen. RAD/Chest 1 View (Portable) IMPRESSION: Normal x-ray examination of the chest. Electronically Signed: Corey Gruber MD at 17:02 EDT , Service support ,
[2019-11-24 17:20] LABS: Absolute Lymphocyte Count 0.44 X10^3/uL (0.83-4.51); Absolute Neutrophil Count 8.9 X10^3/uL (2.0-7.7); Basophil# 0.02 X10^3/uL; Basophil% 0.2 % (0-1); Hematocrit 40.7 % (37-47); Hemoglobin 12.5 g/dL (12.0-15.0); Lymphocyte # 0.44 X10^3/ul (4.0); Lymphocyte % 4.5 % (19-41); Mean Corp Hgb Conc 30.7 g/dL (32-36); Mean Corpuscular Hgb 27.6 pg (27.0-32.0); Mean Corpuscular Volume 89.8 fL (81-99); Mean Platelet Vol. 8.8 fl (6.2-12.0); Monocyte# 0.39 X10^3/uL; NRBC Flagged by Analyzer 0 % (0-5); POSITIVE DIFFERENTIAL YES; Platelet Count 265 K/mm3 (150-450); RBC Distribution Width CV 12.7 % (11.6-14.6); RBC Distribution Width SD 42.3 fl (35.1-43.9); Red Blood Count 4.53 M/mm3 (4.2-5.4); White Blood Count 9.8 K/mm3 (4.4-11.0)
[2019-11-24 17:24] LABS: Prothrombin Time (Protime)PT. 12.7 SECONDS (11.7-14.9)
[2019-11-24 17:25] LABS: Partial Thromboplast Time 25.9 Seconds (24.1-36.2)
[2019-11-24] MEDS: 0.9% Normal Saline 1,000 ML 999 ML IV ×2 (17:28→18:49)
[2019-11-24 17:33] LABS: Lactic Acid 1.6 mmol/L (0.4-1.9)
[2019-11-24 17:34] LABS: Differential Indicated SCAN CRITERIA MET
[2019-11-24 17:38] LABS: ALB/GLOB Ratio 0.7 RATIO (0.9-2.4); AST(SGOT) 36 U/L (15-37); Alanine Aminotransfer ALT/SGPT 25 U/L (13-56); Alkaline Phosphatase 83 U/L (45-117); Anion Gap 8 (5-15); BUN 21 mg/dL (7-18); Calcium,Total 8.8 mg/dL (8.5-10.1); Chloride 102 mmol/L (98-107); Creatinine, Serum 1.31 mg/dL (0.55-1.02); EST Glomerular Filtration Rate 44 mL/min (>60); Est Glom Filt Rate - Afr Amer 53 mL/min (>60); Estimated Creatinine Clearance 38.41 ml/min; Globulin 4.1 g/dL (2.2-4.2); Glucose 141 mg/dL (74-106); Protein, Total 7.1 g/dL (6.4-8.2); Sodium Level 136 mmol/L (136-145)
[2019-11-24] MEDS: Ondansetron 4 MG/2 ML Vial IV (17:49)
[2019-11-24] MEDS: Ketorolac 30 MG/ML Syringe IV (17:50)
[2019-11-24 18:14] LABS: Platelet Estimate ADEQUATE (ADEQ); Red Cell Morphology NORM C+C NORMAL (NORM C&C)
[2019-11-24 19:11] LABS: Bacteria 0 SEEN /hpf (None Seen)
[2019-11-24 19:23] LABS: Color, Urine Yellow (Yellow); Glucose, Dipstick Normal (Normal); Ketone-Dipstick 5 mg/dl (Negative); Leukocyte Esterase-Dipstick 100 /ul (Negative); Nitrite-Dipstick Negative (Negative); Occult Blood-Urine Negative /ul (Negative); Protein-Dipstick 30 mg/dl (Negative); Urine Clarity Clear (Clear); Urine Urobilinogen 4 mg/dl (Normal)
[2019-11-24 19:36] LABS: Urine Bilirubin Dipstick 6 mg/dL (Negative)
[2019-11-24 19:37] LABS: Hyaline Cast 10-25 SEEN /lpf (0-5)
[2019-11-24 19:39] LABS: Squamous Epithelial Cells - UA 0-5 SEEN /hpf (5-10)
[2019-11-24 19:40] LABS: Red Blood Cells-Urine 0-5 SEEN /hpf (0-5); Transitional Epithelial - Ur 0-5 SEEN /hpf (0-5); White Blood Cells 0-5 SEEN /hpf (0-5)
[2019-11-24 19:42] LABS: Mucous, Urine 2+ /hpf (<or=2+)
[2019-11-24] MEDS: Hydrocortisone Sod Succinate 100 MG/2 ML Vial IV (20:19)
== END 2019-11-24 20:54 | disposition home or self-care (01) ==
PROVIDERS: Emergency Provider Emergency Medicine; PCP Internal Medicine
DX: K52.9 Noninfective gastroenteritis and colitis, unspecified (principal); I95.9 Hypotension, unspecified; E86.0 Dehydration; F17.200 Nicotine dependence, unspecified, uncomplicated; R06.02 Shortness of breath; Z79.82 Long term (current) use of aspirin; Z79.899 Other long term (current) drug therapy
CPT/HCPCS: 71045; 80053; 81001; 83605; 84484; 85025; 85610; 85730; 87040; 87086; 87088; 87635; 93005; 96361; 96374; 96375; 99283; G2023; J7030; J2405; U0003

== ENCOUNTER → 2020-10-29 09:11 | Outpatient (CLI) | payer MEDICARE, SELFPAY ==
[2020-10-26 16:15] VITALS: BMI 16.3
--- NOTE | 2020-10-29 09:14 | ECHOD_ITS ---
Reason For Study: Arrhythmia Procedure This was a 2D Doppler, Color Flow transthoracic echocardiogram. Exam performed in department. Left Ventricle Normal LV size. Left ventricular systolic function is normal. The estimated ejection fraction is 60 %. Stage 1 diastolic dysfunction. No regional wall motion abnormalities noted. Right Ventricle Normal RV size. Normal systolic function. Atria Normal left atrium. Normal right atrium. Mitral Valve Normal mitral valve. Tricuspid Valve Normal tricuspid valve. Mild (1+) tricuspid valve insufficiency. Pulmonary artery systolic pressure is 26 mmHg. Aortic Valve Normal aortic valve. Trisinus/trileaflet aortic valve. Pulmonic Valve Normal pulmonic valve. Great Vessels Normal aortic root. The pulmonary artery is normal size. Normal inferior vena cava. Pericardium/Pleural No pericardial effusion. MMode/2D Measurements & Calculations LVIDd: 3.9 cm IVSd: 1.1 cm LA dimension: 2.6 cm LVIDs: 2.4 cm LVPWd: 0.88 cm RVDd: 3.3 cm FS: 38.1 % LAV(MOD-bp): 23.7 ml LA A4 area: 11.1 cm2 RA A4 area: 10.0 cm2 LAV(MOD-bp) Indexed: 15.4 ml/m2 LAV(MOD-sp2): 22.8 ml LAV(MOD-sp4): 20.8 ml Time Measurements MV dec time: 0.28 sec Doppler Measurements & Calculations MV E max jaron: 61.5 cm/sec Lat Peak E' Jaron: 6.0 cm/sec Med Peak E' Jaron: 8.1 cm/sec MV A max jaron: 74.7 cm/sec E/E' lat: 10.2 E/E' med: 7.6 MV E/A: 0.82 MV V2 max: 80.0 cm/sec MV P1/2t max jaron: 67.6 cm/sec Ao V2 max: 110.1 cm/sec MV max P.6 mmHg MV P1/2t: 123.1 msec Ao max P.8 mmHg MV V2 mean: 46.3 cm/sec MV dec slope: 160.8 cm/sec2 MV mean P.00 mmHg MVA(P1/2t): 1.8 cm2 MV V2 VTI: 27.3 cm LV V1 max: 101.4 cm/sec PA V2 max: 99.2 cm/sec TR max jaron: 234.4 cm/sec LV V1 max P.1 mmHg TR max P.0 mmHg ECHO/Echo Complete Interpretation Summary Normal LV size. Left ventricular systolic function is normal. The estimated ejection fraction is 60 %. Stage 1 diastolic dysfunction. Pulmonary artery systolic pressure is 26 mmHg. Ordering Physician: Yariel Villar Referring Physician: Nena Velez M.D. Performed By: Andrea Rey RCS
== END ==
PROVIDERS: PCP Internal Medicine; Visit Provider Internal Medicine Cardiovascular Disease
DX: Z01.810 Encounter for preprocedural cardiovascular examination (principal); I49.8 Other specified cardiac arrhythmias
CPT/HCPCS: 93306

== ENCOUNTER → 2021-11-16 | Outpatient (CLI) | payer MEDICARE, SELFPAY ==
[2021-11-16 09:44] LABS: Magnesium 1.9 mg/dL (1.6-2.6)
== END | disposition home or self-care (01) ==
PROVIDERS: PCP Internal Medicine
DX: K58.9 Irritable bowel syndrome, unspecified (principal)
CPT/HCPCS: 36415; 83735